=== PATIENT | male | born 1975 | race Caucasian/White ===

== ENCOUNTER 2018-02-22 14:28 | Emergency (ER) | payer SELFPAY ==
[2018-02-22] MEDS ORDERED: DIPHENHYDRAMINE 50 MG/ML VIAL ONE (14:56)
[2018-02-22] MEDS ORDERED: NA CHLORIDE 0.9% 1,000 ML ONE (14:57)
[2018-02-22] MEDS ORDERED: KETOROLAC 30 MG/ML INJ ONE (14:57)
[2018-02-22] MEDS ORDERED: ONDANSETRON 4 MG/2 ML VIAL ONE (14:57)
--- NOTE | 2018-02-22 15:44 | RAD REPORT ---
EXAM DESCRIPTION: CT - Head Brain Wo Cont - 02/22/2018 3:16 pm CLINICAL HISTORY: Headache COMPARISON: 2017 TECHNIQUE: Computed axial tomography of the head was obtained. IV contrast was not requested. All CT scans are performed using dose optimization technique as appropriate and may include automated exposure control or mA/KV adjustment according to patient size. FINDINGS: An intracranial bleed is not seen . The ventricles are normal in caliber. No extra-axial fluid collection is noted. Fluid within the sinuses/ mastoids is not seen. IMPRESSION: No acute intracranial abnormality is seen. If patient's symptoms persist MRI of the bra in would be recommended.
--- NOTE | 2018-02-22 16:08 | ER ---
Nurse's Notes [facility] Name: Rm Hagen Age: 42 yrs Sex: Male : 1975 Arrival Date: 02/22/2018 Time: 14:29 Bed 6 Private MD: Diagnosis: Migraine without aura, intractable Presentation: 02/22 14:32 Presenting complaint: states: migraine since 0500, hx of migraines, vomiting. iw Transition of care: patient was not received from another setting of care. Onset of symptoms was February 22, 2018. Risk Assessment: Do you want to hurt yourself or someone else? Patient reports no desire to harm self or others. Initial Sepsis Screen: Does the patient meet any 2 criteria? No. Patient's initial sepsis screen is negative. Does the patient have a suspected source of infection? No. Patient's initial sepsis screen is negative. Care prior to arrival: Medication(s) given: Tylenol. 14:32 Method Of Arrival: Ambulatory iw 14:32 Acuity: YADIEL 3 iw Triage Assessment: 14:44 General: Appears in no apparent distress. uncomfortable, Behavior is calm, cooperative, hj appropriate for age. Pain: Complains of pain in left anabaptism and right anabaptism and forehead Pain currently is 10 out of 10 on a pain scale. 14:44 EENT: No signs and/or symptoms were reported regarding the EENT system. Neuro: Level of hj Consciousness is awake, alert, obeys commands, Oriented to person, place, time, situation, Appropriate for age Reports headache. Cardiovascular: Capillary refill < 3 seconds Patient's skin is warm and dry. Respiratory: Airway is patent Respiratory effort is even, unlabored, Respiratory pattern is regular, symmetrical. GI: No signs and/or symptoms were reported involving the gastrointestinal system. : No signs and/or symptoms were reported regarding the genitourinary system. Derm: No signs and/or symptoms reported regarding the dermatologic system. Musculoskeletal: No signs and/or symptoms reported regarding the musculoskeletal system. Historical: - Allergies: 14:33 NKA; iw - Home Meds: 14:33 None [Active]; iw - PMHx: 14:33 Migraines; iw - PSHx: 14:33 None; iw - Immunization history:: Adult Immunizations not up to date. - Social history:: Smoking status: Patient/guardian denies using tobacco. - Ebola Screening: : Patient negative for fever greater than or equal to 101.5 degrees Fahrenheit, and additional compatible Ebola Virus Disease symptoms Patient denies exposure to infectious person Patient denies travel to an Ebola-affected area in the 21 days before illness onset No symptoms or risks identified at this time. Screenin:55 Abuse screen: Denies threats or abuse. Denies injuries from another. Nutritional hj screening: On. Tuberculosis screening: No symptoms or risk factors identified. Fall Risk None identified. Assessment: 14:44 Reassessment: see traiage for assessment;. hj Vital Signs: 14:34 BP 145 / 71; Pulse 99; Resp 22 S; Temp 97.9(O); Pulse Ox 98% on R/A; Weight 90.72 kg; iw Height 5 ft. 11 in. (180.34 cm); Pain 10/10; 14:34 Body Mass Index 27.89 (90.72 kg, 180.34 cm) iw ED Course: 14:29 Patient arrived in ED. rg4 14:33 Triage completed. iw 14:34 Arm band placed on. iw 14:44 Gilbert Mendosa MD is Attending Physician. tw4 14:44 Koffi Rosa, CAIN is Primary Nurse. hj 14:44 Patient has correct armband on for positive identification. Placed in gown. Bed in low hj position. Call light in reach. Side rails up X 1. Adult w/ patient. 14:44 Inserted saline lock: 20 gauge in right antecubital area, using aseptic technique. hj 15:18 CT Head Brain wo Cont In Process Unspecified. EDMS 16:46 No provider procedures requiring assistance completed. IV discontinued, intact, hb bleeding controlled, No redness/swelling at site. Pressure dressing applied. Administered Medications: 14:44 Drug: TORadol 30 mg Route: IVP; Site: right antecubital; hj 14:44 Drug: Benadryl 25 mg Route: IVP; Site: right antecubital; hj 14:44 Drug: Zofran 4 mg Route: IVP; Site: right antecubital; hj 14:44 Drug: NS 0.9% 1000 ml Route: IV; Rate: 1 bolus; Site: right antecubital; hj Outcome: 16:07 Discharge ordered by . tw4 16:46 Discharged to home ambulatory, with family. 16:46 Condition: stable 16:46 Discharge instructions given to patient, Instructed on discharge instructions, follow up and referral plans. medication usage, Demonstrated understanding of instructions, follow-up care, medications, Prescriptions given X 2. 16:48 Patient left the ED. Signatures: Dispatcher [employer] EDAnn Hazel RN RN Koffi Rosa RN RN hj Baxter, Heather, RN RN hb Garcia, Rubi rg4 Gilbert Mendosa MD MD tw4
--- NOTE | 2018-02-22 16:08 | EDPHYS ---
Physician Documentation [facility] Name: Rm Hagen Age: 42 yrs Sex: Male : 1975 Arrival Date: 02/22/2018 Time: 14:29 Bed 6 Private MD: ED Physician Gilbert Mendosa HPI: 02/22 15:10 This 42 yrs old Male presents to ER via Ambulatory with complaints of tw4 Migraine. 15:10 The patient complains of pain to the forehead, right hindu and left hindu. The tw4 patient describes the headache as aching, constant. Onset: The symptoms/episode began/occurred gradually. Associated signs and symptoms: The patient has no apparent associated signs or symptoms. Severity of symptoms: At its worst the pain was incapacitating, just prior to arrival, the "worst in my life", in the emergency department the pain is unchanged, a " 10" out of "10". Headache History: The patient has had previous headaches and this one is different than previous episodes, and this one is more severe than previous episodes. The symptoms are alleviated by nothing. the symptoms are aggravated by lights, movement, noise, stress. The patient has not experienced similar symptoms in the past. Historical: - Allergies: 14:33 NKA; iw - Home Meds: 14:33 None [Active]; iw - PMHx: 14:33 Migraines; iw - PSHx: 14:33 None; iw - Immunization history:: Adult Immunizations not up to date. - Social history:: Smoking status: Patient/guardian denies using tobacco. - Ebola Screening: : Patient negative for fever greater than or equal to 101.5 degrees Fahrenheit, and additional compatible Ebola Virus Disease symptoms Patient denies exposure to infectious person Patient denies travel to an Ebola-affected area in the 21 days before illness onset No symptoms or risks identified at this time. ROS: 15:10 Constitutional: Negative for fever, chills, and weight loss, Eyes: Negative for injury, tw4 pain, redness, and discharge, Neck: Negative for injury, pain, and swelling, Cardiovascular: Negative for chest pain, palpitations, and edema, Respiratory: Negative for shortness of breath, cough, wheezing, and pleuritic chest pain, Abdomen/GI: Negative for abdominal pain, nausea, vomiting, diarrhea, and constipation, Back: Negative for injury and pain, MS/Extremity: Negative for injury and deformity, Skin: Negative for injury, rash, and discoloration. 15:10 Neuro: Positive for headache, Negative for altered mental status, dizziness, gait disturbance, loss of consciousness, numbness, seizure activity, speech changes, syncope, near syncope, tinnitus, tremor, visual changes. Exam: 15:10 Constitutional: This is a well developed, well nourished patient who is awake, alert, tw4 and in no acute distress. Head/Face: Normocephalic, atraumatic. Chest/axilla: Normal chest wall appearance and motion. Nontender with no deformity. No lesions are appreciated. Cardiovascular: Regular rate and rhythm with a normal S1 and S2. No gallops, murmurs, or rubs. Normal PMI, no JVD. No pulse deficits. Respiratory: Lungs have equal breath sounds bilaterally, clear to auscultation and percussion. No rales, rhonchi or wheezes noted. No increased work of breathing, no retractions or nasal flaring. Abdomen/GI: Soft, non-tender, with normal bowel sounds. No distension or tympany. No guarding or rebound. No evidence of tenderness throughout. Back: No spinal tenderness. No costovertebral tenderness. Full range of motion. MS/ Extremity: Pulses equal, no cyanosis. Neurovascular intact. Full, normal range of motion. Neuro: Awake and alert, GCS 15, oriented to person, place, time, and situation. Cranial nerves II-XII grossly intact. Motor strength 5/5 in all extremities. Sensory grossly intact. Cerebellar exam normal. Normal gait. Vital Signs: 14:34 BP 145 / 71; Pulse 99; Resp 22 S; Temp 97.9(O); Pulse Ox 98% on R/A; Weight 90.72 kg; iw Height 5 ft. 11 in. (180.34 cm); Pain 10/10; 14:34 Body Mass Index 27.89 (90.72 kg, 180.34 cm) iw MDM: 14:44 Patient medically screened. tw4 15:10 Differential diagnosis: hypertensive headache, intracerebral hemorrhage, migraine, tw4 subarachnoid bleed, subdural hematoma, uremia. Data reviewed: vital signs, nurses notes. 16:06 Counseling: I had a detailed discussion with the patient and/or guardian regarding: the tw4 historical points, exam findings, and any diagnostic results supporting the discharge/admit diagnosis, radiology results. Medication response: Response to treatment: the patient's symptoms have markedly improved after treatment, and as a result, I will discharge patient. Special discussion: I discussed with the patient/guardian in detail that at this point there is no indication for admission to the hospital. It is understood, however, that if the symptoms persist or worsen the patient needs to return immediately for re-evaluation. 02/22 14:50 Order name: CT Head Brain wo Cont; Complete Time: 15:57 tw4 Administered Medications: 14:44 Drug: TORadol 30 mg Route: IVP; Site: right antecubital; hj 14:44 Drug: Benadryl 25 mg Route: IVP; Site: right antecubital; hj 14:44 Drug: Zofran 4 mg Route: IVP; Site: right antecubital; hj 14:44 Drug: NS 0.9% 1000 ml Route: IV; Rate: 1 bolus; Site: right antecubital; Disposition: 02/22/18 16:07 Discharged to Home. Impression: Migraine without aura, intractable. - Condition is Stable. - Discharge Instructions: Recurrent Migraine Headache, Migraine Headache, [id number]. - Prescriptions for Fiorinal 50- 325-40 mg Oral Capsule - take 1 capsule by ORAL route every 4 hours As needed - not to exceed 6 capsules per day; 20 capsule. Imitrex 25 mg Oral Tablet - take 1 tablet by ORAL route one time - x 1 dose with fluids as early as possible after the onset of a migraine attack; if headache returns, the dose may be repeated after 2 hours, not to exceed a total daily dose of 8 tablets;. - Medication Reconciliation Form, Thank You Letter, Antibiotic Education, Prescription Opioid Use form. - Follow up: Private Physician; When: Upon discharge from the Emergency Department; Reason: If symptoms return, Recheck today's complaints, Continuance of care. - Problem is new. - Symptoms have improved. Signatures: Dispatcher [employer] EDAnn Hazel RN RN iw Joaquin, Henry, RN RN hj Baxter, Heather, RN RN hb Wadley, Terrence, MD MD tw4 Corrections: (The following items were deleted from the chart) 15:14 15:10 Constitutional: Negative for fever, chills, and weight loss, Eyes: Negative for tw4 injury, pain, redness, and discharge, Cardiovascular: Negative for chest pain, palpitations, and edema, Respiratory: Negative for shortness of breath, cough, wheezing, and pleuritic chest pain, Abdomen/GI: Negative for abdominal pain, nausea, vomiting, diarrhea, and constipation, MS/Extremity: Negative for injury and deformity, Skin: Negative for injury, rash, and discoloration, Neuro: Negative for headache, weakness, numbness, tingling, and seizure, tw4 16:48 16:07 02/22/2018 16:07 Discharged to Home. Impression: Migraine without aura, hb intractable. Condition is Stable. Forms are Medication Reconciliation Form, Thank You Letter, Antibiotic Education, Prescription Opioid Use. Follow up: Private Physician; When: Upon discharge from the Emergency Department; Reason: If symptoms return, Recheck today's complaints, Continuance of care. Problem is new. Symptoms have improved. tw4
== END 2018-02-22 16:48 | disposition home or self-care (01) ==
LOC: ER 14:28
DX: G43.019 Migraine without aura, intractable, without status migrainosus (principal)
CPT/HCPCS: 70450; 96374; 96375; 99284; J2405; J7030

== ENCOUNTER 2018-04-06 01:09 | Emergency (ER) | payer SELFPAY ==
[2018-04-06] MEDS ORDERED: PANTOPRAZOLE 40 MG INJ ONE (02:00)
[2018-04-06] MEDS ORDERED: MORPHINE 4 MG/ML SYR ONE ×2 (02:00→07:03)
[2018-04-06] MEDS ORDERED: NA CHLORIDE 0.9% 1,000 ML ONE (02:00)
[2018-04-06] MEDS ORDERED: ONDANSETRON 4 MG/2 ML VIAL ONE (02:00)
[2018-04-06 02:13] LABS: Absolute Lymphocytes (CBC) 1.7 K/uL (0.7-4.9); Absolute Monocytes 0.7 K/uL (0.1-1.3); Absolute Neutrophil 3.4 K/uL (1.8-8.0); Basophils % 0.8 % (0-1.3); Eosinophils % 2.2 % (0-4.4); Hematocrit 43.2 % (39.6-49.0); Lymphocytes % 28.1 % (15.3-44.8); MPV 9.3 fL (7.6-11.3); Monocytes % 11.5 % (3.3-12.3); RBC Red Blood Cell Count 5.08 M/uL (4.33-5.43)
[2018-04-06 02:14] LABS: Protime INR 1.02
[2018-04-06 02:32] LABS: Albumin 4.4 g/dL (3.4-5.0); Alkaline Phosphatase 234 U/L (45-117); BUN Blood Urea Nitrogen 18 mg/dL (7-18); Bicarbonate 25 mmol/L (21-32); Bilirubin Total 4.3 mg/dL (0.2-1.0); Glucose Level 130 mg/dL (74-106); Lipase 307 U/L (73-393); Magnesium 1.9 mg/dL (1.8-2.4); NT PRO-BNP 44 pg/mL (<125); Potassium 3.2 mmol/L (3.5-5.1); Protein, Total 8.2 g/dL (6.4-8.2); Sodium Level 142 mmol/L (136-145); Troponin (Emerg Dept Use Only) < 0.02 ng/mL (0.0-0.045)
[2018-04-06 02:33] LABS: ALT/SGPT 632 U/L (12-78); AST/SGOT 371 U/L (15-37)
[2018-04-06] MEDS ORDERED: PIPER/TAZO/NS 3.375gm 3.375 GM/100 ML BAG ONE (02:57)
--- NOTE | 2018-04-06 04:06 | ER ---
Nurse's Notes [facility] Name: Rm Hagen Age: 42 yrs Sex: Male : 1975 Arrival Date: 04/06/2018 Time: 01:10 Bed 7 Private MD: Diagnosis: Abdominal tenderness;Cholelithiasis;Cholecystitis Presentation: 04/06 01:24 Presenting complaint: states: "He isn't sure if it is his gastritis or something jd3 else, but he has been nauseous vomiting and diarrhea for about a week with extreme stomach pain.". Transition of care: patient was not received from another setting of care. Onset of symptoms was March 31, 2018. Risk Assessment: Do you want to hurt yourself or someone else? Patient reports no desire to harm self or others. Initial Sepsis Screen: Does the patient meet any 2 criteria? No. Patient's initial sepsis screen is negative. Does the patient have a suspected source of infection? No. Patient's initial sepsis screen is negative. Care prior to arrival: None. 01:24 Method Of Arrival: Ambulatory jd3 01:24 Acuity: YADIEL 3 jd3 Historical: - Allergies: 01:27 NKA; jd3 - Home Meds: 01:27 None [Active]; jd3 - PMHx: 01:27 Migraines; gastritis; jd3 - PSHx: 01:27 None; jd3 - Immunization history:: Adult Immunizations up to date. - Social history:: Smoking status: Patient/guardian denies using tobacco. - Ebola Screening: : Patient negative for fever greater than or equal to 101.5 degrees Fahrenheit, and additional compatible Ebola Virus Disease symptoms. - Family history:: not pertinent. Screenin:27 Abuse screen: Denies threats or abuse. Nutritional screening: No deficits noted. jd3 Tuberculosis screening: No symptoms or risk factors identified. Fall Risk Ambulatory Aid- None/Bed Rest/Nurse Assist (0 pts). Gait- Weak (10 pts.). Mental Status- Oriented to own ability (0 pts). Total [place] Fall Scale indicates No Risk (0-24 pts). Assessment: 01:30 General: Appears in no apparent distress. uncomfortable, Behavior is cooperative, aa1 appropriate for age, restless. Pain: Complains of pain in left upper quadrant and right upper quadrant and epigastric area. Neuro: Level of Consciousness is awake, alert, obeys commands, Oriented to person, place, time, situation, Gait is steady, Speech is normal. Cardiovascular: Heart tones S1 S2 present. Respiratory: Airway is patent Respiratory effort is even, unlabored, Respiratory pattern is regular, symmetrical. GI: Abdomen is non-distended, Bowel sounds present X 4 quads. Abd is soft X 4 quads Reports upper abdominal pain, nausea, vomiting. : No signs and/or symptoms were reported regarding the genitourinary system. EENT: No signs and/or symptoms were reported regarding the EENT system. Derm: Skin is intact, is healthy with good turgor, Skin is pink, warm \\T\\ dry. Musculoskeletal: Circulation, motion, and sensation intact. Capillary refill < 3 seconds. 02:00 Reassessment: CT notified of patient completing oral contrast at this time. lp1 03:25 Reassessment: Patient appears in no apparent distress at this time. Patient and/or aa1 family updated on plan of care and expected duration. Pain level reassessed. Patient is alert, oriented x 3, equal unlabored respirations, skin warm/dry/pink. Awaiting CT results. 04:30 Reassessment: Patient appears in no apparent distress at this time. Patient is alert, rr5 oriented x 3, equal unlabored respirations, skin warm/dry/pink. potassium level is 3.2. NS + 20KCL \\T\\ 125ml/hr IV started. 05:50 Reassessment: Patient appears in no apparent distress at this time. Patient is alert, rr5 oriented x 3, equal unlabored respirations, skin warm/dry/pink. agreed for the transfer to [facility]. [facility] will come after 0730 H today. Patient states symptoms have improved. 06:40 Reassessment: Patient appears in no apparent distress at this time. ED provider rr5 informed for the heart rate. no complaints made denies any chest pain. 06:50 Reassessment: Patient appears in no apparent distress at this time. complaining of rr5 abdominal pain pain score of 7/10. 06:59 Reassessment: Patient appears in no apparent distress at this time. Patient is alert, rr5 oriented x 3, equal unlabored respirations, skin warm/dry/pink. Patient denies pain at this time. Patient states feeling better. Patient states symptoms have improved. 07:00 Reassessment: RECD REPORT FROM JUAN JOSE BARLOW. 42YO WM P/W ABD PAIN. XFER TO [facility] FOR bp CHOLELITHIASIS AND CHOLECYSTITIS IN PROCESS. TRANSPORT PENDING. 07:18 Reassessment: Pt sitting up in bed. Pt reports pain has improved, pt rates pain a 5 out aa5 of 10 on a pain scale. A\\T\\Ox4, equal and unlabored respirations, skin is pink/warm/dry. Pt notified of wait time for EMS for transfer, pt verbalizes understanding. . 07:57 Reassessment: [facility] AT B/S, PT [facility]. bp Vital Signs: 01:27 BP 136 / 88; Pulse 69; Resp 22 S; Temp 97.7(O); Pulse Ox 99% on R/A; Weight 99.79 kg jd3 (R); Height 5 ft. 11 in. (180.34 cm) (R); Pain 10/10; 02:30 BP 122 / 78; Pulse 59; Resp 20; Pulse Ox 99% on R/A; aa1 03:30 BP 103 / 63; Pulse 60; Resp 16; Pulse Ox 98% ; rr5 04:30 BP 104 / 60; Pulse 59; Resp 16; Pulse Ox 97% ; rr5 05:30 BP 122 / 76; Pulse 56; Resp 16; Pulse Ox 99% ; rr5 06:50 BP 128 / 71; Pulse 51; Resp 17; Pulse Ox 99% ; rr5 07:00 BP 122 / 75; Pulse 44; Resp 14; Temp 97.1; Pulse Ox 100% ; bp 01:27 Body Mass Index 30.68 (99.79 kg, 180.34 cm) jd3 ED Course: 01:10 Patient arrived in ED. am2 01:19 Calista Jay, CAIN is Primary Nurse. aa1 01:26 Triage completed. jd3 01:27 Arm band placed on. jd3 01:28 Patient has correct armband on for positive identification. Bed in low position. Call jd3 light in reach. Side rails up X 1. Adult w/ patient. 01:33 Aric Nicole MD is Attending Physician. piter 01:55 Inserted saline lock: 20 gauge in right forearm, using aseptic technique. Blood lp1 collected. 02:05 X-ray completed. Portable x-ray completed in exam room. Patient tolerated procedure kw well. 02:05 XRAY Chest (1 view) In Process Unspecified. EDMS 02:[address] via wheelchair. kw1 03:06 CT Abd/Pelvis - W/Contrast In Process Unspecified. EDMS 03:06 CT completed. Patient tolerated procedure well. Patient moved back from CT. kw1 04:00 classroom monitor on. Pulse ox on. NIBP on. rr5 04:23 Raymundo Roe, CAIN is Primary Nurse. rr5 06:40 No provider procedures requiring assistance completed. Patient transferred, IV remains rr5 in place. intact, bleeding controlled, No redness/swelling at site. Administered Medications: 01:55 Drug: NS 0.9% 1000 ml Route: IV; Rate: 1 bolus; Site: right forearm; ed1 04:00 Follow up: Response: No adverse reaction; IV Status: Completed infusion; IV Intake: rr5 1000ml 01:56 Drug: ProTONIX 40 mg Route: IVP; Site: right forearm; ed1 07:09 Follow up: Response: No adverse reaction rr5 01:56 Drug: morphine 4 mg Route: IVP; Site: right forearm; ed1 07:09 Follow up: Response: No adverse reaction rr5 01:57 Drug: Zofran 4 mg Route: IVP; Site: right forearm; ed1 07:09 Follow up: Response: No adverse reaction rr5 03:10 Drug: Zosyn 3.375 grams Route: IVPB; Infused Over: 60 mins; Site: right forearm; aa1 04:06 Follow up: Response: No adverse reaction; IV Status: Completed infusion ed1 04:29 Drug: NS 0.9% with KCl 20 mEq/L 1000 ml Route: IV; Rate: 125 ml/hr; Site: right forearm;rr5 07:10 Follow up: IV Status: Infusion continued rr5 07:56 Follow up: IV Status: Infusion continued upon transfer bp 06:53 Drug: morphine 4 mg Route: IVP; Site: right forearm; rr5 07:56 Follow up: Response: Pain is decreased bp Intake: 04:00 IV: 1000ml; Total: 1000ml. rr5 Outcome: 04:06 ER care complete, transfer ordered by [facility] 05:30 Transferred by ground EMS [place] [facility]. rr5 Note: handover to [facility] staff 05:30 Condition: stable 05:30 Instructed on the need for transfer. 07:58 Patient left the ED. bp Signatures: Dispatcher [employer] EDCalista Garcia RN RN aa1 Aric Nicole MD MD cha Calderon, Audri, RN RN aa5 Catherine Johns RN RN ed1 Gala Mojica Laura, RN RN lp1 Omaira Gordillo am2 Severino Bryson RN RN jd3 Ruddy Jett RN RN bp Hazel Hendrix kw1 Raymundo Roe RN RN rr5 Corrections: (The following items were deleted from the chart) 07:11 07:05 Reassessment: Patient appears in no apparent distress at this time. Patient is rr5 alert, oriented x 3, equal unlabored respirations, skin warm/dry/pink. Patient denies pain at this time. Patient states feeling better. Patient states symptoms have improved. rr5 07:16 07:00 BP 122 / 75; Pulse 44bpm; Resp 14bpm; Pulse Ox 100%; bp bp
--- NOTE | 2018-04-06 04:07 | EDPHYS ---
Physician Documentation [facility] Name: Rm Hagen Age: 42 yrs Sex: Male : 1975 Arrival Date: 04/06/2018 Time: 01:10 Bed 7 Private MD: ED Physician Aric Nicole HPI: 04/06 01:46 This 42 yrs old Male presents to ER via Ambulatory with complaints of piter Abdominal Pain, Vomiting. 01:46 The patient presents to the emergency department with nausea, vomiting, abdominal pain, piter of the epigastric area, right upper quadrant and left upper quadrant. Onset: The symptoms/episode began/occurred 2 day(s) ago. Possible causes: unknown. The symptoms are aggravated by nothing. The symptoms are alleviated by food . Associated signs and symptoms: The patient has no apparent associated signs or symptoms. Severity of symptoms: At their worst the symptoms were moderate in the emergency department the symptoms are unchanged. The patient has not experienced similar symptoms in the past. Historical: - Allergies: 01:27 NKA; jd3 - Home Meds: : None [Active]; jd3 - PMHx: :27 Migraines; gastritis; jd3 - PSHx: :27 None; jd3 - Immunization history:: Adult Immunizations up to date. - Social history:: Smoking status: Patient/guardian denies using tobacco. - Ebola Screening: : Patient negative for fever greater than or equal to 101.5 degrees Fahrenheit, and additional compatible Ebola Virus Disease symptoms. - Family history:: not pertinent. ROS: 01:46 Constitutional: Negative for fever, chills, and weight loss, Eyes: Negative for injury, piter pain, redness, and discharge, ENT: Negative for injury, pain, and discharge, Neck: Negative for injury, pain, and swelling, Cardiovascular: Negative for chest pain, palpitations, and edema, Respiratory: Negative for shortness of breath, cough, wheezing, and pleuritic chest pain, Back: Negative for injury and pain, : Negative for injury, bleeding, discharge, and swelling, MS/Extremity: Negative for injury and deformity, Skin: Negative for injury, rash, and discoloration, Neuro: Negative for headache, weakness, numbness, tingling, and seizure, Psych: Negative for depression, anxiety, suicide ideation, homicidal ideation, and hallucinations, Allergy/Immunology: Negative for hives, rash, and allergies, Endocrine: Negative for neck swelling, polydipsia, polyuria, polyphagia, and marked weight changes, Hematologic/Lymphatic: Negative for swollen nodes, abnormal bleeding, and unusual bruising. 01:46 Abdomen/GI: Positive for abdominal pain, nausea and vomiting, abdominal cramps, of the epigastric area, right upper quadrant and left upper quadrant. Exam: 01:46 Constitutional: This is a well developed, well nourished patient who is awake, alert, piter and in no acute distress. Head/Face: Normocephalic, atraumatic. Eyes: Pupils equal round and reactive to light, extra-ocular motions intact. Lids and lashes normal. Conjunctiva and sclera are non-icteric and not injected. Cornea within normal limits. Periorbital areas with no swelling, redness, or edema. ENT: Nares patent. No nasal discharge, no septal abnormalities noted. Tympanic membranes are normal and external auditory canals are clear. Oropharynx with no redness, swelling, or masses, exudates, or evidence of obstruction, uvula midline. Mucous membranes moist. Neck: Trachea midline, no thyromegaly or masses palpated, and no cervical lymphadenopathy. Supple, full range of motion without nuchal rigidity, or vertebral point tenderness. No Meningismus. Chest/axilla: Normal chest wall appearance and motion. Nontender with no deformity. No lesions are appreciated. Cardiovascular: Regular rate and rhythm with a normal S1 and S2. No gallops, murmurs, or rubs. Normal PMI, no JVD. No pulse deficits. Respiratory: Lungs have equal breath sounds bilaterally, clear to auscultation and percussion. No rales, rhonchi or wheezes noted. No increased work of breathing, no retractions or nasal flaring. Back: No spinal tenderness. No costovertebral tenderness. Full range of motion. Male : Normal genitalia with no discharge or lesions. Skin: Warm, dry with normal turgor. Normal color with no rashes, no lesions, and no evidence of cellulitis. 01:46 Abdomen/GI: Inspection: abdomen appears normal, Bowel sounds: normal, Palpation: moderate abdominal tenderness, in the epigastric area, right upper quadrant and left upper quadrant, Liver: no appreciated palpable abnormalities, Hernia: not appreciated. Vital Signs: 01:27 BP 136 / 88; Pulse 69; Resp 22 S; Temp 97.7(O); Pulse Ox 99% on R/A; Weight 99.79 kg jd3 (R); Height 5 ft. 11 in. (180.34 cm) (R); Pain 10/10; 02:30 BP 122 / 78; Pulse 59; Resp 20; Pulse Ox 99% on R/A; aa1 03:30 BP 103 / 63; Pulse 60; Resp 16; Pulse Ox 98% ; rr5 04:30 BP 104 / 60; Pulse 59; Resp 16; Pulse Ox 97% ; rr5 05:30 BP 122 / 76; Pulse 56; Resp 16; Pulse Ox 99% ; rr5 06:50 BP 128 / 71; Pulse 51; Resp 17; Pulse Ox 99% ; rr5 07:00 BP 122 / 75; Pulse 44; Resp 14; Temp 97.1; Pulse Ox 100% ; bp 01:27 Body Mass Index 30.68 (99.79 kg, 180.34 cm) jd3 MDM: 01:33 Patient medically screened. [facility] 01:50 Data reviewed: vital signs, nurses notes, lab test result(s), EKG, radiologic studies, [facility] CT scan, plain films. 04/06 01:45 Order name: Basic Metabolic Panel; Complete Time: 04:01 [facility] 04/06 01:45 Order name: CBC with Diff; Complete Time: 02:33 piter 04/06 01:45 Order name: LFT's; Complete Time: 04:01 [facility] 04/06 01:45 Order name: Magnesium; Complete Time: 04:01 [facility] 04/06 01:45 Order name: NT PRO-BNP; Complete Time: 04:01 [facility] 04/06 01:45 Order name: PT-INR; Complete Time: 02:33 [facility] 04/06 01:45 Order name: Troponin (emerg Dept Use Only); Complete Time: 04:01 [facility] 04/06 01:45 Order name: XRAY Chest (1 view) [facility] 04/06 01:45 Order name: Lipase; Complete Time: 04:01 piter 04/06 01:45 Order name: CT Abd/Pelvis - W/Contrast [facility] 04/06 03:18 Order name: Acetaminophen Level; Complete Time: 04:01 EDMS 04/06 01:45 Order name: EKG; Complete Time: 01:46 piter 04/06 01:45 Order name: Cardiac monitoring; Complete Time: 02:05 piter 04/06 01:45 Order name: EKG - Nurse/Tech; Complete Time: 02:04 piter 04/06 01:45 Order name: IV Saline Lock; Complete Time: 01:55 piter 04/06 01:45 Order name: Labs collected and sent; Complete Time: 01:55 piter 04/06 01:45 Order name: O2 Per Protocol; Complete Time: 02:04 piter 04/06 01:45 Order name: O2 Sat Monitoring; Complete Time: 02:04 [facility] Administered Medications: 01:55 Drug: NS 0.9% 1000 ml Route: IV; Rate: 1 bolus; Site: right forearm; ed1 04:00 Follow up: Response: No adverse reaction; IV Status: Completed infusion; IV Intake: rr5 1000ml 01:56 Drug: ProTONIX 40 mg Route: IVP; Site: right forearm; ed1 07:09 Follow up: Response: No adverse reaction rr5 01:56 Drug: morphine 4 mg Route: IVP; Site: right forearm; ed1 07:09 Follow up: Response: No adverse reaction rr5 01:57 Drug: Zofran 4 mg Route: IVP; Site: right forearm; ed1 07:09 Follow up: Response: No adverse reaction rr5 03:10 Drug: Zosyn 3.375 grams Route: IVPB; Infused Over: 60 mins; Site: right forearm; aa1 04:06 Follow up: Response: No adverse reaction; IV Status: Completed infusion ed1 04:29 Drug: NS 0.9% with KCl 20 mEq/L 1000 ml Route: IV; Rate: 125 ml/hr; Site: right forearm;rr5 07:10 Follow up: IV Status: Infusion continued rr5 07:56 Follow up: IV Status: Infusion continued upon transfer bp 06:53 Drug: morphine 4 mg Route: IVP; Site: right forearm; rr5 07:56 Follow up: Response: Pain is decreased bp Disposition: 04/06/18 04:[address] [facility]. Diagnosis are Abdominal tenderness, Cholelithiasis, Cholecystitis. - Reason for transfer: Higher level of care. - Accepting physician is to [facility]. - Condition is Stable. - Problem is new. - Symptoms have improved. Signatures: Dispatcher [employer] EDUT Calista Jay RN RN aa1 Aric Nicole MD MD cha Riggs, Erika, RN RN ed1 Kita Ramos RN RN lp1 Severino Bryson, RN RN jd3 Ruddy Jett, RN RN bp Raymundo Roe, RN RN rr5 Corrections: (The following items were deleted from the chart) 03:17 02:37 ACETAMINOPHEN+C.LAB.BRZ ordered. EDUT EDMS 07:58 04:06 04/06/2018 04:[address] [facility]. Diagnosis is bp Abdominal tenderness; Cholelithiasis; Cholecystitis. Reason for transfer: Higher level of care. Accepting physician is to [facility]. Condition is Stable. Problem is new. Symptoms have improved. piter
[2018-04-06] MEDS ORDERED: NS KCL 20MEQ 1,000 ML IV ONE (04:36)
--- NOTE | 2018-04-06 08:31 | RAD REPORT ---
EXAM DESCRIPTION: RAD - Chest Single View - 04/06/2018 2:05 am CLINICAL HISTORY: ABDOMINAL DISTENTION Chest pain. COMPARISON: Chest Single View dated 03/01/2016; CHEST SINGLE VIEW dated 04/11/2010; CHEST PA AND LAT 2 VIEW dated 08/28/2001 FINDINGS: Portable technique limits examination quality. The lungs are grossly clear. The heart is normal in size. No displaced fractures. IMPRESSION: No acute intrathoracic process suspected.
--- NOTE | 2018-04-06 10:31 | EKG ---
Test Date: 2018-03-06 Test Time: 01:56:19 [employer] Combiner: RISHABH MEASUREMENT RESULTS: Intervals: Rate: 60 VT: 152 QRSD: 98 QT: 404 QTc: 404 Morgan: P: 47 VT: 152 QRS: -6 T: 14 INTERPRETIVE STATEMENTS: Normal sinus rhythm Septal infarct, age undetermined Abnormal ECG Compared to ECG 03/01/2016 08:47:22 Sinus bradycardia no longer present Myocardial infarct finding still present Electronically Signed On 04-06-18 10:30:15 [employer] by Narinder Whitten
--- NOTE | 2018-04-06 20:20 | RAD REPORT ---
EXAM DESCRIPTION: Abdomen and Pelvis With Intravenous Contrast. CLINICAL HISTORY: The patient is 42 years old and is Male; ABD PAIN COMPARISON: None. TECHNIQUE: Axial computed tomography images of the abdomen and pelvis without intravenous contrast. Sagittal and coronal reformatted images were created and reviewed. This CT exam was performed using o ne or more of the following dose reduction techniques: Automated exposure control, adjustment of the mA and/or kV according to patient size, and/or use of iterative reconstruction technique. FINDINGS: LUNG BASES: Unremarkable. No mass. No consolidation. ABDOMEN: LIVER: Intra and extrahepatic biliary ductal dilation. GALLBLADDER AND BILE DUCTS: Gallbladder wall thickening and mild pericholecystic fluid. No definitive radiopaque gallstones. PANCREAS: Unremarkable. No mass. No ductal dilation. SPLEEN: Unremarkable. No splenomegaly. ADRENALS: Unremarkable. No mass. KIDNEYS AND URETERS: Unremarkable. No solid mass. No hydronephrosis. STOMACH AND BOWEL: Enteric contrast is seen within the stomach and small bowel. No obstruction. No mucosal thickening. PELVIS: APPENDIX: No findings to suggest acute appendicitis. BLADDER: Unremarkable. No mass. REPRODUCTIVE: Unremarkable as visualized. ABDOMEN and PELVIS: INTRAPERITONEAL SPACE: Unremarkable. No free air. No significant fluid collection. BONE/JOINTS: No acute fracture. No dislocation. SOFT TISSUES: Small fat-containing inguinal hernia. VASCULATURE: Unremarkable. No abdominal aortic aneurysm. LYMPH NODES: Unremarkable. No enlarged lymph nodes. IMPRESSION: Gallbladder wall thickening, pericholecystic fluid and associated intra-/extrahepatic du ctal dilatation. Further evaluation with right upper quadrant ultrasound is recommended. MRCP may be of diagnostic use. Electronically signed by: Crispin Bond DO 04/06/2018 3:35 AM HOTEL OPERATIONS MANAGER Due to temporary technical issues with the [employer] reporting system, reports are being signed by the in house radiologist as a courtesy to ensure prompt reporting. The interpreting radiologist is nate marcus responsible for the content of the report. ADDENDUM: Findings were discussed by: Dr. Bond via telephone with Aric Nicole on 04/06/2018 3:50 AM HOTEL OPERATIONS MANAGER Electronically signed by: Crispin Bond DO 04/06/2018 3:51 AM HOTEL OPERATIONS MANAGER Due to temporary technical issues with the [employer] reporting system, reports are being signed by the in house radiologist as a courtesy to ensure prompt reporting. The interpreting radiologist is nate marcus responsible for the content of the report.
== END 2018-04-06 07:58 | disposition short-term general hospital (02) ==
LOC: ER 01:09
DX: K80.10 Calculus of gallbladder with chronic cholecystitis without obstruction (principal)
CPT/HCPCS: 36415; 71045; 74177; 80048; 80076; 80329; 83690; 83735; 83880; 84484; 85025; 85610; 93005; 96361; 96365; 96375; 99285; C9113; J2405; J2543; J7030; Q9967

== ENCOUNTER 2018-04-17 04:31 | Emergency (ER) | payer SELFPAY ==
--- OUTSIDE RECORDS SUMMARY | 2018-04-17 04:33 | XMS REPORT | Clinical Summary ---
:1975 Author Organization [facility] Address [address] [place] [address] Care Team Providers Name Role Phone Unavailable Primary Care Provider Unavailable Allergies No Known Allergies Medications Medication Sig Dispensed Refills Start Date End Date Status [id number] Take 1 capsule 0 02/26/2018 Active ffeine (FIORINAL) by mouth every 50-325-40 mg per 4 (four) hours capsule as needed. SUMAtriptan (IMITREX) TAKE 1 TABLET 0 02/26/2018 Active 25 MG tablet BY MOUTH ONE TIME WITH FLUIDS EARLY POSSIBLE AFTER ONSET OF MIGRAINE. gabapentin Take 1 capsule 30 capsule 0 04/10/2018 04/20/2018 Active (NEURONTIN) 300 MG (300 mg total) capsule by mouth 3 (three) times daily for 10 days. levoFLOXacin Take 1 tablet 3 tablet 0 04/11/2018 04/14/2018 (LEVAQUIN) 500 MG (500 mg total) tablet by mouth daily for 3 days. metroNIDAZOLE Take 1 tablet 9 tablet 0 04/10/2018 04/13/2018 (FLAGYL) 500 MG (500 mg total) tablet by mouth every 8 (eight) hours for 3 days. Active Problems Problem Noted Date Elevated liver function tests 04/06/2018 Encounters Date Type Specialty Care Team Description 04/08/2018 Anesthesia Event Logan Moore MD 04/08/2018 Surgery Jaylene Daugherty,NICOLE Blevins MD TECTOMY 04/06/2018 Anesthesia Event Gastroenterology Jayna Gonzalez CRNA 04/06/2018 Surgery Gastroenterology Jefferson Hillman ERCP,PAPILLOTOMY MD [place] 04/06/2018 [facility] Internal [place], Elevated liver function tests; - Encounter Medicine Cherie Chan MD Acute cholecystitis; 04/10/2018 [place], Calculus of bile duct without cholecystitis with obstruction; [place] Symptomatic cholelithiasis MD Katelin Vasques, Akila Beebe MD 04/06/2018 Travel after 04/16/2017 Social History Tobacco Use Types Packs/Day Years Used Date Former Smoker Pipe 2 Quit: 04/06/2006 Smokeless Tobacco: Former User Chew Quit: 04/06/2006 Alcohol Use Drinks/Week oz/Week Comments No Alcohol Habits Answer Date Recorded How often do you have a drink containing alcohol? Never 04/06/2018 How many drinks containing alcohol do you have on a typical Not asked day when you are drinking? How often do you have six or more drinks on one occasion? Not asked Sex Assigned at Date Recorded Not on file Job Start Date Occupation Industry Not on file Not on file Not on file Travel History Travel Start Travel End No recent travel history available. Last Filed Vital Signs Vital Sign Reading Time Taken Blood Pressure 102/50 04/10/2018 7:19 AM MOLD CLEANER Pulse 59 04/10/2018 7:19 AM [employer]OLD CLEANER Temperature 36.2 C (97.1 F) 04/10/2018 7:19 AM MOLD CLEANER Respiratory Rate 18 04/10/2018 7:19 AM MOLD CLEANER Oxygen Saturation 99% 04/10/2018 7:19 AM MOLD CLEANER Inhaled Oxygen Concentration 2% 04/08/2018 2:15 PM MOLD CLEANER Weight 96.6 kg (213 lb) 04/10/2018 9:27 AM MOLD CLEANER Height 180.3 cm (5' 11") 04/10/2018 9:27 AM MOLD CLEANER Body Mass Index 29.71 04/10/2018 9:27 AM MOLD CLEANER Plan of Treatment Not on file Procedures Procedure Name Priority Date/Time Associated Diagnosis Comments CBC W/PLT COUNT & Routine 04/10/2018 Results for AUTO DIFFERENTIAL 4:25 AM MOLD CLEANER this procedure are in the results section. HEPATIC FUNCTION Routine 04/10/2018 Results for PANEL 4:25 AM MOLD CLEANER this procedure are in the results section. BASIC METABOLIC Routine 04/10/2018 Results for PANEL (7) 4:25 AM MOLD CLEANER this procedure are in the results section. CBC W/PLT COUNT & Routine 04/10/2018 Results for AUTO DIFFERENTIAL 4:25 AM MOLD CLEANER this procedure are in the results section. CBC W/PLT COUNT & Routine 04/09/2018 Results for AUTO DIFFERENTIAL 5:51 AM MOLD CLEANER this procedure are in the results section. HEPATIC FUNCTION Routine 04/09/2018 Results for PANEL 5:51 AM MOLD CLEANER this procedure are in the results section. CBC W/PLT COUNT & Routine 04/09/2018 Results for AUTO DIFFERENTIAL 5:51 AM MOLD CLEANER this procedure are in the results section. BASIC METABOLIC Routine 04/09/2018 Results for PANEL (7) 5:51 AM MOLD CLEANER this procedure are in the results section. PHOSPHORUS Routine 04/09/2018 Results for 4:12 AM MOLD CLEANER this procedure are in the results section. MAGNESIUM Routine 04/09/2018 Results for 4:12 AM MOLD CLEANER this procedure are in the results section. TRANSFUSION SERVICE 04/08/2018 REPORT - SCAN 6:01 PM MOLD CLEANER ANAEROBIC CULTURE Routine 04/08/2018 Results for 12:21 PM MOLD CLEANER this procedure are in the results section. SURGICALLY OBTAINED Routine 04/08/2018 Results for CULTURE + GRAM 12:21 PM MOLD CLEANER this procedure STAIN are in the results section. TISSUE EXAM AP Routine 04/08/2018 Results for 12:21 PM MOLD CLEANER this procedure are in the results section. LAPAROSCOPY,CHOLECY 04/08/2018 Choledocholithiasis STECTOMY 9:00 AM MOLD CLEANER CBC W/PLT COUNT & Routine 04/08/2018 Results for AUTO DIFFERENTIAL 4:41 AM MOLD CLEANER this procedure are in the results section. HEPATIC FUNCTION Routine 04/08/2018 Results for PANEL 4:41 AM MOLD CLEANER this procedure are in the results section. CBC W/PLT COUNT & Routine 04/08/2018 Results for AUTO DIFFERENTIAL 4:41 AM MOLD CLEANER this procedure are in the results section. PHOSPHORUS Routine 04/08/2018 Results for 4:41 AM MOLD CLEANER this procedure are in the results section. MAGNESIUM Routine 04/08/2018 Results for 4:41 AM MOLD CLEANER this procedure are in the results section. BASIC METABOLIC Routine 04/08/2018 Results for PANEL (7) 4:41 AM MOLD CLEANER this procedure are in the results section. TRANSFUSION SERVICE 04/07/2018 REPORT - SCAN 6:01 PM MOLD CLEANER REPORT OF PROCEDURE 04/07/2018 - ENDOSCOPY URL 3:48 PM MOLD CLEANER CBC W/PLT COUNT & Routine 04/07/2018 Results for AUTO DIFFERENTIAL 8:04 AM MOLD CLEANER this procedure are in the results section. ABORH, MANUAL STAT 04/07/2018 Results for 8:04 AM MOLD CLEANER this procedure are in the results section. LIPASE Routine 04/07/2018 Results for 8:04 AM MOLD CLEANER this procedure are in the results section. HEPATIC FUNCTION Routine 04/07/2018 Results for PANEL 8:04 AM MOLD CLEANER this procedure are in the results section. CBC W/PLT COUNT & Routine 04/07/2018 Results for AUTO DIFFERENTIAL 8:04 AM MOLD CLEANER this procedure are in the results section. PHOSPHORUS Routine 04/07/2018 Results for 8:04 AM MOLD CLEANER this procedure are in the results section. MAGNESIUM Routine 04/07/2018 Results for 8:04 AM MOLD CLEANER this procedure are in the results section. BASIC METABOLIC Routine 04/07/2018 Results for PANEL (7) 8:04 AM MOLD CLEANER this procedure are in the results section. US ABDOMEN COMPLETE STAT 04/07/2018 Results for 6:51 AM MOLD CLEANER this procedure are in the results section. TYPE AND SCREEN, Routine 04/06/2018 Results for AUTOMATED 9:54 PM MOLD CLEANER this procedure are in the results section. FL ERCP Routine 04/06/2018 Results for 3:05 PM MOLD CLEANER this procedure are in the results section. ERCP,BALLOON 04/06/2018 Gall stones, common bile SWEEPING 2:00 PM MOLD CLEANER duct Special Needs ercp w/ anes and fluoro PROCEDURE W/ C-ARM 04/06/2018 2:00 PM MOLD CLEANER Gall stones, common bile duct Special Needs ercp w/ anes and fluoro ERCP,PAPILLOTOMY 04/06/2018 2:00 PM MOLD CLEANER Gall stones, common bile duct Special Needs ercp w/ anes and fluoro BLOOD CULTURE Routine 04/06/2018 12:44 PM MOLD CLEANER CBC W/PLT COUNT & AUTO Routine 04/06/2018 11:19 AM MOLD CLEANER Results for this DIFFERENTIAL procedure are in the results section. PROTHROMBIN TIME/INR STAT 04/06/2018 11:19 AM MOLD CLEANER COMPREHENSIVE METABOLIC STAT 04/06/2018 11:19 AM MOLD CLEANER Results for this PANEL procedure are in the results section. LIPASE Routine 04/06/2018 11:19 AM MOLD CLEANER AMYLASE Routine 04/06/2018 11:19 AM MOLD CLEANER HEPATITIS PANEL, ACUTE Routine 04/06/2018 11:19 AM MOLD CLEANER CBC W/PLT COUNT & AUTO Routine 04/06/2018 11:19 AM MOLD CLEANER Results for this DIFFERENTIAL procedure are in the results section. LIPID PANEL Routine 04/06/2018 11:19 AM MOLD CLEANER BASIC METABOLIC PANEL (7) Routine 04/06/2018 11:19 AM MOLD CLEANER BLOOD CULTURE Routine 04/06/2018 11:18 AM MOLD CLEANER after 04/16/2017 Results CBC with platelet count + automated diff (04/10/2018 4:25 AM MOLD CLEANER)Only the most recent of5 resultswithin the time period is included. WBC 5.9 3.5 - 10.5 K/L [facility] RBC 4.17 (L) 4.63 - 6.08 M/L [facility] Hemoglobin 11.7 (L) 13.7 - 17.5 GM/DL [facility] Hematocrit 36.8 (L) 40.1 - 51.0 % [facility] MCV 88.2 79.0 - 92.2 fL [facility] MCH 28.1 25.7 - 32.2 pg [facility] MCHC 31.8 (L) 32.3 - 36.5 GM/DL [facility] RDW 12.8 11.6 - 14.4 % [facility] Platelets 182 150 - 450 K/CU MM [facility] MPV 10.9 9.4 - 12.4 fL [facility] nRBC 0 0 - 0 /100 WBC [facility] % Neutros 56 % [facility] % Lymphs 29 % [facility] % Monos 12 % [facility] % Eos 2 % [facility] % Baso 1 % [facility] # Neutros 3.28 1.78 - 5.38 K/L [facility] # Lymphs 1.73 1.32 - 3.57 K/L [facility] # Monos 0.70 0.30 - 0.82 K/L [facility] # Eos 0.14 0.04 - 0.54 K/L [facility] # Baso 0.03 0.01 - 0.08 K/L [facility] Immature Granulocytes-Relative 0 0 - 1 % [facility] Specimen Blood - Arm, Left Performing Organization Address City/[facility] Phone Number [address] [address] [phone] [place] Hepatic function panel (04/10/2018 4:25 AM MOLD CLEANER)Only the most recent of4 resultswithin the time period is included. Protein, Total 6.3 6.0 - 8.3 gm/dL [facility] Albumin 3.6 3.5 - 5.0 g/dL [facility] Total Bilirubin 0.8 0.2 - 1.2 mg/dL [facility] Bilirubin, Direct 0.5 0.1 - 0.5 mg/dL [facility] Alkaline Phosphatase 111 40 - 150 U/L [facility] AST 76 (H) 5 - 34 U/L [facility] ALT 261 (H) 6 - 55 U/L [facility] Specimen Blood - Arm, Left Performing Organization Address City/[facility] Phone Number [address] [address] [place] Basic Metabolic Panel (04/10/2018 4:25 AM MOLD CLEANER)Only the most recent of5 resultswithin the time period is included. Sodium 139 136 - 145 meq/L [facility] Potassium 3.2 (L) 3.5 - 5.1 meq/L [facility] Chloride 106 98 - 107 meq/L [facility] CO2 25 22 - 29 meq/L [facility] BUN 6 (L) 7 - 21 mg/dL [facility] Creatinine 0.72 0.57 - 1.25 mg/dL [facility] Glucose 80 70 - 105 mg/dL [facility] Calcium 9.1 8.4 - 10.2 mg/dL [facility] EGFR 120Comment: ESTIMATED GFR IS mL/min/1.73 sq m [facility] NOT ACCURATE CREATININE [facility] CLEARANCE IN PREDICTING GLOMERULAR FILTRATION RATE. ESTIMATED GFR IS NOT APPLICABLE FOR DIALYSIS PATIENTS. Specimen Blood - Arm, Left Performing Organization Address City/[facility]code Phone Number [address] [address] [phone] CENTER Phosphorus (04/09/2018 4:12 AM MOLD CLEANER)Only the most recent of3 resultswithin the time period is included. Phosphorus 2.9 2.3 - 4.7 mg/dL [facility] Specimen Blood - Arm, Left Performing Organization Address [facility] Phone Number [address] [address] CENTER Magnesium (04/09/2018 4:12 AM MOLD CLEANER)Only the most recent of3 resultswithin the time period is included. Magnesium 1.6 1.6 - 2.6 mg/dL [facility] Specimen Blood - Arm, Left Performing Organization Address [facility] Phone Number [address] [address] [phone] CENTER TRANSFUSION SERVICE REPORT - SCAN (04/08/2018 6:01 PM MOLD CLEANER)Only the most recent of2 resultswithin the time period is included. Narrative Performed At Anaerobic culture (04/08/2018 12:21 PM MOLD CLEANER) Result No anaerobes isolated [facility] Specimen Body Fluid - Gallbladder Performing Organization Address City/[facility]/Zipcode Phone Number [facility] [address], [place] [phone] [place] Surgically obtained culture + gram stain (04/08/2018 12:21 PM MOLD CLEANER) Result No growth [facility] Gram Stain Result 1+ White blood cells seen [facility] Gram Stain Result No organisms seen [facility] Specimen Body Fluid - Gallbladder Performing Organization Address City/[facility]/Zipcode Phone Number [facility] [address], [place] [phone] [place] Tissue Exam (04/08/2018 12:21 PM MOLD CLEANER) Case Report Surgical Pathology Report Case: [id number] [facility] Authorizing Provider:Jaylene Daugherty MD Collected: 04/08/[address] [place] [address] Ordering Location: [address] Received: 04/08/2018 1350 Service Pathologist: Evie Vizcaino MD Specimen:Gallbladder DIAGNOSIS GALLBLADDER, LAPAROSCOPIC CHOLECYSTECTOMY: [facility] - CHRONIC CHOLECYSTITIS WITH ULCERATED/ERODED MUCOSA [facility] - CHOLELITHIASIS - SUGGESTIVE OF CHOLESTEROL GRANULOMA - CYSTIC DUCT WITH ORGANIZED THROMBUS AT THE MARGIN - NEGATIVE FOR DYSPLASIA OR MALIGNANCY Signing Pathologist Direct Phone Line: [phone] CPT Code(s) 55498 [facility] CLINICAL HISTORY Choledocholithiasis [facility] SPECIMEN SOURCE Gallbladder [facility] GROSS DESCRIPTION The specimen is received in formalin-filled container labeled with the patient's information and labeled "gallbladder". It consists of an intact gallbladder measuring 5.5 x 2 cm with a gallbladder wall [facility] thickness of 0.2 cm. The gallbladder lumen is impacted with numerous green- pearly smooth stones measuring up to 0.5 cm. The bile is canada-red and thin. The mucosa is canada-red and smooth with trabeculation. No masses are seen. [facility] Section code: A1, margin en face; A2, gallbladder wall. CG/ew MICROSCOPIC DESCRIPTION Performed [facility] Specimen Tissue - Gallbladder Performing Organization Address City/State/Zipcode Phone Number [facility] [address] [place] [phone] CENTER REPORT OF PROCEDURE - ENDOSCOPY URL (04/07/2018 3:48 PM MOLD CLEANER) Narrative Performed At ABORH, manual (04/07/2018 8:04 AM MOLD CLEANER) ABO Grouping A [facility] Rh Factor POS [facility] Specimen Blood - Arm, Left Performing Organization Address [facility]/Zipcode Phone Number [facility] [address] [place] [phone] Lipase (04/07/2018 8:04 AM MOLD CLEANER)Only the most recent of2 resultswithin the time period is included. Lipase 882 (H) 8 - 78 U/L [facility] Specimen Blood - Arm, Left Performing Organization Address City/[facility] Phone Number [facility] [address], [place] [phone] CENTER US abdomen complete (04/07/2018 6:51 AM MOLD CLEANER) Narrative Performed At FINAL REPORT [facility] Abdominal Ultrasound Clinical Diagnosis: Abdomen pain Comparison: No comparison Technique: Multiple transaxial and longitudinal images were obtained through the abdomen with real time ultrasonography.Five MHz transducer was utilized.107 images were submitted for interpretation. Report: Liver: The liver measures 18.9 cm in the right midaxillary line. There are no focal masses.The echogenicity is within normal limits. Spleen: The spleen measures 10.8 cm in the left mid axillary line. Gallbladder: The transverse diameter is 2.1 cm.The wall measures three mm.There are multiple shadowing stones visualized.A wall echo shadow sign is present Biliary tree: There is no evidence of intra or extra hepatic biliary ductal dilatation.The common bile duct measures five mm. Portal vein: The portal vein measures 13 mm. Pancreas:The pancreatic tail is not well seen secondary to overlying bowel gas. Ascites: Negative Pleural Effusion: Negative Right kidney: The right kidney measures 10.6 cm in length without evidence of hydronephrosis. Left kidney: Theleft kidney measures 11.4 cm in length without evidence of hydronephrosis. IVC/Aorta: Partially seen segments demonstrate no abnormality. Maximum transverse dimension of the aorta proximally is 2.2 cm Impression: Hepatomegaly. Cholelithiasis. Signed: Keira Pimentel MD Report Verified Date/Time:04/07/2018 09:32:02 Reading Location: [address] Ultrasound Reading Room Procedure Note Interface, External Ris In - 04/07/2018 9:34 AM MOLD CLEANER FINAL REPORT Abdominal Ultrasound Clinical Diagnosis: Abdomen pain Comparison: No comparison Technique: Multiple transaxial and longitudinal images were obtained through the abdomen with real time ultrasonography. Five MHz transducer was utilized. 107 images were submitted for interpretation. Report: Liver: The liver measures 18.9 cm in the right midaxillary line. There are no focal masses. The echogenicity is within normal limits. Spleen: The spleen measures 10.8 cm in the left mid axillary line. Gallbladder: The transverse diameter is 2.1 cm. The wall measures three mm. There are multiple shadowing stones visualized. A wall echo shadow sign is present Biliary tree: There is no evidence of intra or extra hepatic biliary ductal dilatation. The common bile duct measures five mm. Portal vein: The portal vein measures 13 mm. Pancreas: The pancreatic tail is not well seen secondary to overlying bowel gas. Ascites: Negative Pleural Effusion: Negative Right kidney: The right kidney measures 10.6 cm in length without evidence of hydronephrosis. Left kidney: The left kidney measures 11.4 cm in length without evidence of hydronephrosis. IVC/Aorta: Partially seen segments demonstrate no abnormality. Maximum transverse dimension of the aorta proximally is 2.2 cm Impression: Hepatomegaly. Cholelithiasis. Signed: Keira Pimentel MD Report Verified Date/Time: 04/07/2018 09:32:02 Reading Location: [address] Ultrasound Reading Room Performing Organization Address City/State/Zipcode Phone Number [facility] Type and screen, automated (04/06/2018 9:54 PM MOLD CLEANER) ABO/RH AUTOMATED (BEAKER) A POSITIVE [facility] Ab Scrn NEGATIVE [facility] Specimen Blood Performing Organization Address [facility]/Zipcode Phone Number [facility] [address] [place] [address] [phone] [place] ERCP (04/06/2018 3:05 PM MOLD CLEANER) Narrative Performed At FINAL REPORT [facility] ERCP Clinical History: BILIARY OBSTRUCTION Impression: Intraoperative images are obtained. The radiologist is not present during the procedure. Images are presented for interpretation at the completion of the procedure.Please refer to the procedure report for more details. Number of images obtained: 3 Fluoroscopic time: 62.4 seconds Signed: Alok Maria MD Report Verified Date/Time:04/06/2018 15:34:35 Reading Location: [address] Consult Reading Room Procedure Note Interface, External Ris In - 04/06/2018 3:36 PM MOLD CLEANER FINAL REPORT ERCP Clinical History: BILIARY OBSTRUCTION Impression: Intraoperative images are obtained. The radiologist is not present during the procedure. Images are presented for interpretation at the completion of the procedure. Please refer to the procedure report for more details. Number of images obtained: 3 Fluoroscopic time: 62.4 seconds Signed: Alok Maria MD Report Verified Date/Time: 04/06/2018 15:34:35 Reading Location: [facility] Consult Reading Room Performing Organization Address City/[facility]/Zipcode Phone Number RIS Blood culture (04/06/2018 12:44 PM MOLD CLEANER)Only the most recent of2 resultswithin the time period is included. Result No growth in 5 days [facility] Specimen Blood - Arm, Right Performing Organization Address City/[facility]/Zipcode Phone Number [facility] [address] [place] [address] CENTER Hepatitis panel, acute (04/06/2018 11:19 AM MOLD CLEANER) Hep A IgM HEPATITIS A TEST NEGATIVE Nonreactive [facility] Hep B C IgM NON-REACTIVE Nonreactive [facility] Hepatitis C Ab NON-REACTIVE Nonreactive [facility] hepatitis B Surface Ag NON-REACTIVE Nonreactive [facility] Specimen Blood Performing Organization Address City/[facility]/Zipcode Phone Number [address] [address] CENTER Prothrombin time/INR (04/06/2018 11:19 AM MOLD CLEANER) Protime 12.5 11.7 - 14.7 seconds [facility] INR 0.9 <=5.9 [facility] Specimen Blood Narrative Performed At RECOMMENDED COUMADIN/WARFARIN INR THERAPY [facility] RANGES STANDARD DOSE: 2.0 - 3.0 Includes: PROPHYLAXIS for venous thrombosis, systemic embolization; TREATMENT for venous thrombosis and/or pulmonary embolus. HIGH RISK: Target INR is 2.5-3.5 for patients with mechanical heart valves. Performing Organization Address City/[facility] Phone Number [address] [address] CENTER Amylase (04/06/2018 11:19 AM MOLD CLEANER) Amylase 887 (H) 25 - 125 U/L [facility] Specimen Blood Narrative Performed At Specimen slightly icteric [facility] Performing Organization Address City/State/Zipcode Phone Number [address] [address] CENTER Lipid panel (04/06/2018 11:19 AM MOLD CLEANER) Triglycerides 106 mg/dL [facility] Cholesterol 169 mg/dL [facility] HDL 44 mg/dL [facility] LDL Calculated 104 mg/dL [facility] Specimen Blood Narrative Performed At Triglyceride Reference Range: [facility] Low Risk <150 [id number] High Risk 200-499 Very High Risk>=500 Cholesterol Reference Range: Low Risk <200 [id number] High Risk>240 HDL Cholesterol Reference Range: Low Risk >=60 High Risk <40 LDL Cholesterol Reference Range: Optimal<100 Near [id number] [id number] Very High >=190 Specimen slightly icteric Performing Organization Address City/State/Zipcode Phone Number [facility] [address] [place] [address] CENTER Comprehensive metabolic panel (04/06/2018 11:19 AM MOLD CLEANER) Protein, Total 7.2 6.0 - 8.3 gm/dL [facility] Albumin 4.3 3.5 - 5.0 g/dL [facility] Alkaline Phosphatase 193 (H) 40 - 150 U/L [facility] Total Bilirubin 4.4 (H) 0.2 - 1.2 mg/dL [facility] Sodium 143 136 - 145 meq/L [facility] Potassium 3.4 (L) 3.5 - 5.1 meq/L [facility] Chloride 108 (H) 98 - 107 meq/L [facility] CO2 26 22 - 29 meq/L [facility] BUN 14 7 - 21 mg/dL [facility] Creatinine 0.94 0.57 - 1.25 mg/dL [facility] Glucose 100 70 - 105 mg/dL [facility] Calcium 9.4 8.4 - 10.2 mg/dL [facility] AST 310 (H) 5 - 34 U/L [facility] ALT 572 (H) 6 - 55 U/L [facility] [facility] 88Comment: ESTIMATED GFR mL/min/1.73 sq m [facility] IS NOT ACCURATE [facility] CREATININE CLEARANCE IN PREDICTING GLOMERULAR FILTRATION RATE. ESTIMATED GFR IS NOT APPLICABLE FOR DIALYSIS PATIENTS. Specimen Blood Narrative Performed At Specimen slightly icteric [facility] Performing Organization Address City/State/Zipcode Phone Number [address] [address] CENTER after 04/16/2017 Advance Directives For more information, please contact:[address] [phone] Code Status Date Activated Date Inactivated Comments Full Code 04/06/2018 9:53 AM This code status was determined by: Patient
--- OUTSIDE RECORDS SUMMARY | 2018-04-17 04:34 | XMS REPORT ---
:1975 [facility] Address [address] [place] [address] Care Team Providers Name Role Phone ALICIAGABBY SALAZARRamin Unavailable Unavailable Problems This patient has no known problems. Allergies, Adverse Reactions, Alerts This patient has no known allergies or adverse reactions. Medications This patient has no known medications. 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 It consists of an intact gallbladder measuring 5.5 x 2 cm with a gallbladder wall thickness of 0.2 cm. The gallbladder lumen is impacted with numerous green-pearly smooth stones measuring up to 0.5 cm. The bile is cnaada-red and thin. The mucosa is canada-red and smooth with trabeculation. No masses are seen.Section code: A1, margin en face; A2, gallbladder wall. CG/ewPerformed ANAEROBIC CULTURE 2018-04-12 05:16:00 Test Item Value Reference Range Comments CULTURE (BEAKER) (test msrz=7856) No anaerobes isolated BLOOD [id number] 19:01:00 Test Item Value Reference Range Comments CULTURE (BEAKER) (test zqel=1698) No growth in 5 days BLOOD [id number] 19:01:00 Test Item Value Reference Range Comments CULTURE (BEAKER) (test fitj=1411) No growth in 5 days SURGICALLY OBTAINED CULTURE + GRAM [id number] 13:40:00 Test Item Value Reference Range Comments CULTURE (BEAKER) (test dcgv=4573) No growth GRAM STAIN RESULT (BEAKER) (test 1+ White blood cells seen cenr=3307) GRAM STAIN RESULT (BEAKER) (test No organisms seen gxwt=20971) HEPATIC FUNCTION [id number] 05:34:00 Test Item Value Reference Range Comments TOTAL PROTEIN (BEAKER) (test vzki=216) 6.3 gm/dL 6.0-8.3 ALBUMIN (BEAKER) (test qozm=1020) 3.6 g/dL 3.5-5.0 BILIRUBIN TOTAL (BEAKER) (test lvpc=150) 0.8 mg/dL 0.2-1.2 BILIRUBIN DIRECT (BEAKER) (test pvrh=017) 0.5 mg/dL 0.1-0.5 ALKALINE PHOSPHATASE (BEAKER) (test jhgk=214) 111 U/L 40-150 AST (SGOT) (BEAKER) (test udmj=112) 76 U/L 5-34 ALT (SGPT) (BEAKER) (test ollb=826) 261 U/L 6-55 BASIC METABOLIC [id number] 05:34:00 Test Item Value Reference Range Comments SODIUM (BEAKER) (test 139 meq/L 136-145 rbov=595) POTASSIUM (BEAKER) (test 3.2 meq/L 3.5-5.1 aagq=968) CHLORIDE (BEAKER) (test 106 meq/L 98-107 lpyw=617) CO2 (BEAKER) (test 25 meq/L 22-29 mehl=464) BLOOD UREA NITROGEN 6 mg/dL 7-21 (BEAKER) (test wbsz=638) CREATININE (BEAKER) (test 0.72 mg/dL 0.57-1.25 xxol=051) GLUCOSE RANDOM (BEAKER) 80 mg/dL 70-105 (test pnkr=362) CALCIUM (BEAKER) (test 9.1 mg/dL 8.4-10.2 skev=737) EGFR (BEAKER) (test 120 mL/min/1.73 sq m ESTIMATED GFR IS NOT pyug=0582) ACCURATE CREATININE CLEARANCE IN PREDICTING GLOMERULAR FILTRATION RATE. ESTIMATED GFR IS NOT APPLICABLE FOR DIALYSIS PATIENTS. CBC W/PLT COUNT & AUTO [id number] 05:12:00 Test Item Value Reference Range Comments WHITE BLOOD CELL COUNT (BEAKER) (test pjsy=523) 5.9 K/ L 3.5-10.5 RED BLOOD CELL COUNT (BEAKER) (test zooo=216) 4.17 M/ L 4.63-6.08 HEMOGLOBIN (BEAKER) (test zhnd=549) 11.7 GM/DL 13.7-17.5 HEMATOCRIT (BEAKER) (test opmy=821) 36.8 % 40.1-51.0 MEAN CORPUSCULAR VOLUME (BEAKER) (test prgr=873) 88.2 fL 79.0-92.2 MEAN CORPUSCULAR HEMOGLOBIN (BEAKER) (test 28.1 pg 25.7-32.2 avri=340) MEAN CORPUSCULAR HEMOGLOBIN CONC (BEAKER) (test 31.8 GM/DL 32.3-36.5 ctlw=526) RED CELL DISTRIBUTION WIDTH (BEAKER) (test 12.8 % 11.6-14.4 rcaq=171) PLATELET COUNT (BEAKER) (test oklx=201) 182 K/CU MM 150-450 MEAN PLATELET VOLUME (BEAKER) (test hzuo=542) 10.9 fL 9.4-12.4 NUCLEATED RED BLOOD CELLS (BEAKER) (test 0 /100 WBC 0-0 uzaa=542) NEUTROPHILS RELATIVE PERCENT (BEAKER) (test 56 % gsyd=712) LYMPHOCYTES RELATIVE PERCENT (BEAKER) (test 29 % dxhg=172) MONOCYTES RELATIVE PERCENT (BEAKER) (test 12 % evca=606) EOSINOPHILS RELATIVE PERCENT (BEAKER) (test 2 % ibvy=501) BASOPHILS RELATIVE PERCENT (BEAKER) (test 1 % ksxb=891) NEUTROPHILS ABSOLUTE COUNT (BEAKER) (test 3.28 K/ L 1.78-5.38 drgm=123) LYMPHOCYTES ABSOLUTE COUNT (BEAKER) (test 1.73 K/ L 1.32-3.57 aeor=015) MONOCYTES ABSOLUTE COUNT (BEAKER) (test 0.70 K/ L 0.30-0.82 uarp=296) EOSINOPHILS ABSOLUTE COUNT (BEAKER) (test 0.14 K/ L 0.04-0.54 cmwy=375) BASOPHILS ABSOLUTE COUNT (BEAKER) (test 0.03 K/ L 0.01-0.08 wehh=987) IMMATURE GRANULOCYTES-RELATIVE PERCENT (BEAKER) 0 % 0-1 (test dfzq=2788) HEPATIC FUNCTION [id number] 07:32:00 Test Item Value Reference Range Comments TOTAL PROTEIN (BEAKER) (test hssk=760) 6.2 gm/dL 6.0-8.3 ALBUMIN (BEAKER) (test aubv=6332) 3.5 g/dL 3.5-5.0 BILIRUBIN TOTAL (BEAKER) (test xbzd=543) 0.9 mg/dL 0.2-1.2 BILIRUBIN DIRECT (BEAKER) (test vpmy=531) 0.6 mg/dL 0.1-0.5 ALKALINE PHOSPHATASE (BEAKER) (test knxk=493) 121 U/L 40-150 AST (SGOT) (BEAKER) (test suey=674) 183 U/L 5-34 ALT (SGPT) (BEAKER) (test tlji=178) 390 U/L 6-55 BASIC METABOLIC [id number] 07:32:00 Test Item Value Reference Range Comments SODIUM (BEAKER) (test 140 meq/L 136-145 pmmz=778) POTASSIUM (BEAKER) (test 3.4 meq/L 3.5-5.1 ecuk=629) CHLORIDE (BEAKER) (test 107 meq/L 98-107 okbr=185) CO2 (BEAKER) (test 24 meq/L 22-29 utnz=569) BLOOD UREA NITROGEN 8 mg/dL 7-21 (BEAKER) (test ippx=797) CREATININE (BEAKER) (test 0.70 mg/dL 0.57-1.25 iwtq=520) GLUCOSE RANDOM (BEAKER) 73 mg/dL 70-105 (test cgzp=945) CALCIUM (BEAKER) (test 8.9 mg/dL 8.4-10.2 jvcj=692) EGFR (BEAKER) (test 124 mL/min/1.73 sq m ESTIMATED GFR IS NOT ddly=9480) ACCURATE CREATININE CLEARANCE IN PREDICTING GLOMERULAR FILTRATION RATE. ESTIMATED GFR IS NOT APPLICABLE FOR DIALYSIS PATIENTS. [id number] 06:22:00 Test Item Value Reference Range Comments PHOSPHORUS (BEAKER) (test znvk=813) 2.9 mg/dL 2.3-4.7 [id number] 06:22:00 Test Item Value Reference Range Comments MAGNESIUM (BEAKER) (test hezk=963) 1.6 mg/dL 1.6-2.6 CBC W/PLT COUNT & AUTO [id number] 06:07:00 Test Item Value Reference Range Comments WHITE BLOOD CELL COUNT (BEAKER) (test itcw=735) 8.8 K/ L 3.5-10.5 RED BLOOD CELL COUNT (BEAKER) (test hzum=906) 4.07 M/ L 4.63-6.08 HEMOGLOBIN (BEAKER) (test nrlw=791) 11.7 GM/DL 13.7-17.5 HEMATOCRIT (BEAKER) (test fvor=133) 35.6 % 40.1-51.0 MEAN CORPUSCULAR VOLUME (BEAKER) (test dgwu=545) 87.5 fL 79.0-92.2 MEAN CORPUSCULAR HEMOGLOBIN (BEAKER) (test 28.7 pg 25.7-32.2 sdes=493) MEAN CORPUSCULAR HEMOGLOBIN CONC (BEAKER) (test 32.9 GM/DL 32.3-36.5 nxoi=519) RED CELL DISTRIBUTION WIDTH (BEAKER) (test 12.9 % 11.6-14.4 idiz=563) PLATELET COUNT (BEAKER) (test qiix=633) 169 K/CU MM 150-450 MEAN PLATELET VOLUME (BEAKER) (test qute=556) 10.5 fL 9.4-12.4 NUCLEATED RED BLOOD CELLS (BEAKER) (test 0 /100 WBC 0-0 woco=875) NEUTROPHILS RELATIVE PERCENT (BEAKER) (test 72 % lnca=708) LYMPHOCYTES RELATIVE PERCENT (BEAKER) (test 16 % rhjn=067) MONOCYTES RELATIVE PERCENT (BEAKER) (test 10 % kbvn=403) EOSINOPHILS RELATIVE PERCENT (BEAKER) (test 1 % znbm=451) BASOPHILS RELATIVE PERCENT (BEAKER) (test 0 % rfdh=523) NEUTROPHILS ABSOLUTE COUNT (BEAKER) (test 6.37 K/ L 1.78-5.38 wajn=410) LYMPHOCYTES ABSOLUTE COUNT (BEAKER) (test 1.42 K/ L 1.32-3.57 onep=979) MONOCYTES ABSOLUTE COUNT (BEAKER) (test 0.91 K/ L 0.30-0.82 jzwn=038) EOSINOPHILS ABSOLUTE COUNT (BEAKER) (test 0.09 K/ L 0.04-0.54 zjky=706) BASOPHILS ABSOLUTE COUNT (BEAKER) (test 0.02 K/ L 0.01-0.08 mxjv=618) IMMATURE GRANULOCYTES-RELATIVE PERCENT (BEAKER) 0 % 0-1 (test fqgj=7943) [id number] 05:54:00 Test Item Value Reference Range Comments PHOSPHORUS (BEAKER) (test hsyh=483) 2.7 mg/dL 2.3-4.7 [id number] 05:54:00 Test Item Value Reference Range Comments MAGNESIUM (BEAKER) (test urww=362) 1.5 mg/dL 1.6-2.6 BASIC METABOLIC [id number] 05:54:00 Test Item Value Reference Range Comments SODIUM (BEAKER) (test 137 meq/L 136-145 omul=362) POTASSIUM (BEAKER) (test 3.4 meq/L 3.5-5.1 ojje=064) CHLORIDE (BEAKER) (test 105 meq/L 98-107 eubp=305) CO2 (BEAKER) (test 21 meq/L 22-29 fsyo=804) BLOOD UREA NITROGEN 9 mg/dL 7-21 (BEAKER) (test tryq=154) CREATININE (BEAKER) (test 0.78 mg/dL 0.57-1.25 ynua=073) GLUCOSE RANDOM (BEAKER) 69 mg/dL 70-105 (test tkex=185) CALCIUM (BEAKER) (test 8.9 mg/dL 8.4-10.2 fkps=901) EGFR (BEAKER) (test 110 mL/min/1.73 sq m ESTIMATED GFR IS NOT pcgp=7761) ACCURATE CREATININE CLEARANCE IN PREDICTING GLOMERULAR FILTRATION RATE. ESTIMATED GFR IS NOT APPLICABLE FOR DIALYSIS PATIENTS. HEPATIC FUNCTION [id number] 05:54:00 Test Item Value Reference Range Comments TOTAL PROTEIN (BEAKER) (test hjti=199) 6.5 gm/dL 6.0-8.3 ALBUMIN (BEAKER) (test jujo=3129) 3.8 g/dL 3.5-5.0 BILIRUBIN TOTAL (BEAKER) (test ljwi=659) 1.2 mg/dL 0.2-1.2 BILIRUBIN DIRECT (BEAKER) (test lvus=437) 0.7 mg/dL 0.1-0.5 ALKALINE PHOSPHATASE (BEAKER) (test comp=741) 147 U/L 40-150 AST (SGOT) (BEAKER) (test swzl=694) 113 U/L 5-34 ALT (SGPT) (BEAKER) (test dcfz=466) 333 U/L 6-55 CBC W/PLT COUNT & AUTO [id number] 05:40:00 Test Item Value Reference Range Comments WHITE BLOOD CELL COUNT (BEAKER) (test fwuq=754) 11.9 K/ L 3.5-10.5 RED BLOOD CELL COUNT (BEAKER) (test gmub=140) 4.06 M/ L 4.63-6.08 HEMOGLOBIN (BEAKER) (test swtz=621) 11.8 GM/DL 13.7-17.5 HEMATOCRIT (BEAKER) (test iaok=153) 35.8 % 40.1-51.0 MEAN CORPUSCULAR VOLUME (BEAKER) (test rrzu=147) 88.2 fL 79.0-92.2 MEAN CORPUSCULAR HEMOGLOBIN (BEAKER) (test 29.1 pg 25.7-32.2 yxws=428) MEAN CORPUSCULAR HEMOGLOBIN CONC (BEAKER) (test 33.0 GM/DL 32.3-36.5 bzow=737) RED CELL DISTRIBUTION WIDTH (BEAKER) (test 12.8 % 11.6-14.4 rnmt=591) PLATELET COUNT (BEAKER) (test bpum=531) 166 K/CU MM 150-450 MEAN PLATELET VOLUME (BEAKER) (test dlem=427) 11.0 fL 9.4-12.4 NUCLEATED RED BLOOD CELLS (BEAKER) (test 0 /100 WBC 0-0 csnn=972) NEUTROPHILS RELATIVE PERCENT (BEAKER) (test 74 % ocdh=349) LYMPHOCYTES RELATIVE PERCENT (BEAKER) (test 15 % xihl=895) MONOCYTES RELATIVE PERCENT (BEAKER) (test 10 % alwo=620) EOSINOPHILS RELATIVE PERCENT (BEAKER) (test 1 % qyww=839) BASOPHILS RELATIVE PERCENT (BEAKER) (test 0 % ftqd=688) NEUTROPHILS ABSOLUTE COUNT (BEAKER) (test 8.76 K/ L 1.78-5.38 wvcw=407) LYMPHOCYTES ABSOLUTE COUNT (BEAKER) (test 1.80 K/ L 1.32-3.57 gupg=891) MONOCYTES ABSOLUTE COUNT (BEAKER) (test 1.12 K/ L 0.30-0.82 wapm=044) EOSINOPHILS ABSOLUTE COUNT (BEAKER) (test 0.08 K/ L 0.04-0.54 tzwo=841) BASOPHILS ABSOLUTE COUNT (BEAKER) (test 0.04 K/ L 0.01-0.08 qces=191) IMMATURE GRANULOCYTES-RELATIVE PERCENT (BEAKER) 0 % 0-1 (test rgdp=6684) [id number] 11:43:00 Test Item Value Reference Range Comments LIPASE (BEAKER) (test uxow=948) 882 U/L 8-78 U/S, ABDOMINAL, [id number] 09:32:00Reason for exam:->abd pain Reason for exam:->Please do stat. [facility] Clinical Diagnosis: Abdomen pain Comparison: No comparison Technique: Multiple transaxial and longitudinal images were obtained through the abdomen with real time ultrasonography. Five MHz transducer was utilized. 107 images were submitted for interpretation. Report:Liver: The liver measures 18.9 cm in the right midaxillary line. There are no focal masses. The echogenicity is within normal limits.Spleen: The spleen measures 10.8 cm in theleft mid axillary line. Gallbladder: The transverse diameter is 2.1 cm. The wall measures three mm. There are multiple shadowing stones visualized. A wall echo shadow sign is present Biliary tree: There is no evidence of intra or extra hepatic biliary ductal dilatation. The common bile duct measures five mm.Portal vein: The portal vein measures 13 mm. Pancreas: The pancreatic tail is not well seen secondary to overlying bowel gas. Ascites: NegativePleural Effusion: NegativeRight kidney: The right kidney measures 10.6 cm in length without evidence of hydronephrosis.Left kidney: The left kidney measures 11.4 cm in length without evidence of hydronephrosis.IVC/Aorta: Partially seen segments demonstrate no abnormality. Maximum transverse dimension of the aorta proximally is 2.2 cm Impression: Hepatomegaly.Cholelithiasis. Signed: Caleb Monica MDReport Verified Date/Time : 04/07/2018 09:32:02 Reading Location: [facility] B1 [id number] Ultrasound Reading Room HEPATIC FUNCTION [id number] 08:43:00 Test Item Value Reference Range Comments TOTAL PROTEIN (BEAKER) (test yiip=635) 6.3 gm/dL 6.0-8.3 ALBUMIN (BEAKER) (test swzi=9093) 3.7 g/dL 3.5-5.0 BILIRUBIN TOTAL (BEAKER) (test lppp=302) 1.3 mg/dL 0.2-1.2 BILIRUBIN DIRECT (BEAKER) (test gqsi=733) 0.8 mg/dL 0.1-0.5 ALKALINE PHOSPHATASE (BEAKER) (test gbdf=235) 165 U/L 40-150 AST (SGOT) (BEAKER) (test okbj=518) 164 U/L 5-34 ALT (SGPT) (BEAKER) (test cent=753) 401 U/L 6-55 BASIC METABOLIC [id number] 08:43:00 Test Item Value Reference Range Comments SODIUM (BEAKER) (test 138 meq/L 136-145 fvrc=420) POTASSIUM (BEAKER) (test 3.7 meq/L 3.5-5.1 qwhn=943) CHLORIDE (BEAKER) (test 106 meq/L 98-107 sfjt=803) CO2 (BEAKER) (test 24 meq/L 22-29 blkb=654) BLOOD UREA NITROGEN 11 mg/dL 7-21 (BEAKER) (test cuay=691) CREATININE (BEAKER) (test 0.86 mg/dL 0.57-1.25 onii=377) GLUCOSE RANDOM (BEAKER) 85 mg/dL 70-105 (test vklw=218) CALCIUM (BEAKER) (test 9.1 mg/dL 8.4-10.2 yzdk=825) EGFR (BEAKER) (test 98 mL/min/1.73 sq m ESTIMATED GFR IS NOT ckan=6346) ACCURATE CREATININE CLEARANCE IN PREDICTING GLOMERULAR FILTRATION RATE. ESTIMATED GFR IS NOT APPLICABLE FOR DIALYSIS PATIENTS. [id number] 08:43:00 Test Item Value Reference Range Comments MAGNESIUM (BEAKER) (test gkfg=902) 1.5 mg/dL 1.6-2.6 [id number] 08:43:00 Test Item Value Reference Range Comments PHOSPHORUS (BEAKER) (test oicq=075) 2.8 mg/dL 2.3-4.7 CBC W/PLT COUNT & AUTO [id number] 08:23:00 Test Item Value Reference Range Comments WHITE BLOOD CELL COUNT (BEAKER) (test fhxi=955) 9.3 K/ L 3.5-10.5 RED BLOOD CELL COUNT (BEAKER) (test alzd=433) 4.29 M/ L 4.63-6.08 HEMOGLOBIN (BEAKER) (test gqds=091) 12.2 GM/DL 13.7-17.5 HEMATOCRIT (BEAKER) (test reda=960) 37.9 % 40.1-51.0 MEAN CORPUSCULAR VOLUME (BEAKER) (test tdqo=937) 88.3 fL 79.0-92.2 MEAN CORPUSCULAR HEMOGLOBIN (BEAKER) (test 28.4 pg 25.7-32.2 udjc=987) MEAN CORPUSCULAR HEMOGLOBIN CONC (BEAKER) (test 32.2 GM/DL 32.3-36.5 kqtw=550) RED CELL DISTRIBUTION WIDTH (BEAKER) (test 12.9 % 11.6-14.4 myly=997) PLATELET COUNT (BEAKER) (test dyqb=938) 175 K/CU MM 150-450 MEAN PLATELET VOLUME (BEAKER) (test dvaq=609) 10.5 fL 9.4-12.4 NUCLEATED RED BLOOD CELLS (BEAKER) (test 0 /100 WBC 0-0 tfer=108) NEUTROPHILS RELATIVE PERCENT (BEAKER) (test 71 % wvel=730) LYMPHOCYTES RELATIVE PERCENT (BEAKER) (test 21 % xxra=126) MONOCYTES RELATIVE PERCENT (BEAKER) (test 8 % xjny=118) EOSINOPHILS RELATIVE PERCENT (BEAKER) (test 0 % arpc=654) BASOPHILS RELATIVE PERCENT (BEAKER) (test 0 % fsza=456) NEUTROPHILS ABSOLUTE COUNT (BEAKER) (test 6.52 K/ L 1.78-5.38 oqjd=250) LYMPHOCYTES ABSOLUTE COUNT (BEAKER) (test 1.96 K/ L 1.32-3.57 yywd=926) MONOCYTES ABSOLUTE COUNT (BEAKER) (test 0.69 K/ L 0.30-0.82 xgep=774) EOSINOPHILS ABSOLUTE COUNT (BEAKER) (test 0.03 K/ L 0.04-0.54 rzzd=367) BASOPHILS ABSOLUTE COUNT (BEAKER) (test 0.01 K/ L 0.01-0.08 qswi=678) IMMATURE GRANULOCYTES-RELATIVE PERCENT (BEAKER) 0 % 0-1 (test ziif=6500) FL, [id number] 15:34:00INTRA OP IMAGINGReason for exam:->BILIARY OBSTURCTIONFINAL REPORT ERCP Clinical History: BILIARY OBSTRUCTION Impression: Intraoperative images are obtained. The radiologist is not present during the procedure. Images are presentedfor interpretation at the completion of the procedure. Please refer to the procedure report for more details. Number of images obtained: 3 Fluoroscopic time: 62.4 seconds Signed: Alok Maria Verified Date/Time: 04/06/2018 15:34:35 Reading Location: [address] Consult Reading Room [id number] 13:01:00 Test Item Value Reference Range Comments LIPASE (BEAKER) (test fecs=713) > U/L 8-78 Specimen slightly ictericHEPATITIS PANEL, [id number] 12:35:00 Test Item Value Reference Range Comments HEPATITIS A IGM ANTIBODY (BEAKER) (test Nonreactive Nonreactive knxu=862) HEPATITIS B CORE IGM ANTIBODY (BEAKER) (test Nonreactive Nonreactive ifxv=381) HEPATITIS C ANTIBODY (BEAKER) (test tiei=366) Nonreactive Nonreactive HEPATITIS B SURFACE ANTIGEN (2) (BEAKER) (test Nonreactive Nonreactive ntbq=9440) PROTHROMBIN [id number] 12:26:00 Test Item Value Reference Range Comments PROTIME (BEAKER) (test toku=994) 12.5 seconds 11.7-14.7 INR (BEAKER) (test cohn=461) 0.9 <=5.9 RECOMMENDED COUMADIN/WARFARIN INR THERAPY RANGESSTANDARD DOSE: 2.0 - 3.0 Includes: PROPHYLAXIS forvenous thrombosis, systemic embolization; TREATMENT for venous thrombosis and/or pulmonary embolus.HIGH RISK: Target INR is 2.5-3.5 for patients with mechanical heart valves.COMPREHENSIVE METABOLIC [id number] 12:16:00 Test Item Value Reference Range Comments TOTAL PROTEIN (BEAKER) 7.2 gm/dL 6.0-8.3 (test uibb=504) ALBUMIN (BEAKER) (test 4.3 g/dL 3.5-5.0 hiav=0871) ALKALINE PHOSPHATASE 193 U/L 40-150 (BEAKER) (test lzje=352) BILIRUBIN TOTAL (BEAKER) 4.4 mg/dL 0.2-1.2 (test erpe=818) SODIUM (BEAKER) (test 143 meq/L 136-145 eedw=323) POTASSIUM (BEAKER) (test 3.4 meq/L 3.5-5.1 cydc=480) CHLORIDE (BEAKER) (test 108 meq/L 98-107 yfuk=629) CO2 (BEAKER) (test 26 meq/L 22-29 sxdf=751) BLOOD UREA NITROGEN 14 mg/dL 7-21 (BEAKER) (test ernh=105) CREATININE (BEAKER) (test 0.94 mg/dL 0.57-1.25 rciw=999) GLUCOSE RANDOM (BEAKER) 100 mg/dL 70-105 (test igqe=055) CALCIUM (BEAKER) (test 9.4 mg/dL 8.4-10.2 qpuv=077) AST (SGOT) (BEAKER) (test 310 U/L 5-34 cxkb=911) ALT (SGPT) (BEAKER) (test 572 U/L 6-55 kuhr=768) EGFR (BEAKER) (test 88 mL/min/1.73 sq m ESTIMATED GFR IS NOT zjxh=5835) ACCURATE CREATININE CLEARANCE IN PREDICTING GLOMERULAR FILTRATION RATE. ESTIMATED GFR IS NOT APPLICABLE FOR DIALYSIS PATIENTS. Specimen slightly ictericLIPID [id number] 12:16:00 Test Item Value Reference Range Comments TRIGLYCERIDES (BEAKER) (test ylwt=336) 106 mg/dL CHOLESTEROL (BEAKER) (test aalh=057) 169 mg/dL HDL CHOLESTEROL (BEAKER) (test lsvn=477) 44 mg/dL LDL CHOLESTEROL CALCULATED (BEAKER) (test 104 mg/dL mbgg=139) Triglyceride Reference Range: Low Risk <150 Borderline 150- 199 High Risk 200-499 Very High Risk >=500Cholesterol Reference Range: Low Risk <200 Borderline 200-239 High Risk > 240HDL Cholesterol Reference Range: Low Risk >=60 High Risk <40LDL Cholesterol Reference Range: Optimal <100 Near Optimal 100-129 Borderline 130-159 High 160-189 Very High >=190 Specimen slightly [id number] 12:16:00 Test Item Value Reference Range Comments AMYLASE (BEAKER) (test zxab=663) 887 U/L 25-125 Specimen slightly ictericBASIC METABOLIC [id number] 12:13:00 Test Item Value Reference Range Comments SODIUM (BEAKER) (test 144 meq/L 136-145 eprm=837) POTASSIUM (BEAKER) (test 3.4 meq/L 3.5-5.1 psze=680) CHLORIDE (BEAKER) (test 109 meq/L 98-107 dyuk=602) CO2 (BEAKER) (test 25 meq/L 22-29 uezy=293) BLOOD UREA NITROGEN 15 mg/dL 7-21 (BEAKER) (test idpg=125) CREATININE (BEAKER) (test 0.92 mg/dL 0.57-1.25 tooh=207) GLUCOSE RANDOM (BEAKER) 100 mg/dL 70-105 (test wbko=421) CALCIUM (BEAKER) (test 9.4 mg/dL 8.4-10.2 llea=118) EGFR (BEAKER) (test 91 mL/min/1.73 sq m ESTIMATED GFR IS NOT kpgv=0361) ACCURATE CREATININE CLEARANCE IN PREDICTING GLOMERULAR FILTRATION RATE. ESTIMATED GFR IS NOT APPLICABLE FOR DIALYSIS PATIENTS. Specimen slightly ictericCBC W/PLT COUNT & AUTO [id number] 12:10 :00 Test Item Value Reference Range Comments WHITE BLOOD CELL COUNT (BEAKER) (test rcti=921) 6.7 K/ L 3.5-10.5 RED BLOOD CELL COUNT (BEAKER) (test bvog=065) 4.64 M/ L 4.63-6.08 HEMOGLOBIN (BEAKER) (test epds=001) 13.3 GM/DL 13.7-17.5 HEMATOCRIT (BEAKER) (test skhv=159) 40.9 % 40.1-51.0 MEAN CORPUSCULAR VOLUME (BEAKER) (test oqss=810) 88.1 fL 79.0-92.2 MEAN CORPUSCULAR HEMOGLOBIN (BEAKER) (test 28.7 pg 25.7-32.2 eyxv=637) MEAN CORPUSCULAR HEMOGLOBIN CONC (BEAKER) (test 32.5 GM/DL 32.3-36.5 ygnv=178) RED CELL DISTRIBUTION WIDTH (BEAKER) (test 12.7 % 11.6-14.4 jbhb=720) PLATELET COUNT (BEAKER) (test yyjv=779) 183 K/CU MM 150-450 MEAN PLATELET VOLUME (BEAKER) (test gpek=211) 10.5 fL 9.4-12.4 NUCLEATED RED BLOOD CELLS (BEAKER) (test 0 /100 WBC 0-0 hjxh=407) NEUTROPHILS RELATIVE PERCENT (BEAKER) (test 64 % oywq=876) LYMPHOCYTES RELATIVE PERCENT (BEAKER) (test 23 % huig=390) MONOCYTES RELATIVE PERCENT (BEAKER) (test 11 % rntd=244) EOSINOPHILS RELATIVE PERCENT (BEAKER) (test 1 % ygwi=775) BASOPHILS RELATIVE PERCENT (BEAKER) (test 0 % xzpj=074) NEUTROPHILS ABSOLUTE COUNT (BEAKER) (test 4.31 K/ L 1.78-5.38 tqvh=363) LYMPHOCYTES ABSOLUTE COUNT (BEAKER) (test 1.56 K/ L 1.32-3.57 gump=483) MONOCYTES ABSOLUTE COUNT (BEAKER) (test 0.72 K/ L 0.30-0.82 rcfp=925) EOSINOPHILS ABSOLUTE COUNT (BEAKER) (test 0.09 K/ L 0.04-0.54 iwhk=299) BASOPHILS ABSOLUTE COUNT (BEAKER) (test 0.03 K/ L 0.01-0.08 qhwt=372) IMMATURE GRANULOCYTES-RELATIVE PERCENT (BEAKER) 0 % 0-1 (test bhgx=4685)
[2018-04-17] MEDS ORDERED: metroNIDAZOLE 500 MG TABLET ONE (05:04)
[2018-04-17] MEDS ORDERED: AMOXICILLIN TRIHYDR 250 MG CAP ONE (05:05)
[2018-04-17] MEDS ORDERED: HYDROCODONE/APAP 10/325 TAB ONE (05:05)
[2018-04-17] MEDS ORDERED: CEFTRIAXONE 1000 MG/VIAL ONE (05:06)
[2018-04-17] MEDS ORDERED: ONDANSETRON 4 MG (ODT) TAB ONE (05:06)
[2018-04-17] MEDS ORDERED: MORPHINE 4 MG/ML SYR ONE (05:06)
--- NOTE | 2018-04-17 06:32 | EDPHYS ---
Physician Documentation [facility] Name: Rm Hagen Age: 42 yrs Sex: Male : 1975 Arrival Date: 04/17/2018 Time: 04:33 Bed 19 Private MD: ED Physician Herberth Fontenot HPI: 04/17 06:33 This 42 yrs old Male presents to ER via Ambulatory with complaints of Facial kdr Swelling - Dental Abscess. 06:33 The patient presents with pain, swelling. The problem is located in the right buccal kdr mucosa and upper right first bicuspid. Onset: The symptoms/episode began/occurred yesterday. Duration: The symptoms are continuous, and are steadily getting worse, and are markedly worse than the original presentation. Modifying factors: The symptoms are alleviated by nothing, the symptoms are aggravated by nothing. Associated signs and symptoms: The patient has no apparent associated signs or symptoms. Severity of symptoms: At their worst the symptoms were severe, incapacitating, in the emergency department the symptoms are unchanged. The patient has not experienced similar symptoms in the past. The patient has been recently seen by a physician: Had GB removed about a week ago. Historical: - Allergies: 04:40 NKA; rr5 - Home Meds: 04:40 gabapentin oral oral [Active]; ciprofloxacin oral oral [Active]; rr5 - PMHx: 04:40 gastritis; Migraines; rr5 - PSHx: 04:40 Cholecystectomy; rr5 - Immunization history:: Adult Immunizations up to date, Flu vaccine is up to date. - Social history:: Smoking status: Patient uses tobacco products, vape, Patient uses street drugs, marijuana, Patient/guardian denies using alcohol. - Ebola Screening: : Patient negative for fever greater than or equal to 101.5 degrees Fahrenheit, and additional compatible Ebola Virus Disease symptoms Patient denies exposure to infectious person Patient denies travel to an Ebola-affected area in the 21 days before illness onset. ROS: 06:33 Constitutional: Negative for fever, chills, and weight loss, Eyes: Negative for injury, kdr pain, redness, and discharge, Neck: Negative for injury, pain, and swelling, Cardiovascular: Negative for chest pain, palpitations, and edema, Respiratory: Negative for shortness of breath, cough, wheezing, and pleuritic chest pain, Abdomen/GI: Negative for abdominal pain, nausea, vomiting, diarrhea, and constipation, Back: Negative for injury and pain. 06:33 ENT: Positive for dental pain, Swelling ot right side of face. Exam: 06:33 Constitutional: This is a well developed, well nourished patient who is awake, alert, kdr and in moderate distress. Eyes: Pupils equal round and reactive to light, extra-ocular motions intact. Lids and lashes normal. Conjunctiva and sclera are non-icteric and not injected. Cornea within normal limits. Periorbital areas with no swelling, redness, or edema. Neck: Trachea midline, no thyromegaly or masses palpated, and no cervical lymphadenopathy. Supple, full range of motion without nuchal rigidity, or vertebral point tenderness. No Meningismus. 06:33 Head/face: Noted is swelling, that is mild. Vital Signs: 04:40 BP 143 / 101; Pulse 104; Resp 20; Temp 99; Pulse Ox 98% ; Weight 96.62 kg; Height 5 ft. rr5 11 in. (180.34 cm); Pain 10/10; 05:28 BP 121 / 83; Pulse 65; Resp 17 S; Pulse Ox 97% on R/A; jd3 06:26 BP 116 / 72; Pulse 70; Resp 17 S; Pulse Ox 99% on R/A; jd3 04:40 Body Mass Index 29.71 (96.62 kg, 180.34 cm) rr5 MDM: 06:31 Patient medically screened. kdr 06:33 Data reviewed: vital signs, nurses notes. Counseling: I had a detailed discussion with kdr the patient and/or guardian regarding: the historical points, exam findings, and any diagnostic results supporting the discharge/admit diagnosis, the need for outpatient follow up. Administered Medications: 05:05 Drug: morphine 4 mg Route: IM; Site: left gluteus; jd3 06:39 Follow up: Response: No adverse reaction jd3 05:05 Drug: Zofran 4 mg Route: PO; jd3 06:39 Follow up: Response: No adverse reaction jd3 05:05 Drug: Amoxicillin 500 mg Route: PO; jd3 06:39 Follow up: Response: No adverse reaction jd3 05:05 Drug: Rocephin - (cefTRIAXone) 1 grams {Note: given IM per provider's orders..} Route: jd3 IVPB; Infused Over: 30 mins; Site: Other; 05:35 Follow up: Response: No adverse reaction; IV Status: Completed infusion jd3 05:07 Drug: Flagyl 500 mg Route: PO; jd3 06:38 Follow up: Response: No adverse reaction jd3 05:07 Drug: [place] 10 mg-325 mg 1 tabs Route: PO; jd3 06:38 Follow up: Response: No adverse reaction jd3 Disposition: 04/17/18 06:31 Discharged to Home. Impression: Dental Pain. - Condition is Stable. - Discharge Instructions: Dental Pain, [id number]. - Prescriptions for Amoxicillin 500 mg Oral Capsule - take 1 capsule by ORAL route every 8 hours for 10 days; 30 tablet. Flagyl 500 mg Oral Tablet - take 1 tablet by ORAL route every 6 hours for 10 days; 40 tablet. Tramadol 50 mg Oral Tablet - take 1 tablet by ORAL route every 8 hours as needed; 20 tablet. - Medication Reconciliation Form, Thank You Letter, Antibiotic Education, Prescription Opioid Use form. - Follow up: Private Physician; When: 48 Hours; Reason: If symptoms return, Further diagnostic work-up, Recheck today's complaints, Continuance of care, Re-evaluation by your physician. - Problem is new. - Symptoms have improved. Signatures: Herberth Fontenot MD MD kdr Davies, Jonathon, RN RN jd3 Raymundo Roe RN RN rr5 Corrections: (The following items were deleted from the chart) 06:40 06:31 04/17/2018 06:31 Discharged to Home. Impression: Dental Pain. Condition is jd3 Stable. Forms are Medication Reconciliation Form, Thank You Letter, Antibiotic Education, Prescription Opioid Use. Follow up: Private Physician; When: 48 Hours; Reason: If symptoms return, Further diagnostic work-up, Recheck today's complaints, Continuance of care, Re-evaluation by your physician. Problem is new. Symptoms have improved. kdr
--- NOTE | 2018-04-17 06:32 | ER ---
Nurse's Notes [facility] Name: Rm Hagen Age: 42 yrs Sex: Male : 1975 Arrival Date: 04/17/2018 Time: 04:33 Bed 19 Private MD: Diagnosis: Dental Pain Presentation: 04/17 04:39 Presenting complaint: Patient states: facial swelling and pain, headache and dental rr5 abscess started yesterday pain score 10/10. Transition of care: patient was not received from another setting of care. Onset of symptoms was April 16, 2018. Risk Assessment: Do you want to hurt yourself or someone else? Patient reports no desire to harm self or others. Initial Sepsis Screen: Does the patient meet any 2 criteria? No. Patient's initial sepsis screen is negative. Does the patient have a suspected source of infection? No. Patient's initial sepsis screen is negative. Note status post gallbladder removal noted. Care prior to arrival: Medication(s) given: gabapentin. 04:39 Method Of Arrival: Ambulatory rr5 04:39 Acuity: YADIEL 3 rr5 Historical: - Allergies: 04:40 NKA; rr5 - Home Meds: 04:40 gabapentin oral oral [Active]; ciprofloxacin oral oral [Active]; rr5 - PMHx: 04:40 gastritis; Migraines; rr5 - PSHx: 04:40 Cholecystectomy; rr5 - Immunization history:: Adult Immunizations up to date, Flu vaccine is up to date. - Social history:: Smoking status: Patient uses tobacco products, vape, Patient uses street drugs, marijuana, Patient/guardian denies using alcohol. - Ebola Screening: : Patient negative for fever greater than or equal to 101.5 degrees Fahrenheit, and additional compatible Ebola Virus Disease symptoms Patient denies exposure to infectious person Patient denies travel to an Ebola-affected area in the 21 days before illness onset. Screenin:45 Abuse screen: Denies threats or abuse. Nutritional screening: No deficits noted. jd3 Tuberculosis screening: No symptoms or risk factors identified. Fall Risk Ambulatory Aid- None/Bed Rest/Nurse Assist (0 pts). Gait- Normal/Bed Rest/Wheelchair (0 pts) Mental Status- Oriented to own ability (0 pts). Total [place] Fall Scale indicates No Risk (0-24 pts). Assessment: 04:40 General: Appears uncomfortable, Behavior is cooperative, anxious. Pain: Complains of jd3 pain in right cheek, mouth, right jaw and neck Pain currently is 10 out of 10 on a pain scale. Quality of pain is described as sharp. Neuro: Level of Consciousness is awake, alert, obeys commands, Oriented to person, place, time, situation, Appropriate for age. Cardiovascular: Denies chest pain, Capillary refill < 3 seconds Patient's skin is warm and dry. Respiratory: Airway is patent Respiratory effort is even, unlabored, Respiratory pattern is regular, symmetrical, Denies shortness of breath. GI: Abdomen is round Patient currently denies nausea, vomiting. : No signs and/or symptoms were reported regarding the genitourinary system. EENT: Poor dentition noted. Absence of teeth noted - upper right cuspid (#6). Derm: Skin is intact, Skin is dry, Skin is normal, Skin temperature is warm. Musculoskeletal: Circulation, motion, and sensation intact. Range of motion: intact in all extremities, Swelling present in right cheek, mouth and right jaw. 05:28 Reassessment: Patient and/or family updated on plan of care and expected duration. Pain jd3 level reassessed. Patient is alert, oriented x 3, equal unlabored respirations, skin warm/dry/pink. 06:27 Reassessment: Patient appears in no apparent distress at this time. Patient and/or jd3 family updated on plan of care and expected duration. Pain level reassessed. Patient is alert, oriented x 3, equal unlabored respirations, skin warm/dry/pink. Patient denies pain at this time. Patient states feeling better. Vital Signs: 04:40 BP 143 / 101; Pulse 104; Resp 20; Temp 99; Pulse Ox 98% ; Weight 96.62 kg; Height 5 ft. rr5 11 in. (180.34 cm); Pain 10/10; 05:28 BP 121 / 83; Pulse 65; Resp 17 S; Pulse Ox 97% on R/A; jd3 06:26 BP 116 / 72; Pulse 70; Resp 17 S; Pulse Ox 99% on R/A; jd3 04:40 Body Mass Index 29.71 (96.62 kg, 180.34 cm) rr5 ED Course: 04:33 Patient arrived in ED. ds1 04:36 Herberth Fontenot MD is Attending Physician. kdr 04:39 Severino Bryson, RN is Primary Nurse. jd3 04:40 Arm band placed on. rr5 04:42 Triage completed. rr5 04:45 Patient has correct armband on for positive identification. Call light in reach. Side jd3 rails up X 1. Adult w/ patient. 04:45 Arm band placed on. jd3 06:37 No provider procedures requiring assistance completed. Patient did not have IV access jd3 during this emergency room visit. Administered Medications: 05:05 Drug: morphine 4 mg Route: IM; Site: left gluteus; jd3 06:39 Follow up: Response: No adverse reaction jd3 05:05 Drug: Zofran 4 mg Route: PO; jd3 06:39 Follow up: Response: No adverse reaction jd3 05:05 Drug: Amoxicillin 500 mg Route: PO; jd3 06:39 Follow up: Response: No adverse reaction jd3 05:05 Drug: Rocephin - (cefTRIAXone) 1 grams {Note: given IM per provider's orders..} Route: jd3 IVPB; Infused Over: 30 mins; Site: Other; 05:35 Follow up: Response: No adverse reaction; IV Status: Completed infusion jd3 05:07 Drug: Flagyl 500 mg Route: PO; jd3 06:38 Follow up: Response: No adverse reaction jd3 05:07 Drug: [place] 10 mg-325 mg 1 tabs Route: PO; jd3 06:38 Follow up: Response: No adverse reaction jd3 Outcome: 06:31 Discharge ordered by . kdr 06:38 Discharged to home ambulatory, with family. jd3 06:38 Condition: stable 06:38 Discharge instructions given to patient, family, Instructed on discharge instructions, follow up and referral plans. medication usage, Demonstrated understanding of instructions, follow-up care, medications, Prescriptions given X 3. 06:40 Patient left the ED. jd3 Signatures: Herberth Fontenot MD MD [facility] Kavya Tello ds1 Severino Bryson, RN RN jd3 Raymundo Roe, CAIN RN rr5 Corrections: (The following items were deleted from the chart) 06:39 06:27 Reassessment: Patient appears in no apparent distress at this time. Patient jd3 and/or family updated on plan of care and expected duration. Pain level reassessed. Patient is alert, oriented x 3, equal unlabored respirations, skin warm/dry/pink. jd3
== END 2018-04-17 06:40 | disposition home or self-care (01) ==
LOC: ER 04:31
DX: K08.89 Other specified disorders of teeth and supporting structures (principal); Z72.0 Tobacco use
CPT/HCPCS: 96365; 96372; 99283

== ENCOUNTER 2018-07-30 08:50 | Emergency (ER) | payer SELFPAY ==
--- OUTSIDE RECORDS SUMMARY | 2018-07-30 08:54 | XMS REPORT | Clinical Summary ---
:1975 Author Organization [facility] Address [address] [place] [address] Care Team Providers Name Role Phone Unavailable Primary Care Provider Unavailable Allergies No Known Allergies Medications Medication Sig Dispensed Refills Start Date End Date Status [id number] Take 1 capsule 0 02/26/2018 Active ffeine (FIORINAL) by mouth every 50-325-40 mg per 4 (four) hours capsule as needed. SUMAtriptan (IMITREX) TAKE 1 TABLET 0 02/26/2018 Active 25 MG tablet BY MOUTH ONE TIME WITH FLUIDS EARLY POSSIBLE AFTER ONSET OF MIGRAINE. levoFLOXacin Take 1 tablet 3 tablet 0 04/11/2018 04/14/2018 (LEVAQUIN) 500 MG (500 mg total) tablet by mouth daily for 3 days. metroNIDAZOLE Take 1 tablet 9 tablet 0 04/10/2018 04/13/2018 (FLAGYL) 500 MG (500 mg total) tablet by mouth every 8 (eight) hours for 3 days. gabapentin Take 1 capsule 30 capsule 0 04/10/2018 04/20/2018 (NEURONTIN) 300 MG (300 mg total) capsule by mouth 3 (three) times daily for 10 days. Active Problems Problem Noted Date Elevated liver function tests 04/06/2018 Encounters Date Type Specialty Care Team Description 04/08/2018 Anesthesia Event Logan Moore MD 04/08/2018 Surgery Jaylene Daugherty,NICOLE Blevins MD TECTOMY 04/06/2018 Anesthesia Event Gastroenterology Jayna Gonzalez CRNA 04/06/2018 Surgery Gastroenterology Jefferson Hillman ERCP,PAPILLOTOMY MD [place] 04/06/2018 [facility] Internal Chang[place], Elevated liver function tests; - Encounter Medicine Cherie Chan MD Acute cholecystitis; 04/10/2018 [place], Calculus of bile duct without cholecystitis with obstruction; [place] Symptomatic cholelithiasis MD Katelin Vasques, Akila Beebe MD 04/06/2018 Travel after 07/29/2017 Social History Tobacco Use Types Packs/Day Years [...] Taken Blood Pressure 102/50 04/10/2018 7:19 AM DIGITAL CAMPAIGN SPECIALIST Pulse 59 04/10/2018 7:19 AM DIGITAL CAMPAIGN SPECIALIST Temperature 36.2 C (97.1 F) 04/10/2018 7:19 AM DIGITAL CAMPAIGN SPECIALIST Respiratory Rate 18 04/10/2018 7:19 AM DIGITAL CAMPAIGN SPECIALIST Oxygen Saturation 99% 04/10/2018 7:19 AM DIGITAL CAMPAIGN SPECIALIST Inhaled Oxygen Concentration 2% 04/08/2018 2:15 PM DIGITAL CAMPAIGN SPECIALIST Weight 96.6 kg (213 lb) 04/10/2018 9:27 AM DIGITAL CAMPAIGN SPECIALIST Height 180.3 cm (5' 11") 04/10/2018 9:27 AM DIGITAL CAMPAIGN SPECIALIST Body Mass Index 29.71 04/10/2018 9:27 AM DIGITAL CAMPAIGN SPECIALIST Plan of Treatment Not on file Procedures Procedure Name Priority Date/Time Associated Diagnosis Comments REPORT OF PROCEDURE 04/21/2018 - ENDOSCOPY SCAN 2:02 PM DIGITAL CAMPAIGN SPECIALIST CBC W/PLT COUNT & Routine 04/10/2018 Results for AUTO DIFFERENTIAL 4:25 AM DIGITAL CAMPAIGN SPECIALIST this procedure are in the results section. HEPATIC FUNCTION Routine 04/10/2018 Results for PANEL 4:25 AM DIGITAL CAMPAIGN SPECIALIST this procedure are in the results section. BASIC METABOLIC Routine 04/10/2018 Results for PANEL (7) 4:25 AM DIGITAL CAMPAIGN SPECIALIST this procedure are in the results section. CBC W/PLT COUNT & Routine 04/10/2018 Results for AUTO DIFFERENTIAL 4:25 AM DIGITAL CAMPAIGN SPECIALIST this procedure are in the results section. CBC W/PLT COUNT & Routine 04/09/2018 Results for AUTO DIFFERENTIAL 5:51 AM DIGITAL CAMPAIGN SPECIALIST this procedure are in the results section. HEPATIC FUNCTION Routine 04/09/2018 Results for PANEL 5:51 AM DIGITAL CAMPAIGN SPECIALIST this procedure are in the results section. CBC W/PLT COUNT & Routine 04/09/2018 Results for AUTO DIFFERENTIAL 5:51 AM DIGITAL CAMPAIGN SPECIALIST this procedure are in the results section. BASIC METABOLIC Routine 04/09/2018 Results for PANEL (7) 5:51 AM DIGITAL CAMPAIGN SPECIALIST this procedure are in the results section. PHOSPHORUS Routine 04/09/2018 Results for 4:12 AM DIGITAL CAMPAIGN SPECIALIST this procedure are in the results section. MAGNESIUM Routine 04/09/2018 Results for 4:12 AM DIGITAL CAMPAIGN SPECIALIST this procedure are in the results section. TRANSFUSION SERVICE 04/08/2018 REPORT - SCAN 6:01 PM DIGITAL CAMPAIGN SPECIALIST ANAEROBIC CULTURE Routine 04/08/2018 Results for 12:21 PM DIGITAL CAMPAIGN SPECIALIST this procedure are in the results section. SURGICALLY OBTAINED Routine 04/08/2018 Results for CULTURE + GRAM 12:21 PM DIGITAL CAMPAIGN SPECIALIST this procedure STAIN are in the results section. TISSUE EXAM AP Routine 04/08/2018 Results for 12:21 PM DIGITAL CAMPAIGN SPECIALIST this procedure are in the results section. LAPAROSCOPY,CHOLECY 04/08/2018 Choledocholithiasis STECTOMY 9:00 AM DIGITAL CAMPAIGN SPECIALIST CBC W/PLT COUNT & Routine 04/08/2018 Results for AUTO DIFFERENTIAL 4:41 AM DIGITAL CAMPAIGN SPECIALIST this procedure are in the results section. HEPATIC FUNCTION Routine 04/08/2018 Results for PANEL 4:41 AM DIGITAL CAMPAIGN SPECIALIST this procedure are in the results section. CBC W/PLT COUNT & Routine 04/08/2018 Results for AUTO DIFFERENTIAL 4:41 AM DIGITAL CAMPAIGN SPECIALIST this procedure are in the results section. PHOSPHORUS Routine 04/08/2018 Results for 4:41 AM DIGITAL CAMPAIGN SPECIALIST this procedure are in the results section. MAGNESIUM Routine 04/08/2018 Results for 4:41 AM DIGITAL CAMPAIGN SPECIALIST this procedure are in the results section. BASIC METABOLIC Routine 04/08/2018 Results for PANEL (7) 4:41 AM DIGITAL CAMPAIGN SPECIALIST this procedure are in the results section. TRANSFUSION SERVICE 04/07/2018 REPORT - SCAN 6:01 PM DIGITAL CAMPAIGN SPECIALIST REPORT OF PROCEDURE 04/07/2018 - ENDOSCOPY URL 3:48 PM DIGITAL CAMPAIGN SPECIALIST CBC W/PLT COUNT & Routine 04/07/2018 Results for AUTO DIFFERENTIAL 8:04 AM DIGITAL CAMPAIGN SPECIALIST this procedure are in the results section. ABORH, MANUAL STAT 04/07/2018 Results for 8:04 AM DIGITAL CAMPAIGN SPECIALIST this procedure are in the results section. LIPASE Routine 04/07/2018 Results for 8:04 AM DIGITAL CAMPAIGN SPECIALIST this procedure are in the results section. HEPATIC FUNCTION Routine 04/07/2018 Results for PANEL 8:04 AM DIGITAL CAMPAIGN SPECIALIST this procedure are in the results section. CBC W/PLT COUNT & Routine 04/07/2018 Results for AUTO DIFFERENTIAL 8:04 AM DIGITAL CAMPAIGN SPECIALIST this procedure are in the results section. PHOSPHORUS Routine 04/07/2018 Results for 8:04 AM DIGITAL CAMPAIGN SPECIALIST this procedure are in the results section. MAGNESIUM Routine 04/07/2018 Results for 8:04 AM DIGITAL CAMPAIGN SPECIALIST this procedure are in the results section. BASIC METABOLIC Routine 04/07/2018 Results for PANEL (7) 8:04 AM DIGITAL CAMPAIGN SPECIALIST this procedure are in the results section. US ABDOMEN COMPLETE STAT 04/07/2018 Results for 6:51 AM DIGITAL CAMPAIGN SPECIALIST this procedure are in the results section. TYPE AND SCREEN, Routine 04/06/2018 Results for AUTOMATED 9:54 PM DIGITAL CAMPAIGN SPECIALIST this procedure are in the results section. FL ERCP Routine 04/06/2018 Results for 3:05 PM DIGITAL CAMPAIGN SPECIALIST this procedure are in the results section. ERCP,BALLOON 04/06/2018 Gall stones, common bile SWEEPING 2:00 PM D[employer]ITAL CAMPAIGN SPECIALIST duct Special Needs ercp w/ anes and fluoro PROCEDURE W/ C-ARM 04/06/2018 2:00 PM DIGITAL CAMPAIGN SPECIALIST Gall stones, common bile duct Special Needs ercp w/ anes and fluoro ERCP,PAPILLOTOMY 04/06/2018 2:00 PM D[employer]ITAL CAMPAIGN SPECIALIST Gall stones, common bile duct Special Needs ercp w/ anes and fluoro BLOOD CULTURE Routine 04/06/2018 12:44 PM DIGITAL CAMPAIGN SPECIALIST CBC W/PLT COUNT & AUTO Routine 04/06/2018 11:19 AM DIGITAL CAMPAIGN SPECIALIST Results for this DIFFERENTIAL procedure are in the results section. PROTHROMBIN TIME/INR STAT 04/06/2018 11:19 AM DIGITAL CAMPAIGN SPECIALIST COMPREHENSIVE METABOLIC STAT 04/06/2018 11:19 AM DIGITAL CAMPAIGN SPECIALIST Results for this PANEL procedure are in the results section. LIPASE Routine 04/06/2018 11:19 AM DIGITAL CAMPAIGN SPECIALIST AMYLASE Routine 04/06/2018 11:19 AM DIGITAL CAMPAIGN SPECIALIST HEPATITIS PANEL, ACUTE Routine 04/06/2018 11:19 AM DIGITAL CAMPAIGN SPECIALIST CBC W/PLT COUNT & AUTO Routine 04/06/2018 11:19 AM DIGITAL CAMPAIGN SPECIALIST Results for this DIFFERENTIAL procedure are in the results section. LIPID PANEL Routine 04/06/2018 11:19 AM DIGITAL CAMPAIGN SPECIALIST BASIC METABOLIC PANEL (7) Routine 04/06/2018 11:19 AM DIGITAL CAMPAIGN SPECIALIST BLOOD CULTURE Routine 04/06/2018 11:18 AM DIGITAL CAMPAIGN SPECIALIST after 07/29/2017 Results EKG-SCANNED (04/21/2018 2:02 PM DIGITAL CAMPAIGN SPECIALIST) Narrative Performed At CBC with platelet count + automated diff (04/10/2018 4:25 AM DIGITAL CAMPAIGN SPECIALIST)Only the most recent of5 resultswithin the time period is included. WBC 5.9 3.5 - 10.5 K/L [facility] RBC 4.17 (L) 4.63 - 6.08 M/L [facility] Hemoglobin 11.7 (L) 13.7 - 17.5 GM/DL [facility] Hematocrit 36.8 (L) 40.1 - 51.0 % [facility] MCV 88.2 79.0 - 92.2 fL [facility] MCH 28.1 25.7 - 32.2 pg [facility] MCHC 31.8 (L) 32.3 - 36.5 GM/DL [facility] RDW 12.8 11.6 - 14.4 % [facility] Platelets 182 150 - 450 K/CU MM [facility] MPV 10.9 9.4 - 12.4 fL [facility] nRBC 0 0 - 0 /100 WBC [facility] % Neutros 56 % [facility] % Lymphs 29 % [facility] % Monos 12 % [facility] % Eos 2 % [facility] % Baso 1 % [facility] # Neutros 3.28 1.78 - 5.38 K/L [facility] # Lymphs 1.73 1.32 - 3.57 K/L [facility] # Monos 0.70 0.30 - 0.82 K/L [facility] # Eos 0.14 0.04 - 0.54 K/L [facility] # Baso 0.03 0.01 - 0.08 K/L [facility] Immature Granulocytes-Relative 0 0 - 1 % [facility] Specimen Blood Performing Organization Address City/[facility] Cent[facility]ode Phone Number [address] [address] [place] Hepatic function panel (04/10/2018 4:25 AM DIGITAL CAMPAIGN SPECIALIST)Only the most recent of4 resultswithin the time period is included. Protein, Total 6.3 6.0 - 8.3 gm/dL [facility] Albumin 3.6 3.5 - 5.0 g/dL [facility] Total Bilirubin 0.8 0.2 - 1.2 mg/dL [facility] Bilirubin, Direct 0.5 0.1 - 0.5 mg/dL [facility] Alkaline Phosphatase 111 40 - 150 U/L [facility] AST 76 (H) 5 - 34 U/L [facility] ALT 261 (H) 6 - 55 U/L [facility] Specimen Blood Performing Organization Address City/[facility]/Zipcode Phone Number [address] [address] [place] Basic Metabolic Panel (04/10/2018 4:25 AM DIGITAL CAMPAIGN SPECIALIST)Only the most recent of5 resultswithin the time period is included. Sodium 139 136 - 145 meq/L [facility] Potassium 3.2 (L) 3.5 - 5.1 meq/L [facility] Chloride 106 98 - 107 meq/L [facility] CO2 25 22 - 29 meq/L [facility] BUN 6 (L) 7 - 21 mg/dL [facility] Creatinine 0.72 0.57 - 1.25 mg/dL [facility] Glucose 80 70 - 105 mg/dL [facility] Calcium 9.1 8.4 - 10.2 mg/dL [facility] EGFR 120Comment: ESTIMATED GFR IS mL/min/1.73 sq m [facility] NOT ACCURATE CREATININE [facility] CLEARANCE IN PREDICTING GLOMERULAR FILTRATION RATE. ESTIMATED GFR IS NOT APPLICABLE FOR DIALYSIS PATIENTS. Specimen Blood Performing Organization Address City/[facility] Cent[facility]ode Phone Number [address] [address] [place] Phosphorus (04/09/2018 4:12 AM DIGITAL CAMPAIGN SPECIALIST)Only the most recent of3 resultswithin the time period is included. Phosphorus 2.9 2.3 - 4.7 mg/dL [facility] Specimen Blood Performing Organization Address City/[facility] Cent[facility]ode Phone Number [address] [address] [phone] CENTER Magnesium (04/09/2018 4:12 AM DIGITAL CAMPAIGN SPECIALIST)Only the most recent of3 resultswithin the time period is included. Magnesium 1.6 1.6 - 2.6 mg/dL [facility] Specimen Blood Performing Organization Address [facility] Centercode Phone Number [address] [address] [place] TRANSFUSION SERVICE REPORT - SCAN (04/08/2018 6:01 PM DIGITAL CAMPAIGN SPECIALIST)Only the most recent of2 resultswithin the time period is included. Narrative Performed At Anaerobic culture (04/08/2018 12:21 PM DIGITAL CAMPAIGN SPECIALIST) Result No anaerobes isolated [facility] Specimen Body Fluid Performing Organization Address City/[facility]/Zipcode Phone Number [facility] [address] [place] [address] [place] Surgically obtained culture + gram stain (04/08/2018 12:21 PM DIGITAL CAMPAIGN SPECIALIST) Result No growth [facility] Gram Stain Result 1+ White blood cells seen [facility] Gram Stain Result No organisms seen [facility] Specimen Body Fluid Performing Organization Address City/[facility]/Zipcode Phone Number [facility] [address] [place] [address] [place] Tissue Exam (04/08/2018 12:21 PM DIGITAL CAMPAIGN SPECIALIST) Case Report Surgical Pathology Report Case: [id number] [facility] Authorizing Provider:Jaylene Daugherty MD Collected: 04/08/2018 1221 [facility] Ordering Location: [address] Received: 04/08/2018 1350 Service Pathologist: Evie Vizcaino MD Specimen:Gallbladder DIAGNOSIS GALLBLADDER, LAPAROSCOPIC CHOLECYSTECTOMY: [facility] - CHRONIC CHOLECYSTITIS WITH ULCERATED/ERODED MUCOSA [facility] - CHOLELITHIASIS - SUGGESTIVE OF CHOLESTEROL GRANULOMA - CYSTIC DUCT WITH ORGANIZED THROMBUS AT THE MARGIN - NEGATIVE FOR DYSPLASIA OR MALIGNANCY Signing Pathologist Direct Phone Line: [phone] CPT Code(s) 18746 [facility] CLINICAL HISTORY Choledocholithiasis [facility] SPECIMEN SOURCE Gallbladder [facility] GROSS DESCRIPTION The specimen is received in formalin-filled container labeled with the patient's information and labeled "gallbladder". It consists of an intact gallbladder measuring 5.5 x 2 cm with a gallbladder wall [facility] thickness of 0.2 cm. The gallbladder lumen is impacted with numerous green- pearly smooth stones measuring up to 0.5 cm. The bile is canada-red and thin. The mucosa is canada-red and smooth with trabeculation. No masses are seen. [facility] Section code: A1, margin en face; A2, gallbladder wall. CG/ew MICROSCOPIC DESCRIPTION Performed [facility] Specimen Tissue Performing Organization Address City/State/Zipcode Phone Number [facility] [address] [place] [address] [phone] CENTER REPORT OF PROCEDURE - ENDOSCOPY URL (04/07/2018 3:48 PM DIGITAL CAMPAIGN SPECIALIST) Narrative Performed At ABORH, manual (04/07/2018 8:04 AM DIGITAL CAMPAIGN SPECIALIST) ABO Grouping A [facility] Rh Factor POS [facility] Specimen Blood Performing Organization Address City/[facility]/Zipcode Phone Number [address] [phone] Lipase (04/07/2018 8:04 AM DIGITAL CAMPAIGN SPECIALIST)Only the most recent of2 resultswithin the time period is included. Lipase 882 (H) 8 - 78 U/L [facility] Specimen Blood Performing Organization Address City/[facility]/Zipcode Phone Number [facility] [address] [place] [address] [phone] CENTER US abdomen complete (04/07/2018 6:51 AM DIGITAL CAMPAIGN SPECIALIST) Specimen Narrative Performed At FINAL REPORT [facility] Abdominal Ultrasound Clinical Diagnosis: Abdomen pain Comparison: [...] MD Report Verified Date/Time:04/07/2018 09:32:02 Reading Location: [address] Ultrasound Reading Room Procedure Note Interface, External Ris In - 04/07/2018 9:34 AM DIGITAL CAMPAIGN SPECIALIST FINAL REPORT Abdominal Ultrasound Clinical Diagnosis: Abdomen [...] Report Verified Date/Time: 04/07/2018 09:32:02 Reading Location: [address] Ultrasound Reading Room Performing Organization Address City/State/Zipcode Phone Number [facility] Type and screen, automated (04/06/2018 9:54 PM DIGITAL CAMPAIGN SPECIALIST) ABO/RH AUTOMATED (BEAKER) A POSITIVE [facility] Ab Scrn NEGATIVE [facility] Specimen Blood Performing Organization Address City/[facility]/Zipcode Phone Number [address] [address] [phone] [place] ERCP (04/06/2018 3:05 PM DIGITAL CAMPAIGN SPECIALIST) Specimen Narrative Performed At FINAL REPORT [facility] ERCP Clinical History: BILIARY OBSTRUCTION Impression: Intraoperative images are obtained. The radiologist is not present during the procedure. Images are presented for interpretation at the completion of the procedure.Please refer to the procedure report for more details. Number of images obtained: 3 Fluoroscopic time: 62.4 seconds Signed: Alok Maria MD Report Verified Date/Time:04/06/2018 15:34:35 Reading Location: [address] Consult Reading Room Procedure Note Interface, External Ris In - 04/06/2018 3:36 PM DIGITAL CAMPAIGN SPECIALIST FINAL REPORT ERCP Clinical History: BILIARY OBSTRUCTION Impression: Intraoperative images are obtained. The radiologist is not present during the procedure. Images are presented for interpretation at the completion of the procedure. Please refer to the procedure report for more details. Number of images obtained: 3 Fluoroscopic time: 62.4 seconds Signed: Alok Maria MD Report Verified Date/Time: 04/06/2018 15:34:35 Reading Location: [facility] Consult Reading Room Performing Organization Address City/State/Zipcode Phone Number [facility] Blood culture (04/06/2018 12:44 PM DIGITAL CAMPAIGN SPECIALIST)Only the most recent of2 resultswithin the time period is included. Result No growth in 5 days [facility] Specimen Blood Performing Organization Address City/[facility]/Zipcode Phone Number [address] [address] CENTER Hepatitis panel, acute (04/06/2018 11:19 AM DIGITAL CAMPAIGN SPECIALIST) Hep A IgM HEPATITIS A TEST NEGATIVE Nonreactive [facility] Hep B C IgM NON-REACTIVE Nonreactive [facility] Hepatitis C Ab NON-REACTIVE Nonreactive [facility] hepatitis B Surface Ag NON-REACTIVE Nonreactive [facility] Specimen Blood Performing Organization Address City/[facility] Cent[facility]ode Phone Number [address] [address] [phone] [place] Prothrombin time/INR (04/06/2018 11:19 AM DIGITAL CAMPAIGN SPECIALIST) Protime 12.5 11.7 - 14.7 seconds [facility] INR 0.9 <=5.9 [facility] Specimen Blood Narrative Performed At RECOMMENDED COUMADIN/WARFARIN INR THERAPY [facility] RANGES STANDARD DOSE: 2.0 - 3.0 Includes: PROPHYLAXIS for venous thrombosis, systemic embolization; TREATMENT for venous thrombosis and/or pulmonary embolus. HIGH RISK: Target INR is 2.5-3.5 for patients with mechanical heart valves. Performing Organization Address City/[facility] Phone Number [address] [address] [place] Amylase (04/06/2018 11:19 AM DIGITAL CAMPAIGN SPECIALIST) Amylase 887 (H) 25 - 125 U/L [facility] Specimen Blood Narrative Performed At Specimen slightly icteric [facility] Performing Organization Address City/[facility]/Zipcode Phone Number [facility] [address] [place] [address] [place] Lipid panel (04/06/2018 11:19 AM DIGITAL CAMPAIGN SPECIALIST) Triglycerides 106 mg/dL [facility] Cholesterol 169 mg/dL [facility] HDL 44 mg/dL [facility] LDL Calculated 104 mg/dL [facility] Specimen Blood Narrative Performed At Triglyceride Reference Range: [facility] Low Risk <150 [id number] High Risk 200-499 Very High Risk>=500 Cholesterol Reference Range: Low Risk <200 [id number] High Risk>240 HDL Cholesterol Reference Range: Low Risk >=60 High Risk <40 LDL Cholesterol Reference Range: Optimal<100 Near [id number] Very High >=190 Specimen slightly icteric Performing Organization Address City/State/Zipcode Phone Number [facility] [address] [place] [address] CENTER Comprehensive metabolic panel (04/06/2018 11:19 AM DIGITAL CAMPAIGN SPECIALIST) Protein, Total 7.2 6.0 - 8.3 gm/dL [facility] Albumin 4.3 3.5 - 5.0 g/dL [facility] Alkaline Phosphatase 193 (H) 40 - 150 U/L [facility] Total Bilirubin 4.4 (H) 0.2 - 1.2 mg/dL [facility] Sodium 143 136 - 145 meq/L [facility] Potassium 3.4 (L) 3.5 - 5.1 meq/L [facility] Chloride 108 (H) 98 - 107 meq/L [facility] CO2 26 22 - 29 meq/L [facility] BUN 14 7 - 21 mg/dL [facility] Creatinine 0.94 0.57 - 1.25 mg/dL [facility] Glucose 100 70 - 105 mg/dL [facility] Calcium 9.4 8.4 - 10.2 mg/dL [facility] AST 310 (H) 5 - 34 U/L [facility] ALT 572 (H) 6 - 55 U/L [facility] EGFR 88Comment: ESTIMATED GFR mL/min/1.73 sq m [facility] IS NOT ACCURATE [facility] CREATININE CLEARANCE IN PREDICTING GLOMERULAR FILTRATION RATE. ESTIMATED GFR IS NOT APPLICABLE FOR DIALYSIS PATIENTS. Specimen Blood Narrative Performed At Specimen slightly icteric [facility] Performing Organization Address City/State/Zipcode Phone Number [address] [address] CENTER after 07/29/2017 Advance Directives For more information, please contact:[address] [phone] Code Status Date Activated Date Inactivated Comments Full Code 04/06/2018 9:53 AM This code status was determined by: Patient
--- OUTSIDE RECORDS SUMMARY | 2018-07-30 08:55 | XMS REPORT ---
:1975 [facility] Address [address] [place] [address] Care Team Providers Name Role Phone MAIDA GABBY M. Unavailable Unavailable Problems This patient has no known problems. Allergies, Adverse Reactions, Alerts This patient has no known allergies or adverse reactions. Medications This patient has no known medications. 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 - NEGATIVE FOR DYSPLASIA OR MALIGNANCY Signing Pathologist Direct Phone Line: [phone] signed by Evie Vizcaino MD on 04/12/2018 at 3:22 [id number] Choledocholithiasis Gallbladder The specimen is received in [...] Value Reference Range Comments CULTURE (BEAKER) (test rllx=7273) No anaerobes isolated BLOOD [id number] 19:01:00 Test Item Value Reference Range Comments CULTURE (BEAKER) (test ogxy=1707) No growth in 5 days BLOOD [id number] 19:01:00 Test Item Value Reference Range Comments CULTURE (BEAKER) (test nrup=0536) No growth in 5 days SURGICALLY OBTAINED CULTURE + GRAM [id number] 13:40:00 Test Item Value Reference Range Comments CULTURE (BEAKER) (test etys=3295) No growth GRAM STAIN RESULT (BEAKER) (test 1+ White blood cells seen fsnf=2520) GRAM STAIN RESULT (BEAKER) (test No organisms seen fuoj=44191) HEPATIC FUNCTION [id number] 05:34:00 Test Item Value Reference Range Comments TOTAL PROTEIN (BEAKER) (test jyjk=333) 6.3 gm/dL 6.0-8.3 ALBUMIN (BEAKER) (test fjqz=3336) 3.6 g/dL 3.5-5.0 BILIRUBIN TOTAL (BEAKER) (test bkps=246) 0.8 mg/dL 0.2-1.2 BILIRUBIN DIRECT (BEAKER) (test kvsp=868) 0.5 mg/dL 0.1-0.5 ALKALINE PHOSPHATASE (BEAKER) (test fxrx=036) 111 U/L 40-150 AST (SGOT) (BEAKER) (test mosf=447) 76 U/L 5-34 ALT (SGPT) (BEAKER) (test vkvu=710) 261 U/L 6-55 BASIC METABOLIC [id number] 05:34:00 Test Item Value Reference Range Comments SODIUM (BEAKER) (test 139 meq/L 136-145 ukra=568) POTASSIUM (BEAKER) (test 3.2 meq/L 3.5-5.1 caju=749) CHLORIDE (BEAKER) (test 106 meq/L 98-107 kbos=842) CO2 (BEAKER) (test 25 meq/L 22-29 flog=524) BLOOD UREA NITROGEN 6 mg/dL 7-21 (BEAKER) (test eflk=161) CREATININE (BEAKER) (test 0.72 mg/dL 0.57-1.25 cjef=603) GLUCOSE RANDOM (BEAKER) 80 mg/dL 70-105 (test lkrr=760) CALCIUM (BEAKER) (test 9.1 mg/dL 8.4-10.2 nqlg=419) EGFR (BEAKER) (test 120 mL/min/1.73 sq m ESTIMATED GFR IS NOT pyuo=1300) ACCURATE CREATININE CLEARANCE IN PREDICTING GLOMERULAR FILTRATION RATE. ESTIMATED GFR IS NOT APPLICABLE FOR DIALYSIS PATIENTS. CBC W/PLT COUNT & AUTO [id number] 05:12:00 Test Item Value Reference Range Comments WHITE BLOOD CELL COUNT (BEAKER) (test uuio=200) 5.9 K/ L 3.5-10.5 RED BLOOD CELL COUNT (BEAKER) (test xxes=042) 4.17 M/ L 4.63-6.08 HEMOGLOBIN (BEAKER) (test brqs=825) 11.7 GM/DL 13.7-17.5 HEMATOCRIT (BEAKER) (test xhpa=284) 36.8 % 40.1-51.0 MEAN CORPUSCULAR VOLUME (BEAKER) (test lkfw=302) 88.2 fL 79.0-92.2 MEAN CORPUSCULAR HEMOGLOBIN (BEAKER) (test 28.1 pg 25.7-32.2 ggpn=639) MEAN CORPUSCULAR HEMOGLOBIN CONC (BEAKER) (test 31.8 GM/DL 32.3-36.5 jnfv=077) RED CELL DISTRIBUTION WIDTH (BEAKER) (test 12.8 % 11.6-14.4 mxqc=959) PLATELET COUNT (BEAKER) (test lcyr=214) 182 K/CU MM 150-450 MEAN PLATELET VOLUME (BEAKER) (test fpuc=032) 10.9 fL 9.4-12.4 NUCLEATED RED BLOOD CELLS (BEAKER) (test 0 /100 WBC 0-0 fnwo=841) NEUTROPHILS RELATIVE PERCENT (BEAKER) (test 56 % opqp=347) LYMPHOCYTES RELATIVE PERCENT (BEAKER) (test 29 % cltf=310) MONOCYTES RELATIVE PERCENT (BEAKER) (test 12 % sfzi=874) EOSINOPHILS RELATIVE PERCENT (BEAKER) (test 2 % btit=253) BASOPHILS RELATIVE PERCENT (BEAKER) (test 1 % fudo=553) NEUTROPHILS ABSOLUTE COUNT (BEAKER) (test 3.28 K/ L 1.78-5.38 nqwv=177) LYMPHOCYTES ABSOLUTE COUNT (BEAKER) (test 1.73 K/ L 1.32-3.57 fwuz=740) MONOCYTES ABSOLUTE COUNT (BEAKER) (test 0.70 K/ L 0.30-0.82 uenn=904) EOSINOPHILS ABSOLUTE COUNT (BEAKER) (test 0.14 K/ L 0.04-0.54 qvek=303) BASOPHILS ABSOLUTE COUNT (BEAKER) (test 0.03 K/ L 0.01-0.08 pvwz=086) IMMATURE GRANULOCYTES-RELATIVE PERCENT (BEAKER) 0 % 0-1 (test xnbs=0866) HEPATIC FUNCTION [id number] 07:32:00 Test Item Value Reference Range Comments TOTAL PROTEIN (BEAKER) (test hogd=027) 6.2 gm/dL 6.0-8.3 ALBUMIN (BEAKER) (test gqjq=5482) 3.5 g/dL 3.5-5.0 BILIRUBIN TOTAL (BEAKER) (test bebo=870) 0.9 mg/dL 0.2-1.2 BILIRUBIN DIRECT (BEAKER) (test tvvw=501) 0.6 mg/dL 0.1-0.5 ALKALINE PHOSPHATASE (BEAKER) (test xtty=101) 121 U/L 40-150 AST (SGOT) (BEAKER) (test znep=683) 183 U/L 5-34 ALT (SGPT) (BEAKER) (test pxww=471) 390 U/L 6-55 BASIC METABOLIC [id number] 07:32:00 Test Item Value Reference Range Comments SODIUM (BEAKER) (test 140 meq/L 136-145 oqgw=731) POTASSIUM (BEAKER) (test 3.4 meq/L 3.5-5.1 eejg=970) CHLORIDE (BEAKER) (test 107 meq/L 98-107 xnfl=094) CO2 (BEAKER) (test 24 meq/L 22-29 ysuz=728) BLOOD UREA NITROGEN 8 mg/dL 7-21 (BEAKER) (test nmrh=827) CREATININE (BEAKER) (test 0.70 mg/dL 0.57-1.25 samj=052) GLUCOSE RANDOM (BEAKER) 73 mg/dL 70-105 (test drao=827) CALCIUM (BEAKER) (test 8.9 mg/dL 8.4-10.2 pgqy=422) EGFR (BEAKER) (test 124 mL/min/1.73 sq m ESTIMATED GFR IS NOT zjzj=7340) ACCURATE CREATININE CLEARANCE IN PREDICTING GLOMERULAR FILTRATION RATE. ESTIMATED GFR IS NOT APPLICABLE FOR DIALYSIS PATIENTS. [id number] 06:22:00 Test Item Value Reference Range Comments PHOSPHORUS (BEAKER) (test xpwn=272) 2.9 mg/dL 2.3-4.7 [id number] 06:22:00 Test Item Value Reference Range Comments MAGNESIUM (BEAKER) (test dxje=218) 1.6 mg/dL 1.6-2.6 CBC W/PLT COUNT & AUTO [id number] 06:07:00 Test Item Value Reference Range Comments WHITE BLOOD CELL COUNT (BEAKER) (test udtx=649) 8.8 K/ L 3.5-10.5 RED BLOOD CELL COUNT (BEAKER) (test yimc=369) 4.07 M/ L 4.63-6.08 HEMOGLOBIN (BEAKER) (test hsur=919) 11.7 GM/DL 13.7-17.5 HEMATOCRIT (BEAKER) (test bbmr=250) 35.6 % 40.1-51.0 MEAN CORPUSCULAR VOLUME (BEAKER) (test pghz=842) 87.5 fL 79.0-92.2 MEAN CORPUSCULAR HEMOGLOBIN (BEAKER) (test 28.7 pg 25.7-32.2 kvui=757) MEAN CORPUSCULAR HEMOGLOBIN CONC (BEAKER) (test 32.9 GM/DL 32.3-36.5 kwom=401) RED CELL DISTRIBUTION WIDTH (BEAKER) (test 12.9 % 11.6-14.4 gdbw=736) PLATELET COUNT (BEAKER) (test pjxf=239) 169 K/CU MM 150-450 MEAN PLATELET VOLUME (BEAKER) (test ifqu=965) 10.5 fL 9.4-12.4 NUCLEATED RED BLOOD CELLS (BEAKER) (test 0 /100 WBC 0-0 ertz=471) NEUTROPHILS RELATIVE PERCENT (BEAKER) (test 72 % ddfc=772) LYMPHOCYTES RELATIVE PERCENT (BEAKER) (test 16 % ffdz=144) MONOCYTES RELATIVE PERCENT (BEAKER) (test 10 % fxgq=829) EOSINOPHILS RELATIVE PERCENT (BEAKER) (test 1 % pigm=238) BASOPHILS RELATIVE PERCENT (BEAKER) (test 0 % nega=944) NEUTROPHILS ABSOLUTE COUNT (BEAKER) (test 6.37 K/ L 1.78-5.38 jeom=740) LYMPHOCYTES ABSOLUTE COUNT (BEAKER) (test 1.42 K/ L 1.32-3.57 sdgl=616) MONOCYTES ABSOLUTE COUNT (BEAKER) (test 0.91 K/ L 0.30-0.82 bygk=801) EOSINOPHILS ABSOLUTE COUNT (BEAKER) (test 0.09 K/ L 0.04-0.54 agui=355) BASOPHILS ABSOLUTE COUNT (BEAKER) (test 0.02 K/ L 0.01-0.08 txfs=257) IMMATURE GRANULOCYTES-RELATIVE PERCENT (BEAKER) 0 % 0-1 (test zhwm=1976) [id number] 05:54:00 Test Item Value Reference Range Comments PHOSPHORUS (BEAKER) (test yybr=988) 2.7 mg/dL 2.3-4.7 [id number] 05:54:00 Test Item Value Reference Range Comments MAGNESIUM (BEAKER) (test dfab=703) 1.5 mg/dL 1.6-2.6 BASIC METABOLIC [id number] 05:54:00 Test Item Value Reference Range Comments SODIUM (BEAKER) (test 137 meq/L 136-145 cyar=712) POTASSIUM (BEAKER) (test 3.4 meq/L 3.5-5.1 rjql=318) CHLORIDE (BEAKER) (test 105 meq/L 98-107 gbnn=291) CO2 (BEAKER) (test 21 meq/L 22-29 bgzy=194) BLOOD UREA NITROGEN 9 mg/dL 7-21 (BEAKER) (test mfba=415) CREATININE (BEAKER) (test 0.78 mg/dL 0.57-1.25 wech=851) GLUCOSE RANDOM (BEAKER) 69 mg/dL 70-105 (test ggvo=186) CALCIUM (BEAKER) (test 8.9 mg/dL 8.4-10.2 vfar=202) EGFR (BEAKER) (test 110 mL/min/1.73 sq m ESTIMATED GFR IS NOT fyvd=0385) ACCURATE CREATININE CLEARANCE IN PREDICTING GLOMERULAR FILTRATION RATE. ESTIMATED GFR IS NOT APPLICABLE FOR DIALYSIS PATIENTS. HEPATIC FUNCTION [id number] 05:54:00 Test Item Value Reference Range Comments TOTAL PROTEIN (BEAKER) (test ghob=051) 6.5 gm/dL 6.0-8.3 ALBUMIN (BEAKER) (test egtq=2171) 3.8 g/dL 3.5-5.0 BILIRUBIN TOTAL (BEAKER) (test edoa=677) 1.2 mg/dL 0.2-1.2 BILIRUBIN DIRECT (BEAKER) (test wcqj=910) 0.7 mg/dL 0.1-0.5 ALKALINE PHOSPHATASE (BEAKER) (test vjiw=555) 147 U/L 40-150 AST (SGOT) (BEAKER) (test cffe=024) 113 U/L 5-34 ALT (SGPT) (BEAKER) (test owio=446) 333 U/L 6-55 CBC W/PLT COUNT & AUTO [id number] 05:40:00 Test Item Value Reference Range Comments WHITE BLOOD CELL COUNT (BEAKER) (test vdap=827) 11.9 K/ L 3.5-10.5 RED BLOOD CELL COUNT (BEAKER) (test maii=914) 4.06 M/ L 4.63-6.08 HEMOGLOBIN (BEAKER) (test pkpq=754) 11.8 GM/DL 13.7-17.5 HEMATOCRIT (BEAKER) (test visr=868) 35.8 % 40.1-51.0 MEAN CORPUSCULAR VOLUME (BEAKER) (test loul=794) 88.2 fL 79.0-92.2 MEAN CORPUSCULAR HEMOGLOBIN (BEAKER) (test 29.1 pg 25.7-32.2 vkrz=534) MEAN CORPUSCULAR HEMOGLOBIN CONC (BEAKER) (test 33.0 GM/DL 32.3-36.5 keas=624) RED CELL DISTRIBUTION WIDTH (BEAKER) (test 12.8 % 11.6-14.4 ayis=743) PLATELET COUNT (BEAKER) (test ggzm=665) 166 K/CU MM 150-450 MEAN PLATELET VOLUME (BEAKER) (test vsge=192) 11.0 fL 9.4-12.4 NUCLEATED RED BLOOD CELLS (BEAKER) (test 0 /100 WBC 0-0 mjdc=836) NEUTROPHILS RELATIVE PERCENT (BEAKER) (test 74 % sgek=624) LYMPHOCYTES RELATIVE PERCENT (BEAKER) (test 15 % yord=920) MONOCYTES RELATIVE PERCENT (BEAKER) (test 10 % fhlr=633) EOSINOPHILS RELATIVE PERCENT (BEAKER) (test 1 % xmax=766) BASOPHILS RELATIVE PERCENT (BEAKER) (test 0 % qbwp=519) NEUTROPHILS ABSOLUTE COUNT (BEAKER) (test 8.76 K/ L 1.78-5.38 lyuj=541) LYMPHOCYTES ABSOLUTE COUNT (BEAKER) (test 1.80 K/ L 1.32-3.57 kifp=430) MONOCYTES ABSOLUTE COUNT (BEAKER) (test 1.12 K/ L 0.30-0.82 anfh=088) EOSINOPHILS ABSOLUTE COUNT (BEAKER) (test 0.08 K/ L 0.04-0.54 rvvd=599) BASOPHILS ABSOLUTE COUNT (BEAKER) (test 0.04 K/ L 0.01-0.08 awyo=401) IMMATURE GRANULOCYTES-RELATIVE PERCENT (BEAKER) 0 % 0-1 (test evcf=7387) [id number] 11:43:00 Test Item Value Reference Range Comments LIPASE (BEAKER) (test xpei=899) 882 U/L 8-78 U/S, ABDOMINAL, [id number] 09:32:00Reason for exam:->abd pain Reason for exam:->Please do stat. [facility] Clinical Diagnosis: Abdomen [...] proximally is 2.2 cm Impression: Hepatomegaly.Cholelithiasis. Signed: Monica Elliseport Verified Date/Time : 04/07/2018 09:32:02 Reading Location: [facility] [id number] Ultrasound Reading Room HEPATIC FUNCTION [id number] 08:43:00 Test Item Value Reference Range Comments TOTAL PROTEIN (BEAKER) (test tbyq=827) 6.3 gm/dL 6.0-8.3 ALBUMIN (BEAKER) (test adxu=1680) 3.7 g/dL 3.5-5.0 BILIRUBIN TOTAL (BEAKER) (test mtie=674) 1.3 mg/dL 0.2-1.2 BILIRUBIN DIRECT (BEAKER) (test dair=641) 0.8 mg/dL 0.1-0.5 ALKALINE PHOSPHATASE (BEAKER) (test fzjr=383) 165 U/L 40-150 AST (SGOT) (BEAKER) (test fqks=552) 164 U/L 5-34 ALT (SGPT) (BEAKER) (test uovn=656) 401 U/L 6-55 BASIC METABOLIC [id number] 08:43:00 Test Item Value Reference Range Comments SODIUM (BEAKER) (test 138 meq/L 136-145 hnbf=817) POTASSIUM (BEAKER) (test 3.7 meq/L 3.5-5.1 yzql=370) CHLORIDE (BEAKER) (test 106 meq/L 98-107 hwyx=330) CO2 (BEAKER) (test 24 meq/L 22-29 zpmt=373) BLOOD UREA NITROGEN 11 mg/dL 7-21 (BEAKER) (test qnsy=397) CREATININE (BEAKER) (test 0.86 mg/dL 0.57-1.25 nhfz=123) GLUCOSE RANDOM (BEAKER) 85 mg/dL 70-105 (test zdgv=720) CALCIUM (BEAKER) (test 9.1 mg/dL 8.4-10.2 icca=453) EGFR (BEAKER) (test 98 mL/min/1.73 sq m ESTIMATED GFR IS NOT avaq=5070) ACCURATE CREATININE CLEARANCE IN PREDICTING GLOMERULAR FILTRATION RATE. ESTIMATED GFR IS NOT APPLICABLE FOR DIALYSIS PATIENTS. [id number] 08:43:00 Test Item Value Reference Range Comments MAGNESIUM (BEAKER) (test ofnx=243) 1.5 mg/dL 1.6-2.6 [id number] 08:43:00 Test Item Value Reference Range Comments PHOSPHORUS (BEAKER) (test dzyv=447) 2.8 mg/dL 2.3-4.7 CBC W/PLT COUNT & AUTO [id number] 08:23:00 Test Item Value Reference Range Comments WHITE BLOOD CELL COUNT (BEAKER) (test jnxf=805) 9.3 K/ L 3.5-10.5 RED BLOOD CELL COUNT (BEAKER) (test qqbz=617) 4.29 M/ L 4.63-6.08 HEMOGLOBIN (BEAKER) (test ryag=504) 12.2 GM/DL 13.7-17.5 HEMATOCRIT (BEAKER) (test xjrh=592) 37.9 % 40.1-51.0 MEAN CORPUSCULAR VOLUME (BEAKER) (test bpbj=770) 88.3 fL 79.0-92.2 MEAN CORPUSCULAR HEMOGLOBIN (BEAKER) (test 28.4 pg 25.7-32.2 nhrv=900) MEAN CORPUSCULAR HEMOGLOBIN CONC (BEAKER) (test 32.2 GM/DL 32.3-36.5 pxoi=262) RED CELL DISTRIBUTION WIDTH (BEAKER) (test 12.9 % 11.6-14.4 qpnj=262) PLATELET COUNT (BEAKER) (test ogxg=861) 175 K/CU MM 150-450 MEAN PLATELET VOLUME (BEAKER) (test sxqg=383) 10.5 fL 9.4-12.4 NUCLEATED RED BLOOD CELLS (BEAKER) (test 0 /100 WBC 0-0 uihx=607) NEUTROPHILS RELATIVE PERCENT (BEAKER) (test 71 % dmdq=428) LYMPHOCYTES RELATIVE PERCENT (BEAKER) (test 21 % rfbg=434) MONOCYTES RELATIVE PERCENT (BEAKER) (test 8 % vnsn=591) EOSINOPHILS RELATIVE PERCENT (BEAKER) (test 0 % yszu=560) BASOPHILS RELATIVE PERCENT (BEAKER) (test 0 % bdej=501) NEUTROPHILS ABSOLUTE COUNT (BEAKER) (test 6.52 K/ L 1.78-5.38 nvvz=307) LYMPHOCYTES ABSOLUTE COUNT (BEAKER) (test 1.96 K/ L 1.32-3.57 qshk=932) MONOCYTES ABSOLUTE COUNT (BEAKER) (test 0.69 K/ L 0.30-0.82 fuml=564) EOSINOPHILS ABSOLUTE COUNT (BEAKER) (test 0.03 K/ L 0.04-0.54 ccsx=792) BASOPHILS ABSOLUTE COUNT (BEAKER) (test 0.01 K/ L 0.01-0.08 tlxf=936) IMMATURE GRANULOCYTES-RELATIVE PERCENT (BEAKER) 0 % 0-1 (test hxbr=3351) FL, [id number] 15:34:00INTRA OP IMAGINGReason for exam:->BILIARY OBSTURCTIONFINAL REPORT ERCP Clinical History: BILIARY OBSTRUCTION Impression: Intraoperative images are obtained. The radiologist is not present during the procedure. Images are presentedfor interpretation at the completion of the procedure. Please refer to the procedure report for more details. Number of images obtained: 3 Fluoroscopic time: 62.4 seconds Signed: Alok Maria Verified Date/Time: 04/06/2018 15:34:35 Reading Location: [address] Consult Reading Room [id number] 13:01:00 Test Item Value Reference Range Comments LIPASE (BEAKER) (test qftd=631) > U/L 8-78 Specimen slightly ictericHEPATITIS PANEL, [id number] 12:35:00 Test Item Value Reference Range Comments HEPATITIS A IGM ANTIBODY (BEAKER) (test Nonreactive Nonreactive tnrl=096) HEPATITIS B CORE IGM ANTIBODY (BEAKER) (test Nonreactive Nonreactive bayy=573) HEPATITIS C ANTIBODY (BEAKER) (test uteq=686) Nonreactive Nonreactive HEPATITIS B SURFACE ANTIGEN (2) (BEAKER) (test Nonreactive Nonreactive ofpc=1764) PROTHROMBIN [id number] 12:26:00 Test Item Value Reference Range Comments PROTIME (BEAKER) (test dhyw=935) 12.5 seconds 11.7-14.7 INR (BEAKER) (test ltkw=010) 0.9 <=5.9 RECOMMENDED COUMADIN/WARFARIN INR THERAPY RANGESSTANDARD DOSE: 2.0 - 3.0 Includes: PROPHYLAXIS forvenous thrombosis, systemic embolization; TREATMENT for venous thrombosis and/or pulmonary embolus.HIGH RISK: Target INR is 2.5-3.5 for patients with mechanical heart valves.COMPREHENSIVE METABOLIC [id number] 12:16:00 Test Item Value Reference Range Comments TOTAL PROTEIN (BEAKER) 7.2 gm/dL 6.0-8.3 (test pgvr=785) ALBUMIN (BEAKER) (test 4.3 g/dL 3.5-5.0 jlkd=4024) ALKALINE PHOSPHATASE 193 U/L 40-150 (BEAKER) (test kykl=431) BILIRUBIN TOTAL (BEAKER) 4.4 mg/dL 0.2-1.2 (test etfv=283) SODIUM (BEAKER) (test 143 meq/L 136-145 ksml=412) POTASSIUM (BEAKER) (test 3.4 meq/L 3.5-5.1 owhv=132) CHLORIDE (BEAKER) (test 108 meq/L 98-107 haxa=352) CO2 (BEAKER) (test 26 meq/L 22-29 yyyw=577) BLOOD UREA NITROGEN 14 mg/dL 7-21 (BEAKER) (test dzwd=602) CREATININE (BEAKER) (test 0.94 mg/dL 0.57-1.25 pvqa=339) GLUCOSE RANDOM (BEAKER) 100 mg/dL 70-105 (test ruxx=585) CALCIUM (BEAKER) (test 9.4 mg/dL 8.4-10.2 jxdl=081) AST (SGOT) (BEAKER) (test 310 U/L 5-34 vpca=047) ALT (SGPT) (BEAKER) (test 572 U/L 6-55 ytov=155) EGFR (BEAKER) (test 88 mL/min/1.73 sq m ESTIMATED GFR IS NOT fvip=8853) ACCURATE CREATININE CLEARANCE IN PREDICTING GLOMERULAR FILTRATION RATE. ESTIMATED GFR IS NOT APPLICABLE FOR DIALYSIS PATIENTS. Specimen slightly ictericLIPID [id number] 12:16:00 Test Item Value Reference Range Comments TRIGLYCERIDES (BEAKER) (test xylh=801) 106 mg/dL CHOLESTEROL (BEAKER) (test mtmt=799) 169 mg/dL HDL CHOLESTEROL (BEAKER) (test mjap=794) 44 mg/dL LDL CHOLESTEROL CALCULATED (BEAKER) (test 104 mg/dL gdgd=485) Triglyceride Reference Range: Low Risk <150 Borderline 150- 199 High Risk 200-499 Very High Risk >=500Cholesterol Reference Range: Low Risk <200 Borderline 200-239 High Risk > 240HDL Cholesterol Reference Range: Low Risk >=60 High Risk <40LDL Cholesterol Reference Range: Optimal <100 Near Optimal 100-129 Borderline 130-159 High 160-189 Very High >=190 Specimen slightly [id number] 12:16:00 Test Item Value Reference Range Comments AMYLASE (BEAKER) (test ytze=289) 887 U/L 25-125 Specimen slightly ictericBASIC METABOLIC [id number] 12:13:00 Test Item Value Reference Range Comments SODIUM (BEAKER) (test 144 meq/L 136-145 kpbw=787) POTASSIUM (BEAKER) (test 3.4 meq/L 3.5-5.1 gnbq=495) CHLORIDE (BEAKER) (test 109 meq/L 98-107 zluj=764) CO2 (BEAKER) (test 25 meq/L 22-29 yalj=641) BLOOD UREA NITROGEN 15 mg/dL 7-21 (BEAKER) (test qqte=551) CREATININE (BEAKER) (test 0.92 mg/dL 0.57-1.25 mzfe=932) GLUCOSE RANDOM (BEAKER) 100 mg/dL 70-105 (test yufj=202) CALCIUM (BEAKER) (test 9.4 mg/dL 8.4-10.2 xjkc=339) EGFR (BEAKER) (test 91 mL/min/1.73 sq m ESTIMATED GFR IS NOT qfcw=5748) ACCURATE CREATININE CLEARANCE IN PREDICTING GLOMERULAR FILTRATION RATE. ESTIMATED GFR IS NOT APPLICABLE FOR DIALYSIS PATIENTS. Specimen slightly ictericCBC W/PLT COUNT & AUTO [id number] 12:10 :00 Test Item Value Reference Range Comments WHITE BLOOD CELL COUNT (BEAKER) (test vxlt=243) 6.7 K/ L 3.5-10.5 RED BLOOD CELL COUNT (BEAKER) (test ztxf=936) 4.64 M/ L 4.63-6.08 HEMOGLOBIN (BEAKER) (test jigj=712) 13.3 GM/DL 13.7-17.5 HEMATOCRIT (BEAKER) (test rxxb=137) 40.9 % 40.1-51.0 MEAN CORPUSCULAR VOLUME (BEAKER) (test ybgu=411) 88.1 fL 79.0-92.2 MEAN CORPUSCULAR HEMOGLOBIN (BEAKER) (test 28.7 pg 25.7-32.2 kixt=276) MEAN CORPUSCULAR HEMOGLOBIN CONC (BEAKER) (test 32.5 GM/DL 32.3-36.5 wdvl=052) RED CELL DISTRIBUTION WIDTH (BEAKER) (test 12.7 % 11.6-14.4 dhut=387) PLATELET COUNT (BEAKER) (test lpsz=414) 183 K/CU MM 150-450 MEAN PLATELET VOLUME (BEAKER) (test ehsl=694) 10.5 fL 9.4-12.4 NUCLEATED RED BLOOD CELLS (BEAKER) (test 0 /100 WBC 0-0 gptc=223) NEUTROPHILS RELATIVE PERCENT (BEAKER) (test 64 % upnz=641) LYMPHOCYTES RELATIVE PERCENT (BEAKER) (test 23 % nagh=533) MONOCYTES RELATIVE PERCENT (BEAKER) (test 11 % terv=581) EOSINOPHILS RELATIVE PERCENT (BEAKER) (test 1 % nmwf=529) BASOPHILS RELATIVE PERCENT (BEAKER) (test 0 % cbzr=010) NEUTROPHILS ABSOLUTE COUNT (BEAKER) (test 4.31 K/ L 1.78-5.38 ohys=121) LYMPHOCYTES ABSOLUTE COUNT (BEAKER) (test 1.56 K/ L 1.32-3.57 nanl=639) MONOCYTES ABSOLUTE COUNT (BEAKER) (test 0.72 K/ L 0.30-0.82 adwv=220) EOSINOPHILS ABSOLUTE COUNT (BEAKER) (test 0.09 K/ L 0.04-0.54 irbv=112) BASOPHILS ABSOLUTE COUNT (BEAKER) (test 0.03 K/ L 0.01-0.08 wkhq=949) IMMATURE GRANULOCYTES-RELATIVE PERCENT (BEAKER) 0 % 0-1 (test vtof=1115)
[2018-07-30] MEDS ORDERED: ONDANSETRON 4 MG/2 ML VIAL ONE (09:32)
[2018-07-30] MEDS ORDERED: NA CHLORIDE 0.9% 1,000 ML ONE (09:34)
[2018-07-30 09:35] LABS: Absolute Lymphocytes (CBC) 2.6 K/uL (0.7-4.9); Absolute Monocytes 0.6 K/uL (0.1-1.3); Basophils % 0.6 % (0-1.3); Eosinophils % 1.5 % (0-4.4); Hematocrit 46.7 % (39.6-49.0); Lymphocytes % 30.8 % (15.3-44.8); MPV 8.8 fL (7.6-11.3); Monocytes % 6.9 % (3.3-12.3); RBC Red Blood Cell Count 5.44 M/uL (4.33-5.43)
[2018-07-30 09:44] LABS: Albumin 4.5 g/dL (3.4-5.0); Bilirubin Direct 0.3 mg/dL (0-0.2); Bilirubin Total 0.9 mg/dL (0.2-1.0); Potassium 3.4 mmol/L (3.5-5.1); Protein, Total 8.3 g/dL (6.4-8.2)
[2018-07-30] MEDS ORDERED: POTASSIUM CL SA 10 MEQ TAB PO ONE (10:06)
--- NOTE | 2018-07-30 11:22 | EDPHYS ---
Physician Documentation [facility] Name: Rm Hagen Age: 43 yrs Sex: Male : 1975 Arrival Date: 07/30/2018 Time: 08:52 Bed 16 Private MD: ED Physician Herberth Fontenot HPI: 07/30 11:20 This 43 yrs old Male presents to ER via Ambulatory with complaints of nh Vomiting. 11:20 The patient presents to the emergency department with nausea, vomiting, abdominal pain. nh Onset: The symptoms/episode began/occurred this morning. Possible causes: unknown. The symptoms are aggravated by nothing. The symptoms are alleviated by nothing. Severity of symptoms: At their worst the symptoms were moderate just prior to arrival, in the emergency department the symptoms are unchanged. The patient has not experienced similar symptoms in the past. The patient has not recently seen a physician. Historical: - Allergies: 09:02 NKA; ss - Home Meds: 09:02 Butalbital Compound 50-325-40 mg Oral tab 1 tab every 4 hours [Active]; sumatriptan rb1 succ 25 mg 1 tab daily [Active]; - PMHx: 09:02 gastritis; Migraines; Bipolar disorder; Depression; ss - PSHx: 09:02 Cholecystectomy; ss - Immunization history:: Adult Immunizations up to date. - Social history:: Smoking status: Patient uses tobacco products, "I vape". - Ebola Screening: : Patient denies exposure to infectious person Patient denies travel to an Ebola-affected area in the 21 days before illness onset. ROS: 11:20 Constitutional: Negative for fever, chills, and weight loss, Eyes: Negative for injury, nh pain, redness, and discharge, ENT: Negative for injury, pain, and discharge, Neck: Negative for injury, pain, and swelling, Cardiovascular: Negative for chest pain, palpitations, and edema, Respiratory: Negative for shortness of breath, cough, wheezing, and pleuritic chest pain, Back: Negative for injury and pain, : Negative for injury, bleeding, discharge, and swelling, MS/Extremity: Negative for injury and deformity, Skin: Negative for injury, rash, and discoloration, Neuro: Negative for headache, weakness, numbness, tingling, and seizure, Psych: Negative for depression, anxiety, suicide ideation, homicidal ideation, and hallucinations, Allergy/Immunology: Negative for hives, rash, and allergies, Endocrine: Negative for neck swelling, polydipsia, polyuria, polyphagia, and marked weight changes, Hematologic/Lymphatic: Negative for swollen nodes, abnormal bleeding, and unusual bruising. 11:20 Abdomen/GI: Positive for abdominal pain, nausea and vomiting. Exam: 11:20 Constitutional: This is a well developed, well nourished patient who is awake, alert, nh and in no acute distress. Head/Face: Normocephalic, atraumatic. Eyes: Pupils equal round and reactive to light, extra-ocular motions intact. Lids and lashes normal. Conjunctiva and sclera are non-icteric and not injected. Cornea within normal limits. Periorbital areas with no swelling, redness, or edema. ENT: Nares patent. No nasal discharge, no septal abnormalities noted. Tympanic membranes are normal and external auditory canals are clear. Oropharynx with no redness, swelling, or masses, exudates, or evidence of obstruction, uvula midline. Mucous membranes moist. Neck: Trachea midline, no thyromegaly or masses palpated, and no cervical lymphadenopathy. Supple, full range of motion without nuchal rigidity, or vertebral point tenderness. No Meningismus. Chest/axilla: Normal chest wall appearance and motion. Nontender with no deformity. No lesions are appreciated. Cardiovascular: Regular rate and rhythm with a normal S1 and S2. No gallops, murmurs, or rubs. Normal PMI, no JVD. No pulse deficits. Respiratory: Lungs have equal breath sounds bilaterally, clear to auscultation and percussion. No rales, rhonchi or wheezes noted. No increased work of breathing, no retractions or nasal flaring. Abdomen/GI: Soft, non-tender, with normal bowel sounds. No distension or tympany. No guarding or rebound. No evidence of tenderness throughout. Back: No spinal tenderness. No costovertebral tenderness. Full range of motion. Skin: Warm, dry with normal turgor. Normal color with no rashes, no lesions, and no evidence of cellulitis. MS/ Extremity: Pulses equal, no cyanosis. Neurovascular intact. Full, normal range of motion. Neuro: Awake and alert, GCS 15, oriented to person, place, time, and situation. Cranial nerves II-XII grossly intact. Motor strength 5/5 in all extremities. Sensory grossly intact. Cerebellar exam normal. Normal gait. Psych: Awake, alert, with orientation to person, place and time. Behavior, mood, and affect are within normal limits. Vital Signs: 09:02 BP 135 / 89; Pulse 61; Resp 18; Temp 97.8(TE); Pulse Ox 99% on R/A; Weight 87.54 kg; ss Height 5 ft. 11 in. (180.34 cm); Pain 5/10; 10:00 BP 114 / 85; Pulse 54; Resp 18; Temp 98.0(O); Pulse Ox 99% on R/A; Pain 4/10; rb1 10:39 BP 117 / 75; Pulse 104; Resp 20; Temp 97.9(O); Pulse Ox 100% on R/A; mh5 11:39 BP 120 / 78; Pulse 93; Resp 17; Temp 98.(O); Pulse Ox 99% on R/A; Pain 0/10; rb1 09:02 Body Mass Index 26.92 (87.54 kg, 180.34 cm) ss MDM: 08:55 Patient medically screened. de 11:20 Data reviewed: vital signs, nurses notes, lab test result(s), I have discussed the de patient's presentation/case with the attending Emergency Department Physician; and as a result, I will discharge patient. Counseling: I had a detailed discussion with the patient and/or guardian regarding: the historical points, exam findings, and any diagnostic results supporting the discharge/admit diagnosis, the need for outpatient follow up, to return to the emergency department if symptoms worsen or persist or if there are any questions or concerns that arise at home. 07/30 09:10 Order name: Basic Metabolic Panel; Complete Time: :45 de 07/30 09:10 Order name: CBC with Diff; Complete Time: 10:14 de 07/30 09:10 Order name: Creatinine for Radiology; Complete Time: :45 de 07/30 09:10 Order name: Hepatic Function; Complete Time: :45 de 07/30 09:10 Order name: Lipase; Complete Time: :45 de 07/30 09:10 Order name: IV Saline Lock; Complete Time: :18 de 07/30 09:10 Order name: Labs collected and sent; Complete Time: 09:18 nh 07/30 09:46 Order name: PO challenge; Complete Time: :53 nh Administered Medications: 09:21 Drug: NS 0.9% 1000 ml Route: IV; Rate: 1000 ml; Site: left antecubital; rb1 10:30 Follow up: IV Status: Completed infusion rb1 09:21 Drug: Zofran 4 mg Route: IVP; Site: left antecubital; rb1 09:36 Follow up: Response: No adverse reaction; Nausea is decreased rb1 09:53 Drug: Potassium Chloride 20 mEq Route: PO; rb1 10:30 Follow up: Response: No adverse reaction rb1 Disposition: 07/30/18 11:22 Discharged to Home. Impression: Dehydration. - Condition is Stable. - Discharge Instructions: Dehydration, Adult. - Medication Reconciliation Form, Thank You Letter, Antibiotic Education, Prescription Opioid Use form. - Follow up: Private Physician; When: 2 - 3 days; Reason: Recheck today's complaints. - Problem is new. - Symptoms are unchanged. Addendum: 08/01/2018 06:34 Co-signature as Attending Physician, Herberth Fontenot MD I agree with the assessment and k dr plan of care. Signatures: Dispatcher [employer] EDNE Herberth Fontenot MD MD [facility] Dayanna Gayle, MECHATRONICS TECHNOLOGIST MECHATRONICS TECHNOLOGIST de Teresa Finley, CAIN RN Wendy Henley, RN RN rb1 Corrections: (The following items were deleted from the chart) 07/30 11:47 11:22 07/30/2018 11:22 Discharged to Home. Impression: Dehydration. Condition is rb1 Stable. Forms are Medication Reconciliation Form, Thank You Letter, Antibiotic Education, Prescription Opioid Use. Follow up: Private Physician; When: 2 - 3 days; Reason: Recheck today's complaints. Problem is new. Symptoms are unchanged. de
--- NOTE | 2018-07-30 11:22 | ER ---
Nurse's Notes [facility] Name: Rm Hagen Age: 43 yrs Sex: Male : 1975 Arrival Date: 07/30/2018 Time: 08:52 Bed 16 Private MD: Diagnosis: Dehydration Presentation: 07/30 09:00 Presenting complaint: Patient states: constipation x 3 days, took Ex-Lax yesterday then ss soon after began having intermittent abd pain. Pt reports Vomiting since last night and small amount of diarrhea x 1 this morning. Transition of care: patient was not received from another setting of care. Onset of symptoms was July 26, 2018. Risk Assessment: Do you want to hurt yourself or someone else? Patient reports no desire to harm self or others. Initial Sepsis Screen: Does the patient meet any 2 criteria? No. Patient's initial sepsis screen is negative. Does the patient have a suspected source of infection? No. Patient's initial sepsis screen is negative. Care prior to arrival: None. 09:00 Method Of Arrival: Ambulatory ss 09:00 Acuity: YADIEL 3 ss Historical: - Allergies: 09:02 NKA; ss - Home Meds: 09:02 Butalbital Compound 50-325-40 mg Oral tab 1 tab every 4 hours [Active]; sumatriptan rb1 succ 25 mg 1 tab daily [Active]; - PMHx: 09:02 gastritis; Migraines; Bipolar disorder; Depression; ss - PSHx: 09:02 Cholecystectomy; ss - Immunization history:: Adult Immunizations up to date. - Social history:: Smoking status: Patient uses tobacco products, "I vape". - Ebola Screening: : Patient denies exposure to infectious person Patient denies travel to an Ebola-affected area in the 21 days before illness onset. Screenin:03 Abuse screen: Denies threats or abuse. Nutritional screening: No deficits noted. rb1 Tuberculosis screening: No symptoms or risk factors identified. Fall Risk None identified. Assessment: 09:03 General: Appears uncomfortable, Behavior is calm, cooperative. Pain: Complains of pain rb1 in abdomen Pain currently is 9 out of 10 on a pain scale. Neuro: Level of Consciousness is awake, alert, obeys commands, Oriented to person, place, time, situation. Cardiovascular: Capillary refill < 3 seconds is brisk in bilateral fingers. Respiratory: Airway is patent Respiratory effort is even, unlabored, Respiratory pattern is regular, symmetrical. GI: Abdomen is non-distended, Reports nausea, vomiting. : No signs and/or symptoms were reported regarding the genitourinary system. Derm: Skin is pink, warm \\T\\ dry. 10:00 Reassessment: Patient appears in no apparent distress at this time. Patient and/or rb1 family updated on plan of care and expected duration. Pain level reassessed. Patient is alert, oriented x 3, equal unlabored respirations, skin warm/dry/pink. 10:42 Reassessment: Pt. tolerated PO challenge well, no vomiting noted at this time. rb1 11:40 Reassessment: Patient appears in no apparent distress at this time. Patient and/or rb1 family updated on plan of care and expected duration. Pain level reassessed. Patient is alert, oriented x 3, equal unlabored respirations, skin warm/dry/pink. Vital Signs: 09:02 BP 135 / 89; Pulse 61; Resp 18; Temp 97.8(TE); Pulse Ox 99% on R/A; Weight 87.54 kg; Height 5 ft. 11 in. (180.34 cm); Pain 5/10; 10:00 BP 114 / 85; Pulse 54; Resp 18; Temp 98.0(O); Pulse Ox 99% on R/A; Pain 4/10; rb1 10:39 BP 117 / 75; Pulse 104; Resp 20; Temp 97.9(O); Pulse Ox 100% on R/A; mh5 11:39 BP 120 / 78; Pulse 93; Resp 17; Temp 98.(O); Pulse Ox 99% on R/A; Pain 0/10; rb1 09:02 Body Mass Index 26.92 (87.54 kg, 180.34 cm) ED Course: 08:52 Patient arrived in ED. as 08:55 Dayanna Gayle FNP is PHCP. nh 08:55 Herberth Fontenot MD is Attending Physician. ri 09:01 Triage completed. ss 09:02 Arm band placed on right wrist. ss 09:03 Wendy Henley, RN is Primary Nurse. rb1 09:03 Patient has correct armband on for positive identification. Bed in low position. Call rb1 light in reach. Side rails up X 1. Pulse ox on. NIBP on. Warm blanket given. 09:15 Initial lab(s) drawn, by me, sent to lab. Inserted saline lock: 20 gauge in left em antecubital area, using aseptic technique. Blood collected. 11:46 No provider procedures requiring assistance completed. IV discontinued, intact, rb1 bleeding controlled, No redness/swelling at site. Pressure dressing applied. Administered Medications: 09:21 Drug: NS 0.9% 1000 ml Route: IV; Rate: 1000 ml; Site: left antecubital; rb1 10:30 Follow up: IV Status: Completed infusion rb1 09:21 Drug: Zofran 4 mg Route: IVP; Site: left antecubital; rb1 09:36 Follow up: Response: No adverse reaction; Nausea is decreased rb1 09:53 Drug: Potassium Chloride 20 mEq Route: PO; rb1 10:30 Follow up: Response: No adverse reaction rb1 Outcome: 11:22 Discharge ordered by MD. ri 11:46 Discharged to home ambulatory, with friend. rb1 11:46 Condition: stable 11:46 Discharge instructions given to patient, Instructed on discharge instructions, follow up and referral plans. Demonstrated understanding of instructions, follow-up care, Prescriptions given X none 11:47 Patient left the ED. rb1 Signatures: Dayanna Gayle, DEPUTY BRAND INSPECTOR DEPUTY BRAND INSPECTOR ri Oli Franco, DIRECTOR OF VOLUNTEER SERVICES DIRECTOR OF VOLUNTEER SERVICES Lashell Dozier Shelby, RN RN Wendy Henley RN RN Magali Ibrahim [id number]
== END 2018-07-30 11:47 | disposition home or self-care (01) ==
LOC: ER 08:50
DX: E86.0 Dehydration (principal); R11.2 Nausea with vomiting, unspecified; R10.9 Unspecified abdominal pain; F31.9 Bipolar disorder, unspecified; F32.9 Major depressive disorder, single episode, unspecified
CPT/HCPCS: 36415; 80048; 80076; 83690; 85025; 96361; 96374; 99284; J2405; J7030

== ENCOUNTER 2018-08-28 02:49 | Emergency (ER) | payer SELFPAY ==
--- OUTSIDE RECORDS SUMMARY | 2018-08-28 02:53 | XMS REPORT | Clinical Summary ---
:1975 Author Organization [facility] Address [address] [place] [address] Care Team Providers Name Role Phone Unavailable Primary Care Provider Unavailable Allergies No Known Allergies Medications Medication Sig Dispensed Refills Start Date End Date Status ctdmcferxh-pujnwlx-ii Take 1 capsule 0 02/26/2018 Active ffeine [...] Gastroenterology Jefferson Hillman ERCP,PAPILLOTOMY MD [place] 04/06/2018 [facility] [place], Elevated liver function tests; - Encounter Medicine Cherie Chan MD Acute cholecystitis; 04/10/2018 [place], Calculus of bile duct without cholecystitis with obstruction; [place] Symptomatic cholelithiasis MD Katelin Vasques, Akila Beebe MD 04/06/2018 Travel after 08/27/2017 Social History Tobacco Use Types Packs/Day Years [...] Taken Blood Pressure 102/50 04/10/2018 7:19 AM JAVASCRIPT SOFTWARE ENGINEER Pulse 59 04/10/2018 7:19 AM JAVASCRIPT SOFTWARE ENGINEER Temperature 36.2 C (97.1 F) 04/10/2018 7:19 AM JAVASCRIPT SOFTWARE ENGINEER Respiratory Rate 18 04/10/2018 7:19 AM JAVASCRIPT SOFTWARE ENGINEER Oxygen Saturation 99% 04/10/2018 7:19 AM JAVASCRIPT SOFTWARE ENGINEER Inhaled Oxygen Concentration 2% 04/08/2018 2:15 PM JAVASCRIPT SOFTWARE ENGINEER Weight 96.6 kg (213 lb) 04/10/2018 9:27 AM JAVASCRIPT SOFTWARE ENGINEER Height 180.3 cm (5' 11") 04/10/2018 9:27 AM JAVASCRIPT SOFTWARE ENGINEER Body Mass Index 29.71 04/10/2018 9:27 AM JAVASCRIPT SOFTWARE ENGINEER Plan of Treatment Not on file Procedures Procedure Name Priority Date/Time Associated Diagnosis Comments REPORT OF PROCEDURE 04/21/2018 - ENDOSCOPY SCAN 2:02 PM JAVASCRIPT SOFTWARE ENGINEER CBC W/PLT COUNT & Routine 04/10/2018 Results for AUTO DIFFERENTIAL 4:25 AM JAVASCRIPT SOFTWARE ENGINEER this procedure are in the results section. HEPATIC FUNCTION Routine 04/10/2018 Results for PANEL 4:25 AM JAVASCRIPT SOFTWARE ENGINEER this procedure are in the results section. BASIC METABOLIC Routine 04/10/2018 Results for PANEL (7) 4:25 AM JAVASCRIPT SOFTWARE ENGINEER this procedure are in the results section. CBC W/PLT COUNT & Routine 04/10/2018 Results for AUTO DIFFERENTIAL 4:25 AM JAVASCRIPT SOFTWARE ENGINEER this procedure are in the results section. CBC W/PLT COUNT & Routine 04/09/2018 Results for AUTO DIFFERENTIAL 5:51 AM JAVASCRIPT SOFTWARE ENGINEER this procedure are in the results section. HEPATIC FUNCTION Routine 04/09/2018 Results for PANEL 5:51 AM JAVASCRIPT SOFTWARE ENGINEER this procedure are in the results section. CBC W/PLT COUNT & Routine 04/09/2018 Results for AUTO DIFFERENTIAL 5:51 AM JAVASCRIPT SOFTWARE ENGINEER this procedure are in the results section. BASIC METABOLIC Routine 04/09/2018 Results for PANEL (7) 5:51 AM JAVASCRIPT SOFTWARE ENGINEER this procedure are in the results section. PHOSPHORUS Routine 04/09/2018 Results for 4:12 AM JAVASCRIPT SOFTWARE ENGINEER this procedure are in the results section. MAGNESIUM Routine 04/09/2018 Results for 4:12 AM JAVASCRIPT SOFTWARE ENGINEER this procedure are in the results section. TRANSFUSION SERVICE 04/08/2018 REPORT - SCAN 6:01 PM JAVASCRIPT SOFTWARE ENGINEER ANAEROBIC CULTURE Routine 04/08/2018 Results for 12:21 PM JAVASCRIPT SOFTWARE ENGINEER this procedure are in the results section. SURGICALLY OBTAINED Routine 04/08/2018 Results for CULTURE + GRAM 12:21 PM JAVASCRIPT SOFTWARE ENGINEER this procedure STAIN are in the results section. TISSUE EXAM AP Routine 04/08/2018 Results for 12:21 PM JAVASCRIPT SOFTWARE ENGINEER this procedure are in the results section. LAPAROSCOPY,CHOLECY 04/08/2018 Choledocholithiasis STECTOMY 9:00 AM JAVASCRIPT SOFTWARE ENGINEER CBC W/PLT COUNT & Routine 04/08/2018 Results for AUTO DIFFERENTIAL 4:41 AM JAVASCRIPT SOFTWARE ENGINEER this procedure are in the results section. HEPATIC FUNCTION Routine 04/08/2018 Results for PANEL 4:41 AM JAVASCRIPT SOFTWARE ENGINEER this procedure are in the results section. CBC W/PLT COUNT & Routine 04/08/2018 Results for AUTO DIFFERENTIAL 4:41 AM JAVASCRIPT SOFTWARE ENGINEER this procedure are in the results section. PHOSPHORUS Routine 04/08/2018 Results for 4:41 AM JAVASCRIPT SOFTWARE ENGINEER this procedure are in the results section. MAGNESIUM Routine 04/08/2018 Results for 4:41 AM JAVASCRIPT SOFTWARE ENGINEER this procedure are in the results section. BASIC METABOLIC Routine 04/08/2018 Results for PANEL (7) 4:41 AM JAVASCRIPT SOFTWARE ENGINEER this procedure are in the results section. TRANSFUSION SERVICE 04/07/2018 REPORT - SCAN 6:01 PM JAVASCRIPT SOFTWARE ENGINEER REPORT OF PROCEDURE 04/07/2018 - ENDOSCOPY URL 3:48 PM JAVASCRIPT SOFTWARE ENGINEER CBC W/PLT COUNT & Routine 04/07/2018 Results for AUTO DIFFERENTIAL 8:04 AM JAVASCRIPT SOFTWARE ENGINEER this procedure are in the results section. ABORH, MANUAL STAT 04/07/2018 Results for 8:04 AM JAVASCRIPT SOFTWARE ENGINEER this procedure are in the results section. LIPASE Routine 04/07/2018 Results for 8:04 AM JAVASCRIPT SOFTWARE ENGINEER this procedure are in the results section. HEPATIC FUNCTION Routine 04/07/2018 Results for PANEL 8:04 AM JAVASCRIPT SOFTWARE ENGINEER this procedure are in the results section. CBC W/PLT COUNT & Routine 04/07/2018 Results for AUTO DIFFERENTIAL 8:04 AM JAVASCRIPT SOFTWARE ENGINEER this procedure are in the results section. PHOSPHORUS Routine 04/07/2018 Results for 8:04 AM JAVASCRIPT SOFTWARE ENGINEER this procedure are in the results section. MAGNESIUM Routine 04/07/2018 Results for 8:04 AM JAVASCRIPT SOFTWARE ENGINEER this procedure are in the results section. BASIC METABOLIC Routine 04/07/2018 Results for PANEL (7) 8:04 AM JAVASCRIPT SOFTWARE ENGINEER this procedure are in the results section. US ABDOMEN COMPLETE STAT 04/07/2018 Results for 6:51 AM JAVASCRIPT SOFTWARE ENGINEER this procedure are in the results section. TYPE AND SCREEN, Routine 04/06/2018 Results for AUTOMATED 9:54 PM JAVASCRIPT SOFTWARE ENGINEER this procedure are in the results section. FL ERCP Routine 04/06/2018 Results for 3:05 PM JAVASCRIPT SOFTWARE ENGINEER this procedure are in the results section. ERCP,BALLOON 04/06/2018 Gall stones, common bile SWEEPING 2:00 PM JAVASCRIPT SOFTWARE ENGINEER duct Special Needs ercp w/ anes and fluoro PROCEDURE W/ C-ARM 04/06/2018 2:00 PM JAVASCRIPT SOFTWARE ENGINEER Gall stones, common bile duct Special Needs ercp w/ anes and fluoro ERCP,PAPILLOTOMY 04/06/2018 2:00 PM JAVASCRIPT SOFTWARE ENGINEER Gall stones, common bile duct Special Needs ercp w/ anes and fluoro BLOOD CULTURE Routine 04/06/2018 12:44 PM JAVASCRIPT SOFTWARE ENGINEER CBC W/PLT COUNT & AUTO Routine 04/06/2018 11:19 AM JAVASCRIPT SOFTWARE ENGINEER Results for this DIFFERENTIAL procedure are in the results section. PROTHROMBIN TIME/INR STAT 04/06/2018 11:19 AM JAVASCRIPT SOFTWARE ENGINEER COMPREHENSIVE METABOLIC STAT 04/06/2018 11:19 AM JAVASCRIPT SOFTWARE ENGINEER Results for this PANEL procedure are in the results section. LIPASE Routine 04/06/2018 11:19 AM JAVASCRIPT SOFTWARE ENGINEER AMYLASE Routine 04/06/2018 11:19 AM JAVASCRIPT SOFTWARE ENGINEER HEPATITIS PANEL, ACUTE Routine 04/06/2018 11:19 AM JAVASCRIPT SOFTWARE ENGINEER CBC W/PLT COUNT & AUTO Routine 04/06/2018 11:19 AM JAVASCRIPT SOFTWARE ENGINEER Results for this DIFFERENTIAL procedure are in the results section. LIPID PANEL Routine 04/06/2018 11:19 AM JAVASCRIPT SOFTWARE ENGINEER BASIC METABOLIC PANEL (7) Routine 04/06/2018 11:19 AM JAVASCRIPT SOFTWARE ENGINEER BLOOD CULTURE Routine 04/06/2018 11:18 AM JAVASCRIPT SOFTWARE ENGINEER after 08/27/2017 Results EKG-SCANNED (04/21/2018 2:02 PM JAVASCRIPT SOFTWARE ENGINEER) Narrative Performed At CBC with platelet count + automated diff (04/10/2018 4:25 AM JAVASCRIPT SOFTWARE ENGINEER)Only the most recent of5 resultswithin the time period is included. WBC 5.9 3.5 - 10.5 K/L [facility] RBC 4.17 (L) 4.63 - 6.08 M/L [facility] Hemoglobin 11.7 (L) 13.7 - 17.5 GM/DL [facility] Hematocrit 36.8 (L) 40.1 - 51.0 % [facility] MCV 88.2 79.0 - 92.2 fL [facility] MCH 28.1 25.7 - 32.2 pg [facility] MCHC 31.8 (L) 32.3 - 36.5 GM/DL [facility] RDW 12.8 11.6 - 14.4 % [facility] Platelets 182 150 - 450 K/CU MM [facility] MPV 10.9 9.4 - 12.4 fL [facility] nRBC 0 0 - 0 /100 WBC [facility] % Neutros 56 % [facility] % Lymphs 29 % [facility] % Monos 12 % [facility] % Eos 2 % [facility] % Baso 1 % [facility] # Neutros 3.28 1.78 - 5.38 K/L [facility] # Lymphs 1.73 1.32 - 3.57 K/L [facility] # Monos 0.70 0.30 - 0.82 K/L [facility] # Eos 0.14 0.04 - 0.54 K/L [facility] # Baso 0.03 0.01 - 0.08 K/L [facility] Immature Granulocytes-Relative 0 0 - 1 % [facility] Specimen Blood Performing Organization Address City/[facility] Phone Number [address] [address] [phone] [place] Hepatic function panel (04/10/2018 4:25 AM JAVASCRIPT SOFTWARE ENGINEER)Only the most recent of4 resultswithin the time period is included. Protein, Total 6.3 6.0 - 8.3 gm/dL [facility] Albumin 3.6 3.5 - 5.0 g/dL [facility] Total Bilirubin 0.8 0.2 - 1.2 mg/dL [facility] Bilirubin, Direct 0.5 0.1 - 0.5 mg/dL [facility] Alkaline Phosphatase 111 40 - 150 U/L [facility] AST 76 (H) 5 - 34 U/L [facility] ALT 261 (H) 6 - 55 U/L [facility] Specimen Blood Performing Organization Address City/[facility]/Zipcode Phone Number [address] [address] [phone] [place] Basic Metabolic Panel (04/10/2018 4:25 AM JAVASCRIPT SOFTWARE ENGINEER)Only the most recent of5 resultswithin the time period is included. Sodium 139 136 - 145 meq/L [facility] Potassium 3.2 (L) 3.5 - 5.1 meq/L [facility] Chloride 106 98 - 107 meq/L [facility] CO2 25 22 - 29 meq/L [facility] BUN 6 (L) 7 - 21 mg/dL [facility] Creatinine 0.72 0.57 - 1.25 mg/dL [facility] Glucose 80 70 - 105 mg/dL [facility] Calcium 9.1 8.4 - 10.2 mg/dL [facility] EGFR 120Comment: ESTIMATED GFR IS mL/min/1.73 sq m [facility] NOT ACCURATE CREATININE [facility] CENTER CLEARANCE IN PREDICTING GLOMERULAR FILTRATION RATE. ESTIMATED GFR IS NOT APPLICABLE FOR DIALYSIS PATIENTS. Specimen Blood Performing Organization Address City/[facility] Phone Number [address] [address] [phone] [place] Phosphorus (04/09/2018 4:12 AM JAVASCRIPT SOFTWARE ENGINEER)Only the most recent of3 resultswithin the time period is included. Phosphorus 2.9 2.3 - 4.7 mg/dL [facility] Specimen Blood Performing Organization Address City/[facility] Phone Number [address] [address] [phone] CENTER Magnesium (04/09/2018 4:12 AM JAVASCRIPT SOFTWARE ENGINEER)Only the most recent of3 resultswithin the time period is included. Magnesium 1.6 1.6 - 2.6 mg/dL [facility] Specimen Blood Performing Organization Address [facility] Phone Number [address] [address] [place] TRANSFUSION SERVICE REPORT - SCAN (04/08/2018 6:01 PM JAVASCRIPT SOFTWARE ENGINEER)Only the most recent of2 resultswithin the time period is included. Narrative Performed At Anaerobic culture (04/08/2018 12:21 PM JAVASCRIPT SOFTWARE ENGINEER) Result No anaerobes isolated [facility] Specimen Body Fluid Performing Organization Address City/[facility]/Zipcode Phone Number [facility] [address] [place] [address] DO[place] Surgically obtained culture + gram stain (04/08/2018 12:21 PM JAVASCRIPT SOFTWARE ENGINEER) Result No growth [facility] Gram Stain Result 1+ White blood cells seen [facility] Gram Stain Result No organisms seen [facility] Specimen Body Fluid Performing Organization Address City/[facility]/Zipcode Phone Number [facility] [address] [place] [phone] [place] Tissue Exam (04/08/2018 12:21 PM JAVASCRIPT SOFTWARE ENGINEER) Case Report Surgical Pathology Report Case: [id number] [facility] Authorizing Provider:Jaylene Daugherty MD Collected: 04/08/2018 1221 [facility] Ordering Location: [address] Received: 04/08/2018 1350 Service Pathologist: Evie Vizcaino MD Specimen:Gallbladder DIAGNOSIS GALLBLADDER, LAPAROSCOPIC CHOLECYSTECTOMY: [facility] - CHRONIC CHOLECYSTITIS WITH ULCERATED/ERODED MUCOSA [facility] - CHOLELITHIASIS - SUGGESTIVE OF CHOLESTEROL GRANULOMA - CYSTIC DUCT WITH ORGANIZED THROMBUS AT THE MARGIN - NEGATIVE FOR DYSPLASIA OR MALIGNANCY Signing Pathologist Direct Phone Line: [phone] CPT Code(s) [address]00 [facility] CLINICAL HISTORY Choledocholithiasis [facility] SPECIMEN SOURCE Gallbladder [facility] GROSS DESCRIPTION The specimen is received in formalin-filled container labeled with the patient's information and labeled "gallbladder". It consists of an intact gallbladder measuring 5.5 x 2 cm with a gallbladder wall [facility] thickness of 0.2 cm. The gallbladder lumen is impacted with numerous green- pearly smooth stones measuring up to 0.5 cm. The bile is canada-red and thin. The mucosa is canada-red and smooth with trabeculation. No masses are seen. [facility] Section code: A1, margin en face; A2, gallbladder wall. CG/ew MICROSCOPIC DESCRIPTION Performed [facility] Specimen Tissue Performing Organization Address City/State/Zipcode Phone Number [facility] [address] [place] [address] [phone] CENTER REPORT OF PROCEDURE - ENDOSCOPY URL (04/07/2018 3:48 PM JAVASCRIPT SOFTWARE ENGINEER) Narrative Performed At ABORH, manual (04/07/2018 8:04 AM JAVASCRIPT SOFTWARE ENGINEER) ABO Grouping A [facility] Rh Factor POS [facility] Specimen Blood Performing Organization Address City/[facility]/Zipcode Phone Number [address] [phone] Lipase (04/07/2018 8:04 AM JAVASCRIPT SOFTWARE ENGINEER)Only the most recent of2 resultswithin the time period is included. Lipase 882 (H) 8 - 78 U/L [facility] Specimen Blood Performing Organization Address City/[facility]/Zipcode Phone Number [facility] [address] [place] [address] [phone] CENTER US abdomen complete (04/07/2018 6:51 AM JAVASCRIPT SOFTWARE ENGINEER) Specimen Narrative Performed At FINAL REPORT [email or web address] Abdominal Ultrasound Clinical Diagnosis: Abdomen pain Comparison: [...] MD Report Verified Date/Time:04/07/2018 09:32:02 Reading Location: [address] Ultrasound Reading Room Procedure Note Interface, External Ris In - 04/07/2018 9:34 AM JAVASCRIPT SOFTWARE ENGINEER FINAL REPORT Abdominal Ultrasound Clinical Diagnosis: Abdomen [...] Report Verified Date/Time: 04/07/2018 09:32:02 Reading Location: [address] Ultrasound Reading Room Performing Organization Address City/State/Zipcode Phone Number [facility] Type and screen, automated (04/06/2018 9:54 PM JAVASCRIPT SOFTWARE ENGINEER) ABO/RH AUTOMATED (BEAKER) A POSITIVE [facility] Ab Scrn NEGATIVE [facility] Specimen Blood Performing Organization Address City/[facility]/Zipcode Phone Number [address] [phone] [place] ERCP (04/06/2018 3:05 PM JAVASCRIPT SOFTWARE ENGINEER) Specimen Narrative Performed At FINAL REPORT GE [...] MD Report Verified Date/Time:04/06/2018 15:34:35 Reading Location: [address] Consult Reading Room Procedure Note Interface, External Ris In - 04/06/2018 3:36 PM JAVASCRIPT SOFTWARE ENGINEER FINAL REPORT ERCP Clinical History: BILIARY OBSTRUCTION Impression: Intraoperative images are obtained. The radiologist is not present during the procedure. Images are presented for interpretation at the completion of the procedure. Please refer to the procedure report for more details. Number of images obtained: 3 Fluoroscopic time: 62.4 seconds Signed: Alok Maria MD Report Verified Date/Time: 04/06/2018 15:34:35 Reading Location: [id number] Consult Reading Room Performing Organization Address City/State/Zipcode Phone Number [facility] Blood culture (04/06/2018 12:44 PM JAVASCRIPT SOFTWARE ENGINEER)Only the most recent of2 resultswithin the time period is included. Result No growth in 5 days [facility] Specimen Blood Performing Organization Address City/[facility]/Zipcode Phone Number [address] [address] [phone] CENTER Hepatitis panel, acute (04/06/2018 11:19 AM JAVASCRIPT SOFTWARE ENGINEER) Hep A IgM Nonreactive Nonreactive [facility] Hep B C IgM Nonreactive Nonreactive [facility] Hepatitis C Ab Nonreactive Nonreactive [facility] hepatitis B Surface Ag Nonreactive Nonreactive [facility] Specimen Blood Performing Organization Address City/[facility]/Zipcode Phone Number [address] [phone] [place] Prothrombin time/INR (04/06/2018 11:19 AM JAVASCRIPT SOFTWARE ENGINEER) Protime 12.5 11.7 - 14.7 seconds [facility] INR 0.9 <=5.9 [facility] Specimen Blood Narrative Performed At RECOMMENDED COUMADIN/WARFARIN INR THERAPY [facility] RANGES STANDARD DOSE: 2.0 - 3.0 Includes: PROPHYLAXIS for venous thrombosis, systemic embolization; TREATMENT for venous thrombosis and/or pulmonary embolus. HIGH RISK: Target INR is 2.5-3.5 for patients with mechanical heart valves. Performing Organization Address City/[facility] Phone Number [address] [address] [phone] [place] Amylase (04/06/2018 11:19 AM JAVASCRIPT SOFTWARE ENGINEER) Amylase 887 (H) 25 - 125 U/L [facility] Specimen Blood Narrative Performed At Specimen slightly icteric [facility] Performing Organization Address City/State/Zipcode Phone Number [address] [address] [place] Lipid panel (04/06/2018 11:19 AM JAVASCRIPT SOFTWARE ENGINEER) Triglycerides 106 mg/dL [facility] Cholesterol 169 mg/dL [facility] HDL 44 mg/dL [facility] LDL Calculated 104 mg/dL [facility] Specimen Blood Narrative Performed At Triglyceride Reference Range: [facility] Low Risk <150 [id number] High Risk 200-499 Very High Risk>=500 Cholesterol Reference Range: Low Risk <200 [id number] High Risk>240 HDL Cholesterol Reference Range: Low Risk >=60 High Risk <40 LDL Cholesterol Reference Range: Optimal<100 Near [id number] Very High >=190 Specimen slightly icteric Performing Organization Address City/State/Zipcode Phone Number [facility] [address] [place] [address] [phone] CENTER Comprehensive metabolic panel (04/06/2018 11:19 AM JAVASCRIPT SOFTWARE ENGINEER) Protein, Total 7.2 6.0 - 8.3 gm/dL [facility] Albumin 4.3 3.5 - 5.0 g/dL [facility] Alkaline Phosphatase 193 (H) 40 - 150 U/L [facility] Total Bilirubin 4.4 (H) 0.2 - 1.2 mg/dL [facility] Sodium 143 136 - 145 meq/L [facility] Potassium 3.4 (L) 3.5 - 5.1 meq/L [facility] Chloride 108 (H) 98 - 107 meq/L [facility] CO2 26 22 - 29 meq/L [facility] BUN 14 7 - 21 mg/dL [facility] Creatinine 0.94 0.57 - 1.25 mg/dL [facility] Glucose 100 70 - 105 mg/dL [facility] Calcium 9.4 8.4 - 10.2 mg/dL [facility] AST 310 (H) 5 - 34 U/L [facility] ALT 572 (H) 6 - 55 U/L [facility] EGFR 88Comment: ESTIMATED GFR mL/min/1.73 sq m [facility] IS NOT ACCURATE [facility] CREATININE CLEARANCE IN PREDICTING GLOMERULAR FILTRATION RATE. ESTIMATED GFR IS NOT APPLICABLE FOR DIALYSIS PATIENTS. Specimen Blood Narrative Performed At Specimen slightly icteric [facility] Performing Organization Address City/State/Zipcode Phone Number [address] [address] [phone] CENTER after 08/27/2017 Advance Directives For more information, please contact:[address] [phone] Code Status Date Activated Date Inactivated Comments Full Code 04/06/2018 9:53 AM This code status was determined by: Patient
--- OUTSIDE RECORDS SUMMARY | 2018-08-28 02:54 | XMS REPORT ---
:1975 [facility] Address [address] [place] [address] Care Team Providers Name Role Phone MAIDA GABBY M. Unavailable Unavailable Problems This patient has no known problems. Allergies, Adverse Reactions, Alerts This patient has no known allergies or adverse reactions. Medications This patient has no known medications. 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 - NEGATIVE FOR DYSPLASIA OR MALIGNANCY Signing Pathologist Direct Phone Line: [phone] signed by Evie Vizcaino MD on 04/12/2018 at 3:22 [id number] Choledocholithiasis Gallbladder The specimen is received in [...] Value Reference Range Comments CULTURE (BEAKER) (test jwoq=6595) No anaerobes isolated BLOOD [id number] 19:01:00 Test Item Value Reference Range Comments CULTURE (BEAKER) (test ktlr=6134) No growth in 5 days BLOOD [id number] 19:01:00 Test Item Value Reference Range Comments CULTURE (BEAKER) (test hzsj=9953) No growth in 5 days SURGICALLY OBTAINED CULTURE + GRAM [id number] 13:40:00 Test Item Value Reference Range Comments CULTURE (BEAKER) (test xakq=8338) No growth GRAM STAIN RESULT (BEAKER) (test 1+ White blood cells seen hstn=7588) GRAM STAIN RESULT (BEAKER) (test No organisms seen nsrk=65405) HEPATIC FUNCTION [id number] 05:34:00 Test Item Value Reference Range Comments TOTAL PROTEIN (BEAKER) (test odvx=709) 6.3 gm/dL 6.0-8.3 ALBUMIN (BEAKER) (test nyns=3351) 3.6 g/dL 3.5-5.0 BILIRUBIN TOTAL (BEAKER) (test vhma=024) 0.8 mg/dL 0.2-1.2 BILIRUBIN DIRECT (BEAKER) (test cbnc=102) 0.5 mg/dL 0.1-0.5 ALKALINE PHOSPHATASE (BEAKER) (test mspa=621) 111 U/L 40-150 AST (SGOT) (BEAKER) (test wywp=017) 76 U/L 5-34 ALT (SGPT) (BEAKER) (test wjjj=888) 261 U/L 6-55 BASIC METABOLIC [id number] 05:34:00 Test Item Value Reference Range Comments SODIUM (BEAKER) (test 139 meq/L 136-145 yran=102) POTASSIUM (BEAKER) (test 3.2 meq/L 3.5-5.1 efwb=320) CHLORIDE (BEAKER) (test 106 meq/L 98-107 ayxx=437) CO2 (BEAKER) (test 25 meq/L 22-29 qfea=773) BLOOD UREA NITROGEN 6 mg/dL 7-21 (BEAKER) (test uaki=448) CREATININE (BEAKER) (test 0.72 mg/dL 0.57-1.25 brfd=231) GLUCOSE RANDOM (BEAKER) 80 mg/dL 70-105 (test stkw=749) CALCIUM (BEAKER) (test 9.1 mg/dL 8.4-10.2 hlac=501) EGFR (BEAKER) (test 120 mL/min/1.73 sq m ESTIMATED GFR IS NOT nvpu=9879) ACCURATE CREATININE CLEARANCE IN PREDICTING GLOMERULAR FILTRATION RATE. ESTIMATED GFR IS NOT APPLICABLE FOR DIALYSIS PATIENTS. CBC W/PLT COUNT & AUTO [id number] 05:12:00 Test Item Value Reference Range Comments WHITE BLOOD CELL COUNT (BEAKER) (test fgtb=646) 5.9 K/ L 3.5-10.5 RED BLOOD CELL COUNT (BEAKER) (test afzx=796) 4.17 M/ L 4.63-6.08 HEMOGLOBIN (BEAKER) (test snyl=404) 11.7 GM/DL 13.7-17.5 HEMATOCRIT (BEAKER) (test svjt=030) 36.8 % 40.1-51.0 MEAN CORPUSCULAR VOLUME (BEAKER) (test pnsa=667) 88.2 fL 79.0-92.2 MEAN CORPUSCULAR HEMOGLOBIN (BEAKER) (test 28.1 pg 25.7-32.2 znlo=634) MEAN CORPUSCULAR HEMOGLOBIN CONC (BEAKER) (test 31.8 GM/DL 32.3-36.5 lpzo=056) RED CELL DISTRIBUTION WIDTH (BEAKER) (test 12.8 % 11.6-14.4 mfcn=532) PLATELET COUNT (BEAKER) (test gzxx=862) 182 K/CU MM 150-450 MEAN PLATELET VOLUME (BEAKER) (test ilhe=961) 10.9 fL 9.4-12.4 NUCLEATED RED BLOOD CELLS (BEAKER) (test 0 /100 WBC 0-0 rnxi=880) NEUTROPHILS RELATIVE PERCENT (BEAKER) (test 56 % gyki=094) LYMPHOCYTES RELATIVE PERCENT (BEAKER) (test 29 % xpkn=532) MONOCYTES RELATIVE PERCENT (BEAKER) (test 12 % ujkd=576) EOSINOPHILS RELATIVE PERCENT (BEAKER) (test 2 % dzqv=616) BASOPHILS RELATIVE PERCENT (BEAKER) (test 1 % lwzf=817) NEUTROPHILS ABSOLUTE COUNT (BEAKER) (test 3.28 K/ L 1.78-5.38 ntoq=065) LYMPHOCYTES ABSOLUTE COUNT (BEAKER) (test 1.73 K/ L 1.32-3.57 lwzw=814) MONOCYTES ABSOLUTE COUNT (BEAKER) (test 0.70 K/ L 0.30-0.82 vuay=706) EOSINOPHILS ABSOLUTE COUNT (BEAKER) (test 0.14 K/ L 0.04-0.54 rgsn=419) BASOPHILS ABSOLUTE COUNT (BEAKER) (test 0.03 K/ L 0.01-0.08 ulqw=019) IMMATURE GRANULOCYTES-RELATIVE PERCENT (BEAKER) 0 % 0-1 (test uizr=1118) HEPATIC FUNCTION [id number] 07:32:00 Test Item Value Reference Range Comments TOTAL PROTEIN (BEAKER) (test qslq=111) 6.2 gm/dL 6.0-8.3 ALBUMIN (BEAKER) (test gchr=5337) 3.5 g/dL 3.5-5.0 BILIRUBIN TOTAL (BEAKER) (test vzfm=670) 0.9 mg/dL 0.2-1.2 BILIRUBIN DIRECT (BEAKER) (test opfu=453) 0.6 mg/dL 0.1-0.5 ALKALINE PHOSPHATASE (BEAKER) (test zxqw=736) 121 U/L 40-150 AST (SGOT) (BEAKER) (test flli=994) 183 U/L 5-34 ALT (SGPT) (BEAKER) (test mymu=051) 390 U/L 6-55 BASIC METABOLIC [id number] 07:32:00 Test Item Value Reference Range Comments SODIUM (BEAKER) (test 140 meq/L 136-145 dpkw=913) POTASSIUM (BEAKER) (test 3.4 meq/L 3.5-5.1 dfev=005) CHLORIDE (BEAKER) (test 107 meq/L 98-107 hikb=719) CO2 (BEAKER) (test 24 meq/L 22-29 kizo=896) BLOOD UREA NITROGEN 8 mg/dL 7-21 (BEAKER) (test lgbv=889) CREATININE (BEAKER) (test 0.70 mg/dL 0.57-1.25 pfda=254) GLUCOSE RANDOM (BEAKER) 73 mg/dL 70-105 (test ptto=476) CALCIUM (BEAKER) (test 8.9 mg/dL 8.4-10.2 ycsi=636) EGFR (BEAKER) (test 124 mL/min/1.73 sq m ESTIMATED GFR IS NOT qvzu=7553) ACCURATE CREATININE CLEARANCE IN PREDICTING GLOMERULAR FILTRATION RATE. ESTIMATED GFR IS NOT APPLICABLE FOR DIALYSIS PATIENTS. [id number] 06:22:00 Test Item Value Reference Range Comments PHOSPHORUS (BEAKER) (test mrbi=722) 2.9 mg/dL 2.3-4.7 [id number] 06:22:00 Test Item Value Reference Range Comments MAGNESIUM (BEAKER) (test htlg=419) 1.6 mg/dL 1.6-2.6 CBC W/PLT COUNT & AUTO [id number] 06:07:00 Test Item Value Reference Range Comments WHITE BLOOD CELL COUNT (BEAKER) (test kuvy=362) 8.8 K/ L 3.5-10.5 RED BLOOD CELL COUNT (BEAKER) (test mpie=969) 4.07 M/ L 4.63-6.08 HEMOGLOBIN (BEAKER) (test xkxo=527) 11.7 GM/DL 13.7-17.5 HEMATOCRIT (BEAKER) (test pegn=752) 35.6 % 40.1-51.0 MEAN CORPUSCULAR VOLUME (BEAKER) (test uozv=530) 87.5 fL 79.0-92.2 MEAN CORPUSCULAR HEMOGLOBIN (BEAKER) (test 28.7 pg 25.7-32.2 sqfu=403) MEAN CORPUSCULAR HEMOGLOBIN CONC (BEAKER) (test 32.9 GM/DL 32.3-36.5 aqlt=969) RED CELL DISTRIBUTION WIDTH (BEAKER) (test 12.9 % 11.6-14.4 anqf=494) PLATELET COUNT (BEAKER) (test xuue=552) 169 K/CU MM 150-450 MEAN PLATELET VOLUME (BEAKER) (test kjrc=067) 10.5 fL 9.4-12.4 NUCLEATED RED BLOOD CELLS (BEAKER) (test 0 /100 WBC 0-0 fkzo=237) NEUTROPHILS RELATIVE PERCENT (BEAKER) (test 72 % pscv=748) LYMPHOCYTES RELATIVE PERCENT (BEAKER) (test 16 % dlui=147) MONOCYTES RELATIVE PERCENT (BEAKER) (test 10 % ckpu=676) EOSINOPHILS RELATIVE PERCENT (BEAKER) (test 1 % fvkv=483) BASOPHILS RELATIVE PERCENT (BEAKER) (test 0 % kabx=582) NEUTROPHILS ABSOLUTE COUNT (BEAKER) (test 6.37 K/ L 1.78-5.38 gmde=917) LYMPHOCYTES ABSOLUTE COUNT (BEAKER) (test 1.42 K/ L 1.32-3.57 vudh=214) MONOCYTES ABSOLUTE COUNT (BEAKER) (test 0.91 K/ L 0.30-0.82 btol=021) EOSINOPHILS ABSOLUTE COUNT (BEAKER) (test 0.09 K/ L 0.04-0.54 urxp=186) BASOPHILS ABSOLUTE COUNT (BEAKER) (test 0.02 K/ L 0.01-0.08 khww=572) IMMATURE GRANULOCYTES-RELATIVE PERCENT (BEAKER) 0 % 0-1 (test zzvp=3196) [id number] 05:54:00 Test Item Value Reference Range Comments PHOSPHORUS (BEAKER) (test exgw=660) 2.7 mg/dL 2.3-4.7 [id number] 05:54:00 Test Item Value Reference Range Comments MAGNESIUM (BEAKER) (test gxin=087) 1.5 mg/dL 1.6-2.6 BASIC METABOLIC [id number] 05:54:00 Test Item Value Reference Range Comments SODIUM (BEAKER) (test 137 meq/L 136-145 ygom=949) POTASSIUM (BEAKER) (test 3.4 meq/L 3.5-5.1 bifv=543) CHLORIDE (BEAKER) (test 105 meq/L 98-107 paxw=561) CO2 (BEAKER) (test 21 meq/L 22-29 egug=877) BLOOD UREA NITROGEN 9 mg/dL 7-21 (BEAKER) (test wncj=596) CREATININE (BEAKER) (test 0.78 mg/dL 0.57-1.25 rbai=458) GLUCOSE RANDOM (BEAKER) 69 mg/dL 70-105 (test ugpm=698) CALCIUM (BEAKER) (test 8.9 mg/dL 8.4-10.2 zbpe=761) EGFR (BEAKER) (test 110 mL/min/1.73 sq m ESTIMATED GFR IS NOT upvs=2932) ACCURATE CREATININE CLEARANCE IN PREDICTING GLOMERULAR FILTRATION RATE. ESTIMATED GFR IS NOT APPLICABLE FOR DIALYSIS PATIENTS. HEPATIC FUNCTION [id number] 05:54:00 Test Item Value Reference Range Comments TOTAL PROTEIN (BEAKER) (test ulso=561) 6.5 gm/dL 6.0-8.3 ALBUMIN (BEAKER) (test nltc=7010) 3.8 g/dL 3.5-5.0 BILIRUBIN TOTAL (BEAKER) (test wpdy=137) 1.2 mg/dL 0.2-1.2 BILIRUBIN DIRECT (BEAKER) (test gyrn=620) 0.7 mg/dL 0.1-0.5 ALKALINE PHOSPHATASE (BEAKER) (test plda=244) 147 U/L 40-150 AST (SGOT) (BEAKER) (test tsvg=579) 113 U/L 5-34 ALT (SGPT) (BEAKER) (test tgyl=742) 333 U/L 6-55 CBC W/PLT COUNT & AUTO [id number] 05:40:00 Test Item Value Reference Range Comments WHITE BLOOD CELL COUNT (BEAKER) (test zupx=190) 11.9 K/ L 3.5-10.5 RED BLOOD CELL COUNT (BEAKER) (test ngiu=400) 4.06 M/ L 4.63-6.08 HEMOGLOBIN (BEAKER) (test doat=363) 11.8 GM/DL 13.7-17.5 HEMATOCRIT (BEAKER) (test lvfi=634) 35.8 % 40.1-51.0 MEAN CORPUSCULAR VOLUME (BEAKER) (test cney=778) 88.2 fL 79.0-92.2 MEAN CORPUSCULAR HEMOGLOBIN (BEAKER) (test 29.1 pg 25.7-32.2 kzkk=336) MEAN CORPUSCULAR HEMOGLOBIN CONC (BEAKER) (test 33.0 GM/DL 32.3-36.5 zqbc=406) RED CELL DISTRIBUTION WIDTH (BEAKER) (test 12.8 % 11.6-14.4 vsjd=501) PLATELET COUNT (BEAKER) (test nabp=202) 166 K/CU MM 150-450 MEAN PLATELET VOLUME (BEAKER) (test ezky=462) 11.0 fL 9.4-12.4 NUCLEATED RED BLOOD CELLS (BEAKER) (test 0 /100 WBC 0-0 crpm=320) NEUTROPHILS RELATIVE PERCENT (BEAKER) (test 74 % fbzr=757) LYMPHOCYTES RELATIVE PERCENT (BEAKER) (test 15 % asxb=420) MONOCYTES RELATIVE PERCENT (BEAKER) (test 10 % ubdz=015) EOSINOPHILS RELATIVE PERCENT (BEAKER) (test 1 % updg=397) BASOPHILS RELATIVE PERCENT (BEAKER) (test 0 % qmtt=025) NEUTROPHILS ABSOLUTE COUNT (BEAKER) (test 8.76 K/ L 1.78-5.38 xfpz=082) LYMPHOCYTES ABSOLUTE COUNT (BEAKER) (test 1.80 K/ L 1.32-3.57 flgh=615) MONOCYTES ABSOLUTE COUNT (BEAKER) (test 1.12 K/ L 0.30-0.82 qapc=071) EOSINOPHILS ABSOLUTE COUNT (BEAKER) (test 0.08 K/ L 0.04-0.54 sxeh=016) BASOPHILS ABSOLUTE COUNT (BEAKER) (test 0.04 K/ L 0.01-0.08 wfcg=706) IMMATURE GRANULOCYTES-RELATIVE PERCENT (BEAKER) 0 % 0-1 (test wftz=2406) [id number] 11:43:00 Test Item Value Reference Range Comments LIPASE (BEAKER) (test fdxo=134) 882 U/L 8-78 U/S, ABDOMINAL, [id number] 09:32:00Reason for exam:->abd pain Reason for exam:->Please do stat. [facility] Clinical Diagnosis: Abdomen pain [...] Verified Date/Time : 04/07/2018 09:32:02 Reading Location: [facility] [id number] Ultrasound Reading Room HEPATIC FUNCTION [id number] 08:43:00 Test Item Value Reference Range Comments TOTAL PROTEIN (BEAKER) (test mhmv=291) 6.3 gm/dL 6.0-8.3 ALBUMIN (BEAKER) (test llxb=5584) 3.7 g/dL 3.5-5.0 BILIRUBIN TOTAL (BEAKER) (test kcqv=105) 1.3 mg/dL 0.2-1.2 BILIRUBIN DIRECT (BEAKER) (test pjoo=300) 0.8 mg/dL 0.1-0.5 ALKALINE PHOSPHATASE (BEAKER) (test gnrm=503) 165 U/L 40-150 AST (SGOT) (BEAKER) (test cezc=862) 164 U/L 5-34 ALT (SGPT) (BEAKER) (test aifv=598) 401 U/L 6-55 BASIC METABOLIC [id number] 08:43:00 Test Item Value Reference Range Comments SODIUM (BEAKER) (test 138 meq/L 136-145 wekk=007) POTASSIUM (BEAKER) (test 3.7 meq/L 3.5-5.1 mjva=471) CHLORIDE (BEAKER) (test 106 meq/L 98-107 nawf=792) CO2 (BEAKER) (test 24 meq/L 22-29 tqrx=176) BLOOD UREA NITROGEN 11 mg/dL 7-21 (BEAKER) (test jlwx=919) CREATININE (BEAKER) (test 0.86 mg/dL 0.57-1.25 aghp=604) GLUCOSE RANDOM (BEAKER) 85 mg/dL 70-105 (test yxan=717) CALCIUM (BEAKER) (test 9.1 mg/dL 8.4-10.2 cuse=801) EGFR (BEAKER) (test 98 mL/min/1.73 sq m ESTIMATED GFR IS NOT whvi=7432) ACCURATE CREATININE CLEARANCE IN PREDICTING GLOMERULAR FILTRATION RATE. ESTIMATED GFR IS NOT APPLICABLE FOR DIALYSIS PATIENTS. [id number] 08:43:00 Test Item Value Reference Range Comments MAGNESIUM (BEAKER) (test fvqq=568) 1.5 mg/dL 1.6-2.6 [id number] 08:43:00 Test Item Value Reference Range Comments PHOSPHORUS (BEAKER) (test dazn=365) 2.8 mg/dL 2.3-4.7 CBC W/PLT COUNT & AUTO [id number] 08:23:00 Test Item Value Reference Range Comments WHITE BLOOD CELL COUNT (BEAKER) (test tzmh=809) 9.3 K/ L 3.5-10.5 RED BLOOD CELL COUNT (BEAKER) (test xont=758) 4.29 M/ L 4.63-6.08 HEMOGLOBIN (BEAKER) (test mvnn=793) 12.2 GM/DL 13.7-17.5 HEMATOCRIT (BEAKER) (test bpur=594) 37.9 % 40.1-51.0 MEAN CORPUSCULAR VOLUME (BEAKER) (test fnsz=898) 88.3 fL 79.0-92.2 MEAN CORPUSCULAR HEMOGLOBIN (BEAKER) (test 28.4 pg 25.7-32.2 vayz=045) MEAN CORPUSCULAR HEMOGLOBIN CONC (BEAKER) (test 32.2 GM/DL 32.3-36.5 sllc=415) RED CELL DISTRIBUTION WIDTH (BEAKER) (test 12.9 % 11.6-14.4 wgzq=864) PLATELET COUNT (BEAKER) (test xdkv=154) 175 K/CU MM 150-450 MEAN PLATELET VOLUME (BEAKER) (test pwel=288) 10.5 fL 9.4-12.4 NUCLEATED RED BLOOD CELLS (BEAKER) (test 0 /100 WBC 0-0 pxlx=051) NEUTROPHILS RELATIVE PERCENT (BEAKER) (test 71 % pjoa=458) LYMPHOCYTES RELATIVE PERCENT (BEAKER) (test 21 % vvul=525) MONOCYTES RELATIVE PERCENT (BEAKER) (test 8 % drze=056) EOSINOPHILS RELATIVE PERCENT (BEAKER) (test 0 % ratj=227) BASOPHILS RELATIVE PERCENT (BEAKER) (test 0 % dmao=757) NEUTROPHILS ABSOLUTE COUNT (BEAKER) (test 6.52 K/ L 1.78-5.38 cciz=727) LYMPHOCYTES ABSOLUTE COUNT (BEAKER) (test 1.96 K/ L 1.32-3.57 ibzy=793) MONOCYTES ABSOLUTE COUNT (BEAKER) (test 0.69 K/ L 0.30-0.82 sjob=481) EOSINOPHILS ABSOLUTE COUNT (BEAKER) (test 0.03 K/ L 0.04-0.54 kuzh=369) BASOPHILS ABSOLUTE COUNT (BEAKER) (test 0.01 K/ L 0.01-0.08 tnka=433) IMMATURE GRANULOCYTES-RELATIVE PERCENT (BEAKER) 0 % 0-1 (test yaim=2203) FL, [id number] 15:34:00INTRA OP IMAGINGReason for exam:->BILIARY OBSTURCTIONFINAL REPORT ERCP Clinical History: BILIARY OBSTRUCTION Impression: Intraoperative images are obtained. The radiologist is not present during the procedure. Images are presentedfor interpretation at the completion of the procedure. Please refer to the procedure report for more details. Number of images obtained: 3 Fluoroscopic time: 62.4 seconds Signed: Alok Maria Verified Date/Time: 04/06/2018 15:34:35 Reading Location: [address] Consult Reading Room [id number] 13:01:00 Test Item Value Reference Range Comments LIPASE (BEAKER) (test fxhz=145) > U/L 8-78 Specimen slightly ictericHEPATITIS PANEL, [id number] 12:35:00 Test Item Value Reference Range Comments HEPATITIS A IGM ANTIBODY (BEAKER) (test Nonreactive Nonreactive abql=038) HEPATITIS B CORE IGM ANTIBODY (BEAKER) (test Nonreactive Nonreactive pwdj=015) HEPATITIS C ANTIBODY (BEAKER) (test xudy=587) Nonreactive Nonreactive HEPATITIS B SURFACE ANTIGEN (2) (BEAKER) (test Nonreactive Nonreactive zwft=3842) PROTHROMBIN [id number] 12:26:00 Test Item Value Reference Range Comments PROTIME (BEAKER) (test nmzu=322) 12.5 seconds 11.7-14.7 INR (BEAKER) (test dqzf=319) 0.9 <=5.9 RECOMMENDED COUMADIN/WARFARIN INR THERAPY RANGESSTANDARD DOSE: 2.0 - 3.0 Includes: PROPHYLAXIS forvenous thrombosis, systemic embolization; TREATMENT for venous thrombosis and/or pulmonary embolus.HIGH RISK: Target INR is 2.5-3.5 for patients with mechanical heart valves.COMPREHENSIVE METABOLIC [id number] 12:16:00 Test Item Value Reference Range Comments TOTAL PROTEIN (BEAKER) 7.2 gm/dL 6.0-8.3 (test mogi=511) ALBUMIN (BEAKER) (test 4.3 g/dL 3.5-5.0 yxgs=4914) ALKALINE PHOSPHATASE 193 U/L 40-150 (BEAKER) (test qmof=403) BILIRUBIN TOTAL (BEAKER) 4.4 mg/dL 0.2-1.2 (test rhlo=316) SODIUM (BEAKER) (test 143 meq/L 136-145 fllj=039) POTASSIUM (BEAKER) (test 3.4 meq/L 3.5-5.1 eghn=697) CHLORIDE (BEAKER) (test 108 meq/L 98-107 oamu=070) CO2 (BEAKER) (test 26 meq/L 22-29 ukyy=817) BLOOD UREA NITROGEN 14 mg/dL 7-21 (BEAKER) (test znas=718) CREATININE (BEAKER) (test 0.94 mg/dL 0.57-1.25 siov=438) GLUCOSE RANDOM (BEAKER) 100 mg/dL 70-105 (test xlrr=720) CALCIUM (BEAKER) (test 9.4 mg/dL 8.4-10.2 hfkj=855) AST (SGOT) (BEAKER) (test 310 U/L 5-34 hadf=981) ALT (SGPT) (BEAKER) (test 572 U/L 6-55 mczl=302) EGFR (BEAKER) (test 88 mL/min/1.73 sq m ESTIMATED GFR IS NOT nyfb=7720) ACCURATE CREATININE CLEARANCE IN PREDICTING GLOMERULAR FILTRATION RATE. ESTIMATED GFR IS NOT APPLICABLE FOR DIALYSIS PATIENTS. Specimen slightly ictericLIPID [id number] 12:16:00 Test Item Value Reference Range Comments TRIGLYCERIDES (BEAKER) (test uaif=406) 106 mg/dL CHOLESTEROL (BEAKER) (test nkrv=723) 169 mg/dL HDL CHOLESTEROL (BEAKER) (test kvbd=109) 44 mg/dL LDL CHOLESTEROL CALCULATED (BEAKER) (test 104 mg/dL qtco=555) Triglyceride Reference Range: Low Risk <150 Borderline 150- 199 High Risk 200-499 Very High Risk >=500Cholesterol Reference Range: Low Risk <200 Borderline 200-239 High Risk > 240HDL Cholesterol Reference Range: Low Risk >=60 High Risk <40LDL Cholesterol Reference Range: Optimal <100 Near Optimal 100-129 Borderline 130-159 High 160-189 Very High >=190 Specimen slightly [id number] 12:16:00 Test Item Value Reference Range Comments AMYLASE (BEAKER) (test wvvu=949) 887 U/L 25-125 Specimen slightly ictericBASIC METABOLIC [id number] 12:13:00 Test Item Value Reference Range Comments SODIUM (BEAKER) (test 144 meq/L 136-145 ydxd=697) POTASSIUM (BEAKER) (test 3.4 meq/L 3.5-5.1 rbxa=786) CHLORIDE (BEAKER) (test 109 meq/L 98-107 wooa=932) CO2 (BEAKER) (test 25 meq/L 22-29 uaas=072) BLOOD UREA NITROGEN 15 mg/dL 7-21 (BEAKER) (test deol=288) CREATININE (BEAKER) (test 0.92 mg/dL 0.57-1.25 ruuw=576) GLUCOSE RANDOM (BEAKER) 100 mg/dL 70-105 (test dxyq=606) CALCIUM (BEAKER) (test 9.4 mg/dL 8.4-10.2 fltj=993) EGFR (BEAKER) (test 91 mL/min/1.73 sq m ESTIMATED GFR IS NOT tdlm=9249) ACCURATE CREATININE CLEARANCE IN PREDICTING GLOMERULAR FILTRATION RATE. ESTIMATED GFR IS NOT APPLICABLE FOR DIALYSIS PATIENTS. Specimen slightly ictericCBC W/PLT COUNT & AUTO [id number] 12:10 :00 Test Item Value Reference Range Comments WHITE BLOOD CELL COUNT (BEAKER) (test olor=963) 6.7 K/ L 3.5-10.5 RED BLOOD CELL COUNT (BEAKER) (test iouf=632) 4.64 M/ L 4.63-6.08 HEMOGLOBIN (BEAKER) (test qldj=311) 13.3 GM/DL 13.7-17.5 HEMATOCRIT (BEAKER) (test ygjj=325) 40.9 % 40.1-51.0 MEAN CORPUSCULAR VOLUME (BEAKER) (test jgzy=184) 88.1 fL 79.0-92.2 MEAN CORPUSCULAR HEMOGLOBIN (BEAKER) (test 28.7 pg 25.7-32.2 vbll=167) MEAN CORPUSCULAR HEMOGLOBIN CONC (BEAKER) (test 32.5 GM/DL 32.3-36.5 zwkj=586) RED CELL DISTRIBUTION WIDTH (BEAKER) (test 12.7 % 11.6-14.4 exwv=014) PLATELET COUNT (BEAKER) (test nwci=281) 183 K/CU MM 150-450 MEAN PLATELET VOLUME (BEAKER) (test okdu=946) 10.5 fL 9.4-12.4 NUCLEATED RED BLOOD CELLS (BEAKER) (test 0 /100 WBC 0-0 csil=146) NEUTROPHILS RELATIVE PERCENT (BEAKER) (test 64 % lhzm=404) LYMPHOCYTES RELATIVE PERCENT (BEAKER) (test 23 % rfsz=458) MONOCYTES RELATIVE PERCENT (BEAKER) (test 11 % tobp=201) EOSINOPHILS RELATIVE PERCENT (BEAKER) (test 1 % kjsu=609) BASOPHILS RELATIVE PERCENT (BEAKER) (test 0 % nzcj=629) NEUTROPHILS ABSOLUTE COUNT (BEAKER) (test 4.31 K/ L 1.78-5.38 yute=122) LYMPHOCYTES ABSOLUTE COUNT (BEAKER) (test 1.56 K/ L 1.32-3.57 omaf=834) MONOCYTES ABSOLUTE COUNT (BEAKER) (test 0.72 K/ L 0.30-0.82 udgf=216) EOSINOPHILS ABSOLUTE COUNT (BEAKER) (test 0.09 K/ L 0.04-0.54 jhob=713) BASOPHILS ABSOLUTE COUNT (BEAKER) (test 0.03 K/ L 0.01-0.08 ndvv=075) IMMATURE GRANULOCYTES-RELATIVE PERCENT (BEAKER) 0 % 0-1 (test cmrr=9680)
[2018-08-28] MEDS ORDERED: ACETAMINOPHEN 325 MG TABLET ONE (03:48)
[2018-08-28] MEDS ORDERED: NA CHLORIDE 0.9% 1,000 ML ONE (03:54)
[2018-08-28 04:00] LABS: Absolute Lymphocytes (CBC) 1.6 K/uL (0.7-4.9); Basophils % 0.2 % (0-1.3); Eosinophils % 0.2 % (0-4.4); Hematocrit 40.7 % (39.6-49.0); Lymphocytes % 12.8 % (15.3-44.8); MPV 8.8 fL (7.6-11.3); Monocytes % 5.5 % (3.3-12.3); RBC Red Blood Cell Count 4.74 M/uL (4.33-5.43)
[2018-08-28 04:08] LABS: Albumin 4.1 g/dL (3.4-5.0); Bilirubin Direct 0.2 mg/dL (0-0.2); Potassium 3.4 mmol/L (3.5-5.1); Protein, Total 7.8 g/dL (6.4-8.2)
[2018-08-28] MEDS ORDERED: KETOROLAC 30 MG/ML INJ ONE (05:08)
[2018-08-28 05:21] LABS: Urine Bacteria <20 /HPF (NONE SEEN); Urine Culture Reflex Order NOT NEEDED; Urine RBC <5 /HPF (NONE SEEN)
--- NOTE | 2018-08-28 05:44 | EDPHYS ---
Physician Documentation [facility] Name: Rm Hagen Age: 43 yrs Sex: Male : 1975 Arrival Date: 08/28/2018 Time: 02:52 Bed 16 Private MD: ED Physician Maximus Lr HPI: 08/28 05:39 This 43 yrs old Male presents to ER via Ambulatory with complaints of gs Abdominal Pain. 05:39 The patient presents with abdominal pain that is diffuse. Onset: The symptoms/episode gs began/occurred 3 day(s) ago. Associated signs and symptoms: Pertinent positives: fever, cough. The symptoms are described as crampy. Modifying factors: The symptoms are alleviated by nothing, the symptoms are aggravated by nothing. Severity of pain: At its worst the pain was severe in the emergency department the pain is unchanged. The patient has experienced similar episodes in the past, a few times. Historical: - Allergies: 03:27 NKA; ea - Home Meds: 03:27 None [Active]; ea - PMHx: 03:27 Migraines; gastritis; Depression; Bipolar disorder; ea - PSHx: 03:27 Cholecystectomy; ea - Immunization history:: Adult Immunizations up to date. - Social history:: Smoking status: Patient/guardian denies using tobacco. - Ebola Screening: : No symptoms or risks identified at this time. ROS: 05:39 All other systems are negative. gs Exam: 05:39 Head/Face: Normocephalic, atraumatic. Eyes: Pupils equal round and reactive to light, gs extra-ocular motions intact. Lids and lashes normal. Conjunctiva and sclera are non-icteric and not injected. Cornea within normal limits. Periorbital areas with no swelling, redness, or edema. ENT: Nares patent. No nasal discharge, no septal abnormalities noted. Tympanic membranes are normal and external auditory canals are clear. Oropharynx with no redness, swelling, or masses, exudates, or evidence of obstruction, uvula midline. Mucous membranes moist. Neck: Trachea midline, no thyromegaly or masses palpated, and no cervical lymphadenopathy. Supple, full range of motion without nuchal rigidity, or vertebral point tenderness. No Meningismus. Chest/axilla: Normal chest wall appearance and motion. Nontender with no deformity. No lesions are appreciated. Respiratory: Lungs have equal breath sounds bilaterally, clear to auscultation and percussion. No rales, rhonchi or wheezes noted. No increased work of breathing, no retractions or nasal flaring. Back: No spinal tenderness. No costovertebral tenderness. Full range of motion. Skin: Warm, dry with normal turgor. Normal color with no rashes, no lesions, and no evidence of cellulitis. MS/ Extremity: Pulses equal, no cyanosis. Neurovascular intact. Full, normal range of motion. Neuro: Awake and alert, GCS 15, oriented to person, place, time, and situation. Cranial nerves II-XII grossly intact. Motor strength 5/5 in all extremities. Sensory grossly intact. Cerebellar exam normal. Normal gait. 05:39 Constitutional: The patient appears alert, awake. 05:39 Cardiovascular: Rate: tachycardic, Rhythm: regular. Vital Signs: 03:22 BP 128 / 80; Pulse 65; Resp 18; Temp 100.8; Pulse Ox 98% on R/A; Weight 85.73 kg; ea Height 5 ft. 11 in. (180.34 cm); Pain 10/10; 04:55 Pulse 80; Resp 18; Temp 101; Pulse Ox 98% ; ea 04:58 BP 130 / 75; Pulse 96; Resp 18; Pulse Ox 95% on R/A; ea 05:20 Temp 100.3; ea 05:58 BP 132 / 80; Pulse 80; Resp 18; Temp 99; Pulse Ox 97% ; ea 03:22 Body Mass Index 26.36 (85.73 kg, 180.34 cm) ea MDM: 03:28 Patient medically screened. gs 05:39 Differential diagnosis: flu,diverticulitis,pns. Data reviewed: vital signs, nurses gs notes, lab test result(s), radiologic studies. Counseling: I had a detailed discussion with the patient and/or guardian regarding: the historical points, exam findings, and any diagnostic results supporting the discharge/admit diagnosis, lab results, radiology results, the need for outpatient follow up. Response to treatment: the patient's symptoms have markedly improved after treatment, the patient's condition has returned to base line, and as a result, I will discharge patient. 08/28 03:25 Order name: Basic Metabolic Panel 08/28 03:25 Order name: CBC with Diff; Complete Time: 04:51 ea 08/28 03:25 Order name: Creatinine for Radiology; Complete Time: 04:51 ea 08/28 03:25 Order name: Hepatic Function; Complete Time: 04:51 ea 08/28 03:25 Order name: Lipase; Complete Time: 04:51 ea 08/28 03:25 Order name: Basic Metabolic Panel; Complete Time: 04:51 EDMS 08/28 03:35 Order name: Urine Microscopic Only; Complete Time: 05:31 gs 08/28 03:37 Order name: Blood Culture Adult (2) 08/28 03:37 Order name: Lactate; Complete Time: 04:51 08/28 03:37 Order name: Procalcitonin; Complete Time: 04:51 08/28 03:37 Order name: Chest Single View XRAY 08/28 03:58 Order name: CT Abd/Pelvis - IV Contrast Only 08/28 03:58 Order name: Flu; Complete Time: 04:51 08/28 05:57 Order name: Urine Dipstick--Ancillary (enter results) 08/28 03:25 Order name: IV Saline Lock; Complete Time: 04:00 ea 08/28 03:25 Order name: Labs collected and sent; Complete Time: 04:01 08/28 03:35 Order name: Urine Dipstick-Ancillary (obtain specimen); Complete Time: 05:56 08/28 03:37 Order name: Accucheck 08/28 03:37 Order name: Cardiac monitoring; Complete Time: 04:14 08/28 03:37 Order name: IV Saline Lock - Large Bore; Complete Time: 04:00 08/28 03:37 Order name: Labs collected and sent; Complete Time: 04:00 08/28 03:37 Order name: O2 Per Protocol; Complete Time: 04:00 08/28 03:37 Order name: O2 Sat Monitoring; Complete Time: 04:00 gs Administered Medications: 03:35 Drug: Tylenol 650 mg Route: PO; ea 05:03 Follow up: Response: No adverse reaction ea 03:42 Drug: NS 0.9% 1000 ml Route: IV; Rate: 1 bolus; Site: left antecubital; ea 05:35 Follow up: Response: No adverse reaction; IV Status: Completed infusion; IV Intake: ea 1000ml 05:01 Drug: TORadol 30 mg Route: IVP; Site: left forearm; ea 05:20 Follow up: Temp 100.3; Response: Temperature is decreased ea 05:33 Drug: Rocephin - (cefTRIAXone) 1 grams Route: IVPB; Infused Over: 30 mins; Site: left ea forearm; 06:00 Follow up: Response: No adverse reaction; IV Status: Completed infusion ea 05:33 Drug: Zithromax 500 mg Route: PO; ea 06:00 Follow up: Response: No adverse reaction ea Disposition: 08/28/18 05:43 Discharged to Home. Impression: Pneumonia, unspecified organism. - Condition is Stable. - Discharge Instructions: Community-Acquired Pneumonia, Adult. - Prescriptions for Ceftin 500 mg Oral Tablet - take 1 tablet by ORAL route every 12 hours for 10 days; 14 tablet. Zithromax Z- Keegan 250 mg Oral Tablet - take 1 tablet by ORAL route as directed for 5 days Day 1 - take two (2) tablets one time. Day 2, 3, 4 , 5 take one (1) tablet once daily.; 6 tablet. - Work release form, Medication Reconciliation Form, Thank You Letter, Antibiotic Education, Prescription Opioid Use form. - Follow up: Private Physician; When: 1 - 2 days; Reason: Re-evaluation by your physician. Signatures: Dispatcher [employer] Janeth Peterson RN RN ea Starr, Gregory, MD MD gs Corrections: (The following items were deleted from the chart) 05:56 03:37 Urine Dipstick-Ancillary ordered. [id number] 06:09 05:43 08/28/2018 05:43 Discharged to Home. Impression: Pneumonia, unspecified organism. ea Condition is Stable. Forms are Medication Reconciliation Form, Thank You Letter, Antibiotic Education, Prescription Opioid Use. Follow up: Private Physician; When: 1 - 2 days; Reason: Re-evaluation by your physician.
--- NOTE | 2018-08-28 05:44 | ER ---
Nurse's Notes [facility] Name: Rm Hagen Age: 43 yrs Sex: Male : 1975 Arrival Date: 08/28/2018 Time: 02:52 Bed 16 Private MD: Diagnosis: Pneumonia, unspecified organism Presentation: 08/28 03:19 Presenting complaint: Patient states: Patient reports he has been having nausea, chills ea and abdominal pain for the past two days. States "I feel dehydrated". Transition of care: patient was not received from another setting of care. Onset of symptoms was August 28, 2018. Risk Assessment: Do you want to hurt yourself or someone else? Patient reports no desire to harm self or others. Initial Sepsis Screen: Does the patient meet any 2 criteria? No. Patient's initial sepsis screen is negative. Does the patient have a suspected source of infection? No. Patient's initial sepsis screen is negative. Care prior to arrival: Pedialyte. 03:19 Method Of Arrival: Ambulatory ea 03:19 Acuity: YADIEL 3 ea Triage Assessment: 03:23 General: Appears uncomfortable, Behavior is calm, cooperative, appropriate for age. ea Pain: Complains of pain in abdomen Quality of pain is described as aching. Neuro: Level of Consciousness is awake, alert, obeys commands, Oriented to person, place, time, situation. Respiratory: Airway is patent Respiratory effort is even, unlabored, Respiratory pattern is regular, symmetrical. GI: Abdomen is non-distended. Derm: Skin is dry, Skin is pale, Skin temperature is warm. Historical: - Allergies: 03:27 NKA; ea - Home Meds: 03:27 None [Active]; ea - PMHx: 03:27 Migraines; gastritis; Depression; Bipolar disorder; ea - PSHx: 03:27 Cholecystectomy; ea - Immunization history:: Adult Immunizations up to date. - Social history:: Smoking status: Patient/guardian denies using tobacco. - Ebola Screening: : No symptoms or risks identified at this time. Screenin:21 Abuse screen: Denies threats or abuse. Nutritional screening: No deficits noted. ea Tuberculosis screening: No symptoms or risk factors identified. Fall Risk None identified. Assessment: 03:23 Reassessment: see triage assessment. ea 04:33 Reassessment: Patient and/or family updated on plan of care and expected duration. Pain ea level reassessed. Patient is alert, oriented x 3, equal unlabored respirations, skin warm/dry/pink. Pt taken to CT per traffic analysis technician. 05:02 Reassessment: Patient and/or family updated on plan of care and expected duration. Pain ea level reassessed. Patient is alert, oriented x 3, equal unlabored respirations, skin warm/dry/pink. Pt returned form CT, pt temp 101, provider notified, medication order obtained, medication administered pt, tolerated well. 06:04 Reassessment: Patient and/or family updated on plan of care and expected duration. Pain ea level reassessed. Patient is alert, oriented x 3, equal unlabored respirations, skin warm/dry/pink. Discharge instruction given to patient, verbalized the understanding of instruction. Pt left ED ambulatory, tolerating well. Patient states feeling better. Patient states symptoms have improved. Vital Signs: 03:22 BP 128 / 80; Pulse 65; Resp 18; Temp 100.8; Pulse Ox 98% on R/A; Weight 85.73 kg; ea Height 5 ft. 11 in. (180.34 cm); Pain 10/10; 04:55 Pulse 80; Resp 18; Temp 101; Pulse Ox 98% ; ea 04:58 BP 130 / 75; Pulse 96; Resp 18; Pulse Ox 95% on R/A; ea 05:20 Temp 100.3; ea 05:58 BP 132 / 80; Pulse 80; Resp 18; Temp 99; Pulse Ox 97% ; ea 03:22 Body Mass Index 26.36 (85.73 kg, 180.34 cm) ea ED Course: 02:52 Patient arrived in ED. do 03:19 Janeth Garcia, CAIN is Primary Nurse. ea 03:21 Triage completed. ea 03:21 Arm band placed on right wrist. Patient placed in an exam room, on a stretcher, on ea pulse oximetry. 03:22 Patient has correct armband on for positive identification. Bed in low position. Call ea light in reach. 03:28 Maximus Lr MD is Attending Physician. gs 03:47 X-ray completed. Portable x-ray completed in exam room. Patient tolerated procedure kp1 well. 03:50 Chest Single View XRAY In Process Unspecified. EDMS 03:50 Inserted saline lock: 22 gauge in left forearm, using aseptic technique. Inserted by alissa Fonseca RN. 04:01 Inserted saline lock: 20 gauge in right antecubital area, using aseptic technique. ea Blood collected. 04:55 CT Abd/Pelvis - IV Contrast Only In Process Unspecified. EDMS 06:05 No provider procedures requiring assistance completed. IV discontinued, intact, ea bleeding controlled, No redness/swelling at site. Pressure dressing applied. Administered Medications: 03:35 Drug: Tylenol 650 mg Route: PO; ea 05:03 Follow up: Response: No adverse reaction ea 03:42 Drug: NS 0.9% 1000 ml Route: IV; Rate: 1 bolus; Site: left antecubital; ea 05:35 Follow up: Response: No adverse reaction; IV Status: Completed infusion; IV Intake: ea 1000ml 05:01 Drug: TORadol 30 mg Route: IVP; Site: left forearm; ea 05:20 Follow up: Temp 100.3; Response: Temperature is decreased ea 05:33 Drug: Rocephin - (cefTRIAXone) 1 grams Route: IVPB; Infused Over: 30 mins; Site: left ea forearm; 06:00 Follow up: Response: No adverse reaction; IV Status: Completed infusion ea 05:33 Drug: Zithromax 500 mg Route: PO; ea 06:00 Follow up: Response: No adverse reaction ea Intake: 05:35 IV: 1000ml; Total: 1000ml. ea Outcome: 05:43 Discharge ordered by . 06:05 Discharged to home ambulatory. ea 06:05 Condition: improved 06:05 Discharge instructions given to patient, Instructed on discharge instructions, follow up and referral plans. medication usage, Demonstrated understanding of instructions, follow-up care, medications, Prescriptions given X 2. 06:09 Patient left the ED. ea Signatures: Dispatcher [employer] EDMS Clover Brown Kathy [id number] Janeth Garcia RN RN Maximus Moore MD MD gs Corrections: (The following items were deleted from the chart) 05:05 04:58 BP 119 / 73; Pulse 56bpm; Resp 18bpm; Pulse Ox 97% RA; ea ea 06:07 06:07 Rocephin - (cefTRIAXone) 1 grams IVPB in right antecubital over 30 mins ea ea
[2018-08-28] MEDS ORDERED: CEFTRIAXONE/SWI 1gm 1 GM/10 ML SYR ONE (06:03)
[2018-08-28] MEDS ORDERED: AZITHROMYCIN 250 MG TAB ONE (06:03)
[2018-08-28 07:05] LABS: Urine Blood NEGATIVE (NEG); Urine Glucose NEGATIVE (NEG); Urine Protein 1+ (NEG); Urine Specific Gravity 1.015 (1.005-1.030); Urine pH 8.5 (5.0-7.0)
--- NOTE | 2018-08-28 11:04 | RAD REPORT ---
EXAM DESCRIPTION: RAD - Chest Single View - 08/28/2018 3:50 am CLINICAL HISTORY: FEVER Chest pain. COMPARISON: Chest Single View dated 04/06/2018; Chest Single View dated 03/01/2016; CHEST SINGLE VIEW da nikky 04/11/2010; CHEST PA AND LAT 2 VIEW dated 08/28/2001 FINDINGS: Portable technique limits examination quality. The lungs are grossly clear. The heart is normal in size. No displaced fractures. IMPRESSION: No acute intrathoracic process suspected.
--- NOTE | 2018-08-29 09:50 | RAD REPORT ---
EXAM DESCRIPTION: CT ABDOMEN AND PELVIS WITH CONTRAST. 08/28/2018 CLINICAL HISTORY: Abdominal pain and fever. COMPARISON: CT abdomen and pelvis contrast 04/06/2018. TECHNIQUE: Axial [address] imaging of the abdomen and pelvis performed utilizing intravenous contrast. Reformatted coronal and sagittal images reviewed. A dose reduction technique was utilized with automated exposure control according to patient size. FINDINGS: LOWER THORAX: Multifocal groundglass densities within the right middle lobe and right and left lower lobe compatible with pneumonitis. There is no pleural fluid. Heart is normal in size. Mil d distal esophageal thickening noted. ABDOMEN: LIVER/GALLBLADDER: Enlarged liver to 20 cm. No liver mass. No biliary dilatation. Gallbladder has be en resected. SPLEEN/PANCREAS: Normal spleen and pancreas. KIDNEYS/ADRENAL GLANDS: Normal adrenal glands. Normal right and left kidney. RETROPERITONEAL VESSELS/NODES: Normal aorta and inferior vena cava caliber. No adenopathy. Mesenteri c vessels appear normal. BOWEL: Normal stomach. Small bowel loops appear normal. Appendix is not visualized. Large amount of fecal loading within the ascending and transverse colon.. MESENTERY/PERITONEUM: No adenopathy or ascites. No free air. PELVIS: BLADDER: Normal bladder. GENITAL ORGANS: Prostatic calcifications are noted. PERITONEUM: No pelvic free fluid or adenopathy. BONES AND SOFT TISSUES: Normal lumbosacral alignment. Mild L4-5 diffuse disc bulge. No subluxation. Intact bony pelvis. Normal hips. IMPRESSION: 1. Multifocal right and left lower lobe and right middle lobe infiltrates. 2. Distal esophageal thickening may represent mild esophagitis. 3. Hepatomegaly. 4. Constipation. Electronically signed by: Candida Horan DO 08/28/2018 5:21 AM CDT Due to temporary technical issues with the PACS/Fluency reporting system, reports are being signed by the in house radiologist as a courtesy to ensure prompt reporting. The interpreting radiologist is f ully responsible for the content of the report.
== END 2018-08-28 06:09 | disposition home or self-care (01) ==
LOC: ER 02:49
DX: J18.9 Pneumonia, unspecified organism (principal)
CPT/HCPCS: 36415; 71045; 74177; 80048; 80076; 81003; 81015; 83605; 83690; 84145; 85025; 87040; 87804; 96361; 96365; 96375; 99284; J0696; J7030; Q9967

== ENCOUNTER 2018-08-29 01:21 | Inpatient (IN) | payer SELFPAY ==
--- OUTSIDE RECORDS SUMMARY | 2018-08-29 01:24 | XMS REPORT ---
:1975 [facility] Address [address] [place] [address] Care Team Providers Name Role Phone MAIDA GABBY M. Unavailable Unavailable Problems This patient has no known problems. Allergies, Adverse Reactions, Alerts This patient has no known allergies or adverse reactions. Medications This patient has no known medications. 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 - NEGATIVE FOR DYSPLASIA OR MALIGNANCY Signing Pathologist Direct Phone Line: [phone] signed by Evie Vizcaino MD on 04/12/2018 at 3:22 [id number] Choledocholithiasis Gallbladder The specimen is received in [...] Value Reference Range Comments CULTURE (BEAKER) (test zxir=0865) No anaerobes isolated BLOOD [id number] 19:01:00 Test Item Value Reference Range Comments CULTURE (BEAKER) (test amtq=4831) No growth in 5 days BLOOD [id number] 19:01:00 Test Item Value Reference Range Comments CULTURE (BEAKER) (test gqcv=2435) No growth in 5 days SURGICALLY OBTAINED CULTURE + GRAM [id number] 13:40:00 Test Item Value Reference Range Comments CULTURE (BEAKER) (test jchy=5189) No growth GRAM STAIN RESULT (BEAKER) (test 1+ White blood cells seen piyo=4264) GRAM STAIN RESULT (BEAKER) (test No organisms seen vnfz=61760) HEPATIC FUNCTION [id number] 05:34:00 Test Item Value Reference Range Comments TOTAL PROTEIN (BEAKER) (test qmoe=336) 6.3 gm/dL 6.0-8.3 ALBUMIN (BEAKER) (test pqfc=3085) 3.6 g/dL 3.5-5.0 BILIRUBIN TOTAL (BEAKER) (test lxhb=182) 0.8 mg/dL 0.2-1.2 BILIRUBIN DIRECT (BEAKER) (test fcew=493) 0.5 mg/dL 0.1-0.5 ALKALINE PHOSPHATASE (BEAKER) (test flrx=902) 111 U/L 40-150 AST (SGOT) (BEAKER) (test kvba=294) 76 U/L 5-34 ALT (SGPT) (BEAKER) (test kuoe=513) 261 U/L 6-55 BASIC METABOLIC [id number] 05:34:00 Test Item Value Reference Range Comments SODIUM (BEAKER) (test 139 meq/L 136-145 azxo=766) POTASSIUM (BEAKER) (test 3.2 meq/L 3.5-5.1 biru=440) CHLORIDE (BEAKER) (test 106 meq/L 98-107 pcyf=044) CO2 (BEAKER) (test 25 meq/L 22-29 htxq=427) BLOOD UREA NITROGEN 6 mg/dL 7-21 (BEAKER) (test vgbq=750) CREATININE (BEAKER) (test 0.72 mg/dL 0.57-1.25 nemi=342) GLUCOSE RANDOM (BEAKER) 80 mg/dL 70-105 (test xlkd=129) CALCIUM (BEAKER) (test 9.1 mg/dL 8.4-10.2 bgue=792) EGFR (BEAKER) (test 120 mL/min/1.73 sq m ESTIMATED GFR IS NOT kluk=9751) ACCURATE CREATININE CLEARANCE IN PREDICTING GLOMERULAR FILTRATION RATE. ESTIMATED GFR IS NOT APPLICABLE FOR DIALYSIS PATIENTS. CBC W/PLT COUNT & AUTO [id number] 05:12:00 Test Item Value Reference Range Comments WHITE BLOOD CELL COUNT (BEAKER) (test cwqn=594) 5.9 K/ L 3.5-10.5 RED BLOOD CELL COUNT (BEAKER) (test dfxu=808) 4.17 M/ L 4.63-6.08 HEMOGLOBIN (BEAKER) (test oqqk=599) 11.7 GM/DL 13.7-17.5 HEMATOCRIT (BEAKER) (test brks=559) 36.8 % 40.1-51.0 MEAN CORPUSCULAR VOLUME (BEAKER) (test wthu=046) 88.2 fL 79.0-92.2 MEAN CORPUSCULAR HEMOGLOBIN (BEAKER) (test 28.1 pg 25.7-32.2 jtjk=399) MEAN CORPUSCULAR HEMOGLOBIN CONC (BEAKER) (test 31.8 GM/DL 32.3-36.5 qqqe=704) RED CELL DISTRIBUTION WIDTH (BEAKER) (test 12.8 % 11.6-14.4 lwgq=541) PLATELET COUNT (BEAKER) (test gdvb=446) 182 K/CU MM 150-450 MEAN PLATELET VOLUME (BEAKER) (test vogd=272) 10.9 fL 9.4-12.4 NUCLEATED RED BLOOD CELLS (BEAKER) (test 0 /100 WBC 0-0 fpjx=651) NEUTROPHILS RELATIVE PERCENT (BEAKER) (test 56 % xboj=045) LYMPHOCYTES RELATIVE PERCENT (BEAKER) (test 29 % dwfw=709) MONOCYTES RELATIVE PERCENT (BEAKER) (test 12 % ztdo=008) EOSINOPHILS RELATIVE PERCENT (BEAKER) (test 2 % eayt=807) BASOPHILS RELATIVE PERCENT (BEAKER) (test 1 % bvyk=347) NEUTROPHILS ABSOLUTE COUNT (BEAKER) (test 3.28 K/ L 1.78-5.38 anxv=642) LYMPHOCYTES ABSOLUTE COUNT (BEAKER) (test 1.73 K/ L 1.32-3.57 kefl=775) MONOCYTES ABSOLUTE COUNT (BEAKER) (test 0.70 K/ L 0.30-0.82 mifu=780) EOSINOPHILS ABSOLUTE COUNT (BEAKER) (test 0.14 K/ L 0.04-0.54 cngf=307) BASOPHILS ABSOLUTE COUNT (BEAKER) (test 0.03 K/ L 0.01-0.08 iaqm=298) IMMATURE GRANULOCYTES-RELATIVE PERCENT (BEAKER) 0 % 0-1 (test iwrx=6068) HEPATIC FUNCTION [id number] 07:32:00 Test Item Value Reference Range Comments TOTAL PROTEIN (BEAKER) (test pybb=861) 6.2 gm/dL 6.0-8.3 ALBUMIN (BEAKER) (test aumd=1953) 3.5 g/dL 3.5-5.0 BILIRUBIN TOTAL (BEAKER) (test bteq=912) 0.9 mg/dL 0.2-1.2 BILIRUBIN DIRECT (BEAKER) (test srae=216) 0.6 mg/dL 0.1-0.5 ALKALINE PHOSPHATASE (BEAKER) (test lqgh=116) 121 U/L 40-150 AST (SGOT) (BEAKER) (test nkgt=646) 183 U/L 5-34 ALT (SGPT) (BEAKER) (test lbvq=362) 390 U/L 6-55 BASIC METABOLIC [id number] 07:32:00 Test Item Value Reference Range Comments SODIUM (BEAKER) (test 140 meq/L 136-145 lngh=646) POTASSIUM (BEAKER) (test 3.4 meq/L 3.5-5.1 ayjk=630) CHLORIDE (BEAKER) (test 107 meq/L 98-107 gqvs=358) CO2 (BEAKER) (test 24 meq/L 22-29 toll=010) BLOOD UREA NITROGEN 8 mg/dL 7-21 (BEAKER) (test vczj=616) CREATININE (BEAKER) (test 0.70 mg/dL 0.57-1.25 ynkr=215) GLUCOSE RANDOM (BEAKER) 73 mg/dL 70-105 (test ijnd=542) CALCIUM (BEAKER) (test 8.9 mg/dL 8.4-10.2 isqt=845) EGFR (BEAKER) (test 124 mL/min/1.73 sq m ESTIMATED GFR IS NOT zseh=8828) ACCURATE CREATININE CLEARANCE IN PREDICTING GLOMERULAR FILTRATION RATE. ESTIMATED GFR IS NOT APPLICABLE FOR DIALYSIS PATIENTS. [id number] 06:22:00 Test Item Value Reference Range Comments PHOSPHORUS (BEAKER) (test wjrg=982) 2.9 mg/dL 2.3-4.7 [id number] 06:22:00 Test Item Value Reference Range Comments MAGNESIUM (BEAKER) (test wfnf=262) 1.6 mg/dL 1.6-2.6 CBC W/PLT COUNT & AUTO [id number] 06:07:00 Test Item Value Reference Range Comments WHITE BLOOD CELL COUNT (BEAKER) (test wkem=482) 8.8 K/ L 3.5-10.5 RED BLOOD CELL COUNT (BEAKER) (test fnce=543) 4.07 M/ L 4.63-6.08 HEMOGLOBIN (BEAKER) (test vlwh=569) 11.7 GM/DL 13.7-17.5 HEMATOCRIT (BEAKER) (test eztq=044) 35.6 % 40.1-51.0 MEAN CORPUSCULAR VOLUME (BEAKER) (test aaag=549) 87.5 fL 79.0-92.2 MEAN CORPUSCULAR HEMOGLOBIN (BEAKER) (test 28.7 pg 25.7-32.2 irsp=867) MEAN CORPUSCULAR HEMOGLOBIN CONC (BEAKER) (test 32.9 GM/DL 32.3-36.5 zmlj=862) RED CELL DISTRIBUTION WIDTH (BEAKER) (test 12.9 % 11.6-14.4 nrmu=964) PLATELET COUNT (BEAKER) (test rcnq=759) 169 K/CU MM 150-450 MEAN PLATELET VOLUME (BEAKER) (test pgfy=595) 10.5 fL 9.4-12.4 NUCLEATED RED BLOOD CELLS (BEAKER) (test 0 /100 WBC 0-0 bvdx=615) NEUTROPHILS RELATIVE PERCENT (BEAKER) (test 72 % azgk=860) LYMPHOCYTES RELATIVE PERCENT (BEAKER) (test 16 % fdsx=752) MONOCYTES RELATIVE PERCENT (BEAKER) (test 10 % vtpi=715) EOSINOPHILS RELATIVE PERCENT (BEAKER) (test 1 % hkpo=812) BASOPHILS RELATIVE PERCENT (BEAKER) (test 0 % aeki=590) NEUTROPHILS ABSOLUTE COUNT (BEAKER) (test 6.37 K/ L 1.78-5.38 fyvd=315) LYMPHOCYTES ABSOLUTE COUNT (BEAKER) (test 1.42 K/ L 1.32-3.57 kbjk=791) MONOCYTES ABSOLUTE COUNT (BEAKER) (test 0.91 K/ L 0.30-0.82 jqre=738) EOSINOPHILS ABSOLUTE COUNT (BEAKER) (test 0.09 K/ L 0.04-0.54 rgxf=554) BASOPHILS ABSOLUTE COUNT (BEAKER) (test 0.02 K/ L 0.01-0.08 zrlq=067) IMMATURE GRANULOCYTES-RELATIVE PERCENT (BEAKER) 0 % 0-1 (test gxle=5697) [id number] 05:54:00 Test Item Value Reference Range Comments PHOSPHORUS (BEAKER) (test qzae=811) 2.7 mg/dL 2.3-4.7 [id number] 05:54:00 Test Item Value Reference Range Comments MAGNESIUM (BEAKER) (test atyi=611) 1.5 mg/dL 1.6-2.6 BASIC METABOLIC [id number] 05:54:00 Test Item Value Reference Range Comments SODIUM (BEAKER) (test 137 meq/L 136-145 wovf=636) POTASSIUM (BEAKER) (test 3.4 meq/L 3.5-5.1 zmuc=838) CHLORIDE (BEAKER) (test 105 meq/L 98-107 dqwu=170) CO2 (BEAKER) (test 21 meq/L 22-29 agzv=735) BLOOD UREA NITROGEN 9 mg/dL 7-21 (BEAKER) (test orbp=769) CREATININE (BEAKER) (test 0.78 mg/dL 0.57-1.25 rhze=667) GLUCOSE RANDOM (BEAKER) 69 mg/dL 70-105 (test cibx=706) CALCIUM (BEAKER) (test 8.9 mg/dL 8.4-10.2 qddx=301) EGFR (BEAKER) (test 110 mL/min/1.73 sq m ESTIMATED GFR IS NOT wfnh=7653) ACCURATE CREATININE CLEARANCE IN PREDICTING GLOMERULAR FILTRATION RATE. ESTIMATED GFR IS NOT APPLICABLE FOR DIALYSIS PATIENTS. HEPATIC FUNCTION [id number] 05:54:00 Test Item Value Reference Range Comments TOTAL PROTEIN (BEAKER) (test xfem=510) 6.5 gm/dL 6.0-8.3 ALBUMIN (BEAKER) (test dbaz=2716) 3.8 g/dL 3.5-5.0 BILIRUBIN TOTAL (BEAKER) (test doup=027) 1.2 mg/dL 0.2-1.2 BILIRUBIN DIRECT (BEAKER) (test jism=934) 0.7 mg/dL 0.1-0.5 ALKALINE PHOSPHATASE (BEAKER) (test uein=332) 147 U/L 40-150 AST (SGOT) (BEAKER) (test qodk=183) 113 U/L 5-34 ALT (SGPT) (BEAKER) (test fvdy=376) 333 U/L 6-55 CBC W/PLT COUNT & AUTO [id number] 05:40:00 Test Item Value Reference Range Comments WHITE BLOOD CELL COUNT (BEAKER) (test tgwp=490) 11.9 K/ L 3.5-10.5 RED BLOOD CELL COUNT (BEAKER) (test pmzv=274) 4.06 M/ L 4.63-6.08 HEMOGLOBIN (BEAKER) (test xlhl=469) 11.8 GM/DL 13.7-17.5 HEMATOCRIT (BEAKER) (test gtel=718) 35.8 % 40.1-51.0 MEAN CORPUSCULAR VOLUME (BEAKER) (test oqdu=598) 88.2 fL 79.0-92.2 MEAN CORPUSCULAR HEMOGLOBIN (BEAKER) (test 29.1 pg 25.7-32.2 pkdf=501) MEAN CORPUSCULAR HEMOGLOBIN CONC (BEAKER) (test 33.0 GM/DL 32.3-36.5 recp=301) RED CELL DISTRIBUTION WIDTH (BEAKER) (test 12.8 % 11.6-14.4 wcad=150) PLATELET COUNT (BEAKER) (test hdyh=467) 166 K/CU MM 150-450 MEAN PLATELET VOLUME (BEAKER) (test olzt=272) 11.0 fL 9.4-12.4 NUCLEATED RED BLOOD CELLS (BEAKER) (test 0 /100 WBC 0-0 ytwj=118) NEUTROPHILS RELATIVE PERCENT (BEAKER) (test 74 % wduy=090) LYMPHOCYTES RELATIVE PERCENT (BEAKER) (test 15 % cheo=126) MONOCYTES RELATIVE PERCENT (BEAKER) (test 10 % rhdk=112) EOSINOPHILS RELATIVE PERCENT (BEAKER) (test 1 % mkxi=056) BASOPHILS RELATIVE PERCENT (BEAKER) (test 0 % ebpx=227) NEUTROPHILS ABSOLUTE COUNT (BEAKER) (test 8.76 K/ L 1.78-5.38 zpkv=702) LYMPHOCYTES ABSOLUTE COUNT (BEAKER) (test 1.80 K/ L 1.32-3.57 nido=055) MONOCYTES ABSOLUTE COUNT (BEAKER) (test 1.12 K/ L 0.30-0.82 mglx=104) EOSINOPHILS ABSOLUTE COUNT (BEAKER) (test 0.08 K/ L 0.04-0.54 omon=024) BASOPHILS ABSOLUTE COUNT (BEAKER) (test 0.04 K/ L 0.01-0.08 qicp=702) IMMATURE GRANULOCYTES-RELATIVE PERCENT (BEAKER) 0 % 0-1 (test zuip=6121) [id number] 11:43:00 Test Item Value Reference Range Comments LIPASE (BEAKER) (test rpax=994) 882 U/L 8-78 U/S, ABDOMINAL, [id number] 09:32:00Reason for exam:->abd pain Reason for exam:->Please do stat. [facility] Clinical Diagnosis: Abdomen [...] Date/Time : 04/07/2018 09:32:02 Reading Location: [facility] [id number] Ultrasound Reading Room HEPATIC FUNCTION [id number] 08:43:00 Test Item Value Reference Range Comments TOTAL PROTEIN (BEAKER) (test lnkp=326) 6.3 gm/dL 6.0-8.3 ALBUMIN (BEAKER) (test ydtj=3862) 3.7 g/dL 3.5-5.0 BILIRUBIN TOTAL (BEAKER) (test wqdp=490) 1.3 mg/dL 0.2-1.2 BILIRUBIN DIRECT (BEAKER) (test faor=034) 0.8 mg/dL 0.1-0.5 ALKALINE PHOSPHATASE (BEAKER) (test mcbd=838) 165 U/L 40-150 AST (SGOT) (BEAKER) (test zvwr=962) 164 U/L 5-34 ALT (SGPT) (BEAKER) (test jjmz=184) 401 U/L 6-55 BASIC METABOLIC [id number] 08:43:00 Test Item Value Reference Range Comments SODIUM (BEAKER) (test 138 meq/L 136-145 qzta=065) POTASSIUM (BEAKER) (test 3.7 meq/L 3.5-5.1 udma=236) CHLORIDE (BEAKER) (test 106 meq/L 98-107 svko=372) CO2 (BEAKER) (test 24 meq/L 22-29 uyjf=598) BLOOD UREA NITROGEN 11 mg/dL 7-21 (BEAKER) (test ktxn=524) CREATININE (BEAKER) (test 0.86 mg/dL 0.57-1.25 frka=665) GLUCOSE RANDOM (BEAKER) 85 mg/dL 70-105 (test zgvy=486) CALCIUM (BEAKER) (test 9.1 mg/dL 8.4-10.2 fbiz=009) EGFR (BEAKER) (test 98 mL/min/1.73 sq m ESTIMATED GFR IS NOT deiy=1578) ACCURATE CREATININE CLEARANCE IN PREDICTING GLOMERULAR FILTRATION RATE. ESTIMATED GFR IS NOT APPLICABLE FOR DIALYSIS PATIENTS. [id number] 08:43:00 Test Item Value Reference Range Comments MAGNESIUM (BEAKER) (test wocg=478) 1.5 mg/dL 1.6-2.6 [id number] 08:43:00 Test Item Value Reference Range Comments PHOSPHORUS (BEAKER) (test vlrk=144) 2.8 mg/dL 2.3-4.7 CBC W/PLT COUNT & AUTO [id number] 08:23:00 Test Item Value Reference Range Comments WHITE BLOOD CELL COUNT (BEAKER) (test vklw=772) 9.3 K/ L 3.5-10.5 RED BLOOD CELL COUNT (BEAKER) (test ytda=967) 4.29 M/ L 4.63-6.08 HEMOGLOBIN (BEAKER) (test wvxw=686) 12.2 GM/DL 13.7-17.5 HEMATOCRIT (BEAKER) (test nbjy=085) 37.9 % 40.1-51.0 MEAN CORPUSCULAR VOLUME (BEAKER) (test oeio=501) 88.3 fL 79.0-92.2 MEAN CORPUSCULAR HEMOGLOBIN (BEAKER) (test 28.4 pg 25.7-32.2 levp=631) MEAN CORPUSCULAR HEMOGLOBIN CONC (BEAKER) (test 32.2 GM/DL 32.3-36.5 hbwp=907) RED CELL DISTRIBUTION WIDTH (BEAKER) (test 12.9 % 11.6-14.4 dtfa=701) PLATELET COUNT (BEAKER) (test qxfb=044) 175 K/CU MM 150-450 MEAN PLATELET VOLUME (BEAKER) (test lszs=546) 10.5 fL 9.4-12.4 NUCLEATED RED BLOOD CELLS (BEAKER) (test 0 /100 WBC 0-0 kzup=762) NEUTROPHILS RELATIVE PERCENT (BEAKER) (test 71 % bpfg=250) LYMPHOCYTES RELATIVE PERCENT (BEAKER) (test 21 % wali=296) MONOCYTES RELATIVE PERCENT (BEAKER) (test 8 % skct=995) EOSINOPHILS RELATIVE PERCENT (BEAKER) (test 0 % vfob=202) BASOPHILS RELATIVE PERCENT (BEAKER) (test 0 % geym=256) NEUTROPHILS ABSOLUTE COUNT (BEAKER) (test 6.52 K/ L 1.78-5.38 jvbh=922) LYMPHOCYTES ABSOLUTE COUNT (BEAKER) (test 1.96 K/ L 1.32-3.57 qoau=778) MONOCYTES ABSOLUTE COUNT (BEAKER) (test 0.69 K/ L 0.30-0.82 vlxn=728) EOSINOPHILS ABSOLUTE COUNT (BEAKER) (test 0.03 K/ L 0.04-0.54 edoj=264) BASOPHILS ABSOLUTE COUNT (BEAKER) (test 0.01 K/ L 0.01-0.08 aisq=126) IMMATURE GRANULOCYTES-RELATIVE PERCENT (BEAKER) 0 % 0-1 (test jrah=4266) FL, [id number] 15:34:00INTRA OP IMAGINGReason for exam:->BILIARY OBSTURCTIONFINAL REPORT ERCP Clinical History: BILIARY OBSTRUCTION Impression: Intraoperative images are obtained. The radiologist is not present during the procedure. Images are presentedfor interpretation at the completion of the procedure. Please refer to the procedure report for more details. Number of images obtained: 3 Fluoroscopic time: 62.4 seconds Signed: Alok Maria Verified Date/Time: 04/06/2018 15:34:35 Reading Location: [address] Consult Reading Room [id number] 13:01:00 Test Item Value Reference Range Comments LIPASE (BEAKER) (test dnit=694) > U/L 8-78 Specimen slightly ictericHEPATITIS PANEL, [id number] 12:35:00 Test Item Value Reference Range Comments HEPATITIS A IGM ANTIBODY (BEAKER) (test Nonreactive Nonreactive wesj=377) HEPATITIS B CORE IGM ANTIBODY (BEAKER) (test Nonreactive Nonreactive cpma=999) HEPATITIS C ANTIBODY (BEAKER) (test povk=683) Nonreactive Nonreactive HEPATITIS B SURFACE ANTIGEN (2) (BEAKER) (test Nonreactive Nonreactive lusl=4863) PROTHROMBIN [id number] 12:26:00 Test Item Value Reference Range Comments PROTIME (BEAKER) (test ndqg=344) 12.5 seconds 11.7-14.7 INR (BEAKER) (test kkdq=557) 0.9 <=5.9 RECOMMENDED COUMADIN/WARFARIN INR THERAPY RANGESSTANDARD DOSE: 2.0 - 3.0 Includes: PROPHYLAXIS forvenous thrombosis, systemic embolization; TREATMENT for venous thrombosis and/or pulmonary embolus.HIGH RISK: Target INR is 2.5-3.5 for patients with mechanical heart valves.COMPREHENSIVE METABOLIC [id number] 12:16:00 Test Item Value Reference Range Comments TOTAL PROTEIN (BEAKER) 7.2 gm/dL 6.0-8.3 (test oofx=762) ALBUMIN (BEAKER) (test 4.3 g/dL 3.5-5.0 pqun=5805) ALKALINE PHOSPHATASE 193 U/L 40-150 (BEAKER) (test gyfy=122) BILIRUBIN TOTAL (BEAKER) 4.4 mg/dL 0.2-1.2 (test hxwp=696) SODIUM (BEAKER) (test 143 meq/L 136-145 yuus=558) POTASSIUM (BEAKER) (test 3.4 meq/L 3.5-5.1 hajq=087) CHLORIDE (BEAKER) (test 108 meq/L 98-107 ysxu=670) CO2 (BEAKER) (test 26 meq/L 22-29 dwya=573) BLOOD UREA NITROGEN 14 mg/dL 7-21 (BEAKER) (test hqvf=114) CREATININE (BEAKER) (test 0.94 mg/dL 0.57-1.25 bema=150) GLUCOSE RANDOM (BEAKER) 100 mg/dL 70-105 (test msdr=789) CALCIUM (BEAKER) (test 9.4 mg/dL 8.4-10.2 ewly=948) AST (SGOT) (BEAKER) (test 310 U/L 5-34 qnur=131) ALT (SGPT) (BEAKER) (test 572 U/L 6-55 wioh=040) EGFR (BEAKER) (test 88 mL/min/1.73 sq m ESTIMATED GFR IS NOT jxhg=7313) ACCURATE CREATININE CLEARANCE IN PREDICTING GLOMERULAR FILTRATION RATE. ESTIMATED GFR IS NOT APPLICABLE FOR DIALYSIS PATIENTS. Specimen slightly ictericLIPID [id number] 12:16:00 Test Item Value Reference Range Comments TRIGLYCERIDES (BEAKER) (test budh=973) 106 mg/dL CHOLESTEROL (BEAKER) (test ohbu=480) 169 mg/dL HDL CHOLESTEROL (BEAKER) (test etuz=367) 44 mg/dL LDL CHOLESTEROL CALCULATED (BEAKER) (test 104 mg/dL ifin=325) Triglyceride Reference Range: Low Risk <150 Borderline 150- 199 High Risk 200-499 Very High Risk >=500Cholesterol Reference Range: Low Risk <200 Borderline 200-239 High Risk > 240HDL Cholesterol Reference Range: Low Risk >=60 High Risk <40LDL Cholesterol Reference Range: Optimal <100 Near Optimal 100-129 Borderline 130-159 High 160-189 Very High >=190 Specimen slightly [id number] 12:16:00 Test Item Value Reference Range Comments AMYLASE (BEAKER) (test xjku=241) 887 U/L 25-125 Specimen slightly ictericBASIC METABOLIC [id number] 12:13:00 Test Item Value Reference Range Comments SODIUM (BEAKER) (test 144 meq/L 136-145 sstk=510) POTASSIUM (BEAKER) (test 3.4 meq/L 3.5-5.1 gnxw=696) CHLORIDE (BEAKER) (test 109 meq/L 98-107 xipr=339) CO2 (BEAKER) (test 25 meq/L 22-29 hwbh=906) BLOOD UREA NITROGEN 15 mg/dL 7-21 (BEAKER) (test ivtm=441) CREATININE (BEAKER) (test 0.92 mg/dL 0.57-1.25 ikrs=571) GLUCOSE RANDOM (BEAKER) 100 mg/dL 70-105 (test rohb=525) CALCIUM (BEAKER) (test 9.4 mg/dL 8.4-10.2 jiwk=947) EGFR (BEAKER) (test 91 mL/min/1.73 sq m ESTIMATED GFR IS NOT smog=6935) ACCURATE CREATININE CLEARANCE IN PREDICTING GLOMERULAR FILTRATION RATE. ESTIMATED GFR IS NOT APPLICABLE FOR DIALYSIS PATIENTS. Specimen slightly ictericCBC W/PLT COUNT & AUTO [id number] 12:10 :00 Test Item Value Reference Range Comments WHITE BLOOD CELL COUNT (BEAKER) (test dnsg=642) 6.7 K/ L 3.5-10.5 RED BLOOD CELL COUNT (BEAKER) (test zkfl=402) 4.64 M/ L 4.63-6.08 HEMOGLOBIN (BEAKER) (test ylji=184) 13.3 GM/DL 13.7-17.5 HEMATOCRIT (BEAKER) (test frmb=493) 40.9 % 40.1-51.0 MEAN CORPUSCULAR VOLUME (BEAKER) (test wbvb=680) 88.1 fL 79.0-92.2 MEAN CORPUSCULAR HEMOGLOBIN (BEAKER) (test 28.7 pg 25.7-32.2 tasl=387) MEAN CORPUSCULAR HEMOGLOBIN CONC (BEAKER) (test 32.5 GM/DL 32.3-36.5 nkpo=612) RED CELL DISTRIBUTION WIDTH (BEAKER) (test 12.7 % 11.6-14.4 hmqr=243) PLATELET COUNT (BEAKER) (test zbzt=665) 183 K/CU MM 150-450 MEAN PLATELET VOLUME (BEAKER) (test wmmg=812) 10.5 fL 9.4-12.4 NUCLEATED RED BLOOD CELLS (BEAKER) (test 0 /100 WBC 0-0 bior=801) NEUTROPHILS RELATIVE PERCENT (BEAKER) (test 64 % mkta=457) LYMPHOCYTES RELATIVE PERCENT (BEAKER) (test 23 % kwtx=008) MONOCYTES RELATIVE PERCENT (BEAKER) (test 11 % ixuf=542) EOSINOPHILS RELATIVE PERCENT (BEAKER) (test 1 % ntmx=956) BASOPHILS RELATIVE PERCENT (BEAKER) (test 0 % jpql=846) NEUTROPHILS ABSOLUTE COUNT (BEAKER) (test 4.31 K/ L 1.78-5.38 gxsi=421) LYMPHOCYTES ABSOLUTE COUNT (BEAKER) (test 1.56 K/ L 1.32-3.57 ndon=795) MONOCYTES ABSOLUTE COUNT (BEAKER) (test 0.72 K/ L 0.30-0.82 xvin=709) EOSINOPHILS ABSOLUTE COUNT (BEAKER) (test 0.09 K/ L 0.04-0.54 mruz=862) BASOPHILS ABSOLUTE COUNT (BEAKER) (test 0.03 K/ L 0.01-0.08 gafv=668) IMMATURE GRANULOCYTES-RELATIVE PERCENT (BEAKER) 0 % 0-1 (test uant=9384)
--- OUTSIDE RECORDS SUMMARY | 2018-08-29 01:24 | XMS REPORT | Clinical Summary ---
:1975 Author Organization [facility] Address [address] [place] [address] Care Team Providers Name Role Phone Unavailable Primary Care Provider Unavailable Allergies No Known Allergies Medications Medication Sig Dispensed Refills Start Date End Date Status [id number] Take 1 capsule 0 02/26/2018 Active ffeine [...] Gastroenterology Jefferson Hillman ERCP,PAPILLOTOMY MD [place] 04/06/2018 [facility] Internal [place], Elevated liver function tests; - Encounter Medicine Cherie Chan MD Acute cholecystitis; 04/10/2018 [place], Calculus of bile duct without cholecystitis with obstruction; [place] Symptomatic cholelithiasis MD Katelin Vasques, Akila Beebe MD 04/06/2018 Travel after 08/28/2017 Social History Tobacco Use Types Packs/Day Years [...] Taken Blood Pressure 102/50 04/10/2018 7:19 AM ASSURANCE SPECIALIST Pulse 59 04/10/2018 7:19 AM ASSURANCE SPECIALIST Temperature 36.2 C (97.1 F) 04/10/2018 7:19 AM ASSURANCE SPECIALIST Respiratory Rate 18 04/10/2018 7:19 AM ASSURANCE SPECIALIST Oxygen Saturation 99% 04/10/2018 7:19 AM ASSURANCE SPECIALIST Inhaled Oxygen Concentration 2% 04/08/2018 2:15 PM ASSURANCE SPECIALIST Weight 96.6 kg (213 lb) 04/10/2018 9:27 AM ASSURANCE SPECIALIST Height 180.3 cm (5' 11") 04/10/2018 9:27 AM ASSURANCE SPECIALIST Body Mass Index 29.71 04/10/2018 9:27 AM ASSURANCE SPECIALIST Plan of Treatment Not on file Procedures Procedure Name Priority Date/Time Associated Diagnosis Comments REPORT OF PROCEDURE 04/21/2018 - ENDOSCOPY SCAN 2:02 PM ASSURANCE SPECIALIST CBC W/PLT COUNT & Routine 04/10/2018 Results for AUTO DIFFERENTIAL 4:25 AM ASSURANCE SPECIALIST this procedure are in the results section. HEPATIC FUNCTION Routine 04/10/2018 Results for PANEL 4:25 AM ASSURANCE SPECIALIST this procedure are in the results section. BASIC METABOLIC Routine 04/10/2018 Results for PANEL (7) 4:25 AM ASSURANCE SPECIALIST this procedure are in the results section. CBC W/PLT COUNT & Routine 04/10/2018 Results for AUTO DIFFERENTIAL 4:25 AM ASSURANCE SPECIALIST this procedure are in the results section. CBC W/PLT COUNT & Routine 04/09/2018 Results for AUTO DIFFERENTIAL 5:51 AM ASSURANCE SPECIALIST this procedure are in the results section. HEPATIC FUNCTION Routine 04/09/2018 Results for PANEL 5:51 AM ASSURANCE SPECIALIST this procedure are in the results section. CBC W/PLT COUNT & Routine 04/09/2018 Results for AUTO DIFFERENTIAL 5:51 AM ASSURANCE SPECIALIST this procedure are in the results section. BASIC METABOLIC Routine 04/09/2018 Results for PANEL (7) 5:51 AM ASSURANCE SPECIALIST this procedure are in the results section. PHOSPHORUS Routine 04/09/2018 Results for 4:12 AM ASSURANCE SPECIALIST this procedure are in the results section. MAGNESIUM Routine 04/09/2018 Results for 4:12 AM ASSURANCE SPECIALIST this procedure are in the results section. TRANSFUSION SERVICE 04/08/2018 REPORT - SCAN 6:01 PM ASSURANCE SPECIALIST ANAEROBIC CULTURE Routine 04/08/2018 Results for 12:21 PM ASSURANCE SPECIALIST this procedure are in the results section. SURGICALLY OBTAINED Routine 04/08/2018 Results for CULTURE + GRAM 12:21 PM ASSURANCE SPECIALIST this procedure STAIN are in the results section. TISSUE EXAM AP Routine 04/08/2018 Results for 12:21 PM ASSURANCE SPECIALIST this procedure are in the results section. LAPAROSCOPY,CHOLECY 04/08/2018 Choledocholithiasis STECTOMY 9:00 AM ASSURANCE SPECIALIST CBC W/PLT COUNT & Routine 04/08/2018 Results for AUTO DIFFERENTIAL 4:41 AM ASSURANCE SPECIALIST this procedure are in the results section. HEPATIC FUNCTION Routine 04/08/2018 Results for PANEL 4:41 AM ASSURANCE SPECIALIST this procedure are in the results section. CBC W/PLT COUNT & Routine 04/08/2018 Results for AUTO DIFFERENTIAL 4:41 AM ASSURANCE SPECIALIST this procedure are in the results section. PHOSPHORUS Routine 04/08/2018 Results for 4:41 AM ASSURANCE SPECIALIST this procedure are in the results section. MAGNESIUM Routine 04/08/2018 Results for 4:41 AM ASSURANCE SPECIALIST this procedure are in the results section. BASIC METABOLIC Routine 04/08/2018 Results for PANEL (7) 4:41 AM ASSURANCE SPECIALIST this procedure are in the results section. TRANSFUSION SERVICE 04/07/2018 REPORT - SCAN 6:01 PM ASSURANCE SPECIALIST REPORT OF PROCEDURE 04/07/2018 - ENDOSCOPY URL 3:48 PM ASSURANCE SPECIALIST CBC W/PLT COUNT & Routine 04/07/2018 Results for AUTO DIFFERENTIAL 8:04 AM ASSURANCE SPECIALIST this procedure are in the results section. ABORH, MANUAL STAT 04/07/2018 Results for 8:04 AM ASSURANCE SPECIALIST this procedure are in the results section. LIPASE Routine 04/07/2018 Results for 8:04 AM ASSURANCE SPECIALIST this procedure are in the results section. HEPATIC FUNCTION Routine 04/07/2018 Results for PANEL 8:04 AM ASSURANCE SPECIALIST this procedure are in the results section. CBC W/PLT COUNT & Routine 04/07/2018 Results for AUTO DIFFERENTIAL 8:04 AM ASSURANCE SPECIALIST this procedure are in the results section. PHOSPHORUS Routine 04/07/2018 Results for 8:04 AM ASSURANCE SPECIALIST this procedure are in the results section. MAGNESIUM Routine 04/07/2018 Results for 8:04 AM ASSURANCE SPECIALIST this procedure are in the results section. BASIC METABOLIC Routine 04/07/2018 Results for PANEL (7) 8:04 AM ASSURANCE SPECIALIST this procedure are in the results section. US ABDOMEN COMPLETE STAT 04/07/2018 Results for 6:51 AM ASSURANCE SPECIALIST this procedure are in the results section. TYPE AND SCREEN, Routine 04/06/2018 Results for AUTOMATED 9:54 PM ASSURANCE SPECIALIST this procedure are in the results section. FL ERCP Routine 04/06/2018 Results for 3:05 PM ASSURANCE SPECIALIST this procedure are in the results section. ERCP,BALLOON 04/06/2018 Gall stones, common bile SWEEPING 2:00 PM ASSURANCE SPECIALIST duct Special Needs ercp w/ anes and fluoro PROCEDURE W/ C-ARM 04/06/2018 2:00 PM ASSURANCE SPECIALIST Gall stones, common bile duct Special Needs ercp w/ anes and fluoro ERCP,PAPILLOTOMY 04/06/2018 2:00 PM ASSURANCE SPECIALIST Gall stones, common bile duct Special Needs ercp w/ anes and fluoro BLOOD CULTURE Routine 04/06/2018 12:44 PM ASSURANCE SPECIALIST CBC W/PLT COUNT & AUTO Routine 04/06/2018 11:19 AM ASSURANCE SPECIALIST Results for this DIFFERENTIAL procedure are in the results section. PROTHROMBIN TIME/INR STAT 04/06/2018 11:19 AM ASSURANCE SPECIALIST COMPREHENSIVE METABOLIC STAT 04/06/2018 11:19 AM ASSURANCE SPECIALIST Results for this PANEL procedure are in the results section. LIPASE Routine 04/06/2018 11:19 AM ASSURANCE SPECIALIST AMYLASE Routine 04/06/2018 11:19 AM ASSURANCE SPECIALIST HEPATITIS PANEL, ACUTE Routine 04/06/2018 11:19 AM ASSURANCE SPECIALIST CBC W/PLT COUNT & AUTO Routine 04/06/2018 11:19 AM ASSURANCE SPECIALIST Results for this DIFFERENTIAL procedure are in the results section. LIPID PANEL Routine 04/06/2018 11:19 AM ASSURANCE SPECIALIST BASIC METABOLIC PANEL (7) Routine 04/06/2018 11:19 AM ASSURANCE SPECIALIST BLOOD CULTURE Routine 04/06/2018 11:18 AM ASSURANCE SPECIALIST after 08/28/2017 Results EKG-SCANNED (04/21/2018 2:02 PM ASSURANCE SPECIALIST) Narrative Performed At CBC with platelet count + automated diff (04/10/2018 4:25 AM ASSURANCE SPECIALIST)Only the most recent of5 resultswithin the time period is included. WBC 5.9 3.5 - 10.5 K/L [facility] RBC 4.17 (L) 4.63 - 6.08 M/L [facility] Hemoglobin 11.7 (L) 13.7 - 17.5 GM/DL [facility] Hematocrit 36.8 (L) 40.1 - 51.0 % [facility] MCV 88.2 79.0 - 92.2 fL [facility] MCH 28.1 25.7 - 32.2 pg [facility] MCHC 31.8 (L) 32.3 - 36.5 GM/DL [facility] RDW 12.8 11.6 - 14.4 % [facility] Platelets 182 150 - 450 K/CU MM [facility] MPV 10.9 9.4 - 12.4 fL [facility] nRBC 0 0 - 0 /100 WBC [facility] % Neutros 56 % [facility] % Lymphs 29 % [facility] % Monos 12 % [facility] % Eos 2 % [facility] % Baso 1 % [facility] # Neutros 3.28 1.78 - 5.38 K/L [facility] # Lymphs 1.73 1.32 - 3.57 K/L [facility] # Monos 0.70 0.30 - 0.82 K/L [facility] # Eos 0.14 0.04 - 0.54 K/L [facility] # Baso 0.03 0.01 - 0.08 K/L [facility] Immature Granulocytes-Relative 0 0 - 1 % [facility] Specimen Blood Performing Organization Address City/[facility] [email or web address] Phone Number [address] [phone] [place] Hepatic function panel (04/10/2018 4:25 AM ASSURANCE SPECIALIST)Only the most recent of4 resultswithin the time period is included. Protein, Total 6.3 6.0 - 8.3 gm/dL [facility] Albumin 3.6 3.5 - 5.0 g/dL [facility] Total Bilirubin 0.8 0.2 - 1.2 mg/dL [facility] Bilirubin, Direct 0.5 0.1 - 0.5 mg/dL [facility] Alkaline Phosphatase 111 40 - 150 U/L [facility] AST 76 (H) 5 - 34 U/L [facility] ALT 261 (H) 6 - 55 U/L [facility] Specimen Blood Performing Organization Address City/[facility]/Zipcode Phone Number [address] [address] [phone] [place] Basic Metabolic Panel (04/10/2018 4:25 AM ASSURANCE SPECIALIST)Only the most recent of5 resultswithin the time period is included. Sodium 139 136 - 145 meq/L [facility] Potassium 3.2 (L) 3.5 - 5.1 meq/L [facility] Chloride 106 98 - 107 meq/L [facility] CO2 25 22 - 29 meq/L [facility] BUN 6 (L) 7 - 21 mg/dL [facility] Creatinine 0.72 0.57 - 1.25 mg/dL [facility] Glucose 80 70 - 105 mg/dL [facility] Calcium 9.1 8.4 - 10.2 mg/dL [facility] EGFR 120Comment: ESTIMATED GFR IS mL/min/1.73 sq m [facility] NOT ACCURATE CREATININE [facility] CENTER CLEARANCE IN PREDICTING GLOMERULAR FILTRATION RATE. ESTIMATED GFR IS NOT APPLICABLE FOR DIALYSIS PATIENTS. Specimen Blood Performing Organization Address City/[facility] [[email or web address] Phone Number [address] [address] [phone] [place] Phosphorus (04/09/2018 4:12 AM ASSURANCE SPECIALIST)Only the most recent of3 resultswithin the time period is included. Phosphorus 2.9 2.3 - 4.7 mg/dL [facility] Specimen Blood Performing Organization Address City/[facility] [[email or web address] Phone Number [address] [address] CENTER Magnesium (04/09/2018 4:12 AM ASSURANCE SPECIALIST)Only the most recent of3 resultswithin the time period is included. Magnesium 1.6 1.6 - 2.6 mg/dL [facility] Specimen Blood Performing Organization Address [facility] [email or web address] Phone Number [address] [address] [phone] [place] TRANSFUSION SERVICE REPORT - SCAN (04/08/2018 6:01 PM ASSURANCE SPECIALIST)Only the most recent of2 resultswithin the time period is included. Narrative Performed At Anaerobic culture (04/08/2018 12:21 PM ASSURANCE SPECIALIST) Result No anaerobes isolated [facility] Specimen Body Fluid Performing Organization Address City/[facility]/Zipcode Phone Number [facility] [address] [place] [address] [place] Surgically obtained culture + gram stain (04/08/2018 12:21 PM ASSURANCE SPECIALIST) Result No growth [facility] Gram Stain Result 1+ White blood cells seen [facility] Gram Stain Result No organisms seen [facility] Specimen Body Fluid Performing Organization Address City/[facility]/Zipcode Phone Number [facility] [address] [place] [phone] [place] Tissue Exam (04/08/2018 12:21 PM ASSURANCE SPECIALIST) Case Report Surgical Pathology Report Case: [id number] [facility] Authorizing Provider:Jaylene Daugherty MD Collected: 04/08/[address] [facility] Ordering Location: [address] Received: 04/08/2018 1350 Service Pathologist: Evie Vizcaino MD Specimen:Gallbladder DIAGNOSIS GALLBLADDER, LAPAROSCOPIC CHOLECYSTECTOMY: [facility] - CHRONIC CHOLECYSTITIS WITH ULCERATED/ERODED MUCOSA [facility] - CHOLELITHIASIS - SUGGESTIVE OF CHOLESTEROL GRANULOMA - CYSTIC DUCT WITH ORGANIZED THROMBUS AT THE MARGIN - NEGATIVE FOR DYSPLASIA OR MALIGNANCY Signing Pathologist Direct Phone Line: [phone] CPT Code(s) 63084 [facility] CLINICAL HISTORY Choledocholithiasis [facility] SPECIMEN SOURCE Gallbladder [facility] GROSS DESCRIPTION The specimen is received in formalin-filled container labeled with the patient's information and labeled "gallbladder". It consists of an intact gallbladder measuring 5.5 x 2 cm with a gallbladder wall [facility] thickness of 0.2 cm. The gallbladder lumen is impacted with numerous green- pearly smooth stones measuring up to 0.5 cm. The bile is canada-red and thin. The mucosa is canada-red and smooth with trabeculation. No masses are seen. [facility] Section code: A1, margin en face; A2, gallbladder wall. CG/ew MICROSCOPIC DESCRIPTION Performed [facility] Specimen Tissue Performing Organization Address City/State/Zipcode Phone Number [facility] [address] [place] [address] [phone] CENTER REPORT OF PROCEDURE - ENDOSCOPY URL (04/07/2018 3:48 PM ASSURANCE SPECIALIST) Narrative Performed At ABORH, manual (04/07/2018 8:04 AM ASSURANCE SPECIALIST) ABO Grouping A [facility] Rh Factor POS [facility] Specimen Blood Performing Organization Address City/[facility]/Zipcode Phone Number [address] [phone] Lipase (04/07/2018 8:04 AM ASSURANCE SPECIALIST)Only the most recent of2 resultswithin the time period is included. Lipase 882 (H) 8 - 78 U/L [facility] Specimen Blood Performing Organization Address City/[facility]/Zipcode Phone Number [facility] [address] [place] [address] [phone] CENTER US abdomen complete (04/07/2018 6:51 AM ASSURANCE SPECIALIST) Specimen Narrative Performed At FINAL REPORT Mobile-XL Abdominal Ultrasound Clinical Diagnosis: Abdomen pain Comparison: [...] MD Report Verified Date/Time:04/07/2018 09:32:02 Reading Location: [address] Ultrasound Reading Room Procedure Note Interface, External Ris In - 04/07/2018 9:34 AM ASSURANCE SPECIALIST FINAL REPORT Abdominal Ultrasound Clinical Diagnosis: [...] Report Verified Date/Time: 04/07/2018 09:32:02 Reading Location: [address] Ultrasound Reading Room Performing Organization Address City/State/Zipcode Phone Number [facility] Type and screen, automated (04/06/2018 9:54 PM ASSURANCE SPECIALIST) ABO/RH AUTOMATED (BEAKER) A POSITIVE [facility] Ab Scrn NEGATIVE [facility] Specimen Blood Performing Organization Address City/[facility]/Zipcode Phone Number [address] [address] [place] ERCP (04/06/2018 3:05 PM ASSURANCE SPECIALIST) Specimen Narrative Performed At FINAL REPORT [...] Report Verified Date/Time:04/06/2018 15:34:35 Reading Location: [address] Consult Reading Room Procedure Note Interface, External Ris In - 04/06/2018 3:36 PM ASSURANCE SPECIALIST FINAL REPORT ERCP Clinical History: BILIARY OBSTRUCTION Impression: Intraoperative images are obtained. The radiologist is not present during the procedure. Images are presented for interpretation at the completion of the procedure. Please refer to the procedure report for more details. Number of images obtained: 3 Fluoroscopic time: 62.4 seconds Signed: Alok Maria MD Report Verified Date/Time: 04/06/2018 15:34:35 Reading Location: [facility] C[facility] Consult Reading Room Performing Organization Address City/State/Zipcode Phone Number [facility] Blood culture (04/06/2018 12:44 PM ASSURANCE SPECIALIST)Only the most recent of2 resultswithin the time period is included. Result No growth in 5 days [facility] Specimen Blood Performing Organization Address City/[facility]/Zipcode Phone Number [address] [address] [phone] CENTER Hepatitis panel, acute (04/06/2018 11:19 AM ASSURANCE SPECIALIST) Hep A IgM Nonreactive Nonreactive [facility] Hep B C IgM Nonreactive Nonreactive [facility] Hepatitis C Ab Nonreactive Nonreactive [facility] hepatitis B Surface Ag Nonreactive Nonreactive [facility] Specimen Blood Performing Organization Address City/[facility]/Zipcode Phone Number [address] [phone] [place] Prothrombin time/INR (04/06/2018 11:19 AM ASSURANCE SPECIALIST) Protime 12.5 11.7 - 14.7 seconds [facility] INR 0.9 <=5.9 [facility] Specimen Blood Narrative Performed At RECOMMENDED COUMADIN/WARFARIN INR THERAPY [facility] RANGES STANDARD DOSE: 2.0 - 3.0 Includes: PROPHYLAXIS for venous thrombosis, systemic embolization; TREATMENT for venous thrombosis and/or pulmonary embolus. HIGH RISK: Target INR is 2.5-3.5 for patients with mechanical heart valves. Performing Organization Address City/[facility] [[email or web address] Phone Number [address] [address] [place] Amylase (04/06/2018 11:19 AM ASSURANCE SPECIALIST) Amylase 887 (H) 25 - 125 U/L [facility] Specimen Blood Narrative Performed At Specimen slightly icteric [facility] Performing Organization Address City/State/Zipcode Phone Number [address] [address] [place] Lipid panel (04/06/2018 11:19 AM ASSURANCE SPECIALIST) Triglycerides 106 mg/dL [facility] Cholesterol 169 mg/dL [facility] HDL 44 mg/dL [facility] LDL Calculated 104 mg/dL [facility] Specimen Blood Narrative Performed At Triglyceride Reference Range: [facility] Low Risk <150 [id number] High Risk 200-499 Very High Risk>=500 Cholesterol Reference Range: Low Risk <200 [id number] High Risk>240 HDL Cholesterol Reference Range: Low Risk >=60 High Risk <40 LDL Cholesterol Reference Range: Optimal<100 Near [id number] Very High >=190 Specimen slightly icteric Performing Organization Address City/State/Zipcode Phone Number [facility] [address] [place] [address] [phone] CENTER Comprehensive metabolic panel (04/06/2018 11:19 AM ASSURANCE SPECIALIST) Protein, Total 7.2 6.0 - 8.3 gm/dL [facility] Albumin 4.3 3.5 - 5.0 g/dL [facility] Alkaline Phosphatase 193 (H) 40 - 150 U/L [facility] Total Bilirubin 4.4 (H) 0.2 - 1.2 mg/dL [facility] Sodium 143 136 - 145 meq/L [facility] Potassium 3.4 (L) 3.5 - 5.1 meq/L [facility] Chloride 108 (H) 98 - 107 meq/L [facility] CO2 26 22 - 29 meq/L [facility] BUN 14 7 - 21 mg/dL [facility] Creatinine 0.94 0.57 - 1.25 mg/dL [facility] Glucose 100 70 - 105 mg/dL [facility] Calcium 9.4 8.4 - 10.2 mg/dL [facility] AST 310 (H) 5 - 34 U/L [facility] ALT 572 (H) 6 - 55 U/L [facility] EGFR 88Comment: ESTIMATED GFR mL/min/1.73 sq m [facility] IS NOT ACCURATE [facility] CREATININE CLEARANCE IN PREDICTING GLOMERULAR FILTRATION RATE. ESTIMATED GFR IS NOT APPLICABLE FOR DIALYSIS PATIENTS. Specimen Blood Narrative Performed At Specimen slightly icteric [facility] Performing Organization Address City/State/Zipcode Phone Number [address] [address] [phone] CENTER after 08/28/2017 Advance Directives For more information, please contact:[address] [phone] Code Status Date Activated Date Inactivated Comments Full Code 04/06/2018 9:53 AM This code status was determined by: Patient
[2018-08-29 02:06] LABS: Absolute Lymphocytes (CBC) 0.7 K/uL (0.7-4.9); Basophils % 1.2 % (0-1.3); Eosinophils % 0.3 % (0-4.4); Hematocrit 39.7 % (39.6-49.0); Lymphocytes % 4.6 % (15.3-44.8); MPV 8.1 fL (7.6-11.3); Monocytes % 1.7 % (3.3-12.3); RBC Red Blood Cell Count 4.62 M/uL (4.33-5.43)
[2018-08-29] MEDS ORDERED: ONDANSETRON 4 MG/2 ML VIAL ONE (02:07)
[2018-08-29] MEDS ORDERED: NA CHLORIDE 0.9% 0 ML ONE (02:07)
[2018-08-29 02:23] LABS: Albumin 3.7 g/dL (3.4-5.0); Bilirubin Direct 0.3 mg/dL (0-0.2); Bilirubin Total 1.1 mg/dL (0.2-1.0); Potassium 3.3 mmol/L (3.5-5.1); Protein, Total 7.6 g/dL (6.4-8.2)
[2018-08-29 02:26] LABS: Blood Morphology Comment NOT SEEN (NOT SEEN); Platelet Estimate ADEQ; Toxic Granulation 1+; Urine White Blood Cell Casts OK
[2018-08-29] MEDS ORDERED: NA CHLORIDE 0.9% 1,000 ML IV ONE (03:40)
[2018-08-29] MEDS ORDERED: KETOROLAC 30 MG/ML INJ IV ONE (03:43)
--- NOTE | 2018-08-29 03:45 | ER ---
Nurse's Notes [facility] Name: Rm Hagen Age: 43 yrs Sex: Male : 1975 Arrival Date: 08/29/2018 Time: 01:22 Bed 13 Private MD: Diagnosis: Lobar pneumonia, unspecified organism Presentation: 08/29 01:42 Presenting complaint: Patient states: Vomiting x7-8 in the last 3 hours, states fever, lp1 chills, shortness of breath; Temp of 102 at 2240, took Tylenol x2 500mg; States "I feel like the vomiting has made me get a migraine now"; States diagnosed with pneumonia here in ED last night. Transition of care: patient was not received from another setting of care. Onset of symptoms was August 29, 2018. Risk Assessment: Do you want to hurt yourself or someone else? Patient reports no desire to harm self or others. Initial Sepsis Screen: Does the patient meet any 2 criteria? No. Patient's initial sepsis screen is negative. Does the patient have a suspected source of infection? Yes: Other: Patient previously diagnosed with pneumonia. Care prior to arrival: None. 01:42 Method Of Arrival: Ambulatory lp1 01:42 Acuity: YADIEL 3 lp1 Triage Assessment: 01:45 General: Appears uncomfortable, Behavior is anxious, crying. lp1 Historical: - Allergies: 01:47 NKA; lp1 - Home Meds: 01:47 Butalbital Compound 50-325-40 mg Oral tab 1 tab every 4 hours [Active]; sumatriptan lp1 succ 25 mg 1 tab daily [Active]; gabapentin Oral [Active]; ciprofloxacin Oral [Active]; - PMHx: 01:47 Bipolar disorder; Depression; gastritis; Migraines; lp1 - PSHx: 01:47 Cholecystectomy; lp1 - Immunization history:: Adult Immunizations up to date. - Social history:: Smoking status: Patient uses tobacco products, E-cigarette . - Ebola Screening: : No symptoms or risks identified at this time. Screenin:47 Abuse screen: Denies threats or abuse. Denies injuries from another. Nutritional lp1 screening: No deficits noted. Tuberculosis screening: No symptoms or risk factors identified. Fall Risk None identified. Assessment: 01:45 General: Appears uncomfortable, Behavior is anxious, crying, restless. Pain: Complains lp1 of pain in chest, right upper quadrant and left upper quadrant Pain currently is 9 out of 10 on a pain scale. Quality of pain is described as sharp, Pain began 3 hours ago. Neuro: Level of Consciousness is awake, alert, obeys commands, Oriented to person, place, time, situation. Cardiovascular: Patient's skin is warm and dry. Respiratory: Reports shortness of breath pain with cough pain with movement Airway is patent Respiratory effort is even, labored, Respiratory pattern is regular, hyperventilation Breath sounds are clear bilaterally. Onset: The symptoms/episode began/occurred gradually. GI: Abdomen is non-distended, Reports nausea, vomiting. : No signs and/or symptoms were reported regarding the genitourinary system. EENT: No signs and/or symptoms were reported regarding the EENT system. Derm: Skin is intact, Skin is dry, Skin is normal. Musculoskeletal: No deficits noted. 02:00 Reassessment: Patient attempting to vomit, no emesis in bag at this time. lp1 02:35 Reassessment: Patient states nausea decreased at this time; "I still feel like shit"; lp1 Patient states pain to head related to migraine from previous vomiting; Provider notified. 04:15 Reassessment: Provider notified of patient with continued migraine, grunting in room, lp1 discomfort noted; Patient's significant other states "If his migraine pain continues he is going to have a bipolar episode and I don't want you to have to deal with that"; Verbal order for Palisade 10-325mg PO x1. 04:21 Reassessment: Patient continued labored breathing, hyperventilating due to migraine per lp1 patient; O2 at 90% on RA, place on 2L O2 via NC for comfort. Vital Signs: 01:45 BP 145 / 87; Pulse 99; Resp 20; Temp 100.4(O); Pulse Ox 94% on R/A; Weight 85.73 kg; lp1 Height 5 ft. 11 in. (180.34 cm); Pain 9/10; 02:00 BP 117 / 66; Pulse 101; Resp 20; Pulse Ox 94% on R/A; lp1 02:30 BP 107 / 88; Pulse 94; Resp 22; Pulse Ox 93% on R/A; lp1 03:30 BP 113 / 55; Pulse 93; Resp 19; Pulse Ox 96% on R/A; lp1 03:40 Temp 100.7(O); lp1 04:00 BP 113 / 64; Pulse 89; Resp 20; Pulse Ox 92% on R/A; Pain 9/10; lp1 04:20 Pulse Ox 90% on R/A; lp1 04:20 Pulse Ox 95% on 2 lpm NC; lp1 01:45 Body Mass Index 26.36 (85.73 kg, 180.34 cm) lp1 ED Course: 01:22 Patient arrived in ED. do 01:34 Maximus Lr MD is Attending Physician. gs 01:34 Kita Ramos RN is Primary Nurse. lp1 01:38 Inserted saline lock: 20 gauge in right wrist, using aseptic technique. jd3 01:45 Triage completed. lp1 01:46 Arm band placed on left wrist. lp1 01:48 Patient has correct armband on for positive identification. Pulse ox on. NIBP on. lp1 03:43 Maximus Lr MD is Hospitalizing Provider. gs 04:20 No provider procedures requiring assistance completed. Patient admitted, IV remains in lp1 place. Administered Medications: 01:55 Drug: Zofran 4 mg Route: IVP; Site: right wrist; lp1 02:44 Follow up: Response: Nausea is decreased lp1 01:55 Drug: NS 0.9% 1000 ml Route: IV; Rate: 1 bolus; Site: right wrist; lp1 03:15 Follow up: IV Status: Completed infusion; IV Intake: 1000ml lp1 03:50 Drug: Rocephin - (cefTRIAXone) 1 grams Route: IVPB; Infused Over: 30 mins; Site: right lp1 wrist; 04:00 Follow up: IV Status: Completed infusion; IV Intake: 10ml lp1 03:55 Drug: Zithromax 500 mg Route: IVPB; Infused Over: 1 hrs; Site: right wrist; lp1 04:33 Follow up: IV Status: Infusion continued upon admission lp1 04:04 CANCELLED (Physician Discretion): NS 0.45 % with KCl 20 mEq/L 1000 ml IV at 125 ml/hr lp1 once 04:18 Drug: Tylenol 650 mg Route: PO; lp1 04:54 Follow up: Response: No adverse reaction lp1 04:18 Drug: Palisade 10 mg-325 mg 1 tabs Route: PO; lp1 04:54 Follow up: Response: No adverse reaction lp1 Intake: 03:15 IV: 1000ml; Total: 1000ml. lp1 04:00 IV: 10ml; Total: 1010ml. lp1 Outcome: 03:45 Decision to Hospitalize by Provider. 04:20 Condition: stable lp1 04:20 Instructed on the need for admit. 04:37 Admitted to Tele accompanied by nurse, via wheelchair, room 405, with oxygen, with lp1 chart, Report called to Michelet Crespo RN 04:50 Patient left the ED. lp1 Signatures: Kita Ramos RN RN lp1 Clover Brown Gregory, MD MD gs Davies, Jonathon, RN RN jd3 Corrections: (The following items were deleted from the chart) 04:22 04:15 Reassessment: Provider notified of patient with continued migraine, grunting in lp1 room, discomfort noted; Verbal order for Palisade 10-325mg PO x1 lp1 04:30 04:00 BP 113 / 64; Pulse 89bpm; Resp 22bpm; Pulse Ox 92% RA; Pain 9/10; lp1 lp1 05:09 05:08 Patient left the ED. lp1 lp1
--- NOTE | 2018-08-29 03:45 | EDPHYS ---
Physician Documentation [facility] Name: Rm Hagen Age: 43 yrs Sex: Male : 1975 Arrival Date: 08/29/2018 Time: 01:22 Bed 13 Private MD: ED Physician Maximus Lr HPI: 08/29 03:45 This 43 yrs old Male presents to ER via Ambulatory with complaints of gs Vomiting. 03:45 Onset: The symptoms/episode began/occurred acutely, yesterday. Possible causes: RECENT gs DX PNEUMONIA. Associated signs and symptoms: Pertinent positives: fever. Severity of symptoms: At their worst the symptoms were severe in the emergency department the symptoms are unchanged. The patient has not experienced similar symptoms in the past. The patient has been recently seen at the [facility] Emergency Department, yesterday. Historical: - Allergies: 01:47 NKA; lp1 - Home Meds: 01:47 Butalbital Compound 50-325-40 mg Oral tab 1 tab every 4 hours [Active]; sumatriptan lp1 succ 25 mg 1 tab daily [Active]; gabapentin Oral [Active]; ciprofloxacin Oral [Active]; - PMHx: 01:47 Bipolar disorder; Depression; gastritis; Migraines; lp1 - PSHx: 01:47 Cholecystectomy; lp1 - Immunization history:: Adult Immunizations up to date. - Social history:: Smoking status: Patient uses tobacco products, E-cigarette . - Ebola Screening: : No symptoms or risks identified at this time. ROS: 03:45 All other systems are negative. gs Exam: 03:45 Head/Face: Normocephalic, atraumatic. Eyes: Pupils equal round and reactive to light, gs extra-ocular motions intact. Lids and lashes normal. Conjunctiva and sclera are non-icteric and not injected. Cornea within normal limits. Periorbital areas with no swelling, redness, or edema. ENT: Nares patent. No nasal discharge, no septal abnormalities noted. Tympanic membranes are normal and external auditory canals are clear. Oropharynx with no redness, swelling, or masses, exudates, or evidence of obstruction, uvula midline. Mucous membranes moist. Neck: Trachea midline, no thyromegaly or masses palpated, and no cervical lymphadenopathy. Supple, full range of motion without nuchal rigidity, or vertebral point tenderness. No Meningismus. Chest/axilla: Normal chest wall appearance and motion. Nontender with no deformity. No lesions are appreciated. Cardiovascular: Regular rate and rhythm with a normal S1 and S2. No gallops, murmurs, or rubs. Normal PMI, no JVD. No pulse deficits. Respiratory: Lungs have equal breath sounds bilaterally, clear to auscultation and percussion. No rales, rhonchi or wheezes noted. No increased work of breathing, no retractions or nasal flaring. Abdomen/GI: Soft, non-tender, with normal bowel sounds. No distension or tympany. No guarding or rebound. No evidence of tenderness throughout. Back: No spinal tenderness. No costovertebral tenderness. Full range of motion. Skin: Warm, dry with normal turgor. Normal color with no rashes, no lesions, and no evidence of cellulitis. MS/ Extremity: Pulses equal, no cyanosis. Neurovascular intact. Full, normal range of motion. Neuro: Awake and alert, GCS 15, oriented to person, place, time, and situation. Cranial nerves II-XII grossly intact. Motor strength 5/5 in all extremities. Sensory grossly intact. Cerebellar exam normal. Normal gait. 03:45 Constitutional: The patient appears alert, awake, uncomfortable. Vital Signs: 01:45 BP 145 / 87; Pulse 99; Resp 20; Temp 100.4(O); Pulse Ox 94% on R/A; Weight 85.73 kg; lp1 Height 5 ft. 11 in. (180.34 cm); Pain 9/10; 02:00 BP 117 / 66; Pulse 101; Resp 20; Pulse Ox 94% on R/A; lp1 02:30 BP 107 / 88; Pulse 94; Resp 22; Pulse Ox 93% on R/A; lp1 03:30 BP 113 / 55; Pulse 93; Resp 19; Pulse Ox 96% on R/A; lp1 03:40 Temp 100.7(O); lp1 04:00 BP 113 / 64; Pulse 89; Resp 20; Pulse Ox 92% on R/A; Pain 9/10; lp1 04:20 Pulse Ox 90% on R/A; lp1 04:20 Pulse Ox 95% on 2 lpm NC; lp1 01:45 Body Mass Index 26.36 (85.73 kg, 180.34 cm) lp1 MDM: 01:43 Patient medically screened. 03:45 Data reviewed: vital signs, nurses notes, old medical records, lab test result(s), gs radiologic studies. Counseling: I had a detailed discussion with the patient and/or guardian regarding: the historical points, exam findings, and any diagnostic results supporting the discharge/admit diagnosis, the need for further work-up and treatment in the hospital. Response to treatment: the patient's symptoms have mildly improved after treatment. 04:18 ED course: PT HAVING CHILLS LOOKS UNCOMFORTABLE,VOMITING HAS SUBSIDED HOWEVER WILL gs ADMIT CANNOT TAKE HIS ANTIBIOTICS FOR PNEUMONIA. 08/29 01:44 Order name: Basic Metabolic Panel 08/29 01:44 Order name: CBC with Diff; Complete Time: 03:42 08/29 01:44 Order name: Hepatic Function; Complete Time: 03:42 08/29 01:44 Order name: Lipase; Complete Time: 03:42 08/29 01:45 Order name: Basic Metabolic Panel; Complete Time: 03:42 EDMS 08/29 02:26 Order name: CBC Smear Scan; Complete Time: 03:42 EDMS 08/29 03:43 Order name: Blood Culture* 08/29 01:44 Order name: IV Saline Lock; Complete Time: 02:02 08/29 01:44 Order name: Labs collected and sent; Complete Time: 02:02 Administered Medications: 01:55 Drug: Zofran 4 mg Route: IVP; Site: right wrist; lp1 02:44 Follow up: Response: Nausea is decreased lp1 01:55 Drug: NS 0.9% 1000 ml Route: IV; Rate: 1 bolus; Site: right wrist; lp1 03:15 Follow up: IV Status: Completed infusion; IV Intake: 1000ml lp1 03:50 Drug: Rocephin - (cefTRIAXone) 1 grams Route: IVPB; Infused Over: 30 mins; Site: right lp1 wrist; 04:00 Follow up: IV Status: Completed infusion; IV Intake: 10ml lp1 03:55 Drug: Zithromax 500 mg Route: IVPB; Infused Over: 1 hrs; Site: right wrist; lp1 04:33 Follow up: IV Status: Infusion continued upon admission lp1 04:04 CANCELLED (Physician Discretion): NS 0.45 % with KCl 20 mEq/L 1000 ml IV at 125 ml/hr lp1 once 04:18 Drug: Tylenol 650 mg Route: PO; lp1 04:54 Follow up: Response: No adverse reaction lp1 04:18 Drug: [place] 10 mg-325 mg 1 tabs Route: PO; lp1 04:54 Follow up: Response: No adverse reaction lp1 Disposition: 08/29/18 03:45 Hospitalization ordered by Maximus Lr for Inpatient Admission. Preliminary diagnosis is Lobar pneumonia, unspecified organism. - Bed requested for Telemetry/MedSurg (Inpatient). - Status is Inpatient Admission. lp1 - Condition is Stable. - Problem is new. - Symptoms have improved. UTI on Admission? No Signatures: Dispatcher [employer] EDMS Kita Ramos RN RN 1 Zakiya Sauceda RN RN Maximus Lr MD MD Corrections: (The following items were deleted from the chart) 04:04 03:43 NS 0.45 % with KCl 20 mEq/L 1000 ml IV at 125 ml/hr once ordered. lp1 04:18 03:45 Hospitalization Ordered by Maximus Lr MD for Inpatient Admission. Preliminary cg diagnosis is Lobar pneumonia, unspecified organism. Bed requested for Telemetry/MedSurg (Inpatient). Status is Inpatient Admission. Condition is Stable. Problem is new. Symptoms have improved. UTI on Admission? No. 05:08 04:18 08/29/2018 03:45 Hospitalization Ordered by Maximus Lr MD for Inpatient lp1 Admission. Preliminary diagnosis is Lobar pneumonia, unspecified organism. Bed requested for Telemetry/MedSurg (Inpatient). Status is Inpatient Admission. Condition is Stable. Problem is new. Symptoms have improved. UTI on Admission? No.
[2018-08-29] MEDS ORDERED: NA CHLORIDE 0.9% 1,000 ML ONE (03:52)
[2018-08-29] MEDS: NA CHLORIDE 0.9% 1,000 ML IV SCH ×3 (04:00→20:06)
[2018-08-29] MEDS ORDERED: NA CHLORIDE 0.9% 250 ML ONE (04:02)
[2018-08-29] MEDS ORDERED: AZITHROMYCIN 500 MG INJ IVPB ONE (04:02)
[2018-08-29] MEDS ORDERED: CEFTRIAXONE/SWI 1gm 1 GM/10 ML SYR ONE (04:03)
[2018-08-29] MEDS ORDERED: NACHLORIDE 0.45% 0 ML IV ONE (04:03)
[2018-08-29] MEDS ORDERED: KCL 20 MEQ/100 mL IVPB 0 MEQ/0 ML BAG IV ONE (04:03)
[2018-08-29] MEDS ORDERED: NA CHLORIDE 0.9% 1,000 ML IV SCH (04:06)
[2018-08-29] MEDS ORDERED: ACETAMINOPHEN 325 MG TABLET ONE (04:25)
[2018-08-29] MEDS ORDERED: HYDROCODONE/APAP 10/325 TAB ONE (04:27)
[2018-08-29] MEDS ORDERED: POTASSIUM CL SA 10 MEQ TAB PO ONE ×2 (05:24→14:00)
[2018-08-29] MEDS: Levofloxacin 750mg IV 750 MG/150 ML BAG IV SCH (05:41)
--- NOTE | 2018-08-29 06:06 | P.HP ---
Certification for Inpatient Patient admitted to: Inpatient With expected LOS: >2 Midnights Practitioner: I am a practitioner with admitting privileges, knowledge of patient current condition, hospital course, and medical plan of care. Services: Services provided to patient in accordance with Admission requirements found in Title 42 Section 412.3 of the Code of Federal Regulations Patient History Date of Service: 08/29/18 Reason for admission: intractable nausea and vomiting, pneumonia History of Present Illness: Mr Hagen is a 43 years old male with history of bipolar disorder, gastritis, migraines, who start about 3 days ago with fever, chills and progressive weakness. No diarrhea, chest pain, cough or SOB. His states that he has been working outside and was worried about dehydration. He came to ED last night , CT abd/pelvis remarkable for bilateral pneumonia. He was discharged home with azithromycin. However, he started with nausea and vomiting, and was unable to tolerate any liquids or solid. He also start coughing with white secretions. He presented to ED on moderated stress due to intractable vomiting, febrile 100.4 Allergies No Known Allergies Allergy (Verified 08/29/18 05:13) Home medications list reviewed: Yes Home Medications: Butalbital/Aspirin/Caffeine [Cqpnqa-Dhpdoay-Zyrka 50-325-40] 1 each PO Q4H PRN 08/29/18 SUMAtriptan succinate [Sumatriptan Succinate] 25 mg PO DAILY PRN 08/29/18 - Past Medical/Surgical History Has patient received pneumonia vaccine in the past: No Diabetic: No -: Bipolar -: Gastritis -: Depression -: Migraine -: Gallbladder Surgery - Family History Father -: Heart disease - Social History Smoking Status: Former smoker Alcohol use: No CD- Drugs: No Caffeine use: Yes Place of Residence: Home Review of Systems 10-point ROS is otherwise unremarkable Physical Examination - Vital Signs Temperature: 99.4 F Blood Pressure: 114/68 Pulse: 86 Respirations: 20 Pulse Ox (%): 94 - Physical Exam General: Alert, In no apparent distress HEENT: Atraumatic, PERRLA, Mucous membr. moist/pink, EOMI, Sclerae nonicteric Neck: Supple, 2+ carotid pulse no bruit, No LAD, Without JVD or thyroid abnormality Respiratory: Clear to auscultation bilaterally, Normal air movement Cardiovascular: Regular rate/rhythm, Normal S1 S2 Gastrointestinal: Normal bowel sounds, No tenderness Musculoskeletal: No tenderness Integumentary: No rashes Neurological: Normal speech, Normal strength at 5/5 x4 extr, Normal tone, Normal affect Lymphatics: No axilla or inguinal lymphadenopathy - Studies Laboratory Data (last 24 hrs) 08/29/18 01:55: WBC 15.2 H D, Hgb 13.3 L, Hct 39.7, Plt Count 190 08/29/18 01:55: Sodium 141, Potassium 3.3 L, BUN 17, Creatinine 1.00, Glucose 95 , Total Bilirubin 1.1 H, AST 27, ALT 19, Alkaline Phosphatase 61, Lipase 57 L Assessment and Plan - Problems (Diagnosis) (1) Intractable nausea and vomiting Current Visit: Yes Status: Acute Qualifiers: Vomiting type: unspecified Qualified Code(s): R11.2 - Nausea with vomiting , unspecified (2) Pneumonia Current Visit: Yes Status: Acute Qualifiers: Pneumonia type: due to unspecified organism Laterality: bilateral Lung location: lower lobe of lung Qualified Code(s): J18.1 - Lobar pneumonia, unspecified organism (3) Bipolar 1 disorder Current Visit: Yes Status: Acute - Plan The patient will be admitted to the hospital due to sepsis. He has not been coughing a lot, however, only source of infection is bilateral lower lobe infiltrate consistent with pneumonia described on CT abd/pelvis 08/28/18. Will start empiric antibiotic treatment, pending lactate and procalcitonin. Blood cultures in progress. - Advance Directives Does patient have a Living Will: No Does patient have a Durable POA for Healthcare: No - Code Status/Comfort Care Code Status Assessed: Yes Code Status: Full Code
[2018-08-29] MEDS: ENOXAPARIN 40 MG/0.4 ML SQ SCH (08:14)
[2018-08-29 11:02] LABS: Urine Appearance CLEAR; Urine Blood NEGATIVE (NEG); Urine Color DK YELLOW; Urine Glucose NEGATIVE (NEG); Urine Protein 1+ (NEG); Urine Specific Gravity >=1.030 (1.005-1.030); Urine Urobilinogen 0.2 mg/dL (0.2-1.0); Urine pH 5.5 (5.0-7.0)
[2018-08-29 11:41] LABS: Urine Bilirubin 1+ (NEG); Urine Microscopic Reflex ORDER UMIC
[2018-08-29 12:02] LABS: Urine Amorphous Sediment 2+ /HPF (NONE SEEN); Urine Bacteria <20 /HPF (NONE SEEN); Urine Culture Reflex Order NOT NEEDED; Urine RBC NONE SEEN /HPF (NONE SEEN)
[2018-08-29] MEDS: ALBUTEROL 2.5 MG/3 ML NEB SOL NEB SCH ×2 (14:00→20:00)
[2018-08-29] MEDS: IPRATROPIUM BROM 0.5MG/2.5ML NEB SCH ×2 (14:00→20:00)
[2018-08-29] MEDS ORDERED: ALBUTEROL 2.5 MG/3 ML NEB SOL ONE (14:44)
[2018-08-29] MEDS ORDERED: IPRATROPIUM BROM 0.5MG/2.5ML ONE (14:44)
[2018-08-29] MEDS: ACETAMINOPHEN 500 MG TAB PO PRN (19:20)
[2018-08-29] MEDS ORDERED: GUAIFENESIN/CODEINE 5ML UCUP PO PRN (21:05)
[2018-08-30] MEDS: NA CHLORIDE 0.9% 1,000 ML IV SCH ×2 (00:32→04:06)
[2018-08-30] MEDS: IPRATROPIUM BROM 0.5MG/2.5ML NEB SCH ×4 (02:00→20:00)
[2018-08-30] MEDS: ALBUTEROL 2.5 MG/3 ML NEB SOL NEB SCH ×4 (02:00→20:00)
[2018-08-30] MEDS: Levofloxacin 750mg IV 750 MG/150 ML BAG IV SCH ×2 (05:15→11:37)
[2018-08-30 05:48] LABS: Absolute Lymphocytes (CBC) 0.5 K/uL (0.7-4.9); Basophils % 0.1 % (0-1.3); Hematocrit 39.6 % (39.6-49.0); Lymphocytes % 3.3 % (15.3-44.8); MPV 8.6 fL (7.6-11.3); RBC Red Blood Cell Count 4.56 M/uL (4.33-5.43)
[2018-08-30] MEDS ORDERED: HYDROCORTISONE SUC 100 MG INJ IV ONE (05:48)
--- NOTE | 2018-08-30 05:55 | P.PN ---
Date of Service: 08/30/18 Called to see patient at 5:30am because of increased SOB; Went to see the patient and he states that he is having pain when he takes a deep breath so he has to take short breaths-has been hurting throughout the day with no relief; spoke to me in full sentences. Spoke to significant other, who was asleep at bedside, and nurses, who state that patient has been breathing similar to this since before her shift but now feeling more short of breath. 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 No imaging since admission as patient had a CXR and CT abd in the ER the day prior. Plan: 1. Will get a dedicated CT chest to further evaluate the pneumonia as he appears to have pleuritic chest pain secondary to unknown etiology-possibly pleurisy from the multifocal pneumonia-making it difficult to take deep breaths. 2. Continue with antibiotics, nebs, and O2 per protocol pending imaging 3. Will give steroids for pleuritis type symptoms. 4. Will also consult Pulmonary to evaluate as well.
[2018-08-30 06:07] LABS: BUN Blood Urea Nitrogen 11 mg/dL (7-18); Bicarbonate 27 mmol/L (21-32); Glucose Level 89 mg/dL (74-106); Potassium 3.9 mmol/L (3.5-5.1); Sodium Level 140 mmol/L (136-145)
[2018-08-30] MEDS ORDERED: MIDAZOLAM HCL 2 MG/2 ML INJ ONE (06:48)
[2018-08-30] MEDS ORDERED: ALBUTEROL 2.5 MG/3 ML NEB SOL ONE (06:54)
[2018-08-30] MEDS ORDERED: FUROSEMIDE 20 MG/ 2ML VIAL IV ONE (08:50)
--- NOTE | 2018-08-30 08:55 | RAD REPORT ---
EXAM DESCRIPTION: RAD - Chest Single View - 08/30/2018 8:39 am CLINICAL HISTORY: shortness of breath Chest pain. COMPARISON: Chest Single View dated 08/28/2018; Chest Single View dated 04/06/2018; Chest Single View d ated 03/01/2016; CHEST SINGLE VIEW dated 04/11/2010; Abdomen Pelvis W Contrast dated 08/28/2018 FINDINGS: Portable technique limits examination quality. Extensive bilateral pulmonary opacities are present which may represent pulmonary edema or pneumonia. The heart is normal in size. No displaced fractures.
[2018-08-30] MEDS ORDERED: PROPOFOL 1,000 MG/100 ML VIAL IV ONE (09:04)
[2018-08-30] MEDS ORDERED: RSI MEDICATION KIT IV ONE (09:05)
[2018-08-30] MEDS ORDERED: PROPOFOL 1,000 MG/100 ML VIAL IV PRN (09:16)
[2018-08-30] MEDS ORDERED: SODIUM CHLORIDE 0.9% 10ML INJ IV PRN ×2 (09:19)
[2018-08-30] MEDS ORDERED: NA CHLORIDE 0.9% 0 ML ONE (09:24)
[2018-08-30] MEDS: LORazepam 2 MG/ML VIAL IV PRN ×2 (09:30→20:22)
[2018-08-30] MEDS ORDERED: MIDAZOLAM HCL 2 MG/2 ML INJ IV PRN (09:33)
[2018-08-30] MEDS ORDERED: CISATRACURIUM BESYLATE 40 MG in NA CHLORIDE 0.9% 80 ML IV PRN (09:38)
[2018-08-30] MEDS ORDERED: CISATRACURIUM INJECTION 2 MG/ML (10 ML Vial) IV ONE (09:42)
[2018-08-30] MEDS: MIDAZOLAM HCL 100 MG in NA CHLORIDE 0.9% 80 ML IV PRN ×2 (09:45→23:10)
[2018-08-30] MEDS ORDERED: LORazepam 2 MG/ML VIAL ONE (09:48)
--- NOTE | 2018-08-30 10:12 | RAD REPORT ---
EXAM DESCRIPTION: RAD - Chest Single View - 08/30/2018 9:47 am CLINICAL HISTORY: intubation, ett placement Chest pain. COMPARISON: Chest Single View dated 08/30/2018; Chest Single View dated 08/28/2018; Chest Single View d ated 04/06/2018; Chest Single View dated 03/01/2016 FINDINGS: Portable technique limits examination quality. The patient has been intubated with the tip of the endotracheal tube above the alexis. Enteric tube d escends into the stomach. Extensive bilateral pulmonary opacities are again noted compatible with pul monary edema or pneumonia. The heart is upper limit of normal in size.
[2018-08-30 10:13] LABS: Blood Gas Oxyhemoglobin 89.1 % (94-97); Blood O2 Saturation 90.5 % (92-98.5)
[2018-08-30 10:41] LABS: Urine Appearance CLEAR; Urine Bilirubin NEGATIVE (NEG); Urine Blood TRACE (NEG); Urine Color YELLOW; Urine Glucose TRACE (NEG); Urine Protein 1+ (NEG); Urine Urobilinogen 0.2 mg/dL (0.2-1.0); Urine pH 5.5 (5.0-7.0)
[2018-08-30] MEDS ORDERED: SUCCINYLCHOLINE 20 MG/ML (10 ML) IV ONE (10:51)
[2018-08-30] MEDS ORDERED: WATER FOR INJ,STERILE 10 ML IV ONE (10:51)
[2018-08-30 10:52] LABS: Urine Bacteria <20 /HPF (NONE SEEN); Urine Culture Reflex Order NOT NEEDED; Urine Mucus LIGHT /HPF (NONE SEEN); Urine RBC <5 /HPF (NONE SEEN)
[2018-08-30 10:56] LABS: Barbiturates NEGATIVE (NEGATIVE); Benzodiazepines NEGATIVE (NEGATIVE); Cocaine NEGATIVE (NEGATIVE); METHAMPHETAM NEGATIVE (NEGATIVE); Methadone NEGATIVE (NEGATIVE); Opiates POSITIVE (NEGATIVE); Phencyclidine NEGATIVE (NEGATIVE); THC Cannibis POSITIVE (NEGATIVE)
[2018-08-30] MEDS ORDERED: MIDAZOLAM HCL 2 MG/2 ML INJ IV ONE (11:00)
[2018-08-30] MEDS: ENOXAPARIN 40 MG/0.4 ML SQ SCH ×2 (11:38→11:49)
--- NOTE | 2018-08-30 11:40 | P.PN ---
Subjective Date of Service: 08/30/18 Chief Complaint: intractable nausea and vomiting, pneumonia Seen bedside. Chart reviewed. Case discussed with pulmonology. Overnight patient started having intermittent shortness of breath that got progressively worse. This morning patient sitting up in the bed in the tripod position using his intercostal muscles and having difficulty breathing. The patient transferred to the ICU. Patient intubated by anesthesiology. And now on sedation and doing better than before. Review of Systems 10-point ROS is otherwise unremarkable Physical Examination - Vital Signs Temperature: 99.2 F Blood Pressure: 114/62 Pulse: 102 Respirations: 18 Pulse Ox (%): 94 - Physical Exam General: In no apparent distress, Other (Intubated and sedated) Neck: Supple, JVD not distended Respiratory: Normal air movement, Crackles/rales, Expiratory wheezes, Inspiratory wheezes, Rhonchi/gurgles Cardiovascular: Regular rate/rhythm, Normal S1 S2 Gastrointestinal: Normal bowel sounds, No tenderness Musculoskeletal: No tenderness Integumentary: No rashes Lymphatics: No axilla or inguinal lymphadenopathy - Studies Medications List Reviewed: Yes Assessment And Plan - Current Problems (Diagnosis) (1) Acute respiratory failure Current Visit: Yes Status: Acute Plan: Acute respiratory failure most likely secondary to worsening pneumonia with underlying lung disease -currently intubated and sedated -pulmonology consulted. Appreciated recommendations at this time -will monitor patient closely and wean off as tolerated (2) Sepsis Current Visit: Yes Status: Acute Plan: Sepsis most likely secondary to pneumonia. -elevated pro calcitonin and elevated white count today -patient with high risk for MRSA and atypical infection. -IV vancomycin and Levaquin at this time -Dc fluid given the possibility of pulmonary edema on a chest x-ray -will monitor patient closely and followup with blood culture and sputum cultures at this time Qualifiers: Sepsis type: sepsis due to unspecified organism Qualified Code(s): A41.9 - Sepsis, unspecified organism (3) Pneumonia Current Visit: Yes Status: Acute Plan: Patient with multi lobar pneumonia -failed outpatient therapy -high risk for MRSA and atypical pneumonia -currently on IV vancomycin and Levaquin -sputum cultures pending at this time -will monitor patient closely Qualifiers: Pneumonia type: due to unspecified organism Laterality: bilateral Lung location: lower lobe of lung Qualified Code(s): J18.1 - Lobar pneumonia, unspecified organism (4) History of drug abuse Current Visit: Yes Status: Chronic Plan: Cocaine, IV drug abuse in the past -currently using marijuana everyday twice daily (5) Bipolar 1 disorder Current Visit: Yes Status: Chronic Discharge Plan: Home Plan to discharge in: Greater than 2 days - Code Status/Comfort Care Code Status Assessed: Yes Critical Care: Yes
[2018-08-30] MEDS: CISATRACURIUM BESYLATE 40 MG in NA CHLORIDE 0.9% 80 ML IV PRN ×4 (11:41→17:06)
[2018-08-30] MEDS ORDERED: PIPER/TAZO/NS 2.25gm 2.25 GM/50 ML BAG IVPB SCH (12:00)
--- NOTE | 2018-08-30 12:28 | P.CNS ---
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 Allergies No Known Allergies Allergy (Verified 08/29/18 05:13) Home Medications: Butalbital/Aspirin/Caffeine [Ufxzug-Vclrvvi-Jxvfg 50-325-40] 1 each PO Q4H PRN 08/29/18 SUMAtriptan succinate [Sumatriptan Succinate] 25 mg PO DAILY PRN 08/29/18 - Past Medical/Surgical History Diabetic: No -: Bipolar -: Gastritis -: Depression -: Migraine -: Gallbladder Surgery - Family History Father Medical History: Heart disease - Social History Alcohol use: No CD- Drugs: No Caffeine use: Yes Place of Residence: Home Review of Systems is unable to be obtained Physical Examination Temp Pulse Resp BP Pulse Ox 99.2 F 102 H 18 114/62 94 08/30/18 11:40 08/30/18 11:40 08/30/18 11:40 08/30/18 11:40 08/30/18 11:40 General: Severe distress HEENT: Atraumatic Neck: Supple Respiratory: Crackles/rales Cardiovascular: No edema, Regular rate/rhythm, Normal S1 S2 Gastrointestinal: Normal bowel sounds, Soft and benign - Problems (1) Respiratory failure Current Visit: Yes Status: Acute Plan: Patient is 43 years of age admitted with some fever and chills he developed respiratory distress intubated patient has bilateral pulmonary infiltrates is an IV drug abuser patient's white count is elevated continue with levofloxacin vancomycin added patient is anti Versed and Nimbex drip trial of steroid cultures pending echocardiogram ordered continue with Lasix right now eyes and FiO2 of 30% clearly has ARDS on the chest x-ray echocardiogram pending Qualifiers: Chronicity: acute
[2018-08-30] MEDS: VANCOMYCIN 1.5 GM in NA CHLORIDE 0.9% 500 ML IVPB SCH ×2 (12:33→21:46)
[2018-08-30] MEDS: FENTANYL CITR 100 MCG/2 ML IV PRN ×2 (12:59→17:49)
[2018-08-30] MEDS: THIAMINE 200 MG/2 ML INJ IVP SCH (13:41)
[2018-08-30] MEDS: METHYLPREDNISOLONE 40 MG INJ IV SCH ×2 (13:42→16:59)
--- NOTE | 2018-08-30 14:06 | ECHO ---
HEIGHT: 5 ft 11 in WEIGHT: 191 lb 3 oz DATE OF STUDY: 08/30/[address]: Elyssa Sandhu MD 2-DIMENSIONAL: YES M.MODE: YES DOPPLER: YES COLOR FLOW: YES TDS: NO PORTABLE: NO DEFINITY: NO BUBBLE STUDY: NO DIAGNOSIS: CONGESTIVE HEART FAILURE CARDIAC HISTORY: CATHERIZATION: NO SURGERY: NO PROSTHETIC VALVE: NO PACEMAKER: NO MEASUREMENTS (cm) DIASTOLIC (NORMALS) SYSTOLIC (NORMALS) IVSd 1.0 (0.6-1.2) LA Diam (1.9-4.0) LVEF 58% LVIDd 4.4 (3.5-5.7) LVIDs 3.1 (2.0-3.5) %FS 30% LVPWd 1.1 (0.6-1.2) Ao Diam 2.7 (2.0-3.7) 2 DIMENSIONAL ASSESSMENT: RIGHT ATRIUM: NORMAL LEFT ATRIUM: NORMAL RIGHT VENTRICLE: NORMAL LEFT VENTRICLE: NORMAL TRICUSPID VALVE: NORMAL MITRAL VALVE: NORMAL PULMONIC VALVE: NORMAL AORTIC VALVE: NORMAL PERICARDIAL EFFUSION: NONE AORTIC ROOT: NORMAL LEFT VENTRICULAR WALL MOTION: NORMAL. DOPPLER/COLOR FLOW: MILD TRICUSPID REGURGITATION. COMMENTS: MILD TRICUSPID REGURGITATION. NORMAL LEFT VENTRICULAR SIZE AND FUNCTION. NO EFFUSION. TECHNOLOGIST: ADWOA CHAVEZ
[2018-08-30] MEDS ORDERED: DEXMEDETOMIDINE HCL 200 MCG in NA CHLORIDE 0.9% 98 ML IV PRN (17:21)
[2018-08-30] MEDS: NA CHLORIDE 0.9% IV PRN ×2 (19:36→23:10)
[2018-08-30] MEDS: DEXMEDETOMIDINE HCL IV PRN ×2 (19:36→23:10)
[2018-08-30] MEDS: PANTOPRAZOLE 40 MG INJ IVP SCH (20:22)
[2018-08-31] MEDS: METHYLPREDNISOLONE 40 MG INJ IV SCH ×3 (00:08→16:38)
[2018-08-31] MEDS: IPRATROPIUM BROM 0.5MG/2.5ML NEB SCH ×4 (02:00→20:45)
[2018-08-31] MEDS: ALBUTEROL 2.5 MG/3 ML NEB SOL NEB SCH ×4 (02:00→20:45)
[2018-08-31] MEDS: LORazepam 2 MG/ML VIAL IV PRN (02:35)
[2018-08-31] MEDS: FENTANYL CITR 100 MCG/2 ML IV PRN ×4 (02:35→21:30)
[2018-08-31 05:19] LABS: Blood Gas Oxyhemoglobin 95.8 % (94-97); Blood O2 Saturation 97.3 % (92-98.5)
[2018-08-31 05:45] LABS: BUN Blood Urea Nitrogen 14 mg/dL (7-18); Bicarbonate 30 mmol/L (21-32); Glucose Level 140 mg/dL (74-106); Magnesium 2.2 mg/dL (1.8-2.4); Potassium 3.3 mmol/L (3.5-5.1); Sodium Level 143 mmol/L (136-145)
[2018-08-31 05:53] LABS: Absolute Lymphocytes (CBC) 0.4 K/uL (0.7-4.9); Hematocrit 33.8 % (39.6-49.0); MPV 9.1 fL (7.6-11.3); Monocytes % 2.8 % (3.3-12.3); RBC Red Blood Cell Count 3.92 M/uL (4.33-5.43)
[2018-08-31] MEDS ORDERED: POTASSIUM 25 MEQ EFFERV TAB PO ONE ×2 (06:00→16:17)
[2018-08-31] MEDS ORDERED: MIDAZOLAM HCL IV PRN (07:08)
[2018-08-31] MEDS ORDERED: NA CHLORIDE 0.9% IV PRN (07:08)
[2018-08-31] MEDS: NA CHLORIDE 0.9% IV PRN ×2 (07:27→15:01)
[2018-08-31] MEDS: DEXMEDETOMIDINE HCL IV PRN ×2 (07:27→15:01)
--- NOTE | 2018-08-31 08:24 | RAD REPORT ---
EXAM DESCRIPTION: RAD - Chest Single View - 08/31/2018 6:49 am CLINICAL HISTORY: Intubation, respiratory distress COMPARISON: August 30 TECHNIQUE: AP portable chest image was obtained 0637 hours . FINDINGS: ET tube and NG tube remain in place. There is been substantial improvement in the aeration pattern of both lung mays. Residual interstitial and alveolar opacities are present with the major ity of airspace disease resolved. Heart and vasculature are normal. No measurable pleural effusion an d no pneumothorax. No acute bony abnormality seen. No acute aortic findings suspected. IMPRESSION: Substantial clearing of airspace disease since the August 30 study. ET tube and NG tube remain in good position.
[2018-08-31] MEDS ORDERED: ZIPRASIDONE MESYLA 20 MG/VIAL IM PRN (08:35)
[2018-08-31] MEDS ORDERED: WATER FOR INJ,STERILE 10 ML IM PRN (08:35)
--- NOTE | 2018-08-31 08:43 | P.PN ---
Subjective Date of Service: 08/31/18 Chief Complaint: Respiratory failure Condition stable hemodynamically stable still requiring dex were Hector OD and Versed drip lytic agents were discontinued cultures so far negative drug screen positive Review of Systems is unable to be obtained Physical Examination - Vital Signs Temperature: 97.8 F Blood Pressure: 121/64 Pulse: 68 Respirations: 16 Pulse Ox (%): 98 - Physical Exam General: Unresponsive Respiratory: Clear to auscultation bilaterally Cardiovascular: No edema, Regular rate/rhythm - Studies Medications List Reviewed: Yes Assessment & Plan - Problems (Diagnosis) (1) Respiratory failure Current Visit: Yes Status: Acute Plan: Patient admitted with respiratory failure chest x-ray has improved continue with Lasix white count is declining blood gases 40% oxygen his P O2 is 91.7 pCO2 is 48 chemistries reviewed Dc vancomycin continue with levofloxacin and steroids echocardiogram shows mild tricuspid regurgitation normal left ventricular size and function Qualifiers: Chronicity: acute
[2018-08-31] MEDS ORDERED: FUROSEMIDE 40 MG/4 ML VIAL IV SCH (09:00)
[2018-08-31] MEDS: FUROSEMIDE 20 MG/ 2ML VIAL IV SCH ×2 (09:17→16:38)
[2018-08-31] MEDS: PANTOPRAZOLE 40 MG INJ IVP SCH ×2 (09:17→21:45)
[2018-08-31] MEDS: THIAMINE 200 MG/2 ML INJ IVP SCH (09:17)
[2018-08-31] MEDS: Levofloxacin 750mg IV 750 MG/150 ML BAG IV SCH (09:49)
--- NOTE | 2018-08-31 11:27 | P.PN ---
Subjective Date of Service: 08/31/18 Chief Complaint: Respiratory failure Seen bedside. Chart reviewed. Case discussed with pulmonology. Pt continues to be intubated and sedated. Now on Precedex and versed. Doing well overall. No fever or acute events overnight. Review of Systems 10-point ROS is otherwise unremarkable Physical Examination - Vital Signs Temperature: 97.8 F Blood Pressure: 118/63 Pulse: 73 Respirations: 16 Pulse Ox (%): 98 - Physical Exam General: In no apparent distress, Other (Intubated and sedated) Respiratory: Normal air movement, Crackles/rales, Expiratory wheezes, Inspiratory wheezes, Rhonchi/gurgles Cardiovascular: Regular rate/rhythm, Normal S1 S2 Gastrointestinal: Normal bowel sounds, Soft and benign, Non-distended, No tenderness Musculoskeletal: No tenderness Integumentary: No rashes Neurological: Normal speech, Normal tone, Normal affect Lymphatics: No axilla or inguinal lymphadenopathy - Studies Medications List Reviewed: Yes Assessment And Plan - Current Problems (Diagnosis) (1) Acute respiratory failure Current Visit: Yes Status: Acute Plan: Acute respiratory failure most likely secondary to worsening pneumonia with underlying lung disease -currently intubated and sedated -pulmonology consulted. Appreciated recommendations at this time -will monitor patient closely and wean off as tolerated Qualifiers: Respiratory failure complication: hypoxia and hypercapnia Qualified Code(s) : J96.01 - Acute respiratory failure with hypoxia; J96.02 - Acute respiratory failure with hypercapnia (2) Sepsis Current Visit: Yes Status: Acute Plan: Sepsis most likely secondary to pneumonia. -elevated pro calcitonin and elevated white count today -on IV Levaquin at this time, Stop Vancomycin -Dc fluid given the possibility of pulmonary edema on a chest x-ray -will monitor patient closely and followup with blood culture and sputum cultures at this time Qualifiers: Sepsis type: sepsis due to unspecified organism Qualified Code(s): A41.9 - Sepsis, unspecified organism (3) Pneumonia Current Visit: Yes Status: Acute Plan: Patient with multi lobar pneumonia -failed outpatient therapy -On IV Levaquin Stop Vancomycin -sputum cultures pending at this time -will monitor patient closely Qualifiers: Pneumonia type: due to unspecified organism Laterality: bilateral Lung location: lower lobe of lung Qualified Code(s): J18.1 - Lobar pneumonia, unspecified organism (4) History of drug abuse Current Visit: Yes Status: Chronic Plan: Cocaine, IV drug abuse in the past -currently using marijuana everyday twice daily (5) Bipolar 1 disorder Current Visit: Yes Status: Chronic - Plan Pending clinical improvement. Discharge Plan: Home Plan to discharge in: Greater than 2 days - Code Status/Comfort Care Code Status Assessed: Yes
[2018-08-31] MEDS: MIDAZOLAM HCL 100 MG in NA CHLORIDE 0.9% 80 ML IV PRN (23:55)
[2018-09-01] MEDS: NA CHLORIDE 0.9% IV PRN (00:05)
[2018-09-01] MEDS: DEXMEDETOMIDINE HCL IV PRN (00:05)
[2018-09-01] MEDS: METHYLPREDNISOLONE 40 MG INJ IV SCH ×3 (00:15→16:52)
[2018-09-01] MEDS: FENTANYL CITR 100 MCG/2 ML IV PRN ×4 (01:00→19:23)
[2018-09-01] MEDS: ALBUTEROL 2.5 MG/3 ML NEB SOL NEB SCH ×4 (01:45→20:00)
[2018-09-01] MEDS: IPRATROPIUM BROM 0.5MG/2.5ML NEB SCH ×4 (01:45→20:00)
[2018-09-01 05:59] LABS: Arterial Blood Carboxyhemoglob 0.8 % (0-1.5); Blood Gas Oxyhemoglobin 95.1 % (94-97); Blood O2 Saturation 96.5 % (92-98.5)
[2018-09-01] MEDS: Levofloxacin 750mg IV 750 MG/150 ML BAG IV SCH (09:04)
[2018-09-01] MEDS: THIAMINE 200 MG/2 ML INJ IVP SCH (09:04)
[2018-09-01] MEDS: PANTOPRAZOLE 40 MG INJ IVP SCH (09:04)
[2018-09-01] MEDS: ENOXAPARIN 40 MG/0.4 ML SQ SCH (09:04)
[2018-09-01] MEDS: FUROSEMIDE 20 MG/ 2ML VIAL IV SCH ×2 (09:04→16:52)
--- NOTE | 2018-09-01 10:18 | P.PN ---
Subjective Date of Service: 09/01/18 Chief Complaint: Respiratory failure Subjective: Improving (Patient is doing much better he is more alert responsive cooperative minimal oxygen requirements) Review of Systems is unable to be obtained Physical Examination - Vital Signs Temperature: 99 F Blood Pressure: 126/71 Pulse: 59 Respirations: 14 Pulse Ox (%): 96 - Physical Exam General: Alert Neck: Supple Respiratory: Clear to auscultation bilaterally Cardiovascular: No edema, Regular rate/rhythm, Normal S1 S2 - Studies Medications List Reviewed: Yes Assessment & Plan - Problems (Diagnosis) (1) Respiratory failure Current Visit: Yes Status: Acute Plan: Patient is doing much better minimal oxygen plan to wean off extubate white count is declining cultures are so far negative continue with steroids HIV screen hepatitis panel Qualifiers: Chronicity: acute
--- NOTE | 2018-09-01 11:07 | P.PN ---
Subjective Date of Service: 09/01/18 Chief Complaint: Respiratory failure Patient Seen and examined at bedside. Chart reviewed. Case discussed with pulmonology. Pt continues to be intubated. On Precedex and versed. Doing well overall. No fever or acute events overnight. Attempt to wean patient off the mechanical ventilator today. Review of Systems 10-point ROS is otherwise unremarkable Physical Examination - Vital Signs Temperature: 99 F Blood Pressure: 126/71 Pulse: 59 Respirations: 14 Pulse Ox (%): 96 - Physical Exam General: In no apparent distress, Other (Intubated) Respiratory: Normal air movement, Expiratory wheezes, Inspiratory wheezes, Rhonchi/gurgles Cardiovascular: Regular rate/rhythm, Normal S1 S2 Gastrointestinal: Normal bowel sounds, No tenderness Musculoskeletal: No tenderness Integumentary: No rashes Neurological: Normal tone, Normal affect Lymphatics: No axilla or inguinal lymphadenopathy - Studies Medications List Reviewed: Yes Assessment And Plan - Current Problems (Diagnosis) (1) Acute respiratory failure Current Visit: Yes Status: Acute Plan: Acute respiratory failure most likely secondary to worsening pneumonia with underlying lung disease -currently intubated and on precedex and Versed -pulmonology consulted. Appreciated recommendations at this time -plan is for patient to be extubated today. Will wean to nasal cannula after extubation Qualifiers: Respiratory failure complication: hypoxia and hypercapnia Qualified Code(s) : J96.01 - Acute respiratory failure with hypoxia; J96.02 - Acute respiratory failure with hypercapnia (2) Sepsis Current Visit: Yes Status: Acute Plan: Sepsis most likely secondary to pneumonia. Improving today. Hemodynamically stable -elevated pro calcitonin and elevated white count. Improving now -on IV Levaquin at this time -patient also has elevated LDH, concern for PCP pneumonia -will get HIV and hepatitis panel done at this time -will followup with blood culture and sputum cultures at this time. Negative thus far Qualifiers: Sepsis type: sepsis due to unspecified organism Qualified Code(s): A41.9 - Sepsis, unspecified organism (3) Pneumonia Current Visit: Yes Status: Acute Plan: Patient with multi lobar pneumonia. Improving today -failed outpatient therapy -On IV Levaquin. -sputum cultures pending at this time. Negative thus far -will monitor patient closely Qualifiers: Pneumonia type: due to unspecified organism Laterality: bilateral Lung location: lower lobe of lung Qualified Code(s): J18.1 - Lobar pneumonia, unspecified organism (4) History of drug abuse Current Visit: Yes Status: Chronic Plan: Cocaine, IV drug abuse in the past -currently using marijuana everyday twice daily (5) Bipolar 1 disorder Current Visit: Yes Status: Chronic - Plan Pending clinical improvement. With sputum culture culture at this time. Attempt to extubate patient today. Will continue to monitor patient in the ICU at this time Discharge Plan: Home Plan to discharge in: Greater than 2 days - Code Status/Comfort Care Code Status Assessed: Yes Critical Care: Yes
--- NOTE | 2018-09-01 14:31 | RAD REPORT ---
EXAM DESCRIPTION: CT - Thorax W/ Con - 09/01/2018 2:06 pm CLINICAL HISTORY: Chest pain COMPARISON: August 31, 2018 chest TECHNIQUE: Computed axial tomography of the chest was obtained. 100 cc Isovue 300 was administered i ntravenously. All CT scans are performed using dose optimization technique as appropriate and may include automated exposure control or mA/KV adjustment according to patient size. FINDINGS: Right and left lower lobe consolidations measure about 8 centimeters. Mild to moderate nat ateral upper lobe opacities No mediastinal or hilar lymphadenopathy is seen. A pleural effusion is not present. A pericardial effusion is not seen. Endotracheal tube with its tip 3.5 centimeters above the alexis. Visualized portion of the nasogastri c tube in good position IMPRESSION: Right and left lower lobe consolidations with additional bilateral alveolar opacities co nsistent with pneumonia
[2018-09-01] MEDS: MIDAZOLAM HCL 100 MG in NA CHLORIDE 0.9% 80 ML IV PRN (14:46)
[2018-09-01] MEDS: ONDANSETRON 4 MG/2 ML VIAL IV PRN (19:23)
[2018-09-02] MEDS: FENTANYL CITR 100 MCG/2 ML IV PRN ×6 (00:47→21:39)
[2018-09-02] MEDS: METHYLPREDNISOLONE 40 MG INJ IV SCH ×3 (00:47→17:29)
[2018-09-02] MEDS: IPRATROPIUM BROM 0.5MG/2.5ML NEB SCH ×4 (02:00→20:05)
[2018-09-02] MEDS: ALBUTEROL 2.5 MG/3 ML NEB SOL NEB SCH ×2 (02:00→07:35)
[2018-09-02] MEDS: MIDAZOLAM HCL 100 MG in NA CHLORIDE 0.9% 80 ML IV PRN ×2 (03:56→14:10)
[2018-09-02] MEDS: ONDANSETRON 4 MG/2 ML VIAL IV PRN (04:34)
[2018-09-02 05:33] LABS: Magnesium 2.9 mg/dL (1.8-2.4); Potassium 3.9 mmol/L (3.5-5.1)
[2018-09-02 05:54] LABS: Arterial Blood Carboxyhemoglob 0.9 % (0-1.5); Blood Gas Oxyhemoglobin 93.2 % (94-97); Blood O2 Saturation 94.7 % (92-98.5)
[2018-09-02] MEDS ORDERED: POTASSIUM 25 MEQ EFFERV TAB PO ONE (06:28)
--- NOTE | 2018-09-02 08:59 | P.PN ---
Subjective Date of Service: 09/02/18 (Hospitalist note) Chief Complaint: Respiratory failure Unable to wean patient from ventilator yesterday CT scan shows bilateral pulmonary infiltrates most likely ARDS patient is on Versed drip Review of Systems is unable to be obtained Physical Examination - Vital Signs Temperature: 99.1 F Blood Pressure: 126/77 Pulse: 51 Respirations: 17 Pulse Ox (%): 96 - Physical Exam General: Unresponsive Neck: Supple Respiratory: Crackles/rales (Bilateral crackles) Cardiovascular: Regular rate/rhythm - Studies Medications List Reviewed: Yes Assessment & Plan - Problems (Diagnosis) (1) Respiratory failure Current Visit: Yes Status: Acute Plan: Unable to wean the patient yesterday CT scan shows bilateral pulmonary infiltrates is hypoxic hypercarbic on 35% FiO2 white count is 12.8 hemoglobin 11.6 patient is hypernatremic BUN is mildly elevated LDH is also elevated hepatitis screen is pending plan is to wean him off from the ventilator if not successful today will proceed to tube feeds as per slackman HIV screen is also pending cultures so far negative reduce Lasix to 20 mg IV daily Qualifiers: Chronicity: acute
[2018-09-02] MEDS ORDERED: FUROSEMIDE 20 MG/ 2ML VIAL IV SCH (09:00)
[2018-09-02] MEDS: THIAMINE 200 MG/2 ML INJ IVP SCH (11:12)
[2018-09-02] MEDS: ENOXAPARIN 40 MG/0.4 ML SQ SCH (11:13)
[2018-09-02] MEDS: Levofloxacin500mg IV 500 MG/100 ML BAG IV SCH (11:15)
[2018-09-02] MEDS ORDERED: JEVITY 1.2 CAL LIQUID 1,000 ML BOT RTH SCH (12:00)
[2018-09-02] MEDS: PROPOFOL 1,000 MG/100 ML VIAL IV PRN ×2 (12:11→18:53)
[2018-09-02] MEDS: ALBUTEROL 2.5 MG/3 ML NEB SOL NEB PRN (14:20)
[2018-09-03] MEDS: MIDAZOLAM HCL 100 MG in NA CHLORIDE 0.9% 80 ML IV PRN ×2 (00:27→09:48)
[2018-09-03] MEDS: METHYLPREDNISOLONE 40 MG INJ IV SCH ×3 (00:27→16:23)
[2018-09-03] MEDS: IPRATROPIUM BROM 0.5MG/2.5ML NEB SCH ×4 (01:45→20:00)
[2018-09-03] MEDS: FENTANYL CITR 100 MCG/2 ML IV PRN ×4 (01:55→23:55)
[2018-09-03 05:35] LABS: Magnesium 3.3 mg/dL (1.8-2.4)
[2018-09-03] MEDS: PROPOFOL 1,000 MG/100 ML VIAL IV PRN ×3 (05:59→22:49)
[2018-09-03] MEDS ORDERED: WATER FOR INJ,STERILE 10 ML IM PRN (08:51)
--- NOTE | 2018-09-03 09:23 | P.PN ---
Subjective Date of Service: 09/03/18 (Hospitalist) Chief Complaint: Respiratory failure Patient is doing better however is on propofol and Versed drip still has secretions agitated tolerating tube feeds Review of Systems is unable to be obtained Physical Examination - Vital Signs Temperature: 99 F Blood Pressure: 121/67 Pulse: 54 Respirations: 12 Pulse Ox (%): 97 - Physical Exam General: Unresponsive Respiratory: Clear to auscultation bilaterally Cardiovascular: No edema, Regular rate/rhythm Gastrointestinal: Normal bowel sounds, Soft and benign - Studies Medications List Reviewed: Yes Assessment & Plan - Problems (Diagnosis) (1) Respiratory failure Current Visit: Yes Status: Acute Plan: Patient admitted with respiratory failure his chest x-ray has improved patient is now hypernatremic due to diuretic use knee function is stable plan to wean off either Versed of propofol use Mac do not and possibly wean off the ventilator serology is pending minimal oxygen required Qualifiers: Chronicity: acute
[2018-09-03] MEDS: ENOXAPARIN 40 MG/0.4 ML SQ SCH (10:02)
[2018-09-03] MEDS: D5W 1,000 ML IV SCH (10:03)
[2018-09-03] MEDS: ZIPRASIDONE MESYLA 20 MG/VIAL IM SCH ×2 (10:03→21:50)
[2018-09-03] MEDS: THIAMINE 200 MG/2 ML INJ IVP SCH (10:04)
--- NOTE | 2018-09-03 11:42 | RAD REPORT ---
EXAM DESCRIPTION: RAD - Chest Single View - 09/03/2018 6:59 am CLINICAL HISTORY: Pneumonia Chest pain. COMPARISON: Chest Single View dated 08/31/2018; Chest Single View dated 08/30/2018; Chest Single View [place] 08/30/2018; Chest Single View dated 08/28/2018; Thorax W/ Con dated 09/01/2018 FINDINGS: Portable technique limits examination quality. ET tube tip is above the alexis. Enteric tube descends into the stomach. Mild bilateral pulmonary opa cities, appear mildly improved since comparative study. The heart is normal in size.
--- NOTE | 2018-09-03 12:37 | RAD REPORT ---
EXAM DESCRIPTION: RAD - Chest Single View - 09/03/2018 12:24 pm CLINICAL HISTORY: PICC line placement COMPARISON: Chest Single View dated 09/03/2018; Chest Single View dated 08/31/2018; Chest Single View [place] 08/30/2018; Chest Single View dated 08/30/2018 FINDINGS: Portable chest was obtained following placement of a right upper extremity PICC line. The catheter tip projects over the SVC.. ET tube tip is above the alexis. Enteric tube tip is in the stom ach.
[2018-09-03] MEDS: Levofloxacin500mg IV 500 MG/100 ML BAG IV SCH (12:45)
[2018-09-03] MEDS: ALBUTEROL 2.5 MG/3 ML NEB SOL NEB PRN (20:18)
[2018-09-04] MEDS: IPRATROPIUM BROM 0.5MG/2.5ML NEB SCH ×4 (01:41→20:00)
[2018-09-04] MEDS: METHYLPREDNISOLONE 40 MG INJ IV SCH ×3 (01:55→16:49)
[2018-09-04] MEDS: PROPOFOL 1,000 MG/100 ML VIAL IV PRN ×3 (02:50→11:01)
[2018-09-04] MEDS: FENTANYL CITR 100 MCG/2 ML IV PRN (04:30)
[2018-09-04] MEDS: D5W 1,000 ML IV SCH (06:17)
[2018-09-04 09:36] LABS: Absolute Lymphocytes (CBC) 1.5 K/uL (0.7-4.9); Basophils % 0.4 % (0-1.3); Eosinophils % 0.7 % (0-4.4); Hematocrit 39.8 % (39.6-49.0); Lymphocytes % 14.9 % (15.3-44.8); Monocytes % 3.5 % (3.3-12.3)
[2018-09-04 09:51] LABS: BUN Blood Urea Nitrogen 43 mg/dL (7-18); Bicarbonate 38 mmol/L (21-32); Glucose Level 129 mg/dL (74-106); Magnesium 2.8 mg/dL (1.8-2.4); Sodium Level 148 mmol/L (136-145)
--- NOTE | 2018-09-04 09:55 | RAD REPORT ---
EXAM DESCRIPTION: RAD - Chest Single View - 09/04/2018 9:47 am CLINICAL HISTORY: Pneumonia COMPARISON: September 03 TECHNIQUE: AP portable chest image was obtained 0945 hours . FINDINGS: Endotracheal tube is in good position. Right-sided PICC line tip is at the SVC atrial junc tion, stable in position. NG tube is in place. Tip is in the stomach. Side port of the tubing is at t he GE junction. Bilateral lung base opacification has improved from prior imaging. No progressive lung parenchymal pr ocess. No significant failure or volume overload. Heart and vasculature are normal. No measurable ple ural effusion and no pneumothorax. No acute bony abnormality seen. No acute aortic findings suspected . IMPRESSION: Partial clearing of bilateral lung base opacification since prior day imaging.
--- NOTE | 2018-09-04 10:10 | P.PN ---
Subjective Date of Service: 09/04/18 Chief Complaint: Respiratory failure Patient is improving still requiring propofol has significant coughing spells evidence of active sepsis Review of Systems is unable to be obtained Physical Examination - Vital Signs Temperature: 99.3 F Blood Pressure: 124/75 Pulse: 52 Respirations: 16 Pulse Ox (%): 100 - Physical Exam General: Unresponsive Respiratory: Clear to auscultation bilaterally Cardiovascular: No edema, Regular rate/rhythm - Studies Medications List Reviewed: Yes Assessment & Plan - Problems (Diagnosis) (1) Respiratory failure Current Visit: Yes Status: Acute Plan: Patient is improving mild possibly wean and extubate chest x-rays also clearing hypernatremia improving serology pending Bryson HIV-positive will consider doing a bronchoscopy rule out PCP Qualifiers: Chronicity: acute
[2018-09-04] MEDS: THIAMINE 200 MG/2 ML INJ IVP SCH (10:44)
[2018-09-04] MEDS: Levofloxacin500mg IV 500 MG/100 ML BAG IV SCH (10:46)
[2018-09-04] MEDS: ZIPRASIDONE MESYLA 20 MG/VIAL IM SCH (10:47)
[2018-09-04] MEDS: ENOXAPARIN 40 MG/0.4 ML SQ SCH (10:47)
[2018-09-04 11:17] LABS: Toxic Granulation PRESENT
[2018-09-04 11:18] LABS: Blood Morphology Comment NOT SEEN (NOT SEEN); Platelet Estimate ADEQ
[2018-09-04] MEDS: ONDANSETRON 4 MG/2 ML VIAL IV PRN (12:52)
--- NOTE | 2018-09-04 13:46 | RAD REPORT ---
EXAM DESCRIPTION: RAD - Chest Single View - 09/04/2018 1:14 pm CLINICAL HISTORY: Intubation, tube placement, aspiration, respiratory distress COMPARISON: September 04 0945 hours TECHNIQUE: AP portable chest image was obtained 1309 hours . FINDINGS: Endotracheal tube remains in good position with the tip at the top of the aortic arch. Thi s is well above the alexis. Right upper extremity PICC line is in place. NG tube is in place curled i n the stomach. There is an acute bend in the ET tube near the side-port. Correlation can be made with function of the tube. Lung volumes are low. No new pulmonary edema or consolidation identified. Lung markings are not subst antially different from prior study when adjusting for the more shallow inspiration. Heart and vasculature are normal. No measurable pleural effusion and no pneumothorax. No acute bony abnormality seen. No acute aortic findings suspected. IMPRESSION: No diffuse pulmonary edema or focal infectious/ aspiration pneumonia. Lung markings are prominent. This is mostly due to shallow inspiration. Minimal interstitial edema or infiltrate could be masked. ET tube in good position. No change to the PICC line. NG tube appears to have been advanced since earlier imaging. There is an acute kink or bend of the tu katey in the lumen of the stomach possibly restricting lumen. This can be correlated with tube functio n.
[2018-09-04 15:43] LABS: HIV AG/AB 4TH GEN Non-reactive (Non-reactive)
[2018-09-04] MEDS ORDERED: WATER FOR INJ,STERILE 10 ML IM PRN (17:15)
[2018-09-04] MEDS ORDERED: ZIPRASIDONE MESYLA 20 MG/VIAL IM PRN (17:15)
[2018-09-05] MEDS: METHYLPREDNISOLONE 40 MG INJ IV SCH (00:35)
[2018-09-05] MEDS: ONDANSETRON 4 MG/2 ML VIAL IV PRN ×2 (00:36→21:07)
[2018-09-05] MEDS: IPRATROPIUM BROM 0.5MG/2.5ML NEB SCH ×4 (01:20→20:00)
[2018-09-05 02:47] LABS: HBsAG Nonreactive (Nonreactive); Hepatitis A IgM Antibody Nonreactive
[2018-09-05] MEDS: D5W 1,000 ML IV SCH ×2 (03:00→21:09)
[2018-09-05] MEDS ORDERED: ZOLPIDEM TARTRATE 5 MG TABLET PO PRN (08:34)
[2018-09-05] MEDS: ENOXAPARIN 40 MG/0.4 ML SQ SCH (08:37)
[2018-09-05] MEDS: THIAMINE 200 MG/2 ML INJ IVP SCH (08:37)
[2018-09-05] MEDS: Levofloxacin500mg IV 500 MG/100 ML BAG IV SCH (08:37)
[2018-09-05] MEDS: ALPRAZOLAM 0.25 MG TABLET PO PRN ×2 (10:34→21:06)
--- NOTE | 2018-09-05 18:13 | PN ---
Date of Progress Note: 09/05/2018 Subjective: The patient was seen and examined. Chart reviewed and case discussed with RN and Dr. Thorne. The patient was extubated yesterday. Family at the bedside. Treatment plan explained, all questions answered. The patient feels really very weak, able to tolerate some breakfast this morning. Medications: list reviewed. Physical Examination: Vital Signs: Temperature 98.2, heart rate 59, blood pressure 130/77, respirations 20, O2 99% on 3 L via nasal cannula. General: Awake, alert, oriented x3. Some minimal distress. CV: S1, S2. Regular rate and rhythm. Peripheral pulses present. Respiratory: Diminished breath sounds at the bases, otherwise moving air well bilaterally. Gastrointestinal: Abdomen is soft, nontender, nondistended. Positive bowel sounds. Extremities: No clubbing, cyanosis, or edema. Neurologic: Nonfocal. Cranial nerves 2 through 12 intact grossly. Strength is symmetric bilaterally upper and lower extremities. Skin: No rashes. Normal skin turgor. Laboratory Data: Labs are currently pending. HIV and hepatitis panel are nonreactive. Sputum culture shows reduced quantity of respiratory prisca. Blood culture show no growth to date. Final fungal cultures pending. Chest x- ray from 09/04/2018 shows no diffuse pulmonary edema or focal infection, aspiration or pneumonia. Assessment And Plan: 1. Acute respiratory failure with hypoxia. The patient now extubated, has pneumonia. Fungal cultures are pending. Blood cultures are negative. Possible pneumocystis pneumonia. HIV screen was negative. Appreciate Dr. Thorne's input. Currently on nasal cannula. We will step down to regular floor. The patient had hypoxia and hypercapnia. 2. Sepsis secondary to pneumonia, improving. White count trending down. We will recheck CBC in a.m. Cultures negative so far. 3. Pneumonia, multilobar possible Pneumocystis. Continue IV antibiotics. Blood cultures are negative. 4. History of drug abuse. The patient has history of IV drug abuse including cocaine in the past, currently using marijuana. 5. Bipolar 1 disorder. stable 6. Hypomagnesemia. We will repeat and monitor. Plan: Step down from ICU. Continue DVT prophylaxis. Follow up on culture results. /ALY Voice ID: [id number] Report ID: [id number] [facility]
[2018-09-05] MEDS: ACETAMINOPHEN 500 MG TAB PO PRN (21:06)
[2018-09-06] MEDS: IPRATROPIUM BROM 0.5MG/2.5ML NEB SCH ×3 (02:10→14:00)
[2018-09-06 05:17] LABS: Absolute Lymphocytes (CBC) 1.5 K/uL (0.7-4.9); Basophils % 0.4 % (0-1.3); Eosinophils % 3.2 % (0-4.4); Lymphocytes % 14.9 % (15.3-44.8); MPV 7.7 fL (7.6-11.3); Monocytes % 5.6 % (3.3-12.3); RBC Red Blood Cell Count 4.89 M/uL (4.33-5.43)
[2018-09-06 05:35] LABS: ALT/SGPT 48 U/L (12-78); AST/SGOT 26 U/L (15-37); Albumin 2.6 g/dL (3.4-5.0); Alkaline Phosphatase 69 U/L (45-117); BUN Blood Urea Nitrogen 21 mg/dL (7-18); Bicarbonate 35 mmol/L (21-32); Bilirubin Total 0.5 mg/dL (0.2-1.0); Glucose Level 93 mg/dL (74-106); Potassium 3.3 mmol/L (3.5-5.1); Protein, Total 6.4 g/dL (6.4-8.2); Sodium Level 139 mmol/L (136-145)
[2018-09-06 05:55] LABS: Blood Morphology Comment NOT SEEN (NOT SEEN); Platelet Estimate ADEQ
[2018-09-06] MEDS: Levofloxacin500mg IV 500 MG/100 ML BAG IV SCH (08:46)
[2018-09-06] MEDS: THIAMINE 200 MG/2 ML INJ IVP SCH (08:48)
[2018-09-06] MEDS: ENOXAPARIN 40 MG/0.4 ML SQ SCH (08:52)
[2018-09-06] MEDS ORDERED: POTASSIUM 25 MEQ EFFERV TAB PO ONE (09:00)
[2018-09-06] MEDS: ACETAMINOPHEN 500 MG TAB PO PRN (10:38)
[2018-09-06] MEDS ORDERED: ALBUTEROL 2.5 MG/3 ML NEB SOL NEB PRN (15:00)
--- NOTE | 2018-09-07 02:16 | DS ---
Date of Discharge: 09/06/2018 Consultants: Dr. Thorne with Pulmonology. Admitting Diagnoses: 1.Intractable nausea and vomiting. 2.Bilateral pneumonia, lower lobe. 3.Bipolar 1 disorder. Discharge Diagnoses: 1.Acute respiratory failure with hypoxia, resolved. 2.Sepsis secondary to pneumonia, resolved. 3.Multilobar pneumonia, lower lobes, improved. 4.History of drug abuse. 5.Bipolar 1 disorder. 6.Hypomagnesemia, replaced. Hospital Course: The patient is a 43-year-old male with history of bipolar disorder, gastritis, migr aines, comes in with intractable nausea, vomiting, and pneumonia with failed outpatient treatment. T he patient was started on IV antibiotics. CT scan of the chest was done. The patient did develop wo rsening respiratory distress and had to be intubated. Dr. Thorne with Pulmonology was consulted. The patient's cultures were obtained, which remained negative. Fungal cultures are still pending. H IV and hepatitis panel were also negative. Initially thought to have possible PCP pneumonia. His dr whitehead screen was positive for marijuana and opiates. The patient had electrolyte abnormalities includin g hypokalemia and hypophosphatemia, which were corrected. The patient was able to be weaned off the ventilator and was extubated. His white blood cell count normalized, cultures remained negative. Th e patient was then doing well. He was able to be weaned off oxygen via supplemental oxygen. He was on 2 L on nasal cannula after being extubated. The patient was able to ambulate well with no drops i n his O2 saturations. The patient was counseled regarding his marijuana use and he was then cleared for discharge from Pulmonology standpoint. Dr. Thorne did not recommend any antibiotics or steroid s on discharge. The patient has completed course while in the hospital. Additionally, his cultures are negative. No further signs of sepsis. The patient is afebrile. The patient was then discharged home in a stable condition. Activity: As tolerated. Medications: As per medication reconciliation list. Followup: Follow up with primary care physician or establish care with one if he does not have one. Return to ER for worsening condition. Diet: Regular. Physical Examination: General: Awake, alert, oriented x3. No acute distress. CV: S1, S2. No murmurs. Respiratory: Moving air well bilaterally. Abdomen: Soft, nontender, nondistended. Positive bowel sounds. Extremities: No clubbing, cyanosis, or edema. Neuro: Nonfocal. Total time spent discharging the patient was 39 minutes. JOSUE Voice ID: [id number] Report ID: [id number]
== END 2018-09-06 20:45 | disposition home or self-care (01) | DRG 870 ==
LOC: ER 01:21 → ERHOLD 03:45 → 4TH 04:40 → 3RD-ICU 08-30 08:48 → 4TH 09-05 12:15
PROVIDERS: ADMIT Internal Medicine; ATTEND Family Medicine
PROC: 5A1955Z Respiratory Ventilation, Greater than 96 Consecutive Hours (ICD-10-PCS; principal; 2018-08-30)
PROC: 0BH17EZ Insertion of Endotracheal Airway into Trachea, Via Natural or Artificial Opening (ICD-10-PCS; 2018-08-30)
PROC: 02HV33Z Insertion of Infusion Device into Superior Vena Cava, Percutaneous Approach (ICD-10-PCS; 2018-09-03)
DX: A41.9 Sepsis, unspecified organism (principal); J18.1 Lobar pneumonia, unspecified organism; J96.02 Acute respiratory failure with hypercapnia; J96.01 Acute respiratory failure with hypoxia; R11.2 Nausea with vomiting, unspecified; F31.9 Bipolar disorder, unspecified; G43.909 Migraine, unspecified, not intractable, without status migrainosus; I36.1 Nonrheumatic tricuspid (valve) insufficiency; F12.10 Cannabis abuse, uncomplicated; E83.42 Hypomagnesemia; E83.39 Other disorders of phosphorus metabolism; E87.6 Hypokalemia; Z87.891 Personal history of nicotine dependence
CPT/HCPCS: 36415; 71045; 71260; 80048; 80053; 80074; 80076; 80202; 80307; 81001; 81003; 81015; 82550; 82805; 83605; 83615; 83690; 83735; 84132; 84145; 85025; 87040; 87070; 87102; 87205; 87389; 88108; 88305; 93306; 94002; 94003; 94640; 96361; 96365; 96375; 97116; 97163; 97530; 99285; C9113; J0330; J0456; J0696; J1650; J1720; J1940; J2250; J2405; J2704; J2920; J3010; J3411; J3486; J7030; Q9967

== ENCOUNTER 2018-09-11 17:45 | Emergency (ER) | payer SELFPAY ==
--- OUTSIDE RECORDS SUMMARY | 2018-09-11 17:49 | XMS REPORT | Clinical Summary ---
:1975 Author Organization [facility] Address [address] [place] [address] Care Team Providers Name Role Phone Unavailable Primary Care Provider Unavailable Allergies No Known Allergies Medications Medication Sig Dispensed Refills Start Date End Date Status ngbzavdamz-uglnteg-xy Take 1 capsule 0 02/26/2018 Active ffeine [...] Gastroenterology Jefferson Hillman ERCP,PAPILLOTOMY MD [place] 04/06/2018 [facility] Internal [place], Elevated liver function tests; - Encounter Medicine Cherie Chan MD Acute cholecystitis; 04/10/2018 [place], Calculus of bile duct without cholecystitis with obstruction; [place] Symptomatic cholelithiasis MD Katelin Vasques, Akila Beebe MD 04/06/2018 Travel after 09/10/2017 Social History Tobacco Use Types Packs/Day Years [...] Taken Blood Pressure 102/50 04/10/2018 7:19 AM [facility] Pulse 59 04/10/2018 7:19 AM [employer] [facility] [facility] Temperature 36.2 C (97.1 F) 04/10/2018 7:19 AM [facility] Respiratory Rate 18 04/10/2018 7:19 AM [facility] Oxygen Saturation 99% 04/10/2018 7:19 AM [employer] [facility] Inhaled Oxygen Concentration 2% 04/08/2018 2:15 PM [employer] [facility] Weight 96.6 kg (213 lb) 04/10/2018 9:27 AM [facility] Height 180.3 cm (5' 11") 04/10/2018 9:27 AM [facility] Body Mass Index 29.71 04/10/2018 9:27 AM [facility] Plan of Treatment Not on file Procedures Procedure Name Priority Date/Time Associated Diagnosis Comments REPORT OF PROCEDURE 04/21/2018 - ENDOSCOPY SCAN 2:02 PM [facility] CBC W/PLT COUNT & Routine 04/10/2018 Results for AUTO DIFFERENTIAL 4:25 AM [employer] [facility] [place] this procedure are in the results section. HEPATIC FUNCTION Routine 04/10/2018 Results for PANEL 4:25 AM [employer] [facility] this procedure are in the results section. BASIC METABOLIC Routine 04/10/2018 Results for PANEL (7) 4:25 AM [facility] this procedure are in the results section. CBC W/PLT COUNT & Routine 04/10/2018 Results for AUTO DIFFERENTIAL 4:25 AM [facility] [facility] this procedure are in the results section. CBC W/PLT COUNT & Routine 04/09/2018 Results for AUTO DIFFERENTIAL 5:51 AM [employer] [facility] this procedure are in the results section. HEPATIC FUNCTION Routine 04/09/2018 Results for PANEL 5:51 AM [employer] [facility] this procedure are in the results section. CBC W/PLT COUNT & Routine 04/09/2018 Results for AUTO DIFFERENTIAL 5:51 AM [employer] [facility] this procedure are in the results section. BASIC METABOLIC Routine 04/09/2018 Results for PANEL (7) 5:51 AM [employer] [facility] this procedure are in the results section. PHOSPHORUS Routine 04/09/2018 Results for 4:12 AM [employer] [facility] [employer] this procedure are in the results section. MAGNESIUM Routine 04/09/2018 Results for 4:12 AM [employer] [facility] [employer] this procedure are in the results section. TRANSFUSION SERVICE 04/08/2018 REPORT - SCAN 6:01 PM [employer] [facility] ANAEROBIC CULTURE Routine 04/08/2018 Results for 12:21 PM [employer] [facility] this procedure are in the results section. SURGICALLY OBTAINED Routine 04/08/2018 Results for CULTURE + GRAM 12:21 PM [employer] [facility] this procedure STAIN are in the results section. TISSUE EXAM AP Routine 04/08/2018 Results for 12:21 PM [employer] [facility] this procedure are in the results section. LAPAROSCOPY,CHOLECY 04/08/2018 Choledocholithiasis STECTOMY 9:00 AM [employer] [facility] CBC W/PLT COUNT & Routine 04/08/2018 Results for AUTO DIFFERENTIAL 4:41 AM [employer] [facility] this procedure are in the results section. HEPATIC FUNCTION Routine 04/08/2018 Results for PANEL 4:41 AM [employer] [facility] this procedure are in the results section. CBC W/PLT COUNT & Routine 04/08/2018 Results for AUTO DIFFERENTIAL 4:41 AM [employer] [facility] this procedure are in the results section. PHOSPHORUS Routine 04/08/2018 Results for 4:41 AM [employer] [facility] this procedure are in the results section. MAGNESIUM Routine 04/08/2018 Results for 4:41 AM [employer] [facility] this procedure are in the results section. BASIC METABOLIC Routine 04/08/2018 Results for PANEL (7) 4:41 AM [employer] [facility] this procedure are in the results section. TRANSFUSION SERVICE 04/07/2018 REPORT - SCAN 6:01 PM [facility] [facility] REPORT OF PROCEDURE 04/07/2018 - ENDOSCOPY URL 3:48 PM [facility] CBC W/PLT COUNT & Routine 04/07/2018 Results for AUTO DIFFERENTIAL 8:04 AM [employer] [facility] this procedure are in the results section. ABORH, MANUAL STAT 04/07/2018 Results for 8:04 AM [employer] [facility] this procedure are in the results section. LIPASE Routine 04/07/2018 Results for 8:04 AM [employer] [facility] this procedure are in the results section. HEPATIC FUNCTION Routine 04/07/2018 Results for PANEL 8:04 AM [employer] [facility] [employer] this procedure are in the results section. CBC W/PLT COUNT & Routine 04/07/2018 Results for AUTO DIFFERENTIAL 8:04 AM [employer] [facility] this procedure are in the results section. PHOSPHORUS Routine 04/07/2018 Results for 8:04 AM [facility] [facility] this procedure are in the results section. MAGNESIUM Routine 04/07/2018 Results for 8:04 AM [facility] [facility] this procedure are in the results section. BASIC METABOLIC Routine 04/07/2018 Results for PANEL (7) 8:04 AM [employer] [facility] this procedure are in the results section. US ABDOMEN COMPLETE STAT 04/07/2018 Results for 6:51 AM [employer] [facility] this procedure are in the results section. TYPE AND SCREEN, Routine 04/06/2018 Results for AUTOMATED 9:54 PM [facility] [facility] this procedure are in the results section. FL ERCP Routine 04/06/2018 Results for 3:05 PM [employer] [facility] this procedure are in the results section. ERCP,BALLOON 04/06/2018 Gall stones, common bile SWEEPING 2:00 PM [employer] [facility] [facility] duct Special Needs ercp w/ anes and fluoro PROCEDURE W/ C-ARM 04/06/2018 2:00 PM [employer] [facility] Gall stones, common bile duct Special Needs ercp w/ anes and fluoro ERCP,PAPILLOTOMY 04/06/2018 2:00 PM [employer] [facility] Gall stones, common bile duct Special Needs ercp w/ anes and fluoro BLOOD CULTURE Routine 04/06/2018 12:44 PM [employer] [facility] CBC W/PLT COUNT & AUTO Routine 04/06/2018 11:19 AM [employer] [facility] [employer] Results for this DIFFERENTIAL procedure are in the results section. PROTHROMBIN TIME/INR STAT 04/06/2018 11:19 AM [employer] [facility] COMPREHENSIVE METABOLIC STAT 04/06/2018 11:19 AM [employer] [facility] Results for this PANEL procedure are in the results section. LIPASE Routine 04/06/2018 11:19 AM [employer] [facility] AMYLASE Routine 04/06/2018 11:19 AM [employer] [facility] HEPATITIS PANEL, ACUTE Routine 04/06/2018 11:19 AM [employer] [facility] CBC W/PLT COUNT & AUTO Routine 04/06/2018 11:19 AM [employer] [facility] Results for this DIFFERENTIAL procedure are in the results section. LIPID PANEL Routine 04/06/2018 11:19 AM [employer] [facility] BASIC METABOLIC PANEL (7) Routine 04/06/2018 11:19 AM [employer] [facility] BLOOD CULTURE Routine 04/06/2018 11:18 AM [employer] [facility] after 09/10/2017 Results EKG-SCANNED (04/21/2018 2:02 PM [employer] [facility] [facility]) Narrative Performed At CBC with platelet count + automated diff (04/10/2018 4:25 AM [employer] [facility])Only the most recent of5 resultswithin the time period is included. WBC 5.9 3.5 - 10.5 K/L [facility] RBC 4.17 (L) 4.63 - 6.08 M/L [facility] Hemoglobin 11.7 (L) 13.7 - 17.5 GM/DL [facility] Hematocrit 36.8 (L) 40.1 - 51.0 % [facility] MCV 88.2 79.0 - 92.2 fL [facility] MCH 28.1 25.7 - 32.2 pg [facility] MCHC 31.8 (L) 32.3 - 36.5 GM/DL [facility] RDW 12.8 11.6 - 14.4 % [facility] Platelets 182 150 - 450 K/CU MM [facility] MPV 10.9 9.4 - 12.4 fL [facility] nRBC 0 0 - 0 /100 WBC [facility] % Neutros 56 % [facility] % Lymphs 29 % [facility] % Monos 12 % [facility] % Eos 2 % [facility] % Baso 1 % [facility] # Neutros 3.28 1.78 - 5.38 K/L [facility] # Lymphs 1.73 1.32 - 3.57 K/L [facility] # Monos 0.70 0.30 - 0.82 K/L [facility] # Eos 0.14 0.04 - 0.54 K/L [facility] # Baso 0.03 0.01 - 0.08 K/L [facility] Immature Granulocytes-Relative 0 0 - 1 % [facility] Specimen Blood Performing Organization Address [facility] Phone Number [address] [address] [place] Hepatic function panel (04/10/2018 4:25 AM [employer] [facility] [employer])Only the most recent of4 resultswithin the time period is included. Protein, Total 6.3 6.0 - 8.3 gm/dL [facility] Albumin 3.6 3.5 - 5.0 g/dL [facility] Total Bilirubin 0.8 0.2 - 1.2 mg/dL [facility] Bilirubin, Direct 0.5 0.1 - 0.5 mg/dL [facility] Alkaline Phosphatase 111 40 - 150 U/L [facility] AST 76 (H) 5 - 34 U/L [facility] ALT 261 (H) 6 - 55 U/L [facility] Specimen Blood Performing Organization Address City/[facility]/Zipcode Phone Number [address] [address] [place] Basic Metabolic Panel (04/10/2018 4:25 AM [employer] [facility])Only the most recent of5 resultswithin the time period is included. Sodium 139 136 - 145 meq/L [facility] Potassium 3.2 (L) 3.5 - 5.1 meq/L [facility] Chloride 106 98 - 107 meq/L [facility] CO2 25 22 - 29 meq/L [facility] BUN 6 (L) 7 - 21 mg/dL [facility] Creatinine 0.72 0.57 - 1.25 mg/dL [facility] Glucose 80 70 - 105 mg/dL [facility] Calcium 9.1 8.4 - 10.2 mg/dL [facility] EGFR 120Comment: ESTIMATED GFR IS mL/min/1.73 sq m [facility] NOT ACCURATE CREATININE [facility] CLEARANCE IN PREDICTING GLOMERULAR FILTRATION RATE. ESTIMATED GFR IS NOT APPLICABLE FOR DIALYSIS PATIENTS. Specimen Blood Performing Organization Address City[facility] Phone Number [address] [address] [phone] [place] Phosphorus (04/09/2018 4:12 AM [employer] [facility])Only the most recent of3 resultswithin the time period is included. Phosphorus 2.9 2.3 - 4.7 mg/dL [facility] Specimen Blood Performing Organization Address City[facility] Phone Number [address] [address] [phone] CENTER Magnesium (04/09/2018 4:12 AM [employer] [facility])Only the most recent of3 resultswithin the time period is included. Magnesium 1.6 1.6 - 2.6 mg/dL [facility] Specimen Blood Performing Organization Address [facility] Phone Number [address] [address] [phone] [place] TRANSFUSION SERVICE REPORT - SCAN (04/08/2018 6:01 PM [employer] [facility])Only the most recent of2 resultswithin the time period is included. Narrative Performed At Anaerobic culture (04/08/2018 12:21 PM [employer] [facility]) Result No anaerobes isolated [facility] Specimen Body Fluid Performing Organization Address City/[facility]/Zipcode Phone Number [facility] [address] [place] [address] [place] Surgically obtained culture + gram stain (04/08/2018 12:21 PM [employer] [facility]) Result No growth [facility] Gram Stain Result 1+ White blood cells seen [facility] Gram Stain Result No organisms seen [facility] Specimen Body Fluid Performing Organization Address City/[facility]/Zipcode Phone Number [facility] [address] [place] [phone] [place] Tissue Exam (04/08/2018 12:21 PM [employer] [facility]) Case Report Surgical Pathology Report Case: [id number] [facility] Authorizing Provider:Jaylene Daugherty MD Collected: 04/08/2018 1221 [facility] Ordering Location: [address] Received: 04/08/2018 1350 Service Pathologist: Evie Vizcaino MD Specimen:Gallbladder DIAGNOSIS GALLBLADDER, LAPAROSCOPIC CHOLECYSTECTOMY: [facility] - CHRONIC CHOLECYSTITIS WITH ULCERATED/ERODED MUCOSA [facility] - CHOLELITHIASIS - SUGGESTIVE OF CHOLESTEROL GRANULOMA - CYSTIC DUCT WITH ORGANIZED THROMBUS AT THE MARGIN - NEGATIVE FOR DYSPLASIA OR MALIGNANCY Signing Pathologist Direct Phone Line: [phone] CPT Code(s) 46245 [facility] CLINICAL HISTORY Choledocholithiasis [facility] SPECIMEN SOURCE Gallbladder [facility] GROSS DESCRIPTION The specimen is received in formalin-filled container labeled with the patient's information and labeled "gallbladder". It consists of an intact gallbladder measuring 5.5 x 2 cm with a gallbladder wall [facility] thickness of 0.2 cm. The gallbladder lumen is impacted with numerous green- pearly smooth stones measuring up to 0.5 cm. The bile is canada-red and thin. The mucosa is canada-red and smooth with trabeculation. No masses are seen. [facility] Section code: A1, margin en face; A2, gallbladder wall. CG/ew MICROSCOPIC DESCRIPTION Performed [facility] Specimen Tissue Performing Organization Address City/State/Zipcode Phone Number [facility] [address] [place] [address] [phone] CENTER REPORT OF PROCEDURE - ENDOSCOPY URL (04/07/2018 3:48 PM [employer]) Narrative Performed At ABORH, manual (04/07/2018 8:04 AM [employer] [facility]) ABO Grouping A [facility] Rh Factor POS [facility] Specimen Blood Performing Organization Address City/[facility]/Zipcode Phone Number [address] [phone] Lipase (04/07/2018 8:04 AM [employer] [facility])Only the most recent of2 resultswithin the time period is included. Lipase 882 (H) 8 - 78 U/L [facility] Specimen Blood Performing Organization Address City/[facility]/Zipcode Phone Number [facility] [address] [place] [address] [phone] CENTER US abdomen complete (04/07/2018 6:51 AM [employer] [facility]) Specimen Narrative Performed At FINAL REPORT [employer] Abdominal Ultrasound Clinical Diagnosis: Abdomen pain Comparison: [...] MD Report Verified Date/Time:04/07/2018 09:32:02 Reading Location: [address] Ultrasound Reading Room Procedure Note Interface, External Ris In - 04/07/2018 9:34 AM [facility] [facility] FINAL REPORT Abdominal Ultrasound Clinical Diagnosis: Abdomen [...] Report Verified Date/Time: 04/07/2018 09:32:02 Reading Location: [address] Ultrasound Reading Room Performing Organization Address City/State/Zipcode Phone Number [facility] Type and screen, automated (04/06/2018 9:54 PM [facility] [facility]) ABO/RH AUTOMATED (BEAKER) A POSITIVE [facility] Ab Scrn NEGATIVE [facility] Specimen Blood Performing Organization Address City/[facility]/Zipcode Phone Number [address] [address] [phone] [place] ERCP (04/06/2018 3:05 PM [employer] [facility]) Specimen Narrative Performed At FINAL REPORT GE [...] MD Report Verified Date/Time:04/06/2018 15:34:35 Reading Location: [address] Consult Reading Room Procedure Note Interface, External Ris In - 04/06/2018 3:36 PM [employer] [facility] FINAL REPORT ERCP Clinical History: BILIARY OBSTRUCTION Impression: Intraoperative images are obtained. The radiologist is not present during the procedure. Images are presented for interpretation at the completion of the procedure. Please refer to the procedure report for more details. Number of images obtained: 3 Fluoroscopic time: 62.4 seconds Signed: Alok Maria MD Report Verified Date/Time: 04/06/2018 15:34:35 Reading Location: [facility] Consult Reading Room Performing Organization Address City/State/Zipcode Phone Number [facility] Blood culture (04/06/2018 12:44 PM [employer])Only the most recent of2 resultswithin the time period is included. Result No growth in 5 days [facility] Specimen Blood Performing Organization Address City/[facility]/Zipcode Phone Number [address] [address] [phone] CENTER Hepatitis panel, acute (04/06/2018 11:19 AM [employer]) Hep A IgM Nonreactive Nonreactive [facility] Hep B C IgM Nonreactive Nonreactive [facility] Hepatitis C Ab Nonreactive Nonreactive [facility] hepatitis B Surface Ag Nonreactive Nonreactive [facility] Specimen Blood Performing Organization Address City/[facility]/Zipcode Phone Number [address] [phone] [place] Prothrombin time/INR (04/06/2018 11:19 AM [employer] [facility]) Protime 12.5 11.7 - 14.7 seconds [facility] INR 0.9 <=5.9 [facility] Specimen Blood Narrative Performed At RECOMMENDED COUMADIN/WARFARIN INR THERAPY [facility] RANGES STANDARD DOSE: 2.0 - 3.0 Includes: PROPHYLAXIS for venous thrombosis, systemic embolization; TREATMENT for venous thrombosis and/or pulmonary embolus. HIGH RISK: Target INR is 2.5-3.5 for patients with mechanical heart valves. Performing Organization Address City[facility] Phone Number [address] [address] [phone] [place] Amylase (04/06/2018 11:19 AM [employer]) Amylase 887 (H) 25 - 125 U/L [facility] Specimen Blood Narrative Performed At Specimen slightly icteric [facility] Performing Organization Address City/State/Zipcode Phone Number [address] [address] [place] Lipid panel (04/06/2018 11:19 AM [employer]) Triglycerides 106 mg/dL [facility] Cholesterol 169 mg/dL [facility] HDL 44 mg/dL [facility] LDL Calculated 104 mg/dL [facility] Specimen Blood Narrative Performed At Triglyceride Reference Range: [facility] Low Risk <150 [id number] High Risk 200-499 Very High Risk>=500 Cholesterol Reference Range: Low Risk <200 [id number] High Risk>240 HDL Cholesterol Reference Range: Low Risk >=60 High Risk <40 LDL Cholesterol Reference Range: Optimal<100 Near [id number] [id number] Taof613-907 Very High >=190 Specimen slightly icteric Performing Organization Address City/State/Zipcode Phone Number [facility] [address] [place] [address] CENTER Comprehensive metabolic panel (04/06/2018 11:19 AM [employer]) Protein, Total 7.2 6.0 - 8.3 gm/dL [facility] Albumin 4.3 3.5 - 5.0 g/dL [facility] Alkaline Phosphatase 193 (H) 40 - 150 U/L [facility] Total Bilirubin 4.4 (H) 0.2 - 1.2 mg/dL [facility] Sodium 143 136 - 145 meq/L [facility] Potassium 3.4 (L) 3.5 - 5.1 meq/L [facility] Chloride 108 (H) 98 - 107 meq/L [facility] CO2 26 22 - 29 meq/L [facility] BUN 14 7 - 21 mg/dL [facility] Creatinine 0.94 0.57 - 1.25 mg/dL [facility] Glucose 100 70 - 105 mg/dL [facility] Calcium 9.4 8.4 - 10.2 mg/dL [facility] AST 310 (H) 5 - 34 U/L [facility] ALT 572 (H) 6 - 55 U/L [facility] EGFR 88Comment: ESTIMATED GFR mL/min/1.73 sq m [facility] IS NOT ACCURATE [facility] CREATININE CLEARANCE IN PREDICTING GLOMERULAR FILTRATION RATE. ESTIMATED GFR IS NOT APPLICABLE FOR DIALYSIS PATIENTS. Specimen Blood Narrative Performed At Specimen slightly icteric [facility] Performing Organization Address City/State/Zipcode Phone Number [address] [address] [phone] CENTER after 09/10/2017 Advance Directives For more information, please contact:[address] [phone] Code Status Date Activated Date Inactivated Comments Full Code 04/06/2018 9:53 AM This code status was determined by: Patient
--- OUTSIDE RECORDS SUMMARY | 2018-09-11 17:50 | XMS REPORT ---
:1975 [facility] Address [address] [place] [address] Care Team Providers Name Role Phone MAIDA GABBY M. Unavailable Unavailable Problems This patient has no known problems. Allergies, Adverse Reactions, Alerts This patient has no known allergies or adverse reactions. Medications This patient has no known medications. 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 - NEGATIVE FOR DYSPLASIA OR MALIGNANCY Signing Pathologist Direct Phone Line: [phone] signed by Evie Vizcaino MD on 04/12/2018 at 3:22 [id number] Choledocholithiasis Gallbladder The specimen is received in [...] Value Reference Range Comments CULTURE (BEAKER) (test hxtj=1328) No anaerobes isolated BLOOD [id number] 19:01:00 Test Item Value Reference Range Comments CULTURE (BEAKER) (test sgzq=9854) No growth in 5 days BLOOD [id number] 19:01:00 Test Item Value Reference Range Comments CULTURE (BEAKER) (test jbwg=6923) No growth in 5 days SURGICALLY OBTAINED CULTURE + GRAM [id number] 13:40:00 Test Item Value Reference Range Comments CULTURE (BEAKER) (test tfoc=2865) No growth GRAM STAIN RESULT (BEAKER) (test 1+ White blood cells seen uggj=3835) GRAM STAIN RESULT (BEAKER) (test No organisms seen toxl=51541) HEPATIC FUNCTION [id number] 05:34:00 Test Item Value Reference Range Comments TOTAL PROTEIN (BEAKER) (test gvtj=508) 6.3 gm/dL 6.0-8.3 ALBUMIN (BEAKER) (test sjcm=5476) 3.6 g/dL 3.5-5.0 BILIRUBIN TOTAL (BEAKER) (test kjbe=698) 0.8 mg/dL 0.2-1.2 BILIRUBIN DIRECT (BEAKER) (test gned=600) 0.5 mg/dL 0.1-0.5 ALKALINE PHOSPHATASE (BEAKER) (test vrwc=486) 111 U/L 40-150 AST (SGOT) (BEAKER) (test atpg=358) 76 U/L 5-34 ALT (SGPT) (BEAKER) (test ovqi=313) 261 U/L 6-55 BASIC METABOLIC [id number] 05:34:00 Test Item Value Reference Range Comments SODIUM (BEAKER) (test 139 meq/L 136-145 oejn=158) POTASSIUM (BEAKER) (test 3.2 meq/L 3.5-5.1 gtlt=198) CHLORIDE (BEAKER) (test 106 meq/L 98-107 vrwf=473) CO2 (BEAKER) (test 25 meq/L 22-29 twva=506) BLOOD UREA NITROGEN 6 mg/dL 7-21 (BEAKER) (test tfct=483) CREATININE (BEAKER) (test 0.72 mg/dL 0.57-1.25 hest=541) GLUCOSE RANDOM (BEAKER) 80 mg/dL 70-105 (test feys=824) CALCIUM (BEAKER) (test 9.1 mg/dL 8.4-10.2 ccvn=172) EGFR (BEAKER) (test 120 mL/min/1.73 sq m ESTIMATED GFR IS NOT fgfl=0030) ACCURATE CREATININE CLEARANCE IN PREDICTING GLOMERULAR FILTRATION RATE. ESTIMATED GFR IS NOT APPLICABLE FOR DIALYSIS PATIENTS. CBC W/PLT COUNT & AUTO [id number] 05:12:00 Test Item Value Reference Range Comments WHITE BLOOD CELL COUNT (BEAKER) (test rzih=164) 5.9 K/ L 3.5-10.5 RED BLOOD CELL COUNT (BEAKER) (test miti=127) 4.17 M/ L 4.63-6.08 HEMOGLOBIN (BEAKER) (test nmdg=783) 11.7 GM/DL 13.7-17.5 HEMATOCRIT (BEAKER) (test mvgl=057) 36.8 % 40.1-51.0 MEAN CORPUSCULAR VOLUME (BEAKER) (test hfcx=288) 88.2 fL 79.0-92.2 MEAN CORPUSCULAR HEMOGLOBIN (BEAKER) (test 28.1 pg 25.7-32.2 ktgt=910) MEAN CORPUSCULAR HEMOGLOBIN CONC (BEAKER) (test 31.8 GM/DL 32.3-36.5 gcfo=595) RED CELL DISTRIBUTION WIDTH (BEAKER) (test 12.8 % 11.6-14.4 rlkb=624) PLATELET COUNT (BEAKER) (test xcgb=406) 182 K/CU MM 150-450 MEAN PLATELET VOLUME (BEAKER) (test wdxi=156) 10.9 fL 9.4-12.4 NUCLEATED RED BLOOD CELLS (BEAKER) (test 0 /100 WBC 0-0 arez=561) NEUTROPHILS RELATIVE PERCENT (BEAKER) (test 56 % hhnx=949) LYMPHOCYTES RELATIVE PERCENT (BEAKER) (test 29 % ryti=679) MONOCYTES RELATIVE PERCENT (BEAKER) (test 12 % prvk=704) EOSINOPHILS RELATIVE PERCENT (BEAKER) (test 2 % tano=322) BASOPHILS RELATIVE PERCENT (BEAKER) (test 1 % zbee=187) NEUTROPHILS ABSOLUTE COUNT (BEAKER) (test 3.28 K/ L 1.78-5.38 urmj=007) LYMPHOCYTES ABSOLUTE COUNT (BEAKER) (test 1.73 K/ L 1.32-3.57 owul=615) MONOCYTES ABSOLUTE COUNT (BEAKER) (test 0.70 K/ L 0.30-0.82 uvck=787) EOSINOPHILS ABSOLUTE COUNT (BEAKER) (test 0.14 K/ L 0.04-0.54 plsd=480) BASOPHILS ABSOLUTE COUNT (BEAKER) (test 0.03 K/ L 0.01-0.08 rpkr=183) IMMATURE GRANULOCYTES-RELATIVE PERCENT (BEAKER) 0 % 0-1 (test shls=9986) HEPATIC FUNCTION [id number] 07:32:00 Test Item Value Reference Range Comments TOTAL PROTEIN (BEAKER) (test uwwj=009) 6.2 gm/dL 6.0-8.3 ALBUMIN (BEAKER) (test ioto=2810) 3.5 g/dL 3.5-5.0 BILIRUBIN TOTAL (BEAKER) (test yqqk=888) 0.9 mg/dL 0.2-1.2 BILIRUBIN DIRECT (BEAKER) (test rjec=906) 0.6 mg/dL 0.1-0.5 ALKALINE PHOSPHATASE (BEAKER) (test zcyt=838) 121 U/L 40-150 AST (SGOT) (BEAKER) (test tgmu=834) 183 U/L 5-34 ALT (SGPT) (BEAKER) (test wxad=140) 390 U/L 6-55 BASIC METABOLIC [id number] 07:32:00 Test Item Value Reference Range Comments SODIUM (BEAKER) (test 140 meq/L 136-145 fjqy=161) POTASSIUM (BEAKER) (test 3.4 meq/L 3.5-5.1 dbsr=808) CHLORIDE (BEAKER) (test 107 meq/L 98-107 fvlt=565) CO2 (BEAKER) (test 24 meq/L 22-29 amfw=668) BLOOD UREA NITROGEN 8 mg/dL 7-21 (BEAKER) (test kkue=681) CREATININE (BEAKER) (test 0.70 mg/dL 0.57-1.25 ttvg=171) GLUCOSE RANDOM (BEAKER) 73 mg/dL 70-105 (test wvor=345) CALCIUM (BEAKER) (test 8.9 mg/dL 8.4-10.2 ssnb=901) EGFR (BEAKER) (test 124 mL/min/1.73 sq m ESTIMATED GFR IS NOT hbwv=4552) ACCURATE CREATININE CLEARANCE IN PREDICTING GLOMERULAR FILTRATION RATE. ESTIMATED GFR IS NOT APPLICABLE FOR DIALYSIS PATIENTS. [id number] 06:22:00 Test Item Value Reference Range Comments PHOSPHORUS (BEAKER) (test iscm=088) 2.9 mg/dL 2.3-4.7 [id number] 06:22:00 Test Item Value Reference Range Comments MAGNESIUM (BEAKER) (test nvaa=808) 1.6 mg/dL 1.6-2.6 CBC W/PLT COUNT & AUTO [id number] 06:07:00 Test Item Value Reference Range Comments WHITE BLOOD CELL COUNT (BEAKER) (test jles=100) 8.8 K/ L 3.5-10.5 RED BLOOD CELL COUNT (BEAKER) (test lfzh=998) 4.07 M/ L 4.63-6.08 HEMOGLOBIN (BEAKER) (test qtkb=789) 11.7 GM/DL 13.7-17.5 HEMATOCRIT (BEAKER) (test pgiq=480) 35.6 % 40.1-51.0 MEAN CORPUSCULAR VOLUME (BEAKER) (test dsas=384) 87.5 fL 79.0-92.2 MEAN CORPUSCULAR HEMOGLOBIN (BEAKER) (test 28.7 pg 25.7-32.2 cbru=249) MEAN CORPUSCULAR HEMOGLOBIN CONC (BEAKER) (test 32.9 GM/DL 32.3-36.5 wbid=087) RED CELL DISTRIBUTION WIDTH (BEAKER) (test 12.9 % 11.6-14.4 tudv=043) PLATELET COUNT (BEAKER) (test nogm=580) 169 K/CU MM 150-450 MEAN PLATELET VOLUME (BEAKER) (test jrlo=326) 10.5 fL 9.4-12.4 NUCLEATED RED BLOOD CELLS (BEAKER) (test 0 /100 WBC 0-0 fato=470) NEUTROPHILS RELATIVE PERCENT (BEAKER) (test 72 % ubuw=061) LYMPHOCYTES RELATIVE PERCENT (BEAKER) (test 16 % ilvl=184) MONOCYTES RELATIVE PERCENT (BEAKER) (test 10 % lhpl=671) EOSINOPHILS RELATIVE PERCENT (BEAKER) (test 1 % aohj=301) BASOPHILS RELATIVE PERCENT (BEAKER) (test 0 % wtzm=448) NEUTROPHILS ABSOLUTE COUNT (BEAKER) (test 6.37 K/ L 1.78-5.38 sauc=978) LYMPHOCYTES ABSOLUTE COUNT (BEAKER) (test 1.42 K/ L 1.32-3.57 ygpp=207) MONOCYTES ABSOLUTE COUNT (BEAKER) (test 0.91 K/ L 0.30-0.82 ocue=456) EOSINOPHILS ABSOLUTE COUNT (BEAKER) (test 0.09 K/ L 0.04-0.54 ixyb=150) BASOPHILS ABSOLUTE COUNT (BEAKER) (test 0.02 K/ L 0.01-0.08 qeyv=042) IMMATURE GRANULOCYTES-RELATIVE PERCENT (BEAKER) 0 % 0-1 (test wyhl=0402) [id number] 05:54:00 Test Item Value Reference Range Comments PHOSPHORUS (BEAKER) (test vfzi=027) 2.7 mg/dL 2.3-4.7 [id number] 05:54:00 Test Item Value Reference Range Comments MAGNESIUM (BEAKER) (test iqag=439) 1.5 mg/dL 1.6-2.6 BASIC METABOLIC [id number] 05:54:00 Test Item Value Reference Range Comments SODIUM (BEAKER) (test 137 meq/L 136-145 iywe=937) POTASSIUM (BEAKER) (test 3.4 meq/L 3.5-5.1 smrn=004) CHLORIDE (BEAKER) (test 105 meq/L 98-107 wttt=463) CO2 (BEAKER) (test 21 meq/L 22-29 pkya=076) BLOOD UREA NITROGEN 9 mg/dL 7-21 (BEAKER) (test yjne=030) CREATININE (BEAKER) (test 0.78 mg/dL 0.57-1.25 wocq=936) GLUCOSE RANDOM (BEAKER) 69 mg/dL 70-105 (test hhhv=382) CALCIUM (BEAKER) (test 8.9 mg/dL 8.4-10.2 imud=958) EGFR (BEAKER) (test 110 mL/min/1.73 sq m ESTIMATED GFR IS NOT sfwx=5845) ACCURATE CREATININE CLEARANCE IN PREDICTING GLOMERULAR FILTRATION RATE. ESTIMATED GFR IS NOT APPLICABLE FOR DIALYSIS PATIENTS. HEPATIC FUNCTION [id number] 05:54:00 Test Item Value Reference Range Comments TOTAL PROTEIN (BEAKER) (test tfzr=149) 6.5 gm/dL 6.0-8.3 ALBUMIN (BEAKER) (test xjhj=2097) 3.8 g/dL 3.5-5.0 BILIRUBIN TOTAL (BEAKER) (test juku=569) 1.2 mg/dL 0.2-1.2 BILIRUBIN DIRECT (BEAKER) (test cyzr=225) 0.7 mg/dL 0.1-0.5 ALKALINE PHOSPHATASE (BEAKER) (test lpnu=468) 147 U/L 40-150 AST (SGOT) (BEAKER) (test ijak=041) 113 U/L 5-34 ALT (SGPT) (BEAKER) (test fhgs=538) 333 U/L 6-55 CBC W/PLT COUNT & AUTO [id number] 05:40:00 Test Item Value Reference Range Comments WHITE BLOOD CELL COUNT (BEAKER) (test xlrq=327) 11.9 K/ L 3.5-10.5 RED BLOOD CELL COUNT (BEAKER) (test osyu=839) 4.06 M/ L 4.63-6.08 HEMOGLOBIN (BEAKER) (test mpzq=176) 11.8 GM/DL 13.7-17.5 HEMATOCRIT (BEAKER) (test jrqa=066) 35.8 % 40.1-51.0 MEAN CORPUSCULAR VOLUME (BEAKER) (test kzsw=590) 88.2 fL 79.0-92.2 MEAN CORPUSCULAR HEMOGLOBIN (BEAKER) (test 29.1 pg 25.7-32.2 hply=658) MEAN CORPUSCULAR HEMOGLOBIN CONC (BEAKER) (test 33.0 GM/DL 32.3-36.5 xffg=727) RED CELL DISTRIBUTION WIDTH (BEAKER) (test 12.8 % 11.6-14.4 etgk=904) PLATELET COUNT (BEAKER) (test cwrw=789) 166 K/CU MM 150-450 MEAN PLATELET VOLUME (BEAKER) (test oxjg=769) 11.0 fL 9.4-12.4 NUCLEATED RED BLOOD CELLS (BEAKER) (test 0 /100 WBC 0-0 vbxi=049) NEUTROPHILS RELATIVE PERCENT (BEAKER) (test 74 % wwgj=943) LYMPHOCYTES RELATIVE PERCENT (BEAKER) (test 15 % yffu=589) MONOCYTES RELATIVE PERCENT (BEAKER) (test 10 % gcbe=697) EOSINOPHILS RELATIVE PERCENT (BEAKER) (test 1 % dcjd=142) BASOPHILS RELATIVE PERCENT (BEAKER) (test 0 % mrsk=552) NEUTROPHILS ABSOLUTE COUNT (BEAKER) (test 8.76 K/ L 1.78-5.38 nxlp=874) LYMPHOCYTES ABSOLUTE COUNT (BEAKER) (test 1.80 K/ L 1.32-3.57 jpif=233) MONOCYTES ABSOLUTE COUNT (BEAKER) (test 1.12 K/ L 0.30-0.82 cdwy=807) EOSINOPHILS ABSOLUTE COUNT (BEAKER) (test 0.08 K/ L 0.04-0.54 icoi=853) BASOPHILS ABSOLUTE COUNT (BEAKER) (test 0.04 K/ L 0.01-0.08 fyre=115) IMMATURE GRANULOCYTES-RELATIVE PERCENT (BEAKER) 0 % 0-1 (test luut=0381) [id number] 11:43:00 Test Item Value Reference Range Comments LIPASE (BEAKER) (test cwzw=020) 882 U/L 8-78 U/S, ABDOMINAL, [id number] 09:32:00Reason for exam:->abd pain Reason for exam:->Please do stat. [facility] Ul[facility]ound Clinical Diagnosis: Abdomen pain [...] Verified Date/Time : 04/07/2018 09:32:02 Reading Location: [facility] [id number] Ultrasound Reading Room HEPATIC FUNCTION [id number] 08:43:00 Test Item Value Reference Range Comments TOTAL PROTEIN (BEAKER) (test oodq=380) 6.3 gm/dL 6.0-8.3 ALBUMIN (BEAKER) (test dkhf=3827) 3.7 g/dL 3.5-5.0 BILIRUBIN TOTAL (BEAKER) (test tyyx=371) 1.3 mg/dL 0.2-1.2 BILIRUBIN DIRECT (BEAKER) (test mkjk=770) 0.8 mg/dL 0.1-0.5 ALKALINE PHOSPHATASE (BEAKER) (test qldf=378) 165 U/L 40-150 AST (SGOT) (BEAKER) (test xrcn=324) 164 U/L 5-34 ALT (SGPT) (BEAKER) (test ezxt=190) 401 U/L 6-55 BASIC METABOLIC [id number] 08:43:00 Test Item Value Reference Range Comments SODIUM (BEAKER) (test 138 meq/L 136-145 ilhd=607) POTASSIUM (BEAKER) (test 3.7 meq/L 3.5-5.1 uupf=724) CHLORIDE (BEAKER) (test 106 meq/L 98-107 nmxq=691) CO2 (BEAKER) (test 24 meq/L 22-29 beoz=798) BLOOD UREA NITROGEN 11 mg/dL 7-21 (BEAKER) (test nsch=031) CREATININE (BEAKER) (test 0.86 mg/dL 0.57-1.25 yugd=131) GLUCOSE RANDOM (BEAKER) 85 mg/dL 70-105 (test wdht=144) CALCIUM (BEAKER) (test 9.1 mg/dL 8.4-10.2 vtnj=835) EGFR (BEAKER) (test 98 mL/min/1.73 sq m ESTIMATED GFR IS NOT stio=4713) ACCURATE CREATININE CLEARANCE IN PREDICTING GLOMERULAR FILTRATION RATE. ESTIMATED GFR IS NOT APPLICABLE FOR DIALYSIS PATIENTS. [id number] 08:43:00 Test Item Value Reference Range Comments MAGNESIUM (BEAKER) (test chfu=328) 1.5 mg/dL 1.6-2.6 [id number] 08:43:00 Test Item Value Reference Range Comments PHOSPHORUS (BEAKER) (test ccbq=558) 2.8 mg/dL 2.3-4.7 CBC W/PLT COUNT & AUTO [id number] 08:23:00 Test Item Value Reference Range Comments WHITE BLOOD CELL COUNT (BEAKER) (test wvep=418) 9.3 K/ L 3.5-10.5 RED BLOOD CELL COUNT (BEAKER) (test flzo=046) 4.29 M/ L 4.63-6.08 HEMOGLOBIN (BEAKER) (test ewys=264) 12.2 GM/DL 13.7-17.5 HEMATOCRIT (BEAKER) (test cjig=957) 37.9 % 40.1-51.0 MEAN CORPUSCULAR VOLUME (BEAKER) (test hdmg=542) 88.3 fL 79.0-92.2 MEAN CORPUSCULAR HEMOGLOBIN (BEAKER) (test 28.4 pg 25.7-32.2 wved=446) MEAN CORPUSCULAR HEMOGLOBIN CONC (BEAKER) (test 32.2 GM/DL 32.3-36.5 fwgy=559) RED CELL DISTRIBUTION WIDTH (BEAKER) (test 12.9 % 11.6-14.4 dkmh=612) PLATELET COUNT (BEAKER) (test ydje=764) 175 K/CU MM 150-450 MEAN PLATELET VOLUME (BEAKER) (test lgbz=904) 10.5 fL 9.4-12.4 NUCLEATED RED BLOOD CELLS (BEAKER) (test 0 /100 WBC 0-0 brdm=716) NEUTROPHILS RELATIVE PERCENT (BEAKER) (test 71 % hfzs=758) LYMPHOCYTES RELATIVE PERCENT (BEAKER) (test 21 % spjc=366) MONOCYTES RELATIVE PERCENT (BEAKER) (test 8 % tind=696) EOSINOPHILS RELATIVE PERCENT (BEAKER) (test 0 % maxs=941) BASOPHILS RELATIVE PERCENT (BEAKER) (test 0 % uopd=980) NEUTROPHILS ABSOLUTE COUNT (BEAKER) (test 6.52 K/ L 1.78-5.38 mkdv=195) LYMPHOCYTES ABSOLUTE COUNT (BEAKER) (test 1.96 K/ L 1.32-3.57 tntp=088) MONOCYTES ABSOLUTE COUNT (BEAKER) (test 0.69 K/ L 0.30-0.82 ctzh=547) EOSINOPHILS ABSOLUTE COUNT (BEAKER) (test 0.03 K/ L 0.04-0.54 rkks=073) BASOPHILS ABSOLUTE COUNT (BEAKER) (test 0.01 K/ L 0.01-0.08 upvs=594) IMMATURE GRANULOCYTES-RELATIVE PERCENT (BEAKER) 0 % 0-1 (test nxjv=9716) FL, [id number] 15:34:00INTRA OP IMAGINGReason for exam:->BILIARY OBSTURCTIONFINAL REPORT ERCP Clinical History: BILIARY OBSTRUCTION Impression: Intraoperative images are obtained. The radiologist is not present during the procedure. Images are presentedfor interpretation at the completion of the procedure. Please refer to the procedure report for more details. Number of images obtained: 3 Fluoroscopic time: 62.4 seconds Signed: Alok Maria Verified Date/Time: 04/06/2018 15:34:35 Reading Location: [address] Consult Reading Room [id number] 13:01:00 Test Item Value Reference Range Comments LIPASE (BEAKER) (test dqiz=317) > U/L 8-78 Specimen slightly ictericHEPATITIS PANEL, [id number] 12:35:00 Test Item Value Reference Range Comments HEPATITIS A IGM ANTIBODY (BEAKER) (test Nonreactive Nonreactive pjbn=452) HEPATITIS B CORE IGM ANTIBODY (BEAKER) (test Nonreactive Nonreactive filu=592) HEPATITIS C ANTIBODY (BEAKER) (test qabz=341) Nonreactive Nonreactive HEPATITIS B SURFACE ANTIGEN (2) (BEAKER) (test Nonreactive Nonreactive wzrb=2698) PROTHROMBIN [id number] 12:26:00 Test Item Value Reference Range Comments PROTIME (BEAKER) (test kljx=145) 12.5 seconds 11.7-14.7 INR (BEAKER) (test ghfj=865) 0.9 <=5.9 RECOMMENDED COUMADIN/WARFARIN INR THERAPY RANGESSTANDARD DOSE: 2.0 - 3.0 Includes: PROPHYLAXIS forvenous thrombosis, systemic embolization; TREATMENT for venous thrombosis and/or pulmonary embolus.HIGH RISK: Target INR is 2.5-3.5 for patients with mechanical heart valves.COMPREHENSIVE METABOLIC [id number] 12:16:00 Test Item Value Reference Range Comments TOTAL PROTEIN (BEAKER) 7.2 gm/dL 6.0-8.3 (test ixho=471) ALBUMIN (BEAKER) (test 4.3 g/dL 3.5-5.0 dvnj=5180) ALKALINE PHOSPHATASE 193 U/L 40-150 (BEAKER) (test gwnr=218) BILIRUBIN TOTAL (BEAKER) 4.4 mg/dL 0.2-1.2 (test uuak=250) SODIUM (BEAKER) (test 143 meq/L 136-145 afsw=355) POTASSIUM (BEAKER) (test 3.4 meq/L 3.5-5.1 oqtz=177) CHLORIDE (BEAKER) (test 108 meq/L 98-107 dtbt=203) CO2 (BEAKER) (test 26 meq/L 22-29 uwjm=984) BLOOD UREA NITROGEN 14 mg/dL 7-21 (BEAKER) (test agwd=587) CREATININE (BEAKER) (test 0.94 mg/dL 0.57-1.25 stwj=884) GLUCOSE RANDOM (BEAKER) 100 mg/dL 70-105 (test yqps=063) CALCIUM (BEAKER) (test 9.4 mg/dL 8.4-10.2 vnpf=465) AST (SGOT) (BEAKER) (test 310 U/L 5-34 vqzg=610) ALT (SGPT) (BEAKER) (test 572 U/L 6-55 qwxz=301) EGFR (BEAKER) (test 88 mL/min/1.73 sq m ESTIMATED GFR IS NOT xocp=6027) ACCURATE CREATININE CLEARANCE IN PREDICTING GLOMERULAR FILTRATION RATE. ESTIMATED GFR IS NOT APPLICABLE FOR DIALYSIS PATIENTS. Specimen slightly ictericLIPID [id number] 12:16:00 Test Item Value Reference Range Comments TRIGLYCERIDES (BEAKER) (test rfcf=857) 106 mg/dL CHOLESTEROL (BEAKER) (test iiep=122) 169 mg/dL HDL CHOLESTEROL (BEAKER) (test iren=259) 44 mg/dL LDL CHOLESTEROL CALCULATED (BEAKER) (test 104 mg/dL agws=217) Triglyceride Reference Range: Low Risk <150 Borderline 150- 199 High Risk 200-499 Very High Risk >=500Cholesterol Reference Range: Low Risk <200 Borderline 200-239 High Risk > 240HDL Cholesterol Reference Range: Low Risk >=60 High Risk <40LDL Cholesterol Reference Range: Optimal <100 Near Optimal 100-129 Borderline 130-159 High 160-189 Very High >=190 Specimen slightly [id number] 12:16:00 Test Item Value Reference Range Comments AMYLASE (BEAKER) (test ynxs=099) 887 U/L 25-125 Specimen slightly ictericBASIC METABOLIC [id number] 12:13:00 Test Item Value Reference Range Comments SODIUM (BEAKER) (test 144 meq/L 136-145 nusq=108) POTASSIUM (BEAKER) (test 3.4 meq/L 3.5-5.1 uvmi=445) CHLORIDE (BEAKER) (test 109 meq/L 98-107 wuqn=792) CO2 (BEAKER) (test 25 meq/L 22-29 qnxt=036) BLOOD UREA NITROGEN 15 mg/dL 7-21 (BEAKER) (test cacf=000) CREATININE (BEAKER) (test 0.92 mg/dL 0.57-1.25 dnow=800) GLUCOSE RANDOM (BEAKER) 100 mg/dL 70-105 (test ucev=170) CALCIUM (BEAKER) (test 9.4 mg/dL 8.4-10.2 vlij=289) EGFR (BEAKER) (test 91 mL/min/1.73 sq m ESTIMATED GFR IS NOT arme=7638) ACCURATE CREATININE CLEARANCE IN PREDICTING GLOMERULAR FILTRATION RATE. ESTIMATED GFR IS NOT APPLICABLE FOR DIALYSIS PATIENTS. Specimen slightly ictericCBC W/PLT COUNT & AUTO [id number] 12:10 :00 Test Item Value Reference Range Comments WHITE BLOOD CELL COUNT (BEAKER) (test pfop=557) 6.7 K/ L 3.5-10.5 RED BLOOD CELL COUNT (BEAKER) (test mgfh=099) 4.64 M/ L 4.63-6.08 HEMOGLOBIN (BEAKER) (test mmta=558) 13.3 GM/DL 13.7-17.5 HEMATOCRIT (BEAKER) (test pvnt=514) 40.9 % 40.1-51.0 MEAN CORPUSCULAR VOLUME (BEAKER) (test izml=956) 88.1 fL 79.0-92.2 MEAN CORPUSCULAR HEMOGLOBIN (BEAKER) (test 28.7 pg 25.7-32.2 pgmb=210) MEAN CORPUSCULAR HEMOGLOBIN CONC (BEAKER) (test 32.5 GM/DL 32.3-36.5 viqk=110) RED CELL DISTRIBUTION WIDTH (BEAKER) (test 12.7 % 11.6-14.4 gblw=865) PLATELET COUNT (BEAKER) (test wzil=187) 183 K/CU MM 150-450 MEAN PLATELET VOLUME (BEAKER) (test tshn=897) 10.5 fL 9.4-12.4 NUCLEATED RED BLOOD CELLS (BEAKER) (test 0 /100 WBC 0-0 xdzp=867) NEUTROPHILS RELATIVE PERCENT (BEAKER) (test 64 % afsu=557) LYMPHOCYTES RELATIVE PERCENT (BEAKER) (test 23 % xbes=566) MONOCYTES RELATIVE PERCENT (BEAKER) (test 11 % xsgh=994) EOSINOPHILS RELATIVE PERCENT (BEAKER) (test 1 % wlro=801) BASOPHILS RELATIVE PERCENT (BEAKER) (test 0 % teqy=486) NEUTROPHILS ABSOLUTE COUNT (BEAKER) (test 4.31 K/ L 1.78-5.38 lbgq=840) LYMPHOCYTES ABSOLUTE COUNT (BEAKER) (test 1.56 K/ L 1.32-3.57 fyct=637) MONOCYTES ABSOLUTE COUNT (BEAKER) (test 0.72 K/ L 0.30-0.82 tvng=305) EOSINOPHILS ABSOLUTE COUNT (BEAKER) (test 0.09 K/ L 0.04-0.54 ykeq=219) BASOPHILS ABSOLUTE COUNT (BEAKER) (test 0.03 K/ L 0.01-0.08 bsnd=876) IMMATURE GRANULOCYTES-RELATIVE PERCENT (BEAKER) 0 % 0-1 (test ourh=6832)
[2018-09-11] MEDS ORDERED: dexAMETHasone 10 MG/ML VIAL ONE (18:32)
[2018-09-11] MEDS ORDERED: DIPHENHYDRAMINE 50 MG/ML VIAL ONE (18:32)
[2018-09-11] MEDS ORDERED: NA CHLORIDE 0.9% 1,000 ML ONE (18:33)
[2018-09-11] MEDS ORDERED: FAMOTIDINE 20 MG/2 ML VIAL IV ONE (18:33)
--- NOTE | 2018-09-11 19:29 | ER ---
Nurse's Notes [facility] Name: Rm Hagen Age: 43 yrs Sex: Male : 1975 Arrival Date: 09/11/2018 Time: 17:46 Bed 15 Private MD: Diagnosis: Rash and other nonspecific skin eruption Presentation: 09/11 17:52 Presenting complaint: Patient states: itchy rash since around 1000 this morning. la1 Transition of care: patient was not received from another setting of care. Onset of symptoms was September 11, 2018. Risk Assessment: Do you want to hurt yourself or someone else? Patient reports no desire to harm self or others. Initial Sepsis Screen: Does the patient meet any 2 criteria? No. Patient's initial sepsis screen is negative. Does the patient have a suspected source of infection? No. Patient's initial sepsis screen is negative. Care prior to arrival: None. 17:52 Method Of Arrival: Ambulatory la1 17:52 Acuity: YADIEL 3 la1 Triage Assessment: 18:00 Pain: Denies pain. rb1 Historical: - Allergies: 17:53 NKA; la1 - PMHx: 17:53 Bipolar disorder; Depression; gastritis; Migraines; la1 - Immunization history:: Adult Immunizations up to date. - Social history:: Smoking status: Patient/guardian denies using tobacco. - Ebola Screening: : No symptoms or risks identified at this time. Screenin:00 Abuse screen: Denies threats or abuse. Nutritional screening: No deficits noted. rb1 Tuberculosis screening: No symptoms or risk factors identified. Fall Risk None identified. Assessment: 18:00 General: Appears uncomfortable, Behavior is cooperative, anxious, Reports hot flashes rb1 Denies fever. Neuro: Level of Consciousness is awake, alert, obeys commands, Oriented to person, place, time, situation. Cardiovascular: Capillary refill < 3 seconds is brisk in bilateral fingers. Respiratory: Airway is patent Respiratory effort is even, unlabored, Respiratory pattern is regular, symmetrical. GI: Reports soft stools. : No signs and/or symptoms were reported regarding the genitourinary system. Derm: Rash noted that is itchy, red, on Generalized. Musculoskeletal: Range of motion: intact in all extremities. 19:30 Reassessment: Patient appears in no apparent distress at this time. Patient and/or jb4 family updated on plan of care and expected duration. Pain level reassessed. Patient is alert, oriented x 3, equal unlabored respirations, skin warm/dry/pink. Patient states feeling better. Vital Signs: 17:53 BP 143 / 79; Pulse 96; Resp 16; Temp 97.1; Pulse Ox 98% on R/A; Weight 81.65 kg; Height la1 5 ft. 11 in. (180.34 cm); 19:50 BP 135 / 81; Pulse 64; Resp 16; Pulse Ox 100% on R/A; jb4 17:53 Body Mass Index 25.10 (81.65 kg, 180.34 cm) la1 ED Course: 17:46 Patient arrived in ED. as 17:52 Jose Sprague PA is PHCP. [facility] 17:52 Delmar Mcdermott MD is Attending Physician. [facility] 17:52 Triage completed. la1 17:53 Arm band placed on right wrist. la1 18:00 Patient has correct armband on for positive identification. Bed in low position. Call rb1 light in reach. Pulse ox on. NIBP on. 18:01 Wendy Henley, CAIN is Primary Nurse. rb1 18:20 Inserted saline lock: 22 gauge in left antecubital area, using aseptic technique. rb1 19:05 Report given to CAIN Oseguera. rb1 19:50 No provider procedures requiring assistance completed. IV discontinued, intact, jb4 bleeding controlled, No redness/swelling at site. Pressure dressing applied. Administered Medications: 18:30 Drug: NS 0.9% 1000 ml Route: IV; Rate: 1 bolus; Site: left antecubital; rb1 18:30 Drug: Decadron - Dexamethasone 10 mg Route: IVP; Site: left antecubital; rb1 18:45 Follow up: Response: No adverse reaction rb1 18:30 Drug: Pepcid 20 mg Route: IVP; Site: left antecubital; rb1 18:45 Follow up: Response: No adverse reaction rb1 18:30 Drug: diphenhydrAMINE 25 mg Route: IVP; Site: left antecubital; rb1 18:45 Follow up: Response: No adverse reaction; PT. reports less itching rb1 Intake: Outcome: 19:29 Discharge ordered by . [facility] 19:50 Discharged to home ambulatory, with family. jb4 19:50 Condition: stable 19:50 Discharge instructions given to patient, family, Instructed on discharge instructions, follow up and referral plans. medication usage, Demonstrated understanding of instructions, follow-up care, medications, Prescriptions given X 2. 19:51 Patient left the ED. jb4 Signatures: Jose Sprague PA PA jmm Martinez, Amelia as Attema, Lee, RN RN la1 Wendy Henley RN RN rb1 Florian Love RN RN jb4
--- NOTE | 2018-09-11 19:30 | EDPHYS ---
Physician Documentation [facility] Name: Rm Hagen Age: 43 yrs Sex: Male : 1975 Arrival Date: 09/11/2018 Time: 17:46 Bed 15 Private MD: ED Physician Delmar Mcdermott HPI: 09/11 18:05 This 43 yrs old Male presents to ER via Ambulatory with complaints of Rash. [facility] 18:05 The patient's rash thought to be caused by an unknown cause. The rash is located on the jmm body diffusely. Onset: The symptoms/episode began/occurred gradually, at 10:00. Associated signs and symptoms: Pertinent positives: itching, Pertinent negatives: fever, swelling of lips, swelling of throat, swelling of tongue, vomiting, wheezing. This is a 43 year old male with a history of bipolar, depression that presents to the ED with complaints of itchy diffuse rash beginning this morning. Patient denies fever, abdominal pain. patient is not currently taking any medicines at home except for tylenol as needed for headache. states recently used a new dog shampoo. Historical: - Allergies: 17:53 NKA; la1 - PMHx: 17:53 Bipolar disorder; Depression; gastritis; Migraines; la1 - Immunization history:: Adult Immunizations up to date. - Social history:: Smoking status: Patient/guardian denies using tobacco. - Ebola Screening: : No symptoms or risks identified at this time. ROS: 18:05 Constitutional: Negative for fever, chills, and weight loss, Cardiovascular: Negative jm for chest pain, palpitations, and edema, Respiratory: Negative for shortness of breath, cough, wheezing, and pleuritic chest pain. 18:05 Skin: Positive for rash. 18:05 All other systems are negative. Exam: 18:05 Head/Face: atraumatic. Eyes: EOMI, no conjunctival erythema appreciated ENT: Moist jmm Mucus Membranes Neck: Trachea midline, Supple Cardiovascular: Regular rate and rhythm. No edema appreciated Respiratory: Normal respirations, no respiratory distress appreciated 18:05 Abdomen/GI: Non distended, soft 18:05 MS/ Extremity: Moves all extremities, no obvious deformities appreciated, no edema noted to the lower extremities Neuro: Awake and alert, normal gait Psych: Behavior is normal, Mood is normal, Patient is cooperative and pleasant 18:05 Constitutional: The patient appears alert, awake, anxious, uncomfortable. 18:05 Chest/axilla: erythematous rash noted to the chest. 18:05 Back: erythematous rash noted to the back. Vital Signs: 17:53 BP 143 / 79; Pulse 96; Resp 16; Temp 97.1; Pulse Ox 98% on R/A; Weight 81.65 kg; Height la1 5 ft. 11 in. (180.34 cm); 19:50 BP 135 / 81; Pulse 64; Resp 16; Pulse Ox 100% on R/A; jb4 17:53 Body Mass Index 25.10 (81.65 kg, 180.34 cm) la1 MDM: 18:05 Patient medically screened. [facility] 19:27 Data reviewed: vital signs, nurses notes. Counseling: I had a detailed discussion with zachary the patient and/or guardian regarding: the historical points, exam findings, and any diagnostic results supporting the discharge/admit diagnosis, the need for outpatient follow up, to return to the emergency department if symptoms worsen or persist or if there are any questions or concerns that arise at home. 19:27 ED course: Symptoms have alleviated in the ED. Patient has no complaints of shortness jmm of breath, chest pain, abdominal pain. Patient will be prescribed oral steroids and given strict return precautions. Patient understood and agrees with the plan of care. . 09/11 18:08 Order name: Saline Lock; Complete Time: 18:35 [facility] Administered Medications: 18:30 Drug: NS 0.9% 1000 ml Route: IV; Rate: 1 bolus; Site: left antecubital; rb1 18:30 Drug: Decadron - Dexamethasone 10 mg Route: IVP; Site: left antecubital; rb1 18:45 Follow up: Response: No adverse reaction rb1 18:30 Drug: Pepcid 20 mg Route: IVP; Site: left antecubital; rb1 18:45 Follow up: Response: No adverse reaction rb1 18:30 Drug: diphenhydrAMINE 25 mg Route: IVP; Site: left antecubital; rb1 18:45 Follow up: Response: No adverse reaction; PT. reports less itching rb1 Disposition: 09/11/18 19:29 Discharged to Home. Impression: Rash and other nonspecific skin eruption. - Condition is Stable. - Discharge Instructions: Rash. - Prescriptions for Hydroxyzine HCl 25 mg Oral Tablet - take 1 tablet by ORAL route every 6 hours As needed; 30 tablet. Prednisone 20 mg Oral Tablet - take 3 tablet by ORAL route once daily for 5 days; 15 tablet. - Medication Reconciliation Form, Thank You Letter, Antibiotic Education, Prescription Opioid Use form. - Follow up: Private Physician; When: 2 - 3 days; Reason: Recheck today's complaints, Continuance of care, Re-evaluation by your physician. Addendum: 09/14/2018 15:57 Co-signature as Attending Physician, Delmar Mcdermott MD. r n Signatures: Jose Sprague PA PA jmm Nieto, Roman, MD MD rn True Carbajal RN RN la1 Wendy Henley, RN RN Florian Yun RN RN jb4 Corrections: (The following items were deleted from the chart) 09/11 19:51 19:29 09/11/2018 19:29 Discharged to Home. Impression: Rash and other nonspecific skin jb4 eruption. Condition is Stable. Forms are Medication Reconciliation Form, Thank You Letter, Antibiotic Education, Prescription Opioid Use. Follow up: Private Physician; When: 2 - 3 days; Reason: Recheck today's complaints, Continuance of care, Re-evaluation by your physician. zachary
== END 2018-09-11 19:51 | disposition home or self-care (01) ==
LOC: ER 17:45
DX: R21 Rash and other nonspecific skin eruption (principal)
CPT/HCPCS: 96374; 96375; 99284; J1100; J7030

== ENCOUNTER 2018-10-14 15:13 | Emergency (ER) | payer SELFPAY ==
--- OUTSIDE RECORDS SUMMARY | 2018-10-14 15:16 | XMS REPORT | Clinical Summary ---
:1975 Author Organization [facility] Address [address] [place] [address] Care Team Providers Name Role Phone Unavailable Primary Care Provider Unavailable Allergies No Known Allergies Medications Medication Sig Dispensed Refills Start Date End Date Status [id number]-zy Take 1 capsule 0 02/26/2018 Active ffeine [...] Gastroenterology Jefferson Hillman ERCP,PAPILLOTOMY MD [place] 04/06/2018 [facility] Internal [place], Elevated liver function tests; - Encounter Medicine Cherie Chan MD Acute cholecystitis; 04/10/2018 [place], Calculus of bile duct without cholecystitis with obstruction; [place] Symptomatic cholelithiasis MD Katelin Vasques, Akila Beebe MD 04/06/2018 Travel after 10/13/2017 Social History Tobacco Use Types Packs/Day Years [...] Taken Blood Pressure 102/50 04/10/2018 7:19 AM BANK MANAGER Pulse 59 04/10/2018 7:19 AM BANK MANAGER Temperature 36.2 C (97.1 F) 04/10/2018 7:19 AM BANK MANAGER Respiratory Rate 18 04/10/2018 7:19 AM BANK MANAGER Oxygen Saturation 99% 04/10/2018 7:19 AM BANK MANAGER Inhaled Oxygen Concentration 2% 04/08/2018 2:15 PM BANK MANAGER Weight 96.6 kg (213 lb) 04/10/2018 9:27 AM BANK MANAGER Height 180.3 cm (5' 11") 04/10/2018 9:27 AM BANK MANAGER Body Mass Index 29.71 04/10/2018 9:27 AM BANK MANAGER Plan of Treatment Not on file Procedures Procedure Name Priority Date/Time Associated Diagnosis Comments REPORT OF PROCEDURE 04/21/2018 - ENDOSCOPY SCAN 2:02 PM BANK MANAGER CBC W/PLT COUNT & Routine 04/10/2018 Results for AUTO DIFFERENTIAL 4:25 AM BANK MANAGER this procedure are in the results section. HEPATIC FUNCTION Routine 04/10/2018 Results for PANEL 4:25 AM BANK MANAGER this procedure are in the results section. BASIC METABOLIC Routine 04/10/2018 Results for PANEL (7) 4:25 AM BANK MANAGER this procedure are in the results section. CBC W/PLT COUNT & Routine 04/10/2018 Results for AUTO DIFFERENTIAL 4:25 AM BANK MANAGER this procedure are in the results section. CBC W/PLT COUNT & Routine 04/09/2018 Results for AUTO DIFFERENTIAL 5:51 AM BANK MANAGER this procedure are in the results section. HEPATIC FUNCTION Routine 04/09/2018 Results for PANEL 5:51 AM BANK MANAGER this procedure are in the results section. CBC W/PLT COUNT & Routine 04/09/2018 Results for AUTO DIFFERENTIAL 5:51 AM BANK MANAGER this procedure are in the results section. BASIC METABOLIC Routine 04/09/2018 Results for PANEL (7) 5:51 AM BANK MANAGER this procedure are in the results section. PHOSPHORUS Routine 04/09/2018 Results for 4:12 AM BANK MANAGER this procedure are in the results section. MAGNESIUM Routine 04/09/2018 Results for 4:12 AM BANK MANAGER this procedure are in the results section. TRANSFUSION SERVICE 04/08/2018 REPORT - SCAN 6:01 PM BANK MANAGER ANAEROBIC CULTURE Routine 04/08/2018 Results for 12:21 PM BANK MANAGER this procedure are in the results section. SURGICALLY OBTAINED Routine 04/08/2018 Results for CULTURE + GRAM 12:21 PM BANK MANAGER this procedure STAIN are in the results section. TISSUE EXAM AP Routine 04/08/2018 Results for 12:21 PM BANK MANAGER this procedure are in the results section. LAPAROSCOPY,CHOLECY 04/08/2018 Choledocholithiasis STECTOMY 9:00 AM BANK MANAGER CBC W/PLT COUNT & Routine 04/08/2018 Results for AUTO DIFFERENTIAL 4:41 AM BANK MANAGER this procedure are in the results section. HEPATIC FUNCTION Routine 04/08/2018 Results for PANEL 4:41 AM BANK MANAGER this procedure are in the results section. CBC W/PLT COUNT & Routine 04/08/2018 Results for AUTO DIFFERENTIAL 4:41 AM BANK MANAGER this procedure are in the results section. PHOSPHORUS Routine 04/08/2018 Results for 4:41 AM BANK MANAGER this procedure are in the results section. MAGNESIUM Routine 04/08/2018 Results for 4:41 AM BANK MANAGER this procedure are in the results section. BASIC METABOLIC Routine 04/08/2018 Results for PANEL (7) 4:41 AM BANK MANAGER this procedure are in the results section. TRANSFUSION SERVICE 04/07/2018 REPORT - SCAN 6:01 PM BANK MANAGER REPORT OF PROCEDURE 04/07/2018 - ENDOSCOPY URL 3:48 PM BANK MANAGER CBC W/PLT COUNT & Routine 04/07/2018 Results for AUTO DIFFERENTIAL 8:04 AM BANK MANAGER this procedure are in the results section. ABORH, MANUAL STAT 04/07/2018 Results for 8:04 AM BANK MANAGER this procedure are in the results section. LIPASE Routine 04/07/2018 Results for 8:04 AM BANK MANAGER this procedure are in the results section. HEPATIC FUNCTION Routine 04/07/2018 Results for PANEL 8:04 AM BANK MANAGER this procedure are in the results section. CBC W/PLT COUNT & Routine 04/07/2018 Results for AUTO DIFFERENTIAL 8:04 AM BANK MANAGER this procedure are in the results section. PHOSPHORUS Routine 04/07/2018 Results for 8:04 AM BANK MANAGER this procedure are in the results section. MAGNESIUM Routine 04/07/2018 Results for 8:04 AM BANK MANAGER this procedure are in the results section. BASIC METABOLIC Routine 04/07/2018 Results for PANEL (7) 8:04 AM BANK MANAGER this procedure are in the results section. US ABDOMEN COMPLETE STAT 04/07/2018 Results for 6:51 AM BANK MANAGER this procedure are in the results section. TYPE AND SCREEN, Routine 04/06/2018 Results for AUTOMATED 9:54 PM BANK MANAGER this procedure are in the results section. FL ERCP Routine 04/06/2018 Results for 3:05 PM BANK MANAGER this procedure are in the results section. ERCP,BALLOON 04/06/2018 Gall stones, common bile SWEEPING 2:00 PM BANK MANAGER duct Special Needs ercp w/ anes and fluoro PROCEDURE W/ C-ARM 04/06/2018 2:00 PM BANK MANAGER Gall stones, common bile duct Special Needs ercp w/ anes and fluoro ERCP,PAPILLOTOMY 04/06/2018 2:00 PM BANK MANAGER Gall stones, common bile duct Special Needs ercp w/ anes and fluoro BLOOD CULTURE Routine 04/06/2018 12:44 PM BANK MANAGER CBC W/PLT COUNT & AUTO Routine 04/06/2018 11:19 AM BANK MANAGER Results for this DIFFERENTIAL procedure are in the results section. PROTHROMBIN TIME/INR STAT 04/06/2018 11:19 AM BANK MANAGER COMPREHENSIVE METABOLIC STAT 04/06/2018 11:19 AM BANK MANAGER Results for this PANEL procedure are in the results section. LIPASE Routine 04/06/2018 11:19 AM BANK MANAGER AMYLASE Routine 04/06/2018 11:19 AM BANK MANAGER HEPATITIS PANEL, ACUTE Routine 04/06/2018 11:19 AM BANK MANAGER CBC W/PLT COUNT & AUTO Routine 04/06/2018 11:19 AM BANK MANAGER Results for this DIFFERENTIAL procedure are in the results section. LIPID PANEL Routine 04/06/2018 11:19 AM BANK MANAGER BASIC METABOLIC PANEL (7) Routine 04/06/2018 11:19 AM BANK MANAGER BLOOD CULTURE Routine 04/06/2018 11:18 AM BANK MANAGER after 10/13/2017 Results EKG-SCANNED (04/21/2018 2:02 PM BANK MANAGER) Narrative Performed At CBC with platelet count + automated diff (04/10/2018 4:25 AM BANK MANAGER)Only the most recent of5 resultswithin the time period is included. WBC 5.9 3.5 - 10.5 K/L [facility] RBC 4.17 (L) 4.63 - 6.08 M/L [facility] Hemoglobin 11.7 (L) 13.7 - 17.5 GM/DL [facility] Hematocrit 36.8 (L) 40.1 - 51.0 % [facility] MCV 88.2 79.0 - 92.[address] [facility] MCH 28.1 25.7 - 32.[address] [facility] MCHC 31.8 (L) 32.3 - 36.5 GM/DL [facility] RDW 12.8 11.6 - 14.4 % [facility] Platelets 182 150 - 450 K/CU MM [facility] MPV 10.9 9.4 - 12.[address] [facility] nRBC 0 0 - 0 /[address] [facility] % Neutros 56 % [facility] % Lymphs 29 % [facility] % Monos 12 % [facility] % Eos 2 % [facility] % Baso 1 % [facility] # Neutros 3.28 1.78 - 5.38 K/L [facility] # Lymphs 1.73 1.32 - 3.57 K/L [facility] # Monos 0.70 0.30 - 0.82 K/L [facility] # Eos 0.14 0.04 - 0.54 K/L [facility] # Baso 0.03 0.01 - 0.08 K/L [facility] Immature Granulocytes-Relative 0 0 - 1 % [facility] Specimen Blood Performing Organization Address City/[facility] Phone Number [address] [address] [place] Hepatic function panel (04/10/2018 4:25 AM BANK MANAGER)Only the most recent of4 resultswithin the time period is included. Protein, Total 6.3 6.0 - 8.3 gm/dL [facility] Albumin 3.6 3.5 - 5.0 g/dL [facility] Total Bilirubin 0.8 0.2 - 1.2 mg/dL [facility] Bilirubin, Direct 0.5 0.1 - 0.5 mg/dL [facility] Alkaline Phosphatase 111 40 - 150 U/L [facility] AST 76 (H) 5 - 34 U/L [facility] ALT 261 (H) 6 - 55 U/L [facility] Specimen Blood Performing Organization Address City/[facility]/Zipcode Phone Number [address] [address] [phone] [place] Basic Metabolic Panel (04/10/2018 4:25 AM BANK MANAGER)Only the most recent of5 resultswithin the time period is included. Sodium 139 136 - 145 meq/L [facility] Potassium 3.2 (L) 3.5 - 5.1 meq/L [facility] Chloride 106 98 - 107 meq/L [facility] CO2 25 22 - 29 meq/L [facility] BUN 6 (L) 7 - 21 mg/dL [facility] Creatinine 0.72 0.57 - 1.25 mg/dL [facility] Glucose 80 70 - 105 mg/dL [facility] Calcium 9.1 8.4 - 10.2 mg/dL [facility] EGFR 120Comment: ESTIMATED GFR IS mL/min/1.73 sq m [facility] NOT ACCURATE CREATININE [facility] CENTER CLEARANCE IN PREDICTING GLOMERULAR FILTRATION RATE. ESTIMATED GFR IS NOT APPLICABLE FOR DIALYSIS PATIENTS. Specimen Blood Performing Organization Address City/[facility] Hospital[facility] Phone Number [address] [phone] [place] Phosphorus (04/09/2018 4:12 AM BANK MANAGER)Only the most recent of3 resultswithin the time period is included. Phosphorus 2.9 2.3 - 4.7 mg/dL [facility] Specimen Blood Performing Organization Address City/[facility] Phone Number [address] [address] [phone] CENTER Magnesium (04/09/2018 4:12 AM BANK MANAGER)Only the most recent of3 resultswithin the time period is included. Magnesium 1.6 1.6 - 2.6 mg/dL [facility] Specimen Blood Performing Organization Address [facility] Phone Number [address] [address] [place] TRANSFUSION SERVICE REPORT - SCAN (04/08/2018 6:01 PM BANK MANAGER)Only the most recent of2 resultswithin the time period is included. Narrative Performed At Anaerobic culture (04/08/2018 12:21 PM BANK MANAGER) Result No anaerobes isolated [facility] Specimen Body Fluid Performing Organization Address City/[facility]/Zipcode Phone Number [facility] [address] [place] [address] [place] Surgically obtained culture + gram stain (04/08/2018 12:21 PM BANK MANAGER) Result No growth [facility] Gram Stain Result 1+ White blood cells seen [facility] Gram Stain Result No organisms seen [facility] Specimen Body Fluid Performing Organization Address City/[facility]/Zipcode Phone Number [facility] [address] [place] [phone] [place] Tissue Exam (04/08/2018 12:21 PM BANK MANAGER) Case Report Surgical Pathology Report Case: [id number] [facility] Authorizing Provider:Jaylene Daugherty MD Collected: 04/08/2018 1221 [facility] Ordering Location: [address] Received: 04/08/2018 1350 Service Pathologist: Evie Vizcaino MD Specimen:Gallbladder DIAGNOSIS GALLBLADDER, LAPAROSCOPIC CHOLECYSTECTOMY: [facility] - CHRONIC CHOLECYSTITIS WITH ULCERATED/ERODED MUCOSA [facility] - CHOLELITHIASIS - SUGGESTIVE OF CHOLESTEROL GRANULOMA - CYSTIC DUCT WITH ORGANIZED THROMBUS AT THE MARGIN - NEGATIVE FOR DYSPLASIA OR MALIGNANCY Signing Pathologist Direct Phone Line: [phone] CPT Code(s) [address] [facility] CLINICAL HISTORY Choledocholithiasis [facility] SPECIMEN SOURCE Gallbladder [facility] GROSS DESCRIPTION The specimen is received in formalin-filled container labeled with the patient's information and labeled "gallbladder". It consists of an intact gallbladder measuring 5.5 x 2 cm with a gallbladder wall [facility] thickness of 0.2 cm. The gallbladder lumen is impacted with numerous green- pearly smooth stones measuring up to 0.5 cm. The bile is canada-red and thin. The mucosa is canada-red and smooth with trabeculation. No masses are seen. [facility] Section code: A1, margin en face; A2, gallbladder wall. CG/ew MICROSCOPIC DESCRIPTION Performed [facility] Specimen Tissue Performing Organization Address City/State/Zipcode Phone Number [facility] [address] [place] [phone] CENTER REPORT OF PROCEDURE - ENDOSCOPY URL (04/07/2018 3:48 PM BANK MANAGER) Narrative Performed At ABORH, manual (04/07/2018 8:04 AM BANK MANAGER) ABO Grouping A [facility] Rh Factor POS [facility] Specimen Blood Performing Organization Address City/[facility]/Zipcode Phone Number [address] [phone] Lipase (04/07/2018 8:04 AM BANK MANAGER)Only the most recent of2 resultswithin the time period is included. Lipase 882 (H) 8 - 78 U/L [facility] Specimen Blood Performing Organization Address City/[facility]/Zipcode Phone Number [facility] [address] [place] [address] [phone] CENTER US abdomen complete (04/07/2018 6:51 AM BANK MANAGER) Specimen Narrative Performed At FINAL REPORT [facility] Abdominal Ultrasound Clinical Diagnosis: Abdomen pain Comparison: [...] MD Report Verified Date/Time:04/07/2018 09:32:02 Reading Location: [address] Ultrasound Reading Room Procedure Note Interface, External Ris In - 04/07/2018 9:34 AM BANK MANAGER FINAL REPORT Abdominal Ultrasound Clinical Diagnosis: Abdomen [...] Report Verified Date/Time: 04/07/2018 09:32:02 Reading Location: [address] Ultrasound Reading Room Performing Organization Address City/State/Zipcode Phone Number [facility] ([place], [place]) Type and screen, automated (04/06/2018 9:54 PM BANK MANAGER) ABO/RH AUTOMATED (BEAKER) A POSITIVE [facility] Ab Scrn NEGATIVE [facility] Specimen Blood Performing Organization Address City/[facility]/Zipcode Phone Number [address] [address] [phone] [place] ERCP (04/06/2018 3:05 PM BANK MANAGER) Specimen Narrative Performed At FINAL REPORT GE [...] MD Report Verified Date/Time:04/06/2018 15:34:35 Reading Location: [address] Consult Reading Room Procedure Note Interface, External Ris In - 04/06/2018 3:36 PM BANK MANAGER FINAL REPORT ERCP Clinical History: BILIARY OBSTRUCTION Impression: Intraoperative images are obtained. The radiologist is not present during the procedure. Images are presented for interpretation at the completion of the procedure. Please refer to the procedure report for more details. Number of images obtained: 3 Fluoroscopic time: 62.4 seconds Signed: Alok Maria MD Report Verified Date/Time: 04/06/2018 15:34:35 Reading Location: [facility] Consult Reading Room Performing Organization Address City/State/Zipcode Phone Number [facility] Blood culture (04/06/2018 12:44 PM BANK MANAGER)Only the most recent of2 resultswithin the time period is included. Result No growth in [address] [facility] Specimen Blood Performing Organization Address City/[facility]/Zipcode Phone Number [address] [address] [phone] CENTER Hepatitis panel, acute (04/06/2018 11:19 AM BANK MANAGER) Hep A IgM Nonreactive Nonreactive [facility] Hep B C IgM Nonreactive Nonreactive [facility] Hepatitis C Ab Nonreactive Nonreactive [facility] hepatitis B Surface Ag Nonreactive Nonreactive [facility] Specimen Blood Performing Organization Address City/[facility]/Zipcode Phone Number [address] [phone] [place] Prothrombin time/INR (04/06/2018 11:19 AM BANK MANAGER) Protime 12.5 11.7 - 14.[address] [facility] INR 0.9 <=5.9 [facility] Specimen Blood Narrative Performed At RECOMMENDED COUMADIN/WARFARIN INR THERAPY [facility] RANGES STANDARD DOSE: 2.0 - 3.0 Includes: PROPHYLAXIS for venous thrombosis, systemic embolization; TREATMENT for venous thrombosis and/or pulmonary embolus. HIGH RISK: Target INR is 2.5-3.5 for patients with mechanical heart valves. Performing Organization Address City/[facility] Phone Number [address] [address] [place] Amylase (04/06/2018 11:19 AM BANK MANAGER) Amylase 887 (H) 25 - 125 U/L [facility] Specimen Blood Narrative Performed At Specimen slightly icteric [facility] Performing Organization Address City/State/Zipcode Phone Number [address] [address] [place] Lipid panel (04/06/2018 11:19 AM BANK MANAGER) Triglycerides 106 mg/dL [facility] Cholesterol 169 mg/dL [facility] HDL 44 mg/dL [facility] LDL Calculated 104 mg/dL [facility] Specimen Blood Narrative Performed At Triglyceride Reference Range: [facility] Low Risk <150 [id number] High Risk 200-499 Very High Risk>=500 Cholesterol Reference Range: Low Risk <200 [id number] High Risk>240 HDL Cholesterol Reference Range: Low Risk >=60 High Risk <40 LDL Cholesterol Reference Range: Optimal<100 Near Rcuzfkq186-181 [id number] [id number] Very High >=190 Specimen slightly icteric Performing Organization Address City/State/Zipcode Phone Number [facility] [address] [place] [address] [phone] CENTER Comprehensive metabolic panel (04/06/2018 11:19 AM BANK MANAGER) Protein, Total 7.2 6.0 - 8.3 gm/dL [facility] Albumin 4.3 3.5 - 5.0 g/dL [facility] Alkaline Phosphatase 193 (H) 40 - 150 U/L [facility] Total Bilirubin 4.4 (H) 0.2 - 1.2 mg/dL [facility] Sodium 143 136 - 145 meq/L [facility] Potassium 3.4 (L) 3.5 - 5.1 meq/L [facility] Chloride 108 (H) 98 - 107 meq/L [facility] CO2 26 22 - 29 meq/L [facility] BUN 14 7 - 21 mg/dL [facility] Creatinine 0.94 0.57 - 1.25 mg/dL [facility] Glucose 100 70 - 105 mg/dL [facility] Calcium 9.4 8.4 - 10.2 mg/dL [facility] AST 310 (H) 5 - 34 U/L [facility] ALT 572 (H) 6 - 55 U/L [facility] EGFR 88Comment: ESTIMATED GFR mL/min/1.73 sq m [facility] IS NOT ACCURATE [facility] CREATININE CLEARANCE IN PREDICTING GLOMERULAR FILTRATION RATE. ESTIMATED GFR IS NOT APPLICABLE FOR DIALYSIS PATIENTS. Specimen Blood Narrative Performed At Specimen slightly icteric [facility] Performing Organization Address City/State/Zipcode Phone Number [address] [address] CENTER after 10/13/2017 Advance Directives For more information, please contact:[address] [phone] Code Status Date Activated Date Inactivated Comments Full Code 04/06/2018 9:53 AM This code status was determined by: Patient
--- OUTSIDE RECORDS SUMMARY | 2018-10-14 15:16 | XMS REPORT ---
:1975 Author Organization [facility] Address [address] [place] [address] Care Team Providers Name Role Phone MAIDA GABBY M. Unavailable Unavailable Problems This patient has no known problems. Allergies, Adverse Reactions, Alerts This patient has no known allergies or adverse reactions. Medications This patient has no known medications. 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 - NEGATIVE FOR DYSPLASIA OR MALIGNANCY Signing Pathologist Direct Phone Line: [phone] signed by Evie Vizcaino MD on 04/12/2018 at 3:22 [id number] Choledocholithiasis Gallbladder The specimen is received in [...] Value Reference Range Comments CULTURE (BEAKER) (test fwjk=9054) No anaerobes isolated BLOOD [id number] 19:01:00 Test Item Value Reference Range Comments CULTURE (BEAKER) (test dqrr=2856) No growth in 5 days BLOOD [id number] 19:01:00 Test Item Value Reference Range Comments CULTURE (BEAKER) (test apqc=7779) No growth in 5 days SURGICALLY OBTAINED CULTURE + GRAM [id number] 13:40:00 Test Item Value Reference Range Comments CULTURE (BEAKER) (test gksc=3590) No growth GRAM STAIN RESULT (BEAKER) (test 1+ White blood cells seen oofy=1504) GRAM STAIN RESULT (BEAKER) (test No organisms seen grcq=96062) HEPATIC FUNCTION [id number] 05:34:00 Test Item Value Reference Range Comments TOTAL PROTEIN (BEAKER) (test buqn=538) 6.3 gm/dL 6.0-8.3 ALBUMIN (BEAKER) (test ckjy=3053) 3.6 g/dL 3.5-5.0 BILIRUBIN TOTAL (BEAKER) (test wvbr=929) 0.8 mg/dL 0.2-1.2 BILIRUBIN DIRECT (BEAKER) (test yqnz=854) 0.5 mg/dL 0.1-0.5 ALKALINE PHOSPHATASE (BEAKER) (test bjqd=987) 111 U/L 40-150 AST (SGOT) (BEAKER) (test frqj=571) 76 U/L 5-34 ALT (SGPT) (BEAKER) (test mayo=136) 261 U/L 6-55 BASIC METABOLIC [id number] 05:34:00 Test Item Value Reference Range Comments SODIUM (BEAKER) (test 139 meq/L 136-145 kuem=114) POTASSIUM (BEAKER) (test 3.2 meq/L 3.5-5.1 pesc=468) CHLORIDE (BEAKER) (test 106 meq/L 98-107 pzsl=241) CO2 (BEAKER) (test 25 meq/L 22-29 ofnr=770) BLOOD UREA NITROGEN 6 mg/dL 7-21 (BEAKER) (test zfow=245) CREATININE (BEAKER) (test 0.72 mg/dL 0.57-1.25 zpto=002) GLUCOSE RANDOM (BEAKER) 80 mg/dL 70-105 (test iezc=679) CALCIUM (BEAKER) (test 9.1 mg/dL 8.4-10.2 ahgh=848) EGFR (BEAKER) (test 120 mL/min/1.73 sq m ESTIMATED GFR IS NOT yous=1440) ACCURATE CREATININE CLEARANCE IN PREDICTING GLOMERULAR FILTRATION RATE. ESTIMATED GFR IS NOT APPLICABLE FOR DIALYSIS PATIENTS. CBC W/PLT COUNT & AUTO [id number] 05:12:00 Test Item Value Reference Range Comments WHITE BLOOD CELL COUNT (BEAKER) (test fnvw=882) 5.9 K/ L 3.5-10.5 RED BLOOD CELL COUNT (BEAKER) (test uecr=707) 4.17 M/ L 4.63-6.08 HEMOGLOBIN (BEAKER) (test licq=091) 11.7 GM/DL 13.7-17.5 HEMATOCRIT (BEAKER) (test kjkx=588) 36.8 % 40.1-51.0 MEAN CORPUSCULAR VOLUME (BEAKER) (test vvin=192) 88.2 fL 79.0-92.2 MEAN CORPUSCULAR HEMOGLOBIN (BEAKER) (test 28.1 pg 25.7-32.2 ccji=100) MEAN CORPUSCULAR HEMOGLOBIN CONC (BEAKER) (test 31.8 GM/DL 32.3-36.5 ypwz=478) RED CELL DISTRIBUTION WIDTH (BEAKER) (test 12.8 % 11.6-14.4 nhfm=465) PLATELET COUNT (BEAKER) (test litx=613) 182 K/CU MM 150-450 MEAN PLATELET VOLUME (BEAKER) (test gyft=157) 10.9 fL 9.4-12.4 NUCLEATED RED BLOOD CELLS (BEAKER) (test 0 /100 WBC 0-0 ejtu=944) NEUTROPHILS RELATIVE PERCENT (BEAKER) (test 56 % nbrn=331) LYMPHOCYTES RELATIVE PERCENT (BEAKER) (test 29 % wsic=462) MONOCYTES RELATIVE PERCENT (BEAKER) (test 12 % eqzk=420) EOSINOPHILS RELATIVE PERCENT (BEAKER) (test 2 % bjdv=536) BASOPHILS RELATIVE PERCENT (BEAKER) (test 1 % hlos=939) NEUTROPHILS ABSOLUTE COUNT (BEAKER) (test 3.28 K/ L 1.78-5.38 hacj=624) LYMPHOCYTES ABSOLUTE COUNT (BEAKER) (test 1.73 K/ L 1.32-3.57 xmyq=303) MONOCYTES ABSOLUTE COUNT (BEAKER) (test 0.70 K/ L 0.30-0.82 ptue=036) EOSINOPHILS ABSOLUTE COUNT (BEAKER) (test 0.14 K/ L 0.04-0.54 ohlf=701) BASOPHILS ABSOLUTE COUNT (BEAKER) (test 0.03 K/ L 0.01-0.08 cnje=153) IMMATURE GRANULOCYTES-RELATIVE PERCENT (BEAKER) 0 % 0-1 (test cyyl=1493) HEPATIC FUNCTION [id number] 07:32:00 Test Item Value Reference Range Comments TOTAL PROTEIN (BEAKER) (test yvua=553) 6.2 gm/dL 6.0-8.3 ALBUMIN (BEAKER) (test sikx=5219) 3.5 g/dL 3.5-5.0 BILIRUBIN TOTAL (BEAKER) (test wpom=911) 0.9 mg/dL 0.2-1.2 BILIRUBIN DIRECT (BEAKER) (test ulkn=903) 0.6 mg/dL 0.1-0.5 ALKALINE PHOSPHATASE (BEAKER) (test hnyc=691) 121 U/L 40-150 AST (SGOT) (BEAKER) (test hbts=050) 183 U/L 5-34 ALT (SGPT) (BEAKER) (test dyeg=336) 390 U/L 6-55 BASIC METABOLIC [id number] 07:32:00 Test Item Value Reference Range Comments SODIUM (BEAKER) (test 140 meq/L 136-145 vygb=939) POTASSIUM (BEAKER) (test 3.4 meq/L 3.5-5.1 ndth=108) CHLORIDE (BEAKER) (test 107 meq/L 98-107 ronz=012) CO2 (BEAKER) (test 24 meq/L 22-29 bteq=647) BLOOD UREA NITROGEN 8 mg/dL 7-21 (BEAKER) (test mzln=428) CREATININE (BEAKER) (test 0.70 mg/dL 0.57-1.25 itzo=369) GLUCOSE RANDOM (BEAKER) 73 mg/dL 70-105 (test nbdr=225) CALCIUM (BEAKER) (test 8.9 mg/dL 8.4-10.2 jqom=570) EGFR (BEAKER) (test 124 mL/min/1.73 sq m ESTIMATED GFR IS NOT mazq=2764) ACCURATE CREATININE CLEARANCE IN PREDICTING GLOMERULAR FILTRATION RATE. ESTIMATED GFR IS NOT APPLICABLE FOR DIALYSIS PATIENTS. [id number] 06:22:00 Test Item Value Reference Range Comments PHOSPHORUS (BEAKER) (test adbi=204) 2.9 mg/dL 2.3-4.7 [id number] 06:22:00 Test Item Value Reference Range Comments MAGNESIUM (BEAKER) (test wluk=121) 1.6 mg/dL 1.6-2.6 CBC W/PLT COUNT & AUTO [id number] 06:07:00 Test Item Value Reference Range Comments WHITE BLOOD CELL COUNT (BEAKER) (test tatt=740) 8.8 K/ L 3.5-10.5 RED BLOOD CELL COUNT (BEAKER) (test dxqo=706) 4.07 M/ L 4.63-6.08 HEMOGLOBIN (BEAKER) (test phed=236) 11.7 GM/DL 13.7-17.5 HEMATOCRIT (BEAKER) (test ztkx=219) 35.6 % 40.1-51.0 MEAN CORPUSCULAR VOLUME (BEAKER) (test vxuh=716) 87.5 fL 79.0-92.2 MEAN CORPUSCULAR HEMOGLOBIN (BEAKER) (test 28.7 pg 25.7-32.2 gadb=015) MEAN CORPUSCULAR HEMOGLOBIN CONC (BEAKER) (test 32.9 GM/DL 32.3-36.5 wadi=868) RED CELL DISTRIBUTION WIDTH (BEAKER) (test 12.9 % 11.6-14.4 vewp=030) PLATELET COUNT (BEAKER) (test npae=236) 169 K/CU MM 150-450 MEAN PLATELET VOLUME (BEAKER) (test seeb=891) 10.5 fL 9.4-12.4 NUCLEATED RED BLOOD CELLS (BEAKER) (test 0 /100 WBC 0-0 nzdj=384) NEUTROPHILS RELATIVE PERCENT (BEAKER) (test 72 % yrrk=430) LYMPHOCYTES RELATIVE PERCENT (BEAKER) (test 16 % ygay=564) MONOCYTES RELATIVE PERCENT (BEAKER) (test 10 % zupg=219) EOSINOPHILS RELATIVE PERCENT (BEAKER) (test 1 % letg=394) BASOPHILS RELATIVE PERCENT (BEAKER) (test 0 % dwet=267) NEUTROPHILS ABSOLUTE COUNT (BEAKER) (test 6.37 K/ L 1.78-5.38 pvfh=457) LYMPHOCYTES ABSOLUTE COUNT (BEAKER) (test 1.42 K/ L 1.32-3.57 peyn=601) MONOCYTES ABSOLUTE COUNT (BEAKER) (test 0.91 K/ L 0.30-0.82 cktt=347) EOSINOPHILS ABSOLUTE COUNT (BEAKER) (test 0.09 K/ L 0.04-0.54 qfhz=243) BASOPHILS ABSOLUTE COUNT (BEAKER) (test 0.02 K/ L 0.01-0.08 xyxq=190) IMMATURE GRANULOCYTES-RELATIVE PERCENT (BEAKER) 0 % 0-1 (test rxyy=6817) [id number] 05:54:00 Test Item Value Reference Range Comments PHOSPHORUS (BEAKER) (test tgtx=221) 2.7 mg/dL 2.3-4.7 [id number] 05:54:00 Test Item Value Reference Range Comments MAGNESIUM (BEAKER) (test etxy=856) 1.5 mg/dL 1.6-2.6 BASIC METABOLIC [id number] 05:54:00 Test Item Value Reference Range Comments SODIUM (BEAKER) (test 137 meq/L 136-145 zahg=544) POTASSIUM (BEAKER) (test 3.4 meq/L 3.5-5.1 gxgs=356) CHLORIDE (BEAKER) (test 105 meq/L 98-107 rtah=116) CO2 (BEAKER) (test 21 meq/L 22-29 fbnv=255) BLOOD UREA NITROGEN 9 mg/dL 7-21 (BEAKER) (test rcwl=449) CREATININE (BEAKER) (test 0.78 mg/dL 0.57-1.25 imzo=871) GLUCOSE RANDOM (BEAKER) 69 mg/dL 70-105 (test rmhv=340) CALCIUM (BEAKER) (test 8.9 mg/dL 8.4-10.2 rtuk=675) EGFR (BEAKER) (test 110 mL/min/1.73 sq m ESTIMATED GFR IS NOT zqjw=3144) ACCURATE CREATININE CLEARANCE IN PREDICTING GLOMERULAR FILTRATION RATE. ESTIMATED GFR IS NOT APPLICABLE FOR DIALYSIS PATIENTS. HEPATIC FUNCTION [id number] 05:54:00 Test Item Value Reference Range Comments TOTAL PROTEIN (BEAKER) (test zkow=278) 6.5 gm/dL 6.0-8.3 ALBUMIN (BEAKER) (test wdtj=3518) 3.8 g/dL 3.5-5.0 BILIRUBIN TOTAL (BEAKER) (test xpmj=799) 1.2 mg/dL 0.2-1.2 BILIRUBIN DIRECT (BEAKER) (test jvnc=451) 0.7 mg/dL 0.1-0.5 ALKALINE PHOSPHATASE (BEAKER) (test lplq=114) 147 U/L 40-150 AST (SGOT) (BEAKER) (test dkpy=256) 113 U/L 5-34 ALT (SGPT) (BEAKER) (test aerz=825) 333 U/L 6-55 CBC W/PLT COUNT & AUTO [id number] 05:40:00 Test Item Value Reference Range Comments WHITE BLOOD CELL COUNT (BEAKER) (test ifyn=065) 11.9 K/ L 3.5-10.5 RED BLOOD CELL COUNT (BEAKER) (test lhlx=702) 4.06 M/ L 4.63-6.08 HEMOGLOBIN (BEAKER) (test grxv=229) 11.8 GM/DL 13.7-17.5 HEMATOCRIT (BEAKER) (test tvpr=978) 35.8 % 40.1-51.0 MEAN CORPUSCULAR VOLUME (BEAKER) (test rcid=783) 88.2 fL 79.0-92.2 MEAN CORPUSCULAR HEMOGLOBIN (BEAKER) (test 29.1 pg 25.7-32.2 qrta=629) MEAN CORPUSCULAR HEMOGLOBIN CONC (BEAKER) (test 33.0 GM/DL 32.3-36.5 nonq=861) RED CELL DISTRIBUTION WIDTH (BEAKER) (test 12.8 % 11.6-14.4 ztfz=597) PLATELET COUNT (BEAKER) (test ttot=572) 166 K/CU MM 150-450 MEAN PLATELET VOLUME (BEAKER) (test nyyv=640) 11.0 fL 9.4-12.4 NUCLEATED RED BLOOD CELLS (BEAKER) (test 0 /100 WBC 0-0 lwnj=044) NEUTROPHILS RELATIVE PERCENT (BEAKER) (test 74 % mivd=275) LYMPHOCYTES RELATIVE PERCENT (BEAKER) (test 15 % egub=013) MONOCYTES RELATIVE PERCENT (BEAKER) (test 10 % orrp=828) EOSINOPHILS RELATIVE PERCENT (BEAKER) (test 1 % phms=446) BASOPHILS RELATIVE PERCENT (BEAKER) (test 0 % yomb=325) NEUTROPHILS ABSOLUTE COUNT (BEAKER) (test 8.76 K/ L 1.78-5.38 smlt=326) LYMPHOCYTES ABSOLUTE COUNT (BEAKER) (test 1.80 K/ L 1.32-3.57 jsto=759) MONOCYTES ABSOLUTE COUNT (BEAKER) (test 1.12 K/ L 0.30-0.82 jsid=239) EOSINOPHILS ABSOLUTE COUNT (BEAKER) (test 0.08 K/ L 0.04-0.54 zugu=365) BASOPHILS ABSOLUTE COUNT (BEAKER) (test 0.04 K/ L 0.01-0.08 odla=089) IMMATURE GRANULOCYTES-RELATIVE PERCENT (BEAKER) 0 % 0-1 (test bkxu=8490) [id number] 11:43:00 Test Item Value Reference Range Comments LIPASE (BEAKER) (test qhgr=318) 882 U/L 8-78 U/S, ABDOMINAL, [id number] 09:32:00Reason for exam:->abd pain Reason for exam:->Please [...] Verified Date/Time : 04/07/2018 09:32:02 Reading Location: [facility] [id number] Ultrasound Reading Room HEPATIC FUNCTION [id number] 08:43:00 Test Item Value Reference Range Comments TOTAL PROTEIN (BEAKER) (test xykv=430) 6.3 gm/dL 6.0-8.3 ALBUMIN (BEAKER) (test ibms=5849) 3.7 g/dL 3.5-5.0 BILIRUBIN TOTAL (BEAKER) (test uczz=567) 1.3 mg/dL 0.2-1.2 BILIRUBIN DIRECT (BEAKER) (test tgzm=660) 0.8 mg/dL 0.1-0.5 ALKALINE PHOSPHATASE (BEAKER) (test cswc=155) 165 U/L 40-150 AST (SGOT) (BEAKER) (test xvbo=441) 164 U/L 5-34 ALT (SGPT) (BEAKER) (test lmjw=701) 401 U/L 6-55 BASIC METABOLIC [id number] 08:43:00 Test Item Value Reference Range Comments SODIUM (BEAKER) (test 138 meq/L 136-145 aoys=049) POTASSIUM (BEAKER) (test 3.7 meq/L 3.5-5.1 bfty=757) CHLORIDE (BEAKER) (test 106 meq/L 98-107 ewhx=858) CO2 (BEAKER) (test 24 meq/L 22-29 lear=285) BLOOD UREA NITROGEN 11 mg/dL 7-21 (BEAKER) (test gdxt=763) CREATININE (BEAKER) (test 0.86 mg/dL 0.57-1.25 nluc=400) GLUCOSE RANDOM (BEAKER) 85 mg/dL 70-105 (test znml=331) CALCIUM (BEAKER) (test 9.1 mg/dL 8.4-10.2 bmkq=295) EGFR (BEAKER) (test 98 mL/min/1.73 sq m ESTIMATED GFR IS NOT qiou=7802) ACCURATE CREATININE CLEARANCE IN PREDICTING GLOMERULAR FILTRATION RATE. ESTIMATED GFR IS NOT APPLICABLE FOR DIALYSIS PATIENTS. [id number] 08:43:00 Test Item Value Reference Range Comments MAGNESIUM (BEAKER) (test bkav=883) 1.5 mg/dL 1.6-2.6 [id number] 08:43:00 Test Item Value Reference Range Comments PHOSPHORUS (BEAKER) (test oxnz=058) 2.8 mg/dL 2.3-4.7 CBC W/PLT COUNT & AUTO [id number] 08:23:00 Test Item Value Reference Range Comments WHITE BLOOD CELL COUNT (BEAKER) (test yrns=067) 9.3 K/ L 3.5-10.5 RED BLOOD CELL COUNT (BEAKER) (test eyam=998) 4.29 M/ L 4.63-6.08 HEMOGLOBIN (BEAKER) (test vzzy=171) 12.2 GM/DL 13.7-17.5 HEMATOCRIT (BEAKER) (test axkc=302) 37.9 % 40.1-51.0 MEAN CORPUSCULAR VOLUME (BEAKER) (test ioef=293) 88.3 fL 79.0-92.2 MEAN CORPUSCULAR HEMOGLOBIN (BEAKER) (test 28.4 pg 25.7-32.2 bmth=376) MEAN CORPUSCULAR HEMOGLOBIN CONC (BEAKER) (test 32.2 GM/DL 32.3-36.5 dogk=317) RED CELL DISTRIBUTION WIDTH (BEAKER) (test 12.9 % 11.6-14.4 cypw=335) PLATELET COUNT (BEAKER) (test ffjm=112) 175 K/CU MM 150-450 MEAN PLATELET VOLUME (BEAKER) (test spsq=827) 10.5 fL 9.4-12.4 NUCLEATED RED BLOOD CELLS (BEAKER) (test 0 /100 WBC 0-0 wuim=162) NEUTROPHILS RELATIVE PERCENT (BEAKER) (test 71 % chzq=182) LYMPHOCYTES RELATIVE PERCENT (BEAKER) (test 21 % bqkn=617) MONOCYTES RELATIVE PERCENT (BEAKER) (test 8 % iyod=886) EOSINOPHILS RELATIVE PERCENT (BEAKER) (test 0 % egwa=921) BASOPHILS RELATIVE PERCENT (BEAKER) (test 0 % olom=359) NEUTROPHILS ABSOLUTE COUNT (BEAKER) (test 6.52 K/ L 1.78-5.38 ysaa=115) LYMPHOCYTES ABSOLUTE COUNT (BEAKER) (test 1.96 K/ L 1.32-3.57 kgps=211) MONOCYTES ABSOLUTE COUNT (BEAKER) (test 0.69 K/ L 0.30-0.82 jxtu=486) EOSINOPHILS ABSOLUTE COUNT (BEAKER) (test 0.03 K/ L 0.04-0.54 amje=765) BASOPHILS ABSOLUTE COUNT (BEAKER) (test 0.01 K/ L 0.01-0.08 nlnb=531) IMMATURE GRANULOCYTES-RELATIVE PERCENT (BEAKER) 0 % 0-1 (test iokc=3530) FL, [id number] 15:34:00INTRA OP IMAGINGReason for exam:->BILIARY OBSTURCTIONFINAL REPORT ERCP Clinical History: BILIARY OBSTRUCTION Impression: Intraoperative images are obtained. The radiologist is not present during the procedure. Images are presentedfor interpretation at the completion of the procedure. Please refer to the procedure report for more details. Number of images obtained: 3 Fluoroscopic time: 62.4 seconds Signed: Alok Maria Verified Date/Time: 04/06/2018 15:34:35 Reading Location: [address] Consult Reading Room [id number] 13:01:00 Test Item Value Reference Range Comments LIPASE (BEAKER) (test xuip=318) > U/L 8-78 Specimen slightly ictericHEPATITIS PANEL, [id number] 12:35:00 Test Item Value Reference Range Comments HEPATITIS A IGM ANTIBODY (BEAKER) (test Nonreactive Nonreactive jhcy=334) HEPATITIS B CORE IGM ANTIBODY (BEAKER) (test Nonreactive Nonreactive vtcx=084) HEPATITIS C ANTIBODY (BEAKER) (test egys=510) Nonreactive Nonreactive HEPATITIS B SURFACE ANTIGEN (2) (BEAKER) (test Nonreactive Nonreactive slyk=1424) PROTHROMBIN [id number] 12:26:00 Test Item Value Reference Range Comments PROTIME (BEAKER) (test uxig=451) 12.5 seconds 11.7-14.7 INR (BEAKER) (test lila=813) 0.9 <=5.9 RECOMMENDED COUMADIN/WARFARIN INR THERAPY RANGESSTANDARD DOSE: 2.0 - 3.0 Includes: PROPHYLAXIS forvenous thrombosis, systemic embolization; TREATMENT for venous thrombosis and/or pulmonary embolus.HIGH RISK: Target INR is 2.5-3.5 for patients with mechanical heart valves.COMPREHENSIVE METABOLIC [id number] 12:16:00 Test Item Value Reference Range Comments TOTAL PROTEIN (BEAKER) 7.2 gm/dL 6.0-8.3 (test ynwf=080) ALBUMIN (BEAKER) (test 4.3 g/dL 3.5-5.0 mttm=1955) ALKALINE PHOSPHATASE 193 U/L 40-150 (BEAKER) (test dqkd=589) BILIRUBIN TOTAL (BEAKER) 4.4 mg/dL 0.2-1.2 (test osfi=816) SODIUM (BEAKER) (test 143 meq/L 136-145 ejjp=864) POTASSIUM (BEAKER) (test 3.4 meq/L 3.5-5.1 eglv=168) CHLORIDE (BEAKER) (test 108 meq/L 98-107 eblx=953) CO2 (BEAKER) (test 26 meq/L 22-29 cyvr=579) BLOOD UREA NITROGEN 14 mg/dL 7-21 (BEAKER) (test fyrs=397) CREATININE (BEAKER) (test 0.94 mg/dL 0.57-1.25 qouw=628) GLUCOSE RANDOM (BEAKER) 100 mg/dL 70-105 (test jdel=585) CALCIUM (BEAKER) (test 9.4 mg/dL 8.4-10.2 fkvd=841) AST (SGOT) (BEAKER) (test 310 U/L 5-34 mfat=351) ALT (SGPT) (BEAKER) (test 572 U/L 6-55 geyd=607) EGFR (BEAKER) (test 88 mL/min/1.73 sq m ESTIMATED GFR IS NOT grol=9203) ACCURATE CREATININE CLEARANCE IN PREDICTING GLOMERULAR FILTRATION RATE. ESTIMATED GFR IS NOT APPLICABLE FOR DIALYSIS PATIENTS. Specimen slightly ictericLIPID [id number] 12:16:00 Test Item Value Reference Range Comments TRIGLYCERIDES (BEAKER) (test iiww=884) 106 mg/dL CHOLESTEROL (BEAKER) (test kzjy=276) 169 mg/dL HDL CHOLESTEROL (BEAKER) (test hkie=725) 44 mg/dL LDL CHOLESTEROL CALCULATED (BEAKER) (test 104 mg/dL gziv=345) Triglyceride Reference Range: Low Risk <150 Borderline 150- 199 High Risk 200-499 Very High Risk >=500Cholesterol Reference Range: Low Risk <200 Borderline 200-239 High Risk > 240HDL Cholesterol Reference Range: Low Risk >=60 High Risk <40LDL Cholesterol Reference Range: Optimal <100 Near Optimal 100-129 Borderline 130-159 High 160-189 Very High >=190 Specimen slightly [id number] 12:16:00 Test Item Value Reference Range Comments AMYLASE (BEAKER) (test lfbx=674) 887 U/L 25-125 Specimen slightly ictericBASIC METABOLIC [id number] 12:13:00 Test Item Value Reference Range Comments SODIUM (BEAKER) (test 144 meq/L 136-145 ydms=836) POTASSIUM (BEAKER) (test 3.4 meq/L 3.5-5.1 zpqb=566) CHLORIDE (BEAKER) (test 109 meq/L 98-107 ztmg=952) CO2 (BEAKER) (test 25 meq/L 22-29 hwgw=680) BLOOD UREA NITROGEN 15 mg/dL 7-21 (BEAKER) (test ovmz=400) CREATININE (BEAKER) (test 0.92 mg/dL 0.57-1.25 pxzd=998) GLUCOSE RANDOM (BEAKER) 100 mg/dL 70-105 (test jqks=024) CALCIUM (BEAKER) (test 9.4 mg/dL 8.4-10.2 njfp=557) EGFR (BEAKER) (test 91 mL/min/1.73 sq m ESTIMATED GFR IS NOT elwh=6177) ACCURATE CREATININE CLEARANCE IN PREDICTING GLOMERULAR FILTRATION RATE. ESTIMATED GFR IS NOT APPLICABLE FOR DIALYSIS PATIENTS. Specimen slightly ictericCBC W/PLT COUNT & AUTO [id number] 12:10 :00 Test Item Value Reference Range Comments WHITE BLOOD CELL COUNT (BEAKER) (test yqcw=785) 6.7 K/ L 3.5-10.5 RED BLOOD CELL COUNT (BEAKER) (test gnhv=691) 4.64 M/ L 4.63-6.08 HEMOGLOBIN (BEAKER) (test ltkp=571) 13.3 GM/DL 13.7-17.5 HEMATOCRIT (BEAKER) (test gikn=087) 40.9 % 40.1-51.0 MEAN CORPUSCULAR VOLUME (BEAKER) (test cxxd=841) 88.1 fL 79.0-92.2 MEAN CORPUSCULAR HEMOGLOBIN (BEAKER) (test 28.7 pg 25.7-32.2 mnqh=275) MEAN CORPUSCULAR HEMOGLOBIN CONC (BEAKER) (test 32.5 GM/DL 32.3-36.5 obfo=028) RED CELL DISTRIBUTION WIDTH (BEAKER) (test 12.7 % 11.6-14.4 ivss=416) PLATELET COUNT (BEAKER) (test mwdd=335) 183 K/CU MM 150-450 MEAN PLATELET VOLUME (BEAKER) (test sptb=596) 10.5 fL 9.4-12.4 NUCLEATED RED BLOOD CELLS (BEAKER) (test 0 /100 WBC 0-0 xwhp=028) NEUTROPHILS RELATIVE PERCENT (BEAKER) (test 64 % uqnu=624) LYMPHOCYTES RELATIVE PERCENT (BEAKER) (test 23 % tysu=603) MONOCYTES RELATIVE PERCENT (BEAKER) (test 11 % bide=989) EOSINOPHILS RELATIVE PERCENT (BEAKER) (test 1 % jsvz=920) BASOPHILS RELATIVE PERCENT (BEAKER) (test 0 % otsz=463) NEUTROPHILS ABSOLUTE COUNT (BEAKER) (test 4.31 K/ L 1.78-5.38 yvhz=365) LYMPHOCYTES ABSOLUTE COUNT (BEAKER) (test 1.56 K/ L 1.32-3.57 klkd=519) MONOCYTES ABSOLUTE COUNT (BEAKER) (test 0.72 K/ L 0.30-0.82 zzin=396) EOSINOPHILS ABSOLUTE COUNT (BEAKER) (test 0.09 K/ L 0.04-0.54 tmtq=408) BASOPHILS ABSOLUTE COUNT (BEAKER) (test 0.03 K/ L 0.01-0.08 nngk=658) IMMATURE GRANULOCYTES-RELATIVE PERCENT (BEAKER) 0 % 0-1 (test vgth=[id number])
--- OUTSIDE RECORDS SUMMARY | 2018-10-14 15:16 | XMS REPORT ---
:1975 Author Organization [employer] Care Team Providers Name Role Phone Sandhu, [facility] Provider Role Unavailable Allergies, Adverse Reactions, Alerts Substance Reaction Event Type N.K.D.A. Info Not Available Non Drug Allergy Problems Problem Type Condition Code Onset Dates Condition Status Assessment Bipolar affective disorder, current F31.10 Active episode manic, current episode severity unspecified Assessment Migraine without aura and without G43.009 Active status migrainosus, not intractable Assessment GERD without esophagitis K21.9 Active Problem GERD without esophagitis K21.9 Active Problem Migraine without aura and without G43.009 Active status migrainosus, not intractable Problem Depression with anxiety F41.8 Active Assessment Community acquired pneumonia, J18.9 Active unspecified laterality Assessment Depression with anxiety F41.8 Active Assessment Hospital discharge follow-up Z09 Active Medications Medication Code System Code Instructions Start End Date Status Dosage Date PredniSONE [facility] 01024-09 20 MG Orally Active 1 tablet 18-20 Three times a day HydrOXYzine HCl [facility] 00358-79 25 MG Orally Active 1 tablet 61-01 every 6 hrs as needed Results No Known Results Summary Purpose eClinicalWorks Submission
[2018-10-14] MEDS ORDERED: HYDROCODONE/APAP 7.5/325 MG TAB ONE (15:47)
[2018-10-14] MEDS ORDERED: IBUPROFEN 400 MG TAB ONE (15:47)
--- NOTE | 2018-10-14 16:24 | EDPHYS ---
Physician Documentation [facility] Name: Rm Hagen Age: 43 yrs Sex: Male : 1975 Arrival Date: 10/14/2018 Time: 15:14 Bed 11 Private MD: ED Physician Delmar Mcdermott HPI: 10/14 15:45 This 43 yrs old Male presents to ER via Ambulatory with complaints of Leg cp Swelling. 15:45 The patient presents with pain, that is acute, tenderness. The complaints affect the cp plantar surface of right foot. 15:45 Context: resulted from an unknown cause. Onset: The symptoms/episode began/occurred 4 cp day(s) ago. 15:45 Associated signs and symptoms: Pertinent positives: swelling, Pertinent negatives: calf cp tenderness, numbness, warmth. Severity of symptoms: in the emergency department the symptoms are unchanged, despite home interventions. Historical: - Allergies: 15:23 NKA; la1 - PMHx: 15:23 Bipolar disorder; Depression; gastritis; Migraines; la1 - Immunization history:: Adult Immunizations up to date. - Social history:: Smoking status: Patient/guardian denies using tobacco. - Ebola Screening: : No symptoms or risks identified at this time. ROS: 15:55 MS/extremity: Positive for pain, of the right foot, Negative for injury or acute cp deformity, decreased range of motion, paresthesias, warmth. 15:55 Constitutional: Negative for body aches, chills, fever. cp 15:55 Abdomen/GI: Negative for abdominal pain, nausea, vomiting, and diarrhea. 15:55 Skin: Negative for rash. 15:55 All other systems are negative. Exam: 16:00 Constitutional: The patient appears in no acute distress, alert, awake, non-toxic, well cp developed, well nourished. 16:00 Head/Face: Normocephalic, atraumatic. cp 16:00 Musculoskeletal/extremity: Extremities: grossly normal except: noted in the right foot plantar surface and medial aspect: pain, tenderness, There is no evidence of decreased ROM, deformity, erythema, swelling, ROM: limited active range of motion due to pain, in the right foot, Perfusion: the extremity is normally perfused throughout, Sensation intact. 16:00 Skin: cellulitis, is not appreciated, no rash present. Vital Signs: 15:23 BP 159 / 88; Pulse 70; Resp 16; Temp 97.6; Pulse Ox 98% on R/A; Weight 92.08 kg; Height la1 5 ft. 11 in. (180.34 cm); 15:23 Body Mass Index 28.31 (92.08 kg, 180.34 cm) la1 MDM: 15:41 Patient medically screened. cp 16:18 Test interpretation: by ED physician or midlevel provider: xrays of right foot negative cp for fracture. 16:22 Data reviewed: vital signs, nurses notes, radiologic studies, plain films, and as a cp result, I will discharge patient. 16:22 Differential diagnosis: fracture, cellulitis, plantar fasciitis. Counseling: I had a cp detailed discussion with the patient and/or guardian regarding: the historical points, exam findings, and any diagnostic results supporting the discharge/admit diagnosis, radiology results, to return to the emergency department if symptoms worsen or persist or if there are any questions or concerns that arise at home. Response to treatment: the patient's symptoms have markedly improved after treatment. 10/14 15:45 Order name: XRAY Foot RIGHT 3 View cp 10/14 16:19 Order name: Crutches; Complete Time: 16:24 cp Administered Medications: 15:48 Drug: Hydrocodone-Acetaminophen (7.5 mg-325 mg) 1 tabs {Note: RASS=0.} Route: PO; iw 15:49 Drug: Ibuprofen 800 mg Route: PO; iw Disposition: 17:00 Chart complete. cp 18:12 Co-signature as Attending Physician, Delmar Mcdermott MD. rn Disposition: 10/14/18 16:22 Discharged to Home. Impression: Pain in right foot. - Condition is Stable. - Discharge Instructions: Foot Pain. - Prescriptions for Ibuprofen 800 mg Oral Tablet - take 1 tablet by ORAL route every 8 hours As needed take with food; 30 tablet. Tramadol 50 mg Oral Tablet - take 1 tablet by ORAL route every 8 hours as needed; 20 tablet. - Medication Reconciliation Form, Thank You Letter, Antibiotic Education, Prescription Opioid Use form. - Follow up: Jah Mccall DPM; When: 1 week; Reason: Recheck today's complaints. - Problem is new. - Symptoms have improved. Signatures: Dispatcher [employer] EDMS Lonny, CAIN Juarez RN, Roman, MD MD rn Attema, Lee, RN RN la1 Aric Goodwin, CRISTIANO PA cp Corrections: (The following items were deleted from the chart) 16:43 16:22 10/14/2018 16:22 Discharged to Home. Impression: Pain in right foot. Condition is iw Stable. Forms are Medication Reconciliation Form, Thank You Letter, Antibiotic Education, Prescription Opioid Use. Follow up: Jah Mccall; When: 1 week; Reason: Recheck today's complaints. Problem is new. Symptoms have improved. cp
--- NOTE | 2018-10-14 16:24 | ER ---
Nurse's Notes [facility] Name: Rm Hagen Age: 43 yrs Sex: Male : 1975 Arrival Date: 10/14/2018 Time: 15:14 Bed 11 Private MD: Diagnosis: Pain in right foot Presentation: 10/14 15:22 Presenting complaint: Patient states: Pain in my foot for the last 4 days, now I feel la1 like I am having some swelling above my ankle on that side, no known injury. Transition of care: patient was not received from another setting of care. Onset of symptoms was October 14, 2018. Risk Assessment: Do you want to hurt yourself or someone else? Patient reports no desire to harm self or others. Initial Sepsis Screen: Does the patient meet any 2 criteria? No. Patient's initial sepsis screen is negative. Does the patient have a suspected source of infection? No. Patient's initial sepsis screen is negative. Care prior to arrival: None. 15:22 Method Of Arrival: Ambulatory la1 15:22 Acuity: YADIEL 4 la1 Historical: - Allergies: 15:23 NKA; la1 - PMHx: 15:23 Bipolar disorder; Depression; gastritis; Migraines; la1 - Immunization history:: Adult Immunizations up to date. - Social history:: Smoking status: Patient/guardian denies using tobacco. - Ebola Screening: : No symptoms or risks identified at this time. Screenin:43 Abuse screen: Denies threats or abuse. Nutritional screening: No deficits noted. la1 Tuberculosis screening: No symptoms or risk factors identified. Fall Risk None identified. Assessment: 15:42 General: Appears in no apparent distress. Behavior is calm, cooperative. Pain: la1 Complains of pain in right foot. Neuro: Level of Consciousness is awake, alert, obeys commands, Oriented to person, place, time, situation. Cardiovascular: Capillary refill < 3 seconds Patient's skin is warm and dry. Respiratory: Airway is patent Respiratory effort is even, unlabored, Respiratory pattern is regular, symmetrical. GI: No signs and/or symptoms were reported involving the gastrointestinal system. : No signs and/or symptoms were reported regarding the genitourinary system. Musculoskeletal: Circulation, motion, and sensation intact. Capillary refill < 3 seconds, is brisk, in bilateral fingers. Range of motion: intact in all extremities. Vital Signs: 15:23 BP 159 / 88; Pulse 70; Resp 16; Temp 97.6; Pulse Ox 98% on R/A; Weight 92.08 kg; Height la1 5 ft. 11 in. (180.34 cm); 15:23 Body Mass Index 28.31 (92.08 kg, 180.34 cm) la1 ED Course: 15:14 Patient arrived in ED. as 15:23 Triage completed. la1 15:24 Arm band placed on left wrist. la1 15:38 Aric Goodwin PA is PHCP. cp 15:38 Delmar Mcdermott MD is Attending Physician. cp 15:42 True Carbajal, RN is Primary Nurse. la1 15:43 Patient has correct armband on for positive identification. Call light in reach. la1 15:43 No provider procedures requiring assistance completed. Patient did not have IV access la1 during this emergency room visit. 16:20 Jah Mccall DPM is Referral Physician. cp 16:25 XRAY Foot RIGHT 3 View In Process Unspecified. EDMS Administered Medications: 15:48 Drug: Hydrocodone-Acetaminophen (7.5 mg-325 mg) 1 tabs {Note: RASS=0.} Route: PO; iw 15:49 Drug: Ibuprofen 800 mg Route: PO; iw Outcome: 16:22 Discharge ordered by MD. cp 16:43 Patient left the ED. iw Signatures: Dispatcher [employer] EDMS Lashell Gates Irene, RN RN iw True Carbajal RN RN la1 Aric Goodwin PA PA cp
--- NOTE | 2018-10-14 16:33 | RAD REPORT ---
EXAM DESCRIPTION: RAD - Foot Right 3 View - 10/14/2018 4:21 pm CLINICAL HISTORY: PAIN Foot pain and swelling. COMPARISON: <Comparisons> FINDINGS: No bone or joint abnormality is detected.
== END 2018-10-14 16:43 | disposition home or self-care (01) ==
LOC: ER 15:13
DX: M79.671 Pain in right foot (principal)
CPT/HCPCS: 99283

== ENCOUNTER 2020-08-09 21:30 | Emergency (ER) | payer SELFPAY ==
[2020-08-09 23:51] LABS: Basophils % 0.6 % (0-1.3); Hematocrit 40.1 % (39.6-49.0); MPV 8.7 fL (7.6-11.3); RBC Red Blood Cell Count 4.56 M/uL (4.33-5.43)
[2020-08-09 23:52] LABS: Protime INR 1.03
[2020-08-10 00:10] LABS: ALT/SGPT 20 U/L (12-78); AST/SGOT 17 U/L (15-37); Albumin 3.7 g/dL (3.4-5.0); Alkaline Phosphatase 52 U/L (45-117); BUN Blood Urea Nitrogen 17 mg/dL (7-18); Bicarbonate 33 mmol/L (21-32); Bilirubin Direct < 0.1 mg/dL (0-0.2); Bilirubin Total 0.2 mg/dL (0.2-1.0); Glucose Level 90 mg/dL (74-106); NT PRO-BNP 15 pg/mL (<125); Potassium 4.1 mmol/L (3.5-5.1); Protein, Total 7.2 g/dL (6.4-8.2); Sodium Level 141 mmol/L (136-145); Troponin (Emerg Dept Use Only) < 0.02 ng/mL (0.0-0.045)
[2020-08-10 01:17] LABS: Barbiturates NEGATIVE (NEGATIVE); Benzodiazepines NEGATIVE (NEGATIVE); Cocaine NEGATIVE (NEGATIVE); METHAMPHETAM NEGATIVE (NEGATIVE); Methadone NEGATIVE (NEGATIVE); Opiates NEGATIVE (NEGATIVE); Phencyclidine NEGATIVE (NEGATIVE); THC Cannibis POSITIVE (NEGATIVE)
--- NOTE | 2020-08-10 02:24 | EDPHYS ---
Physician Documentation [facility] Name: Rm Hagen Age: 45 yrs Sex: Male : 1975 Arrival Date: 08/09/2020 Time: 21:32 Bed 26 Private MD: ED Physician Og Ramos HPI: 08/10 01:06 This 45 yrs old Male presents to ER via Ambulatory with complaints of Head mh7 Injury With LOC-Adult, Dizziness. 01:06 Details of fall: The patient fell from an upright position, while walking. Onset: The mh7 symptoms/episode began/occurred 2 day(s) ago. Associated injuries: The patient sustained injury to the head, abrasion, contusion. Severity of symptoms: At their worst the symptoms were moderate, 2 day(s) ago, in the emergency department the symptoms have improved, markedly. Historical: - Allergies: 08/09 21:41 NKA; vg1 - PMHx: 21:41 Bipolar disorder; Depression; gastritis; Migraines; vg1 - Immunization history:: Adult Immunizations up to date. - Social history:: Smoking status: Reported history of juuling and/or vaping. Patient uses Pt states smokes "marijuana everyday". ROS: 08/10 01:06 Constitutional: Negative for fever, chills, and weight loss, Eyes: Negative for injury, mh7 pain, redness, and discharge, ENT: Negative for injury, pain, and discharge, Neck: Negative for injury, pain, and swelling, Cardiovascular: Negative for chest pain, palpitations, and edema, Respiratory: Negative for shortness of breath, cough, wheezing, and pleuritic chest pain, Abdomen/GI: Negative for abdominal pain, nausea, vomiting, diarrhea, and constipation, Back: Negative for injury and pain, : Negative for injury, bleeding, discharge, and swelling, MS/Extremity: Negative for injury and deformity, Psych: Negative for depression, anxiety, suicide ideation, homicidal ideation, and hallucinations, Allergy/Immunology: Negative for hives, rash, and allergies, Endocrine: Negative for neck swelling, polydipsia, polyuria, polyphagia, and marked weight changes, Hematologic/Lymphatic: Negative for swollen nodes, abnormal bleeding, and unusual bruising. Exam: 01:06 Constitutional: This is a well developed, well nourished patient who is awake, alert, mh7 and in no acute distress. 01:06 Eyes: Pupils equal round and reactive to light, extra-ocular motions intact. Lids and lashes normal. Conjunctiva and sclera are non-icteric and not injected. Cornea within normal limits. Periorbital areas with no swelling, redness, or edema. ENT: Nares patent. No nasal discharge, no septal abnormalities noted. Tympanic membranes are normal and external auditory canals are clear. Oropharynx with no redness, swelling, or masses, exudates, or evidence of obstruction, uvula midline. Mucous membranes moist. Neck: Trachea midline, no thyromegaly or masses palpated, and no cervical lymphadenopathy. Supple, full range of motion without nuchal rigidity, or vertebral point tenderness. No Meningismus. Chest/axilla: Normal chest wall appearance and motion. Nontender with no deformity. No lesions are appreciated. 01:06 Respiratory: Lungs have equal breath sounds bilaterally, clear to auscultation and percussion. No rales, rhonchi or wheezes noted. No increased work of breathing, no retractions or nasal flaring. Abdomen/GI: Soft, non-tender, with normal bowel sounds. No distension or tympany. No guarding or rebound. No evidence of tenderness throughout. Back: No spinal tenderness. No costovertebral tenderness. Full range of motion. Skin: Warm, dry with normal turgor. Normal color with no rashes, no lesions, and no evidence of cellulitis. MS/ Extremity: Pulses equal, no cyanosis. Neurovascular intact. Full, normal range of motion. Neuro: Awake and alert, GCS 15, oriented to person, place, time, and situation. Cranial nerves II-XII grossly intact. Motor strength 5/5 in all extremities. Sensory grossly intact. Cerebellar exam normal. Normal gait. Psych: Awake, alert, with orientation to person, place and time. Behavior, mood, and affect are within normal limits. 01:06 Head/face: Noted is abrasion(s), that are mild, of the left side of the back of head, contusion, that is superficial, of the left side of the back of head. 01:06 Cardiovascular: Rate: bradycardic, Rhythm: regular, Pulses: no pulse deficits are appreciated, Heart sounds: normal, normal S1and S2, Edema: is not appreciated, JVD: is not appreciated. Vital Signs: 08/09 21:34 BP 136 / 92; Pulse 62; Resp 16; Temp 99.0(O); Pulse Ox 100% ; Weight 81.65 kg; Height 5 vg1 ft. 11 in. (180.34 cm); Pain 8/10; 08/10 00:00 BP 123 / 88; Pulse 49; Resp 16; Temp 98.5; Pulse Ox 99% ; Pain 2/10; cr4 01:00 BP 114 / 71; Pulse 45; Resp 16; Pulse Ox 99% ; Pain 2/10; cr4 02:00 BP 107 / 60; Pulse 49; Resp 14; Temp 97.6; Pulse Ox 99% ; Pain 0/10; cr4 08/09 21:34 Body Mass Index 25.10 (81.65 kg, 180.34 cm) vg1 MDM: 02:20 Differential diagnosis: abrasion, closed head injury, contusion, fracture, Dizziness, 7 Concussion, Syncope, Substance abuse. Data reviewed: vital signs, nurses notes, lab test result(s), cardiac enzymes, CBC, electrolytes, urinalysis, urine drug screen, EKG, radiologic studies, CT scan, plain films. Data interpreted: Pulse oximetry: on room air is 99 %. Interpretation: normal. Counseling: I had a detailed discussion with the patient and/or guardian regarding: the historical points, exam findings, and any diagnostic results supporting the discharge/admit diagnosis, lab results, radiology results, the need for outpatient follow up, to return to the emergency department if symptoms worsen or persist or if there are any questions or concerns that arise at home. Response to treatment: the patient's symptoms have resolved after treatment, the patient's blood pressure is in an acceptable range, mental status has returned to baseline, the patient is not short of breath, the patient is not tachycardic, the patient's pain is gone, the patient's temperature has normalized. 02:23 Patient medically screened. [facility] 08/09 23:22 Order name: Basic Metabolic Panel [facility] 08/09 23:22 Order name: CBC with Diff [facility] 08/09 23:22 Order name: LFT's; Complete Time: 00:17 [facility] 08/09 23:22 Order name: Magnesium; Complete Time: 00:17 [facility] 08/09 23:22 Order name: NT PRO-BNP; Complete Time: 00:17 [facility] 08/09 23:22 Order name: PT-INR; Complete Time: 00:17 [facility] 08/09 23:22 Order name: Troponin (emerg Dept Use Only); Complete Time: 00:17 [facility] 08/09 23:22 Order name: XRAY Chest (1 view) [facility] 08/09 23:22 Order name: EKG; Complete Time: 23:24 [facility] 08/09 23:22 Order name: Cardiac monitoring; Complete Time: 02:33 [facility] 08/09 23:22 Order name: UDS; Complete Time: 01:37 [facility] 08/09 23:22 Order name: CT Head Brain wo Cont [facility] 08/09 23:23 Order name: Basic Metabolic Panel; Complete Time: 00:17 [facility] 08/09 23:23 Order name: CBC with Automated Diff; Complete Time: 00:17 [facility] 08/09 23:22 Order name: EKG - Nurse/Tech; Complete Time: 23:36 [facility] 08/09 23:22 Order name: IV Saline Lock; Complete Time: 23:33 [facility] 08/09 23:22 Order name: Labs collected and sent; Complete Time: 23:33 [facility] 08/09 23:22 Order name: O2 Per Protocol; Complete Time: 23:33 [facility] 08/09 23:22 Order name: O2 Sat Monitoring; Complete Time: 23:33 [facility] 08/09 23:22 Order name: Urine Dipstick-Ancillary (obtain specimen); Complete Time: 00:38 mh7 Administered Medications: No medications were administered Disposition: 08/10/20 02:23 Discharged to Home. Impression: Head Injury, Contusion, Dizziness, Cannabis abuse. - Condition is Stable. - Discharge Instructions: Cannabis Use Disorder, Head Injury, Adult, Iixh-iv-Ijmr, Facial or Scalp Contusion, Pldq-bh-Iyiz, Dizziness, Macs-tg-Lpsm. - Medication Reconciliation Form, Thank You Letter, Antibiotic Education, Prescription Opioid Use form. - Follow up: Private Physician; When: 1 - 2 days; Reason: Worsening of condition, Recheck today's complaints, Continuance of care, Re-evaluation by your physician. - Problem is new. - Symptoms have improved. Signatures: Dispatcher [employer] Andra Bejarano, RN RN cr4 Lucie Sauceda RN RN vg1 Og Ramos MD MD mh7 Corrections: (The following items were deleted from the chart) 02:24 02:23 08/10/2020 02:23 Discharged to Home. Impression: Head Injury, Contusion; mh7 Dizziness. Condition is Stable. Forms are Medication Reconciliation Form, Thank You Letter, Antibiotic Education, Prescription Opioid Use. Follow up: Private Physician; When: 1 - 2 days; Reason: Worsening of condition, Recheck today's complaints, Continuance of care, Re-evaluation by your physician. Problem is new. Symptoms have improved. mh7 02:32 02:24 08/10/2020 02:23 Discharged to Home. Impression: Head Injury, Contusion; cr4 Dizziness; Cannabis abuse. Condition is Stable. Discharge Instructions: Cannabis Use Disorder, Head Injury, Adult, Cjsu-qu-Raxj, Facial or Scalp Contusion, Qcgu-cz-Jxji, Dizziness, Fvxh-yl-Trkk. Forms are Medication Reconciliation Form, Thank You Letter, Antibiotic Education, Prescription Opioid Use. Follow up: Private Physician; When: 1 - 2 days; Reason: Worsening of condition, Recheck today's complaints, Continuance of care, Re-evaluation by your physician. Problem is new. Symptoms have improved. mh7
--- NOTE | 2020-08-10 02:24 | ER ---
Nurse's Notes [facility] Name: Rm Hagen Age: 45 yrs Sex: Male : 1975 Arrival Date: 08/09/2020 Time: 21:32 Bed 26 Private MD: Diagnosis: Head Injury, Contusion;Dizziness;Cannabis abuse Presentation: 08/09 21:34 Chief complaint: Patient states: Had a sudden onset of shakes and numbness in entire vg1 body; patient states fell onto floor with LOC for about 4 minutes. 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 Coronavirus screen: Client denies travel out of the [place] in the last 14 days. Ebola Screen: Patient negative for fever greater than or equal to 101.5 degrees Fahrenheit, and additional compatible Ebola Virus Disease symptoms. Initial Sepsis Screen: Does the patient meet any 2 criteria? No. Patient's initial sepsis screen is negative. Does the patient have a suspected source of infection? No. Patient's initial sepsis screen is negative. Risk Assessment: Do you want to hurt yourself or someone else? Patient reports no desire to harm self or others. Onset of symptoms was August 09, 2020. 21:34 Method Of Arrival: Ambulatory vg1 21:34 Acuity: YADIEL 3 vg1 Triage Assessment: 21:41 General: Appears in no apparent distress. comfortable, Behavior is calm, cooperative. vg1 Pain: Complains of pain in head and neck. Historical: - Allergies: 21:41 NKA; vg1 - PMHx: 21:41 Bipolar disorder; Depression; gastritis; Migraines; vg1 - Immunization history:: Adult Immunizations up to date. - Social history:: Smoking status: Reported history of juuling and/or vaping. Patient uses Pt states smokes "marijuana everyday". Screenin:54 Abuse screen: Denies threats or abuse. Denies injuries from another. Nutritional aj1 screening: No deficits noted. Tuberculosis screening: No symptoms or risk factors identified. 08/10 02:31 Fall Risk None identified. cr4 Assessment: 08/09 22:54 General: Appears in no apparent distress. comfortable. General: Behavior is calm, aj1 cooperative, appropriate for age. Pain: Denies pain. Neuro: Level of Consciousness is awake, alert, obeys commands, Oriented to person, place, time, situation, Moves all extremities. Full function Gait is steady, Speech is normal, Facial symmetry appears normal, Reports a syncopal episode at 2:00 this morning. States that he stood up and suddenly felt really hot and sweaty so he went to get a glass of water and then he woke up on the floor. States that his girlfriend was in the room when he came to and he asked what time it was and she said 2:04, so he thinks he was passed out for 4 minutes. Patient states that he was advised by family members not to sleep after that so he has not gone to sleep, but his family is still worried so now he is coming to be evaluated. Cardiovascular: Patient's skin is warm and dry. Cardiovascular: Reports lightheadedness, syncope, Denies chest pain, nausea, palpitations, Heart tones S1 S2 present Rhythm is regular. Respiratory: Airway is patent Respiratory effort is even, unlabored, Respiratory pattern is regular, symmetrical. GI: No signs and/or symptoms were reported involving the gastrointestinal system. : No signs and/or symptoms were reported regarding the genitourinary system. EENT: No signs and/or symptoms were reported regarding the EENT system. Derm: No signs and/or symptoms reported regarding the dermatologic system. Skin is pink, warm \\T\\ dry. normal. Musculoskeletal: No signs and/or symptoms reported regarding the musculoskeletal system. Circulation, motion, and sensation intact. 08/10 00:00 Reassessment: No changes from previously documented assessment. Patient and/or family cr4 updated on plan of care and expected duration. Pain level reassessed. Patient is alert, oriented x 3, equal unlabored respirations, skin warm/dry/pink. 00:59 Reassessment: No changes from previously documented assessment. Patient and/or family cr4 updated on plan of care and expected duration. Pain level reassessed. Patient is alert, oriented x 3, equal unlabored respirations, skin warm/dry/pink. 02:00 Reassessment: No changes from previously documented assessment. Patient and/or family cr4 updated on plan of care and expected duration. Pain level reassessed. Patient is alert, oriented x 3, equal unlabored respirations, skin warm/dry/pink. Vital Signs: 08/09 21:34 BP 136 / 92; Pulse 62; Resp 16; Temp 99.0(O); Pulse Ox 100% ; Weight 81.65 kg; Height 5 vg1 ft. 11 in. (180.34 cm); Pain 8/10; 06 00:00 BP 123 / 88; Pulse 49; Resp 16; Temp 98.5; Pulse Ox 99% ; Pain 2/10; cr4 01:00 BP 114 / 71; Pulse 45; Resp 16; Pulse Ox 99% ; Pain 2/10; cr4 02:00 BP 107 / 60; Pulse 49; Resp 14; Temp 97.6; Pulse Ox 99% ; Pain 0/10; cr4 08/09 21:34 Body Mass Index 25.10 (81.65 kg, 180.34 cm) vg1 ED Course: 08/09 21:32 Patient arrived in ED. as 21:40 Triage completed. vg1 21:41 Arm band placed on Patient placed in waiting room, Patient notified of wait time. vg1 22:51 Francy Espinoza RN is Primary Nurse. aj1 22:53 Og Ramos MD is Attending Physician. 7 22:54 Patient has correct armband on for positive identification. Bed in low position. Call aj1 light in reach. Side rails up X 1. 22:54 No provider procedures requiring assistance completed. aj1 23:34 Initial lab(s) drawn, by me, sent to lab. Inserted saline lock: 20 gauge in right aj1 antecubital area, using aseptic technique. Blood collected. 23:45 CT Head Brain wo Cont In Process Unspecified. EDMS 23:53 XRAY Chest (1 view) In Process Unspecified. EDMS 08/10 00:38 UDS Sent. cr4 02:15 Notified ED physician of other patient wants IV out and is ready to leave. cr4 02:31 IV discontinued, intact, bleeding controlled, No redness/swelling at site. cr4 02:33 Basic Metabolic Panel Sent. cr4 02:33 CBC with Diff Sent. cr4 Administered Medications: No medications were administered Outcome: 02:23 Discharge ordered by . 7 02:31 Discharged to home ambulatory. cr4 02:31 Condition: good 02:31 Discharge instructions given to patient, Instructed on discharge instructions, follow up and referral plans. Demonstrated understanding of instructions, follow-up care. 02:32 Patient left the ED. cr4 Signatures: Dispatcher [employer] EDFrancy Lenz RN RN aj1 Lashell Gates Claudia, RN RN cr4 Lucie Sauceda RN RN vg1 Og Ramos MD MD mh7 Corrections: (The following items were deleted from the chart) 08/09 21:42 21:34 Chief complaint: Patient states: Had a sudden onset of shakes and numbness in vg1 entire body; patient states fell onto floor with LOC for about 4 minutes. vg1
[2020-08-10 02:47] VITALS: O2SAT 99
[2020-08-10 02:51] VITALS: BP 107/60; TEMP 97.6
--- NOTE | 2020-08-10 08:28 | RAD REPORT ---
EXAM DESCRIPTION: RAD - Chest Single View - 08/09/2020 11:53 pm CLINICAL HISTORY: diziness, syncope COMPARISON: August 2018 imaging studies TECHNIQUE: AP portable chest image was obtained 08/09/2020 11:53 pm . FINDINGS: Lungs are clear. Heart and vasculature are normal. No measurable pleural effusion and no p neumothorax. No acute bony abnormality seen. No acute aortic findings suspected. IMPRESSION: No acute cardiopulmonary process.
--- NOTE | 2020-08-10 21:31 | RAD REPORT ---
EXAM DESCRIPTION: CT - Head Brain Wo Cont - 08/10/2020 6:37 am CLINICAL HISTORY: 45 years Male TRAUMA TECHNIQUE: Contiguous axial CT images obtained through the brain without IV contrast. Coronal and sa gittal reformatted images also provided. This CT exam was performed according to our departmental dose-optimization program, which includes on e or more of the following dose reduction techniques: automated exposure control, adjustment of the m A and/or kV according to patient size, and/or use of iterative reconstruction technique. COMPARISON: No prior exams provided for comparison. FINDINGS: There is no acute skull fracture, intracranial hemorrhage, extra-axial collection, or acut e transcortical infarction. The ventricles are normal in size and contour without mass effect or midl ine shift. The visualized paranasal sinuses, tympanomastoid cavities, and orbits are normal. IMPRESSION: No acute intracranial injury. Electronically signed by: Thuy Natarajan MD 08/09/2020 11:53 PM CDT Due to temporary technical issues with the PACS/Fluency reporting system, reports are being signed by the in house radiologists without review as a courtesy to insure prompt reporting. The interpreting radiologist is fully responsible for the content of the report.
== END 2020-08-10 02:32 | disposition home or self-care (01) ==
LOC: ER 21:30
DX: S00.83XA Contusion of other part of head, initial encounter (principal); F12.10 Cannabis abuse, uncomplicated; W19.XXXA Unspecified fall, initial encounter; Y93.01 Activity, walking, marching and hiking
CPT/HCPCS: 36415; 70450; 71045; 80048; 80076; 80307; 83735; 83880; 84484; 85025; 85610; 93005; 99284